=== PATIENT | female | born 1940 | race Caucasian/White ===

== ENCOUNTER 2016-10-20 09:08 | Outpatient (CLI) ==
[2015-01-10 11:26] VITALS: BMI 28.0
[2016-10-20 09:36] LABS: BILIRUBIN,URINE Negative (NEGATIVE); KETONES,URINE Negative (NEGATIVE); LEUKOCYTE ESTERASE ,URINE Negative (NEGATIVE); NITRITE,URINE Negative (NEGATIVE); PH,URINE 5.5 (5-9); PROTEIN,URINE Negative (NEGATIVE); URINE, BLOOD Trace-lysed (NEGATIVE)
[2016-10-20 09:37] LABS: ADD URINE MICROSCOPIC YES
[2016-10-20 10:11] LABS: ALBUMIN 3.7 g/dL (3.4-5.0); ANION GAP 11.9; BUN/CREATININE RATIO 25.16; CALCIUM 9.5 mg/dL (8.2-10.2); CREATININE 1.51 mg/dL (0.60-1.30); MAGNESIUM 2.2 mg/dL (1.7-2.2); PHOSPHORUS 3.4 mg/dL (2.8-4.1); POTASSIUM 3.9 mmol/L (3.5-5.10); URIC ACID 6.3 mg/dL (2.4-6.0)
[2016-10-21 09:37] LABS: URINE CREATINE 51.5 mg/dL (Not Estab.)
== END 2016-10-20 09:09 | disposition home or self-care (01) ==
LOC: LAB 09:08
PROVIDERS: ATTEND Internal Medicine Nephrology
DX: N18.3 Chronic kidney disease, stage 3 (moderate) (principal); I10 Essential (primary) hypertension
CPT/HCPCS: 36415; 80069; 81001; 82306; 82570; 83735; 83970; 84156; 84550

== ENCOUNTER 2017-01-21 09:56 | Inpatient (IN) | payer OTHER ==
[2017-01-21 10:04] VITALS: BMI 28.9
[2017-01-21] MEDS ORDERED: SODIUM CHLORIDE 500 ML IV STA (10:10)
[2017-01-21] MEDS ORDERED: NITROSTAT SL PRN ×2 (10:10→12:13)
[2017-01-21] MEDS ORDERED: ASPIRIN EC PO STA (10:10)
[2017-01-21 10:34] LABS: BASOPHILS % (AUTO) 0.6 % (0.0-3.0); EOSINOPHILS # (AUTO) 0.1 K/ul (0.0-0.7); EOSINOPHILS % (AUTO) 1.8 % (0.0-7.0); HEMATOCRIT 34.9 % (37.0-47.0); IMMATURE GRANULOCYTE % (AUTO) 0.4 % (0.0-5.0); LYMPHOCYTES # (AUTO) 0.8 K/uL (0.60-3.4); LYMPHOCYTES % (AUTO) 16.6 (10.0-50.0); MEAN CORPUSCULAR HEMOGLOBIN 29.4 pg (27.0-31.0); MEAN CORPUSCULAR HGB CONC 34.4 (31.8-35.4); MEAN CORPUSCULAR VOLUME 85.5 fl (81.0-99.0); MONOCYTES # (AUTO) 0.3 K/uL (0.4-2.0); MONOCYTES % (AUTO) 5.3 (0-10); NEUTROPHILS # (AUTO) 3.8 K/ul (2.0-6.9); NEUTROPHILS % (AUTO) 75.3; PLATELET COUNT 245 10^3/uL (140-440); RED BLOOD COUNT 4.08 10^6/ul (4.20-5.40); WHITE BLOOD COUNT 5.05 K/ul (4.6-10.2)
[2017-01-21 10:59] LABS: ALANINE AMINOTRANSFERASE 13 U/L (12-78); ALBUMIN/GLOBULIN RATIO 1.18; ALKALINE PHOSPHATASE 77 U/L (53-141); AMYLASE 30 U/L (25-115); ASPARTATE AMINO TRANSFERASE 12 U/L (15-37); BILIRUBIN,TOTAL 0.34 mg/dL (0.00-1.20); BLOOD UREA NITROGEN 27 mg/dL (7-18); CALCIUM 10.1 mg/dL (8.2-10.2); CARBON DIOXIDE 23 mmol/L (23-31); CHLORIDE 105 mmol/L (98-107); CREATINE KINASE 52 U/L; CREATININE 1.73 mg/dL (0.60-1.30); GLUCOSE 148 mg/dL (82-115); LIPASE 12 U/L (8-78); SODIUM 140 mmol/L (136-145); TOTAL PROTEIN 7.4 g/dL (5.8-8.1)
--- NOTE | 2017-01-21 11:04 | DI ---
Exam: Chest one-view HISTORY: Dyspnea. Comparison: 01/10/2015. FINDINGS: Portable image of the chest demonstrates low inspiratory volumes with no evidence of pneu monia or edema. The cardiac silhouette is mildly enlarged. The thoracic aorta is partially calcifie d. Calcified granulomata are again noted. There are surgical clips over the left axilla as before. The skeletal structures appear intact. IMPRESSION: No acute cardiopulmonary disease. Atherosclerosis and evidence of prior granulomatosis. Cardiomegaly. Prior left mastectomy and left axillary dissection.
[2017-01-21] MEDS ORDERED: NITROSTAT SL STA (12:01)
--- NOTE | 2017-01-21 12:07 | ED.PDOC ---
General ED Provider: Dr. OLGA LIDIA RAZA-ER Chief Complaint: Chest Pain Stated Complaint: my chst has been hurting since last nite Time Seen by Physician: 10:10 Mode of Arrival: Walk-In Information Source: Patient, Family Exam Limitations: No limitations Primary Care Provider: NIKKO RODRIGUEZ Nursing and Triage Documentation Reviewed and Agree: Yes Cardiovascular Complaint Exam - Chest Pain Complaint/Exam Onset: Gradual Duration: several hours Symptoms Are: Still present Timing: Constant Initial Severity: Mild Current Severity: Moderate Location: Reports: Diffuse Character: Reports: Dull, Aching Aggravating: Reports: None Alleviating: Reports: Nitro Associated Signs and Symptoms: Reports: Short of air. Denies: Diaphoresis, Nausea, Vomiting, Fever, Palpitations, Cough, Hemoptysis, Back pain, Abdominal pain, Dizziness, Calf pain, Calf swelling Related Surgical History: Reports: None History of Healthcare-Acquired Pneumonia: Reports: No AMI/ACS Risk Factors: Reports: Obesity, Hypertension TAD Risk Factors: Reports: Hypertension Prior Care for this Complaint: No Recent Stress Test: No Recent Echo/LV Function: No JVD Present: No Subcutaneous Emphysema Present: No Diminshed Breath Sounds: Yes Reproducible Chest Wall Pain: No Bilateral Pulses Present: No Unequal Pulses Noted: No If Risk Factors for AMI/ACS Consider: EKG, Cardiac Enzymes, Oxygen, Aspirin Differential Diagnoses: Acute CO, ACS Quality Indicator For Non-Traumatic Chest Pain/Syncope: EKG Performed Review of Systems - Review Of Systems Constitutional: Reports: No symptoms Eyes: Reports: No symptoms Ears, Nose, Mouth, Throat: Reports: No symptoms Respiratory: Reports: No symptoms Cardiac: Reports: Chest pain GI: Reports: No symptoms : Reports: No symptoms Musculoskeletal: Reports: No symptoms Skin: Reports: No symptoms Neurological: Reports: No symptoms Endocrine: Reports: No symptoms Hematologic/Lymphatic: Reports: No symptoms All Other Systems: Reviewed and Negative Past Medical History - Past Medical History Previously Healthy: Yes Endocrine: Reports: Unknown Cardiovascular: Reports: Unknown Respiratory: Reports: Unknown Hematological: Reports: Unknown Gastrointestinal: Reports: Unknown Genitourinary: Reports: Unknown Neuro/Psych: Reports: Unknown Musculoskeletal: Reports: Unknown Cancer: Reports: Unknown Last Menstrual Period: NA - Surgical History General Surgical History: Reports: Unknown - Family History Family History: Reports: Unknown - Social History Smoking Status: Never smoker Hx Substance Use: No Alcohol Screening: None Lives: With family Physical Exam - Physical Exam Appearance: Well-appearing, No pain distress, Well-nourished Pain Distress: Mild Eyes: MARTÍNEZ, EOMI, Conjunctiva clear ENT: Ears normal, Nose normal, Oropharynx normal Neck: Supple Respiratory: Airway patent, Breath sounds clear, Breath sounds equal, Respirations nonlabored Cardiovascular: RRR GI/: Soft, Nontender, No masses, Bowel sounds normal, No Organomegaly Musculoskeletal: Normal strength, ROM intact, No edema, No calf tenderness Skin: Warm, Dry, Normal color Neurological: Sensation intact, Motor intact, Reflexes intact, Cranial nerves intact, Alert, Oriented Psychiatric: Affect appropriate, Mood appropriate, Anxious Interpretation - Radiology Interpretation Radiology Interpretation By: Radiologist Radiology Results: Negative Exam Interpreted: Portable CXR - EKG Interpretation Time of EKG #1: 12:08 Rate: Normal Rhythm: Sinus Ectopy: None [place]: NL ST Segment: Normal Re-Evaluation - Re-Evaluation Time of Re-Evaluation: 12:08 Status: Improved Vital Signs Stable: Yes Pain Level: 0 Appearance: NAD Lungs: Clear Skin: Warm and Dry Neuro: Alert and Oriented X3 CV: RRR Physician Notification - Case Discussed Physician Notified: dr rodriguez Time of Notification: 12:08 Critical Care Note - Critical Care Note Total Time (mins): 0 Course - Course Hematology/Chemistry: 01/21/17 10:20 01/21/17 10:20 Orders, Labs, Meds: Lab Review 01/21/17 10:20 WBC 5.05 RBC 4.08 L Hgb 12.0 Hct 34.9 L MCV 85.5 MCH 29.4 MCHC 34.4 RDW Coeff of Trinity 13.0 Plt Count 245 Immature Gran % (Auto) 0.4 Neut % (Auto) 75.3 Lymph % (Auto) 16.6 [place] % (Auto) 5.3 Eos % (Auto) 1.8 Baso % (Auto) 0.6 Immature Gran # (Auto) 0.0 Neut # 3.8 Lymph # 0.8 [place] # 0.3 L Eos # 0.1 Baso # 0.0 D-Dimer (Manual) 848.13 Sodium 140 Potassium 4.0 Chloride 105 Carbon Dioxide 23 Anion Gap 16.0 BUN 27 H Creatinine 1.73 H Estimated GFR (MDRD) 28.00 BUN/Creatinine Ratio 15.60 Glucose 148 H Calcium 10.1 Total Bilirubin 0.34 AST 12 L ALT 13 Alkaline Phosphatase 77 Total Creatine Kinase 52 Troponin I < 0.0100 Total Protein 7.4 Albumin 4.0 Globulin 3.4 Albumin/Globulin Ratio 1.18 Amylase 30 Lipase 12 Orders Category Date Time Status ADMIT PATIENT INPATIENT .TO SCU (MONITORED BED) ADMISSION 01/21/17 12:09 Active EKG-(ED ONLY) Stat CARDIO 01/21/17 10:08 Completed EKG-(IP & OP ONLY) DAILY CARDIO 01/22/17 06:00 Ordered EKG-(IP & OP ONLY) DAILY CARDIO 01/23/17 06:00 Ordered EKG-(IP & OP ONLY) DAILY CARDIO 01/24/17 06:00 Ordered OXYGEN Routine CARDIO 01/21/17 12:10 Active ACCUCHECK (MED/SURG, SCU) [BLOOD GLUCOSE MONITORING] CARE 01/21/17 12:13 Active 0630,1100,1700,2100 ACTIVITY .BR with BRP CARE 01/21/17 12:09 Active GIVE HS SNACK 2100 CARE 01/21/17 12:12 Active INTAKE & OUTPUT Q8HR CARE 01/21/17 12:09 Active TELEMETRY MONITORING TELE CARE 01/21/17 12:09 Active VITAL SIGNS Q4HR CARE 01/21/17 12:09 Active ADA 2000 RADHA DIET DIETARY 01/21/17 Dinner Ordered HS SNACK DIETARY 01/21/17 Dinner Ordered Remelt Operator [ED SUPERVISOR PHOTOSTAT APPLIED] .ONCE EMERGENCY 01/21/17 10:09 Active IV [ED IV/MEDIPORT/POWERPORT] .ONCE EMERGENCY 01/21/17 10:09 Active OXYGEN [ED APPLY O2] .ONCE EMERGENCY 01/21/17 10:09 Active AMYLASE Stat LAB 01/21/17 10:20 Completed CBC W/ AUTO DIFF DAILY@0600 LAB 01/22/17 06:00 Ordered CBC W/ AUTO DIFF DAILY@0600 LAB 01/23/17 06:00 Ordered CBC W/ AUTO DIFF DAILY@0600 LAB 01/24/17 06:00 Ordered CBC W/ AUTO DIFF DAILY@0600 LAB 01/25/17 06:00 Ordered CBC W/ AUTO DIFF DAILY@0600 LAB 01/26/17 06:00 Ordered CBC W/ AUTO DIFF DAILY@0600 LAB 01/27/17 06:00 Ordered CBC W/ AUTO DIFF DAILY@0600 LAB 01/28/17 06:00 Ordered CBC W/ AUTO DIFF DAILY@0600 LAB 01/29/17 06:00 Ordered CBC W/ AUTO DIFF DAILY@0600 LAB 01/30/17 06:00 Ordered CBC W/ AUTO DIFF DAILY@0600 LAB 01/31/17 06:00 Ordered CBC W/ AUTO DIFF DAILY@0600 LAB 02/01/17 06:00 Ordered CBC W/ AUTO DIFF DAILY@0600 LAB 02/02/17 06:00 Ordered CBC W/ AUTO DIFF DAILY@0600 LAB 02/03/17 06:00 Ordered CBC W/ AUTO DIFF DAILY@0600 LAB 02/04/17 06:00 Ordered CBC W/ AUTO DIFF DAILY@0600 LAB 02/05/17 06:00 Ordered CBC W/ AUTO DIFF DAILY@0600 LAB 02/06/17 06:00 Ordered CBC W/ AUTO DIFF DAILY@0600 LAB 02/07/17 06:00 Ordered CBC W/ AUTO DIFF DAILY@0600 LAB 02/08/17 06:00 Ordered CBC W/ AUTO DIFF DAILY@0600 LAB 02/09/17 06:00 Ordered CBC W/ AUTO DIFF DAILY@0600 LAB 02/10/17 06:00 Ordered CBC W/ AUTO DIFF [facility] LAB 01/21/17 10:20 Completed COMPREHENSIVE METABOLIC PANEL DAILY@0600 LAB 01/22/17 06:00 Ordered COMPREHENSIVE METABOLIC PANEL DAILY@0600 LAB 01/23/17 06:00 Ordered COMPREHENSIVE METABOLIC PANEL DAILY@0600 LAB 01/24/17 06:00 Ordered COMPREHENSIVE METABOLIC PANEL DAILY@0600 LAB 01/25/17 06:00 Ordered COMPREHENSIVE METABOLIC PANEL DAILY@0600 LAB 01/26/17 06:00 Ordered COMPREHENSIVE METABOLIC PANEL DAILY@0600 LAB 01/27/17 06:00 Ordered COMPREHENSIVE METABOLIC PANEL DAILY@0600 LAB 01/28/17 06:00 Ordered COMPREHENSIVE METABOLIC PANEL DAILY@0600 LAB 01/29/17 06:00 Ordered COMPREHENSIVE METABOLIC PANEL DAILY@0600 LAB 01/30/17 06:00 Ordered COMPREHENSIVE METABOLIC PANEL DAILY@0600 LAB 01/31/17 06:00 Ordered COMPREHENSIVE METABOLIC PANEL DAILY@0600 LAB 02/01/17 06:00 Ordered COMPREHENSIVE METABOLIC PANEL DAILY@0600 LAB 02/02/17 06:00 Ordered COMPREHENSIVE METABOLIC PANEL DAILY@0600 LAB 02/03/17 06:00 Ordered COMPREHENSIVE METABOLIC PANEL DAILY@0600 LAB 02/04/17 06:00 Ordered COMPREHENSIVE METABOLIC PANEL DAILY@0600 LAB 02/05/17 06:00 Ordered COMPREHENSIVE METABOLIC PANEL DAILY@0600 LAB 02/06/17 06:00 Ordered COMPREHENSIVE METABOLIC PANEL DAILY@0600 LAB 02/07/17 06:00 Ordered COMPREHENSIVE METABOLIC PANEL DAILY@0600 LAB 02/08/17 06:00 Ordered COMPREHENSIVE METABOLIC PANEL DAILY@0600 LAB 02/09/17 06:00 Ordered COMPREHENSIVE METABOLIC PANEL DAILY@0600 LAB 02/10/17 06:00 Ordered COMPREHENSIVE METABOLIC PANEL Stat LAB 01/21/17 10:20 Completed CREATINE KINASE Q8H LAB 01/21/17 18:15 Ordered CREATINE KINASE Q8H LAB 01/22/17 02:15 Ordered CREATINE KINASE Stat LAB 01/21/17 10:20 Completed D-DIMER Stat LAB 01/21/17 10:20 Completed LIPASE Stat LAB 01/21/17 10:20 Completed TROPONIN I Q8H LAB 01/21/17 18:15 Ordered TROPONIN I Q8H LAB 01/22/17 02:15 Ordered TROPONIN I Stat LAB 01/21/17 10:20 Completed 0.9 % Sodium Chloride [Saline Flush] MEDS 01/21/17 10:09 Active 1 syr IVF PRN PRN Alprazolam [Xanax] MEDS 01/21/17 12:10 Active 0.25 mg PO DAILY PRN Anastrozole [Arimidex] MEDS 01/22/17 09:00 Active 1 mg PO DAILY Aspirin [Aspirin EC] MEDS 01/21/17 10:10 Discontinued 325 mg PO ONCE STA Cyanocobalamin (Vitamin B-12) [B-12] MEDS 01/22/17 09:00 Discontinued 1,000 mg PO DAILY Enoxaparin Sodium [Lovenox] MEDS 01/22/17 09:00 Active 30 mg SUBCUT DAILY Ferrous Sulfate MEDS 01/22/17 09:00 Discontinued 324 mg PO DAILY Gabapentin [Neurontin] MEDS 01/21/17 15:00 Discontinued 100 mg PO TID Insulin Regular, Human [Humulin R] MEDS 01/21/17 12:12 Active See Protocol SUBCUT PRN PRN Latanoprost [Xalatan] MEDS 01/21/17 21:00 Active 1 drop OP BEDTIME Nitroglycerin [Nitrostat] MEDS 01/21/17 12:01 Discontinued 0.4 mg SL ONCE STA Nitroglycerin [Nitrostat] MEDS 01/21/17 10:10 Active 0.4 mg SL Q5MIN X 3 DOSES PRN Pantoprazole Sodium [Protonix] MEDS 01/22/17 06:30 Active 40 mg PO QDAC Sitagliptin Phosphate [Januvia] MEDS 01/22/17 09:00 Active 25 mg PO DAILY Sodium Chloride 0.9% [Sodium Chloride] 500 ml MEDS 01/21/17 10:10 Discontinued IV 30 mls/hr RESUSCITATION STATUS Routine OTHERS 01/21/17 12:09 Ordered CXR [CHEST, 1V AP ONLY] Stat RADS 01/21/17 10:11 Completed Medications Generic Name Dose Route Start Last Admin Trade Name Freq PRN Reason Stop Dose Admin Albuterol/Ipratropium 1 spray 01/21/17 14:07 Combivent Respimat Inhal [place] IH TID PRN wheezing/SOA Alprazolam 0.25 mg 01/21/17 12:10 Xanax PO DAILY PRN Anxiety Anastrozole 1 mg 01/22/17 09:00 Arimidex PO DAILY ABEL Enoxaparin Sodium 30 mg 01/22/17 09:00 Lovenox SUBCUT DAILY [facility] Ferrous Sulfate 324 mg 01/21/17 21:00 Ferrous Sulfate PO 2100 ABEL Gabapentin 100 mg 01/22/17 09:00 Neurontin PO DAILY ABEL Hydrochlorothiazide 25 mg 01/22/17 09:00 Hydrochlorothiazide PO DAILY ABEL Sodium Chloride 1,000 mls @ 30 mls/hr 01/21/17 15:30 01/21/17 15:26 Sodium Chloride IV 30 mls/hr .[id number] ABEL Administration Insulin Human Regular 0 unit 01/21/17 12:12 Humulin R SUBCUT PRN PRN Hyperglycemica Protocol Latanoprost 1 drop 01/21/17 21:00 Xalatan OP BEDTIME ABEL Lisinopril 20 mg 01/22/17 09:00 Zestril PO DAILY ABEL Nitroglycerin 0.4 mg 01/21/17 10:10 Nitrostat SL Q5MIN X 3 DOSES PRN Chest Pain Non-Formulary Medication 1,000 mg 01/21/17 21:00 Cyanocobalamin (Vitamin B-12) [B-12] PO 2100 ABEL Pantoprazole Sodium 40 mg 01/22/17 06:30 Protonix PO QDAC ABEL Fluticasone/Salmeterol 1 puff 01/21/17 15:00 01/21/17 15:14 Advair 250-50 Diskus IH 1 puff BID ABEL Administration Sitagliptin Phosphate 25 mg 01/22/17 09:00 Januvia PO DAILY ABEL Sodium Chloride 1 syr 01/21/17 10:09 Saline Flush IVF PRN PRN To flush IV Discontinued Medications Generic Name Dose Route Start Last Admin Trade Name Freq PRN Reason Stop Dose Admin Albuterol/Ipratropium 1 spray 01/21/17 15:00 Combivent Respimat Inhal [place] IH TID ABEL Aspirin 325 mg 01/21/17 10:10 01/21/17 10:31 Aspirin Ec PO 01/21/17 10:11 325 mg ONCE STA Administration Ferrous Sulfate 324 mg 01/22/17 09:00 Ferrous Sulfate PO DAILY [facility] Gabapentin 100 mg 01/21/17 15:00 01/21/17 15:31 Neurontin PO Not Given TID [facility] Sodium Chloride 500 mls @ 30 mls/hr 01/21/17 10:10 01/21/17 15:31 Sodium Chloride IV 01/22/17 02:49 Not Given .[id number] STA Nitroglycerin 0.4 mg 01/21/17 12:01 01/21/17 12:09 Nitrostat SL 01/21/17 12:02 0.4 mg ONCE STA Administration Non-Formulary Medication 1,000 mg 01/22/17 09:00 Cyanocobalamin (Vitamin B-12) [B-12] PO DAILY ABEL Fluticasone/Salmeterol 1 puff 01/21/17 21:00 Advair 250-50 Diskus IH BID ABEL Vital Signs: Temp Pulse Resp BP Pulse Ox 01/21/17 09:59 98.0 F 70 20 146/77 H 98 KELLY Risk Score KELLY Risk Score: Risk Score Odds of by 30D 0 0.1 (0.1-0.2) 1 0.3 (0.2-0.3) 2 0.4 (0.3-0.5) 3 0.7 (0.6-0.9) 4 1.2 (1.0-1.5) 5 2.2 (1.9-2.6) 6 3.0 (2.5-3.6) 7 4.8 (3.8-6.1) Departure - Departure Time of Disposition: 12:08 Disposition: ADMITTED INPATIENT Discharge Problem: Chest pain Condition: Stable Pt referred to PMD for follow-up: Yes Allergies/Adverse Reactions: Allergies No Known Allergies Allergy (Unverified 01/21/17 09:58) Home Medications: Ambulatory Orders Alprazolam [Xanax] 0.25 mg PO DAILY PRN 08/11/13 Anastrozole 1 mg PO DAILY 08/11/13 Cyanocobalamin (Vitamin B-12) [B-12] 1,000 mg PO DAILY 08/11/13 Ferrous Fumarate [Iron] 325 mg PO DAILY 08/11/13 Ipratropium/Albuterol Sulfate [Combivent Inhaler] 1 puff INH TID PRN 08/11/13 Fluticasone/Salmeterol 250/50 [Advair 250-50 Diskus] 1 puff IH BID 01/10/15 Sitagliptin Phosphate [Januvia] 25 mg PO DAILY #30 tablet 01/11/15 Gabapentin 100 mg PO DAILY 01/21/17 Latanoprost [Xalatan] 1 drop OP BEDTIME 01/21/17 Lisinopril 20 mg PO DAILY 01/21/17 Pantoprazole Sodium [Protonix] 40 mg PO DAILY 01/21/17 Transfer Form Completed: No Disposition Discussed With: Patient, Family
[2017-01-21] MEDS ORDERED: XANAX PO PRN (12:10)
[2017-01-21] MEDS ORDERED: HUMULIN R SUBCUT PRN (12:12)
[2017-01-21] MEDS ORDERED: SODIUM CHLORIDE 1,000 ML IV STA (14:52)
[2017-01-21] MEDS ORDERED: NEURONTIN PO SCH (15:00)
[2017-01-21] MEDS ORDERED: COMBIVENT RESPIMAT INHAL SPRAY IH SCH (15:00)
[2017-01-21] MEDS ORDERED: IPRATROPIUM INH SCH ×22 (15:00)
[2017-01-21] MEDS ORDERED: ALBUTEROL SULFATE INH SCH ×22 (15:00)
[2017-01-21] MEDS: ADVAIR 250-50 DISKUS IH SCH ×2 (15:14→20:21)
[2017-01-21] MEDS ORDERED: SODIUM CHLORIDE 1,000 ML IV SCH (15:30)
[2017-01-21 19:12] LABS: CREATINE KINASE 52 U/L
[2017-01-21] MEDS: FERROUS SULFATE PO SCH (20:21)
[2017-01-21] MEDS: CYANOCOBALAMIN 1000 MG PO SCH (20:22)
[2017-01-21] MEDS: XALATAN OP SCH (20:22)
[2017-01-21] MEDS ORDERED: ADVAIR 250-50 DISKUS IH SCH (21:00)
[2017-01-22 02:13] LABS: BASOPHILS % (AUTO) 0.5 % (0.0-3.0); EOSINOPHILS # (AUTO) 0.1 K/ul (0.0-0.7); EOSINOPHILS % (AUTO) 2.4 % (0.0-7.0); HEMATOCRIT 30.1 % (37.0-47.0); HEMOGLOBIN 10.6 g/dl (12.0-16.0); IMMATURE GRANULOCYTE % (AUTO) 0.4 % (0.0-5.0); LYMPHOCYTES # (AUTO) 1.8 K/uL (0.60-3.4); LYMPHOCYTES % (AUTO) 33.5 (10.0-50.0); MEAN CORPUSCULAR HEMOGLOBIN 30.5 pg (27.0-31.0); MEAN CORPUSCULAR HGB CONC 35.2 (31.8-35.4); MEAN CORPUSCULAR VOLUME 86.5 fl (81.0-99.0); MONOCYTES # (AUTO) 0.4 K/uL (0.4-2.0); MONOCYTES % (AUTO) 6.8 (0-10); NEUTROPHILS # (AUTO) 3.1 K/ul (2.0-6.9); NEUTROPHILS % (AUTO) 56.4; PLATELET COUNT 206 10^3/uL (140-440); RED BLOOD COUNT 3.48 10^6/ul (4.20-5.40); WHITE BLOOD COUNT 5.46 K/ul (4.6-10.2)
[2017-01-22 02:32] LABS: ALBUMIN 3.7 g/dL (3.4-5.0); ALBUMIN/GLOBULIN RATIO 1.28; ANION GAP 14.3; BILIRUBIN,TOTAL 0.25 mg/dL (0.00-1.20); BUN/CREATININE RATIO 16.2; CALCIUM 9.7 mg/dL (8.2-10.2); CREATININE 1.79 mg/dL (0.60-1.30); POTASSIUM 4.3 mmol/L (3.5-5.10); TOTAL PROTEIN 6.6 g/dL (5.8-8.1)
[2017-01-22 02:40] LABS: TROPONIN I 0.021 ng/ml (0.0000-0.4000)
[2017-01-22] MEDS: PROTONIX PO SCH (05:41)
[2017-01-22] MEDS: NEURONTIN PO SCH (08:42)
[2017-01-22] MEDS: ZESTRIL PO SCH (08:42)
[2017-01-22] MEDS: LOVENOX SUBCUT SCH (08:42)
[2017-01-22] MEDS: JANUVIA PO SCH (08:43)
[2017-01-22] MEDS: ARIMIDEX PO SCH (08:45)
[2017-01-22] MEDS: ADVAIR 250-50 DISKUS IH SCH ×2 (08:53→21:12)
[2017-01-22] MEDS ORDERED: FERROUS SULFATE PO SCH (09:00)
[2017-01-22] MEDS ORDERED: FERROUS FUMARATE 325 MG PO SCH (09:00)
[2017-01-22] MEDS ORDERED: LISINOPRIL PO SCH (09:00)
[2017-01-22] MEDS ORDERED: NON-FORMULARY MEDICATION (Sitagliptin Phosphate [Januvia] 25 MG) PO SCH (09:00)
[2017-01-22] MEDS ORDERED: HYDROCHLOROTHIAZIDE PO SCH ×2 (09:00)
[2017-01-22] MEDS ORDERED: ADVAIR 250-50 DISKUS IH SCH (09:00)
[2017-01-22] MEDS ORDERED: CYANOCOBALAMIN 1000 MG PO SCH (09:00)
[2017-01-22] MEDS ORDERED: [UNRECOGNIZED DRUG - OTHER] PO SCH (09:00)
--- NOTE | 2017-01-22 10:52 | PCM.PROG ---
Attending Provider: ATTENDING PROVIDER: Dr. NIKKO LAM DATE OF SERVICE: 01/22/17 SUBJECTIVE: This 76 year old WHITE/ F was hospitalized 01/21/17. The patient is seen with Li, Nurse Practitoner. The patient is admitted with chest pain. She is alert, lying in bed, states she has not had any chest pain. REVIEW OF SYSTEMS: CONSTITUTIONAL: No night sweats. No fatigue, malaise, lethargy. No fever or chills. HEENT: Eyes: No visual changes. No eye pain. No eye discharge. ENT: No runny nose. No epistaxis. No sinus pain. No odynophagia. No congestion. RESPIRATORY: No cough, no congestion. No hemoptysis. CARDIOVASCULAR: No angina symptoms. No CHF symptoms. No atypical chest pain for CAD. No palpitations. No shortness of breath. GASTROINTESTINAL: No abdominal pain. No nausea or vomiting. No diarrhea or constipation. No hematemesis. No hematochezia. GENITOURINARY: No urgency. No frequency. No dysuria. No hematuria. No obstructive symptoms. No discharge. No pain. No significant abnormal bleeding. MUSCULOSKELETAL: No musculoskeletal pain; no joint swelling. NEUROLOGICAL: Awake, alert, oriented to time, place and person. No headache. No neck pain. No syncope. No seizures. No dizziness. PSYCHIATRIC: Not anxious. No depression. No suicidal thoughts. No homicidal thoughts. SKIN: No rash. No lesions. No wounds. ENDOCRINE: No unexplained weight loss. No weight gain. HEMATOLOGIC/LYMPHATIC: No anemia. No purpura. No petechiae. No prolonged or excessive bleeding. No palpable lymph nodes. PHYSICAL EXAMINATION: GENERAL: The patient is awake, alert and oriented, lying in bed in no distress. VITAL SIGNS: Temperature 98.1 F, Pulse 57, Respiratory Rate 18, BP 147/64, Pulse Ox 99% HEENT: Head normocephalic, atraumatic. Eyes: Extraocular muscles are intact. Pupils are equal, round and reactive to light and accommodation. Ears: No lesions. Nose appeared normal. Throat: No exudate or erythema. NECK: Supple. No JVD, no carotid bruit. No lymphadenopathy or thyromegaly. LUNGS: Diminished breath sounds bilaterally. Clear to auscultation. Percussion note normal. Chest symmetrical. HEART: S1, S2, no S3. No murmurs. No cyanosis or clubbing. No ascites. Pulses: Dorsalis pedis and posterior tibial pulses +1 to +2 both sides. ABDOMEN: Soft. Non-tender. Bowel sounds active. No CVA tenderness. No mass felt. EXTREMITIES: No edema. Full range of motion of all extremities, equal. NEUROLOGIC: No focal deficit. Cranial nerves II through XII are grossly intact. No headache, no double vision or headache. SKIN: Not dry. Intact. Turgor-normal. LYMPHATIC: No palpable lymph nodes/no lymphedema. MUSCULOSKELETAL: Normal joints with no swelling. Muscle tone is normal. LAB REVIEW: 01/22/17 02:10 01/22/17 02:10 01/22/17 02:10: WBC 5.46, RBC 3.48 L, Hgb 10.6 L, Hct 30.1 L, MCV 86.5, MCH 30.5 , MCHC 35.2, RDW Coeff of Trinity 13.0, Plt Count 206, Immature Gran % (Auto) 0.4, Neut % (Auto) 56.4, Lymph % (Auto) 33.5, [place] % (Auto) 6.8, Eos % (Auto) 2.4, Baso % (Auto) 0.5, Immature Gran # (Auto) 0.0, Neut # 3.1, Lymph # 1.8, [place] # 0.4, Eos # 0.1, Baso # 0.0, Sodium 141, Potassium 4.3, Chloride 107, Carbon Dioxide 24, Anion Gap 14.3, BUN 29 H, Creatinine 1.79 H, Estimated GFR (MDRD) 27.00, BUN/Creatinine Ratio 16.20, Glucose 130 H, Calcium 9.7, Total Bilirubin 0.25, AST 10 L, ALT 10 L, Alkaline Phosphatase 66, Total Creatine Kinase 52, Troponin I 0.0210, Total Protein 6.6, Albumin 3.7, Globulin 2.9, Albumin/ Globulin Ratio 1.28 01/21/17 18:45: Total Creatine Kinase 52, Troponin I < 0.0100 ASSESSMENT: 1. Chest pain 2. Hypertension 3. Diabetes mellitus Type 2 4. Chronic kidney disease 5. Right nephrectomy 10/2013 PLAN: 1. Continue to monitor 2. Echocardiogram 3. Stress echocardiogram Plan and coordination of the patient's care discussed in the presence of Drying Machine Tender and nurse. CONDITION: Stable SCRIBED BY: AYDIN RODRIGUEZ Title Specialist scribed while in presence of service performed by Dr. NIKKO LAM/LI CORONADO APRN on 01/22/17 ([id number])
[2017-01-22] MEDS: COMBIVENT RESPIMAT INHAL SPRAY IH PRN ×2 (12:37→18:11)
--- NOTE | 2017-01-22 13:29 | PN ---
DATE OF SERVICE: 01/21/17 - ADMITTING NOTE SUBJECTIVE: Patrica Benavides was brought to the emergency room with complaint of having chest pain of nearly a couple of days duration. The patient had chest tightness , exertional but had some associated shortness of breath with it. No sweating. The chest tightness would come and go. The patient says with walking or exertion there is no predictable chest tightness. Daughter was present in the room at the time. REVIEW OF SYSTEMS: CONSTITUTIONAL: No night sweats. No fatigue, malaise, lethargy. No fever or chills. HEENT: Eyes: No visual changes. No eye pain. No eye discharge. ENT: No runny nose. No epistaxis. No sinus pain. No sore throat. No odynophagia. No congestion. RESPIRATORY: No cough, no congestion. No hemoptysis. CARDIOVASCULAR: No angina symptoms. No CHF symptoms. No atypical chest pain for CAD. No palpitations. No shortness of breath. GASTROINTESTINAL: No GERD type of symptoms. No abdominal pain. No nausea or vomiting. No diarrhea or constipation. No hematemesis. No hematochezia. GENITOURINARY: No urgency. No frequency. No dysuria. No hematuria. No obstructive symptoms. No discharge. No pain. No significant abnormal bleeding. MUSCULOSKELETAL: No musculoskeletal pain; no joint swelling. NEUROLOGICAL: No headache. No neck pain. No syncope. No seizures. No dizziness. PSYCHIATRIC: Not anxious. No depression. No suicidal thoughts. No homicidal thoughts. SKIN: No rash. No lesions. No wounds. ENDOCRINE: No unexplained weight loss. No weight gain. HEMATOLOGIC/LYMPHATIC: No anemia. No purpura. No petechiae. No prolonged or excessive bleeding. No palpable lymph nodes. PHYSICAL EXAMINATION: VITAL SIGNS: Temperature 97.9, pulse 55, BP 173/75, respiratory rate 15. Height 5'2", weight 154 lbs. HEENT: Head normocephalic, atraumatic. Eyes: Extraocular muscles are intact. Pupils are equal, round and reactive to light and accommodation. Ears: No lesions. Nose appeared normal. Throat: No exudate or erythema. NECK: Supple. No JVP, no carotid bruit. No lymphadenopathy or thyromegaly. LUNGS: Clear to auscultation. Percussion note normal. Chest symmetrical. HEART: S1, S2, no S3. No murmurs. No cyanosis or clubbing. No ascites. Pulses: Dorsalis pedis and posterior tibial pulses +1 to +2 both sides. ABDOMEN: Soft. Nontender. Bowel sounds active. No CVA tenderness. No mass felt. EXTREMITIES: No edema. Full range of motion of all extremities, equal. NEUROLOGIC: No focal deficit. Cranial nerves II through XII are grossly intact. No headache, no double vision or headache. SKIN: Not dry. Intact. Turgor - normal. LYMPHATIC: No palpable lymph nodes/no lymphedema. MUSCULOSKELETAL: Normal joints with no swelling. Muscle tone is normal. EKG sinus rhythm, no acute changes. The patient's cardiac markers are negative. ASSESSMENT: 1. CHEST TIGHTNESS/CHEST PAIN, RULE OUT TX OR ISCHEMIA. THE PATIENT HAS SEVERAL RISK FACTORS FOR CORONARY ARTERY DISEASE. WILL MONITOR CARDIAC RHYTHM AND WILL DO ECHOCARDIOGRAM AND DOBUTAMINE STRESS ECHO ON THE MORNING. CONDITION: Stable. The patient was seen and examined in the presence of Nurse Practitioner. TIME SPENT: More than 30 minutes. Plan and coordination of the patient's care discussed in the presence of nurse. YFN
[2017-01-22] MEDS: FLUOROMETHOLONE EACHEYE SCH (16:23)
[2017-01-22] MEDS: FERROUS SULFATE PO SCH (21:12)
[2017-01-22] MEDS: XALATAN OP SCH (21:12)
[2017-01-22] MEDS: CYANOCOBALAMIN 1000 MG PO SCH (21:12)
[2017-01-23 04:36] LABS: BASOPHILS % (AUTO) 0.7 % (0.0-3.0); EOSINOPHILS # (AUTO) 0.2 K/ul (0.0-0.7); EOSINOPHILS % (AUTO) 2.8 % (0.0-7.0); HEMATOCRIT 30.8 % (37.0-47.0); HEMOGLOBIN 10.7 g/dl (12.0-16.0); IMMATURE GRANULOCYTE % (AUTO) 0.2 % (0.0-5.0); LYMPHOCYTES # (AUTO) 1.7 K/uL (0.60-3.4); LYMPHOCYTES % (AUTO) 30.6 (10.0-50.0); MEAN CORPUSCULAR HGB CONC 34.7 (31.8-35.4); MEAN CORPUSCULAR VOLUME 86.3 fl (81.0-99.0); MONOCYTES # (AUTO) 0.4 K/uL (0.4-2.0); MONOCYTES % (AUTO) 6.6 (0-10); NEUTROPHILS # (AUTO) 3.2 K/ul (2.0-6.9); NEUTROPHILS % (AUTO) 59.1; PLATELET COUNT 205 10^3/uL (140-440); RED BLOOD COUNT 3.57 10^6/ul (4.20-5.40); WHITE BLOOD COUNT 5.42 K/ul (4.6-10.2)
[2017-01-23 05:05] LABS: ALBUMIN 3.7 g/dL (3.4-5.0); ALBUMIN/GLOBULIN RATIO 1.23; ANION GAP 17.3; BILIRUBIN,TOTAL 0.26 mg/dL (0.00-1.20); BUN/CREATININE RATIO 22.15; CALCIUM 9.8 mg/dL (8.2-10.2); CREATININE 1.67 mg/dL (0.60-1.30); POTASSIUM 4.3 mmol/L (3.5-5.10); TOTAL PROTEIN 6.7 g/dL (5.8-8.1)
[2017-01-23 05:34] VITALS: BP 142/67; TEMP 98
[2017-01-23] MEDS: PROTONIX PO SCH (06:07)
[2017-01-23] MEDS: ADVAIR 250-50 DISKUS IH SCH (09:31)
[2017-01-23] MEDS: ARIMIDEX PO SCH (09:33)
[2017-01-23] MEDS: NEURONTIN PO SCH (09:33)
[2017-01-23] MEDS: JANUVIA PO SCH (09:33)
[2017-01-23] MEDS: ZESTRIL PO SCH (09:34)
[2017-01-23] MEDS: FLUOROMETHOLONE EACHEYE SCH (09:35)
[2017-01-23] MEDS: LOVENOX SUBCUT SCH (09:37)
--- NOTE | 2017-01-25 09:38 | STRESSMOD ---
Ordering Physician: NIKKO LAM, Date of Test: 01/22/17 Medical History: CHEST PAIN, HYPERTENSION Current Medications: XANAX, COMBIVENT, IRON, ADVAIR, JANUVIA, XALATAN, GABAPENTIN, LISINOPRIL, PROTONIX Physical Findings: S1, S2, NO S3 Resting EKG: SINUS RHYTHM/LVH Target Heart Rate: 120/142 STAGE MPH/GRADE HEART RATE BPM BLOOD PRESSURE mmhg RHYTHM S-T SEGMENT UP DOWN SYMPTOMS,COMMENTS At Rest 65 102/60 SR X NONE 1 1.7/0% 110 110/50 SR X NONE 2 1.7/5% 3 1.7/10% 4 2.5/12% 5 3.4/14% 6 4.2/16% 7 5.18% Immediately after 126 SR X FATIGUE Total Time: 5:00 Maximum Heart Rate Reached: 126 Reason For Termination: FATIGUE 3 MINUTES POST EXERCISE: HR 68 BPM, BP 118/72 MMHG, SR, +/- INTERPRETATION: 98% OXYGEN SATURATION WITH EXERCISE ON ROOM AIR 1. NO EVIDENCE OF ISCHEMIA BY ST-T WAVE CHANGES 2. NO CHEST PAIN OR CHEST DISCOMFORT 3. NORMAL BLOOD PRESSURE RESPONSE 4. NO ARRHYTHMIAS NORMAL LEFT VENTRICULAR CONTRACTILITY--RESTING AND POST EXERCISE MTDD
--- NOTE | 2017-01-25 09:40 | ECHOSTRESS ---
Date of Exam: 01/22/17 Ordering Physician: NIKKO LAM Reason for Echo: CHEST PAIN, HYPERTENSION, GERD STRESS TEST--NO ISCHEMIA M-Mode Normal Adult Results LV Dimensions Normal Adult Results AoV Opening excursions >1.6 LVEDD-base- 3.5-5.8 Ao root dimensions 2.0-3.7 LVESD-base- 3.1-4.6 L. Atrium dimensions 1.9-3.8 Post. Wall thickness 0.8-1.1 IV septum (thickness) 0.7-1.2 Post. Wall excursion 0.72-1.3 Septal motion Systolic motion R. Ventricular cavity 1.5-2.0 LVEF 60% Paradoxical septal wall motion 2-D: NORMAL LEFT VENTRICULAR CONTRACTILITY--RESTING AND POST EXERCISE M-MODE: MV: AV: TV: PV: CHAMBER SIZE: WALL MOTION: NORMAL LEFT VENTRICULAR CONTRACTILITY--RESTING AND POST EXERCISE PERICARDIUM: INTERPRETATION: 1. NORMAL LEFT VENTRICULAR CONTRACTILITY--RESTING AND POST EXERCISE MTDD
--- NOTE | 2017-01-25 10:01 | ECHO2D ---
Date of Exam: 01/22/17 Ordering Physician: NIKKO LAM Reason for Echo: CHEST PAIN, HTN, GERD M-Mode Normal Adult Results LV Dimensions Normal Adult Results AoV Opening excursions >1.6 >1.6 LVEDD-base- 3.5-5.8 3.4 Ao root dimensions 2.0-3.7 3.2 LVESD-base- 3.1-4.6 L. Atrium dimensions 1.9-3.8 5.0 Post. Wall thickness 0.8-1.1 1.1 IV septum (thickness) 0.7-1.2 1.0 Post. Wall excursion 0.72-1.3 NORMAL Septal motion NORMAL Systolic motion R. Ventricular cavity 1.5-2.0 NORMAL LVEF 60% 63% Paradoxical septal wall motion NORMAL 2-D : VALVES--NORMAL, ENLARGED LEFT ATRIAL CAVITY--NO EFFUSION, NORMAL LEFT VENTRICLE SIZE, NO THROMBUS M-MODE: MV: NORMAL AV: NORMAL TV: NORMAL PV: CHAMBER SIZE: ENLARGED LEFT ATRIAL CAVITY WALL MOTION: NORMAL PERICARDIUM: NORMAL INTERPRETATION: 1. ENLARGED LEFT ATRIAL CAVITY 2. NORMAL VALVES 3. NORMAL LEFT VENTRICULAR CONTRACTILITY MTDD
--- NOTE | 2017-01-25 15:15 | HP ---
DATE OF SERVICE: 01/21/17 REASON FOR HOSPITALIZATION: Chest pain HISTORY OF PRESENT ILLNESS: The patient is a 76 year old white female brought by the family to the emergency room with complaint of shortness of breath and chest pain duration a couple of day and also several hours. The patient's chest pain was substernal tightness unrelated to exertion. REVIEW OF SYSTEMS: CONSTITUTIONAL: No night sweats. Weakness and fatigue lately. No fever or chills. HEENT: Eyes: No visual changes. No eye pain. No eye discharge. ENT: No runny nose. No epistaxis. No sinus pain. No sore throat. No odynophagia. No ear pain. No congestion. RESPIRATORY: No cough, no congestion. No hemoptysis. CARDIOVASCULAR: No angina symptoms. No CHF symptoms. No atypical chest pain for CAD. No palpitations. No shortness of breath. Chest tightness nonexertional. No PND. No orthopnea. GASTROINTESTINAL: No abdominal pain. No nausea or vomiting. No diarrhea or constipation. No hematemesis. No hematochezia. No reflux symptoms. GENITOURINARY: No urgency. No frequency. No dysuria. No hematuria. No obstructive symptoms. No discharge. No pain. No significant abnormal bleeding. MUSCULOSKELETAL: No musculoskeletal pain. No joint swelling. No arthritis. NEUROLOGICAL: No headache. No neck pain. No syncope. No seizures. No dizziness. PSYCHIATRIC: Not anxious. No depression. No suicidal thoughts. No homicidal thoughts. SKIN: No rash. No lesions. No wounds. ENDOCRINE: No unexplained weight loss. No weight gain. HEMATOLOGIC/LYMPHATIC: No anemia. No purpura. No petechiae. No prolonged or excessive bleeding. No palpable lymph nodes. PERSONAL/FAMILY/SOCIAL HISTORY: The patient is and lives with the help of daughter. Non-smoker and no alcohol abuse. Does all activity of daily living. Independent and intelligent. PAST MEDICAL/SURGICAL PROBLEMS: Hemicolectomy 2006 Diabetes Mellitus with A1c 6.1 on July 2016 Hypertension Dyslipidemia Severe DJD of Spine History of breast cancer with left mastectomy CKD level [address] Canales Chronic lung disease with asthma Gastroesophageal reflux disease Chronic anemia Renal cell carcinoma with nephrectomy on the right side, 11/08 MEDICATIONS: Xanax 0.25mg PO daily Anastrozole 1mg PO daily Vitamin B12 PO daily Ferrous Sulfate 325mg PO daily Combivent inhaler PRN Lisinopril. Hydrochlorothiazide 20-25 PO daily Januvia 25mg PO daily Gabapentin 100mg PO three times a day Pantoprazole 40mg PO daily Advair ALLERGIES: No known allergies. PHYSICAL EXAMINATION: GENERAL: The patient is oriented to time, place and person. VITAL SIGNS: Temperature 98, pulse 70, respiratory rate 20, blood pressure 146/ 77 and pulse ox 98%. HEENT: Head normocephalic, atraumatic. Eyes: Extraocular muscles are intact. Pupils are equal, round and reactive to light and accommodation. Ears: No lesions. Nose appeared normal. Throat: No exudate or erythema. NECK: Supple. No JVD, no carotid bruit. No lymphadenopathy or thyromegaly. LUNGS: Clear to auscultation. Percussion note normal. Chest symmetrical. HEART: S1, S2, no S3. No murmurs. No cyanosis or clubbing. No ascites. Pulses: Dorsalis pedis and posterior tibial pulses +1 to +2 both sides. ABDOMEN: Soft. Nontender. Bowel sounds active. No CVA tenderness. No mass felt. EXTREMITIES: No edema. Full range of motion of all extremities, equal. NEUROLOGIC: No focal deficit. Cranial nerves II through XII are grossly intact. No headache, no double vision or headache. SKIN: Not dry. Intact. Turgor - normal. LYMPHATIC: No palpable lymph nodes/no lymphedema. MUSCULOSKELETAL: Normal joints with no swelling. Muscle tone is normal.Left mastectomy scar noted. LABS: Potassium 4, creatinine 1.7, BUN 27, cardiac markers are negative, CK-MB negative, hgb 12, hct 34, WBC 5,000 normal differential. EKG sinus rhythm, LVH by voltage, no acute changes. ASSESSMENT: 1. Chest pain/chest tightness, etiology unknown factors; Hypertension, Diabetes mellitus, Chronic kidney disease and sedentary life style. 2. C of the breast, left mastectomy and had right nephrectomy with renal cell carcinoma 3. Bronchial asthma 4. Severe DJD of the spine PLAN: 1. Will rule out MD or ischemia 2. Will do serial EKG's, cardiac enzymes and isoenzymes 3. Telemetry 4. Will do echocardiogram, resting 2D-M Mode 5. Will do stress echo or Dobutamine stress echo 6. Education carried out about coronary insufficiency and the symptoms CONDITION: Stable The patient's daughter in the room explained about all these findings. TIME SPENT: More than 70 minutes. YFN
--- NOTE | 2017-01-25 15:17 | PN ---
DATE OF SERVICE: 01/22/17 SUBJECTIVE: The patient is a 76 year old white female hospitalized with chest pain. The patient's so far the cardiac workup with negative with serial cardiac markers and serial EKG's. The patient doesn't have any chest pain. PHYSICAL EXAMINATION: HEENT: Head normocephalic, atraumatic. Eyes: Extraocular muscles are intact. Pupils are equal, round and reactive to light and accommodation. Ears: No lesions. Nose appeared normal. Throat: No exudate or erythema. NECK: Supple. No JVD, no carotid bruit. No lymphadenopathy or thyromegaly. LUNGS: Clear to auscultation. Percussion note normal. Chest symmetrical. HEART: S1, S2, no S3. No murmurs. No cyanosis or clubbing. No ascites. Pulses: Dorsalis pedis and posterior tibial pulses +1 to +2 both sides. ABDOMEN: Soft. Nontender. Bowel sounds active. No CVA tenderness. No mass felt. EXTREMITIES: No edema. Full range of motion of all extremities, equal. NEUROLOGIC: No focal deficit. Cranial nerves II through XII are grossly intact. No headache, no double vision or headache. SKIN: Not dry. Intact. Turgor - normal. LYMPHATIC: No palpable lymph nodes/no lymphedema. MUSCULOSKELETAL: Normal joints with no swelling. Muscle tone is normal. PLAN: 1. Will do echo and stress echo this afternoon if negative the patient could be discharged CONDITION: Stable. TIME SPENT: More than 30 minutes. Plan and coordination of the patient's care discussed in the presence of nurse. YFN
--- NOTE | 2017-01-25 15:21 | PN ---
DATE OF SERVICE: 01/23/17 SUBJECTIVE: The patient is a 76 year old white female hospitalized with chest pain. The patient was worked up for chest pain with serial EKG's, cardiac markers, Echo, stress echo. The patient's workup is negative for ischemia. REVIEW OF SYSTEMS: CONSTITUTIONAL: No night sweats. No fatigue, malaise, lethargy. No fever or chills. HEENT: Eyes: No visual changes. No eye pain. No eye discharge. ENT: No runny nose. No epistaxis. No sinus pain. No sore throat. No odynophagia. No congestion. RESPIRATORY: No cough, no congestion. No hemoptysis. CARDIOVASCULAR: No angina symptoms. No CHF symptoms. No atypical chest pain for CAD. No palpitations. No shortness of breath.No PND. No Orthopnea. GASTROINTESTINAL: No abdominal pain. No nausea or vomiting. No diarrhea or constipation. No hematemesis. No hematochezia. GENITOURINARY: No urgency. No frequency. No dysuria. No hematuria. No obstructive symptoms. No discharge. No pain. No significant abnormal bleeding. MUSCULOSKELETAL: No musculoskeletal pain; no joint swelling. NEUROLOGICAL: No headache. No neck pain. No syncope. No seizures. No dizziness. PSYCHIATRIC: Not anxious. No depression. No suicidal thoughts. No homicidal thoughts. SKIN: No rash. No lesions. No wounds. ENDOCRINE: No unexplained weight loss. No weight gain. HEMATOLOGIC/LYMPHATIC: No anemia. No purpura. No petechiae. No prolonged or excessive bleeding. No palpable lymph nodes. PHYSICAL EXAMINATION: GENERAL: The patient is oriented to time, place and person. VITAL SIGNS: Temperature 98, pulse 53, respiratory rate 16, blood pressure 142/ 67 and pulse ox 98%. HEENT: Head normocephalic, atraumatic. Eyes: Extraocular muscles are intact. Pupils are equal, round and reactive to light and accommodation. Ears: No lesions. Nose appeared normal. Throat: No exudate or erythema. NECK: Supple. No JVD, no carotid bruit. No lymphadenopathy or thyromegaly. LUNGS: Decreased breath sounds but clear to auscultation. Percussion note normal. Chest symmetrical. HEART: S1, S2, no S3. No murmurs. No cyanosis or clubbing. No ascites. Pulses: Dorsalis pedis and posterior tibial pulses +1 to +2 both sides. ABDOMEN: Soft. Nontender. Bowel sounds active. No CVA tenderness. No mass felt. EXTREMITIES: No edema. Full range of motion of all extremities, equal. NEUROLOGIC: No focal deficit. Cranial nerves II through XII are grossly intact. No headache, no double vision or headache. SKIN: Not dry. Intact. Turgor - normal. LYMPHATIC: No palpable lymph nodes/no lymphedema. MUSCULOSKELETAL: Normal joints with no swelling. Muscle tone is normal. LABS: Hgb 10.7, hct 30.8, WBC 5,400 normal differential, creatinine 1.6, BUN 37, potassium 4.3 ASSESSMENT: 1. Chest pain, seems to be non-cardiac with negative workup as mentioned above. The patient also had telemetry with sinus rhythm and no ST-T wave change of any significance. PLAN: 1. The patient is going to be discharged home to be seen in five days. 2. Continue the same medications. TIME SPENT: More than 30 minutes. Plan and coordination of the patient's care discussed in the presence of nurse. YFN
--- NOTE | 2017-01-25 15:36 | DS ---
DATE OF SERVICE: 01/23/17 FINAL DIAGNOSIS: 1. Chest pain, etiology noncardiac 2. Diabetes Mellitus 3. Hypertension 4. Dyslipidemia 5. Right Nephrectomy with renal cell carcinoma 6. History of left mastectomy with C of the breast 7. Generalized anxiety disorder 8. Bronchial asthma 9. 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 This was discharged to be see as an outpatient in 4-5 days. The patient's was present in the room at the time. Continue all home medications. MEDICATIONS AT DISCHARGE: Xanax Anastrozole Ferrous Sulfate Combivent inhaler Advair Januvia Gabapentin Xalatan Lisinopril Pantoprazole NEW PRESCRIPTIONS: None DIET INSTRUCTIONS: As tolerated ACTIVITY: Get plenty of rest and increase activity as tolerated. SMOKING: Non-smoker DISEASE SPECIFIC EDUCATION: Appointment Medication HOSPITAL COURSE: The patient is a 76 year old white female hospitalized with chest pain which was equivocal for coronary insufficiency. The patient had serial EKG's, cardiac markers, echo, stress echo and telemetry. There was no evidence of ischemia. The patient has been up and about and the patient has a lot of anxiety related to family problems. The patient's cardiovascular status was stable at time of discharge. TIME SPENT: More than [address] [facility]
--- NOTE | 2017-01-25 15:37 | PN ---
01/21/17: Level 5 01/22/17: Intermediate 01/23/17: D as in discharge MTDD
== END 2017-01-23 09:50 | disposition home or self-care (01) | DRG 313 ==
LOC: ED 09:56 → MEDSURG B 12:22
PROVIDERS: ADMIT Internal Medicine; ATTEND Internal Medicine
DX: R07.89 Other chest pain (principal); I10 Essential (primary) hypertension; I51.7 Cardiomegaly; E78.5 Hyperlipidemia, unspecified; F41.1 Generalized anxiety disorder; J45.909 Unspecified asthma, uncomplicated; G62.9 Polyneuropathy, unspecified; I12.9 Hypertensive chronic kidney disease with stage 1 through stage 4 chronic kidney disease, or unspecified chronic kidney disease; E11.22 Type 2 diabetes mellitus with diabetic chronic kidney disease; N18.3 Chronic kidney disease, stage 3 (moderate); R06.02 Shortness of breath; Z63.9 Problem related to primary support group, unspecified; Z79.84 Long term (current) use of oral hypoglycemic drugs; Z79.899 Other long term (current) drug therapy; Z85.528 Personal history of other malignant neoplasm of kidney; Z90.5 Acquired absence of kidney; Z85.3 Personal history of malignant neoplasm of breast; Z90.12 Acquired absence of left breast and nipple
CPT/HCPCS: 36415; 80053; 82150; 82550; 82962; 83690; 84484; 85025; 85379; 93005; 93010; 99223; 99232; 99239; 99284

== ENCOUNTER 2017-03-29 16:00 | Emergency (ER) ==
[2017-03-29 16:04] VITALS: BP 184/76; TEMP 99.1; BMI 28.7
--- NOTE | 2017-03-29 16:16 | ED.PDOC ---
General ED Provider: Dr. MARIE HARRIS Chief Complaint: Palpitations Stated Complaint: Intermittent irregular heart beat, rapid at times but no faster than 85 BPM, onset 2 days ago in AM, resolved by noon, recurred yesterday and lasted all day. Still present today and noted BP much higher than usual. Heart rate in mid-80s which is about 20 higher than usual. Since arrival in ED, heart rate has become more regular and slower, but doesn't "feel quite right." No chest or other pain, no SOB, no weakness or lightheadedness. Time Seen by Physician: 16:17 Mode of Arrival: Walk-In Information Source: Patient Exam Limitations: No limitations Primary Care Provider: NIKKO LAM Nursing and Triage Documentation Reviewed and Agree: Yes Cardiovascular Complaint Exam - Palpitations Complaint/Exam Symptoms Are: Resolved (occassional extra beat but otherwise normal) Timing: Intermittent Initial Severity: Mild Current Severity: Mild Character: Reports: Fast, Irregular, Pounding Aggravating: Reports: Exertion Alleviating: Reports: Rest Cardiac Risk Factors: Reports: Diabetes. Denies: Smoking Review of Systems - Review Of Systems Constitutional: Reports: No symptoms Respiratory: Reports: No symptoms. Denies: Short of air Cardiac: Reports: Irregular heart rate, Palpitations. Denies: Chest pain, Edema GI: Reports: No symptoms : Reports: No symptoms Musculoskeletal: Reports: No symptoms Skin: Reports: No symptoms Neurological: Reports: No symptoms All Other Systems: Reviewed and Negative Past Medical History - Past Medical History Previously Healthy: Yes Endocrine: Reports: None, Dyslipidemia Cardiovascular: Reports: None, Hypertension Respiratory: Reports: Asthma Hematological: Reports: None Gastrointestinal: Reports: GERD Genitourinary: Reports: None Neuro/Psych: Reports: None Musculoskeletal: Reports: None Cancer: Reports: Breast, Other (kidney cancer - resolved by excision. Breast cancer - resolved by mastectomy) Last Menstrual Period: n/a Other Pertinent Past Medical History: Glaucoma - Surgical History General Surgical History: Reports: Other (mastectomy, unilateral nephrectomy) - Family History Family History: Reports: Unknown - Social History Smoking Status: Never smoker Hx Substance Use: No Alcohol Screening: None Lives: With family - Immunizations Tetanus Shot up to Date: No Influenza Vaccine within 12 Months: No Pneumococcal Vaccine up to Date: No Physical Exam - Physical Exam Appearance: Well-appearing, No pain distress, Well-nourished, Obese Ill-appearing: None Pain Distress: None Eyes: MARTÍNEZ, EOMI, Conjunctiva clear ENT: Ears normal, Nose normal, Oropharynx normal Neck: Supple Respiratory: Airway patent, Breath sounds clear, Breath sounds equal, Respirations nonlabored Cardiovascular: RRR (occasional extra beat, PACs on playground monitor), Pulses normal, No rub, No murmur GI/: Soft, Nontender, No masses, Bowel sounds normal, No Organomegaly Musculoskeletal: Normal strength, ROM intact, No edema, No calf tenderness Skin: Warm, Dry, Normal color Neurological: Sensation intact, Motor intact, Reflexes intact, Cranial nerves intact, Alert, Oriented Psychiatric: Affect appropriate, Mood appropriate Interpretation - Radiology Interpretation Radiology Interpretation By: Radiologist Radiology Results: Negative Exam Interpreted: CXR - EKG Interpretation Time of EKG #1: 16:32 Rate: Normal Rhythm: Sinus Ectopy: None [place]: NL ST Segment: Normal Interpretation: possible inferior wall VA, age undetermined Critical Care Note - Critical Care Note Total Time (mins): 0 Course - Course Hematology/Chemistry: 03/29/17 16:30 03/29/17 16:30 Orders, Labs, Meds: Lab Review 03/29/17 03/29/17 03/29/17 16:30 16:30 16:47 WBC 8.54 RBC 3.73 L Hgb 11.1 L Hct 32.4 L MCV 86.9 MCH 29.8 MCHC 34.3 RDW Coeff of [place] 13.8 Plt Count 250 Immature Gran % (Auto) 0.6 Neut % (Auto) 85.1 Lymph % (Auto) 10.1 [place] % (Auto) 4.0 Eos % (Auto) 0.0 Baso % (Auto) 0.2 Immature Gran # (Auto) 0.1 Neut # 7.3 H Lymph # 0.9 [place] # 0.3 L Eos # 0.0 Baso # 0.0 Sodium 138 Potassium 4.5 Chloride 108 H Carbon Dioxide 23 Anion Gap 11.5 BUN 30 H Creatinine 1.71 H Estimated GFR (MDRD) 29.00 BUN/Creatinine Ratio 17.54 Glucose 262 H Calcium 9.3 Total Bilirubin 0.18 AST 10 L ALT 15 Alkaline Phosphatase 65 Total Creatine Kinase 34 Troponin I < 0.0100 Total Protein 6.6 Albumin 3.6 Globulin 3.0 Albumin/Globulin Ratio 1.20 Urine Color Yellow Urine Clarity Clear Urine pH 5.5 Ur Specific [place] <=1.005 Urine Protein Negative Urine Glucose (UA) 1+ Urine Ketones Negative Urine Blood Trace-lysed Urine Nitrite Negative Urine Bilirubin Negative Urine Urobilinogen 0.2 Ur Leukocyte Esterase Negative Urine Microscopic RBC 0-2 Ur Squamous Epith Cells 0-2 Orders Category Date Time Status EKG-(ED ONLY) Stat CARDIO 03/29/17 16:24 Completed CBC W/ AUTO DIFF Stat LAB 03/29/17 16:30 Completed COMPREHENSIVE METABOLIC PANEL Stat LAB 03/29/17 16:30 Completed CREATINE KINASE Stat LAB 03/29/17 16:30 Completed TROPONIN I Stat LAB 03/29/17 16:30 Completed URINALYSIS C & S IF INDICATED Stat LAB 03/29/17 16:47 Completed CHEST, 2 VIEWS PA & LAT Stat RADS 03/29/17 16:24 Completed Vital Signs: Temp Pulse Resp BP Pulse Ox 03/29/17 16:01 99.1 F 84 16 184/76 H 98 AMI Core - Clinical Trial Participant Clinical Trial Participant: No - Palliative Care Palliative Care: none - Aspirin Reason for not ordering Aspirin: not indicated - Statins Reason for not ordering Statins: not indicated - Fibrinolytic Reason for not ordering Fibrinolytic: not indicated - EKG Initial Interpretation EKG Initial Interpretation Date: 03/29/17 (NSR, possible old IWMI) KELLY Risk Score Age >/= 65: Yes KELLY Total Score: 1 KELLY Risk Score: Risk Score Odds of by 30D 0 0.1 (0.1-0.2) 1 0.3 (0.2-0.3) 2 0.4 (0.3-0.5) 3 0.7 (0.6-0.9) 4 1.2 (1.0-1.5) 5 2.2 (1.9-2.6) 6 3.0 (2.5-3.6) 7 4.8 (3.8-6.1) Departure - Departure Time of Disposition: 17:27 Disposition: HOME SELF-CARE Discharge Problem: Cardiac arrhythmia Qualifiers: Atrial fibrillation type: unspecified Instructions: Palpitations (ED) Condition: Good Pt referred to PMD for follow-up: Yes (Follow up with doctor this week) Allergies/Adverse Reactions: Allergies No Known Allergies Allergy (Verified 03/29/17 16:12) Home Medications: Ambulatory Orders Alprazolam [Xanax] 0.25 mg PO DAILY PRN 08/11/13 Anastrozole 1 mg PO DAILY 08/11/13 Cyanocobalamin (Vitamin B-12) [B-12] 1,000 mg PO DAILY 08/11/13 Ferrous Fumarate [Iron] 325 mg PO DAILY 08/11/13 Ipratropium/Albuterol Sulfate [Combivent Inhaler] 1 puff INH TID PRN 08/11/13 Fluticasone/Salmeterol 250/50 [Advair 250-50 Diskus] 1 puff IH BID 01/10/15 Sitagliptin Phosphate [Januvia] 25 mg PO DAILY #30 tablet 01/11/15 Gabapentin 100 mg PO TID 01/21/17 Latanoprost [Xalatan] 1 drop OP BEDTIME 01/21/17 Lisinopril 20 mg PO DAILY 01/21/17 Pantoprazole Sodium [Protonix] 40 mg PO DAILY 01/21/17 Fluorometholone [Fml] 1 drop EACHEYE BID 01/22/17 Cholecalciferol (Vitamin D3) [Vitamin D] 1,000 unit PO DAILY 03/29/17 Disposition Discussed With: Patient, Family
[2017-03-29 16:43] LABS: BASOPHILS % (AUTO) 0.2 % (0.0-3.0); HEMATOCRIT 32.4 % (37.0-47.0); HEMOGLOBIN 11.1 g/dl (12.0-16.0); IMMATURE GRANULOCYTE % (AUTO) 0.6 % (0.0-5.0); LYMPHOCYTES # (AUTO) 0.9 K/uL (0.60-3.4); LYMPHOCYTES % (AUTO) 10.1 (10.0-50.0); MEAN CORPUSCULAR HEMOGLOBIN 29.8 pg (27.0-31.0); MEAN CORPUSCULAR HGB CONC 34.3 (31.8-35.4); MEAN CORPUSCULAR VOLUME 86.9 fl (81.0-99.0); MONOCYTES # (AUTO) 0.3 K/uL (0.4-2.0); NEUTROPHILS # (AUTO) 7.3 K/ul (2.0-6.9); NEUTROPHILS % (AUTO) 85.1; PLATELET COUNT 250 10^3/uL (140-440); RED BLOOD COUNT 3.73 10^6/ul (4.20-5.40); WHITE BLOOD COUNT 8.54 K/ul (4.6-10.2)
[2017-03-29 16:59] LABS: BILIRUBIN,URINE Negative (NEGATIVE); KETONES,URINE Negative (NEGATIVE); LEUKOCYTE ESTERASE ,URINE Negative (NEGATIVE); NITRITE,URINE Negative (NEGATIVE); PH,URINE 5.5 (5-9); PROTEIN,URINE Negative (NEGATIVE); URINE, BLOOD Trace-lysed (NEGATIVE)
--- NOTE | 2017-03-29 17:00 | DI ---
EXAM: CHEST FRONTAL AND LATERAL VIEWS HISTORY: New onset irregular heart beat. COMPARISON: 02/21/2017 FINDINGS: Heart size is within normal limits. Mildly elevated left hemidiaphragm appears chronic. N o acute infiltrates are seen. No vascular congestion. There is no consolidation, visible pleural fl uid or pneumothorax. Bones reveal no acute fracture. Surgical clips of the left axilla. IMPRESSION: No acute cardiopulmonary process. Normal heart size.
[2017-03-29 17:08] LABS: ALANINE AMINOTRANSFERASE 15 U/L (12-78); ALBUMIN 3.6 g/dL (3.4-5.0); ALKALINE PHOSPHATASE 65 U/L (53-141); ANION GAP 11.5; ASPARTATE AMINO TRANSFERASE 10 U/L (15-37); BILIRUBIN,TOTAL 0.18 mg/dL (0.00-1.20); BLOOD UREA NITROGEN 30 mg/dL (7-18); BUN/CREATININE RATIO 17.54; CALCIUM 9.3 mg/dL (8.2-10.2); CARBON DIOXIDE 23 mmol/L (23-31); CHLORIDE 108 mmol/L (98-107); CREATINE KINASE 34 U/L; CREATININE 1.71 mg/dL (0.60-1.30); GLUCOSE 262 mg/dL (82-115); POTASSIUM 4.5 mmol/L (3.5-5.10); SODIUM 138 mmol/L (136-145); TOTAL PROTEIN 6.6 g/dL (5.8-8.1)
[2017-03-29 17:08] LABS: ADD URINE MICROSCOPIC YES
== END 2017-03-29 17:36 | disposition home or self-care (01) ==
LOC: ED 16:00
DX: I48.91 Unspecified atrial fibrillation (principal); E11.9 Type 2 diabetes mellitus without complications; I10 Essential (primary) hypertension; E78.5 Hyperlipidemia, unspecified; Z79.899 Other long term (current) drug therapy
CPT/HCPCS: 36415; 80053; 81001; 82550; 84484; 85025; 93005; 93010; 99283

== ENCOUNTER 2017-03-31 08:40 | Outpatient (CLI) | payer OTHER | END 2017-03-31 08:41 | disposition home or self-care (01) | LOC: CAR 08:40 | PROVIDERS: ATTEND Internal Medicine | DX: R00.2 Palpitations (principal) | CPT/HCPCS: 93227 ==

== ENCOUNTER 2017-04-13 11:58 | Outpatient (CLI) | payer OTHER ==
--- NOTE | 2017-04-13 12:42 | US ---
EXAM: Bilateral carotid artery Doppler History: Dizziness. Comparison: Carotid Doppler 04/16/2014 Technique: Multiple sonographic images through the bilateral internal carotid arteries were obtained . Color duplex Doppler was used to interrogate vascular flow. Findings: The right ICA peak systolic velocity is moderately elevated measuring 1.6 meters per second. The rig ht ICA/cca PSV ratio is moderately increased at 2.5. The right vertebral artery is patent and demons trates antegrade flow. Simental scale images demonstrate no significant plaque buildup within the right internal carotid artery. The left ICA peak systolic velocity is within normal limits measuring 1.1 meters per second. The lef t ICA/cca PSV ratio is normal 1.9. The left vertebral artery is patent and demonstrates antegrade fl ow. Simental scale images demonstrate no significant plaque buildup within the left internal carotid art [place]. Both internal carotid arteries are tortuous. Findings: 1. No significant hemodynamic stenosis of the left internal carotid artery. 2. Moderately elevated peak systolic velocity within the right internal carotid artery suggesting 50 -69% hemodynamic stenosis. However there is no significant plaque buildup and the elevated velocity could be due to tortuosity. Consider correlation with CTA of the neck for clarification.
== END 2017-04-13 11:59 | disposition home or self-care (01) ==
LOC: RAD 11:58
PROVIDERS: ATTEND Internal Medicine
DX: R42 Dizziness and giddiness (principal)

== ENCOUNTER 2017-04-16 08:03 | Outpatient (CLI) ==
[2017-04-16 08:38] LABS: CREATININE 1.48 mg/dL (0.60-1.30)
--- NOTE | 2017-04-17 08:54 | MRI ---
EXAM: MRA carotids without contrast. HISTORY: Stenosis. COMPARISON: Carotid artery duplex ultrasound 04/13/2017. TECHNIQUE: 3-D [id number] MR angiography was acquired of the carotid arteries without contrast. D egree of stenosis determined by NASCET criteria. FINDINGS: There is a normal branching pattern of the great vessels from the aortic arch. There are no flow-limiting stenoses in the brachiocephalic artery or subclavian arteries. The right common carotid artery has no hemodynamically significant stenosis from the origin to the bi furcation and the right internal carotid artery has no hemodynamically significant stenoses from the origin to the skull base. The left common carotid artery has no hemodynamically significant stenoses from the origin to the bif urcation. The left internal carotid artery has no hemodynamically significant stenosis from the orig in to the skull base. The vertebral arteries are codominant. The origin and proximal right vertebral artery is tortuous an d not well seen. There is a possible mild to moderate stenosis in the proximal right vertebral arter y just beyond the origin which may be accentuated by vessel tortuosity and small size. Above this lev el, there are no flow-limiting stenoses to the posterior fossa. The left vertebral artery origin is n ot well seen and there is a possible moderate stenosis at the origin. Above this level, there are no flow-limiting stenoses from the origin to the posterior fossa. IMPRESSION: 1. No flow-limiting stenoses are present in the common carotid arteries, their bifurcations or in th e internal carotid arteries from their origins to the skull base. 2. The origins and proximal vertebral arteries bilaterally are not well seen. Above this level, the vertebral arteries have no flow-limiting stenoses to the skull base and are codominant.
== END 2017-04-16 08:04 | disposition home or self-care (01) ==
LOC: RAD 08:03
PROVIDERS: ATTEND Internal Medicine
DX: I65.21 Occlusion and stenosis of right carotid artery (principal)
CPT/HCPCS: 36415; 82565

== ENCOUNTER 2017-04-27 11:45 | Outpatient (CLI) | payer OTHER ==
[2017-04-27 12:13] LABS: HEMATOCRIT 30.2 % (37.0-47.0); HEMOGLOBIN 10.4 g/dl (12.0-16.0); MEAN CORPUSCULAR HEMOGLOBIN 30.2 pg (27.0-31.0); MEAN CORPUSCULAR HGB CONC 34.4 (31.8-35.4); MEAN CORPUSCULAR VOLUME 87.8 fl (81.0-99.0); RED BLOOD COUNT 3.44 10^6/ul (4.20-5.40); WHITE BLOOD COUNT 4.47 K/ul (4.6-10.2)
[2017-04-27 12:17] LABS: BILIRUBIN,URINE Negative (NEGATIVE); KETONES,URINE Negative (NEGATIVE); LEUKOCYTE ESTERASE ,URINE Negative (NEGATIVE); NITRITE,URINE Negative (NEGATIVE); PROTEIN,URINE Negative (NEGATIVE); URINE, BLOOD 1+ (NEGATIVE)
[2017-04-27 12:26] LABS: ADD URINE MICROSCOPIC YES
[2017-04-27 12:52] LABS: ALBUMIN 3.6 g/dL (3.4-5.0); ANION GAP 12.3; BUN/CREATININE RATIO 14.83; CALCIUM 9.4 mg/dL (8.2-10.2); CREATININE 1.55 mg/dL (0.60-1.30); PHOSPHORUS 3.1 mg/dL (2.8-4.1); POTASSIUM 4.3 mmol/L (3.5-5.10); URIC ACID 7.1 mg/dL (2.4-6.0)
[2017-04-28 08:37] LABS: URINE CREATININE 63.6 mg/dL (Not Estab.); URINE TOTAL PROTEIN 8.9 mg/dL (Not Estab.)
== END 2017-04-27 11:46 | disposition home or self-care (01) ==
LOC: LAB 11:45
PROVIDERS: ATTEND Internal Medicine Nephrology
DX: N18.3 Chronic kidney disease, stage 3 (moderate) (principal); I10 Essential (primary) hypertension
CPT/HCPCS: 36415; 80069; 81001; 82306; 82570; 83735; 83970; 84156; 84550; 85027

== ENCOUNTER 2017-07-11 11:38 | Inpatient (IN) | payer OTHER ==
--- NOTE | 2017-07-11 12:41 | ED.PDOC ---
General ED Provider: Dr. OLGA LIDIA BELTRE Chief Complaint: Shortness of Air Stated Complaint: Chest Tightness with palpitations and dyspnea. Time Seen by Physician: 12:15 Mode of Arrival: Walk-In Information Source: Patient, Family Exam Limitations: No limitations Primary Care Provider: NIKKO LAM Nursing and Triage Documentation Reviewed and Agree: Yes Reviewed sepsis parameters & appropriate labs ordered?: Yes System Inflammatory Response Syndrome: Not Applicable Sepsis Protocol: For patient's 13 years and over: Temp is 96.8 and below OR 101 and greater Pulse >90 BPM Resp >20/minute Acutely Altered Mental Status Are patient's symptoms suggestive of a new infection, such as: -Pneumonia -Skin, Soft Tissue -Endocarditis -UTI -Bone, Joint Infection -Implantable Device -Acute Abdominal Infection -Wound Infection -Meningitis -Blood Stream Catheter Infection -Unknown System Inflammatory Response Syndrome: Not Applicable Cardiovascular Complaint Exam - Chest Pain Complaint/Exam Duration: 1 hours Symptoms Are: Resolved Initial Severity: Moderate Current Severity: None Location: Reports: Midsternal Pain Radiates: Reports: Back Character: Reports: Squeezing Aggravating: Reports: None Alleviating: Reports: Rest Associated Signs and Symptoms: Reports: Fever, Palpitations, Cough, Short of air. Denies: Diaphoresis, Nausea, Vomiting, Hemoptysis Related History: Reports: Similar episode Related Surgical History: Reports: None AMI/ACS Risk Factors: Reports: None TAD Risk Factors: Reports: None Prior Care for this Complaint: Yes Recent Stress Test: No Recent Echo/LV Function: No JVD Present: No Subcutaneous Emphysema Present: No Diminshed Breath Sounds: No Reproducible Chest Wall Pain: No Bilateral Pulses Present: Yes Unequal Pulses Noted: No If Risk Factors for AMI/ACS Consider: EKG, Cardiac Enzymes, Oxygen If Risk Factors for PE Consider: Chest CT with contrast (Get Ddimer and if positive obtain CT Chest+-) Care and Dx Studies Discussed With: Family Differential Diagnoses: Chest Wall Pain, Other (afib) Review of Systems - Review Of Systems Constitutional: Reports: No symptoms Eyes: Reports: No symptoms Ears, Nose, Mouth, Throat: Reports: No symptoms Respiratory: Reports: Short of air Cardiac: Reports: Chest pain, Palpitations GI: Reports: No symptoms : Reports: No symptoms Musculoskeletal: Reports: No symptoms Skin: Reports: No symptoms Neurological: Reports: No symptoms Endocrine: Reports: No symptoms Hematologic/Lymphatic: Reports: No symptoms All Other Systems: Reviewed and Negative Past Medical History - Past Medical History Previously Healthy: Yes Endocrine: Reports: None, Dyslipidemia Cardiovascular: Reports: Hypertension Respiratory: Reports: Asthma Hematological: Reports: None Gastrointestinal: Reports: GERD Genitourinary: Reports: None Neuro/Psych: Reports: None Musculoskeletal: Reports: None Cancer: Reports: Breast, Other (kidney cancer - resolved by excision. Breast cancer - resolved by mastectomy) Last Menstrual Period: N/A Other Pertinent Past Medical History: Glaucoma - Surgical History General Surgical History: Reports: Other (mastectomy, unilateral nephrectomy) - Family History Family History: Reports: Unknown - Social History Smoking Status: Never smoker Hx Substance Use: No Alcohol Screening: None - Immunizations Tetanus Shot up to Date: No Influenza Vaccine within 12 Months: No Pneumococcal Vaccine up to Date: No Physical Exam - Physical Exam Appearance: Ill-appearing, Well-nourished Ill-appearing: Mild Pain Distress: Mild Eyes: MARTÍNEZ, EOMI ENT: Ears normal Neck: Supple Respiratory: Airway patent, Breath sounds clear, Breath sounds equal Cardiovascular: RRR, Pulses normal GI/: Soft, Nontender, No masses, Bowel sounds normal Musculoskeletal: Normal strength, ROM intact, No edema, No calf tenderness Skin: Warm, Dry, Normal color Neurological: Sensation intact, Motor intact Re-Evaluation - Re-Evaluation Time of Re-Evaluation: 15:00 Status: Improved Vital Signs Stable: Yes Appearance: NAD Lungs: Clear Skin: Warm and Dry Neuro: Alert and Oriented X3 CV: RRR Critical Care Note - Critical Care Note Total Time (mins): 0 Course - Course Hematology/Chemistry: 07/11/17 13:20 07/11/17 13:20 Orders, Labs, Meds: Lab Review 07/11/17 07/11/17 07/11/17 13:20 13:20 13:20 WBC 7.89 RBC 3.55 L Hgb 10.9 L Hct 31.6 L MCV 89.0 MCH 30.7 MCHC 34.5 RDW Coeff of Trinity 13.1 Plt Count 225 Immature Gran % (Auto) 0.4 Neut % (Auto) 74.4 Lymph % (Auto) 16.9 [place] % (Auto) 6.5 Eos % (Auto) 1.5 Baso % (Auto) 0.3 Immature Gran # (Auto) 0.0 Neut # 5.9 Lymph # 1.3 [place] # 0.5 Eos # 0.1 Baso # 0.0 D-Dimer (Manual) 889.88 Sodium 141 Potassium 3.7 Chloride 107 Carbon Dioxide 24 Anion Gap 13.7 BUN 22 H Creatinine 1.43 H Estimated GFR (MDRD) 35.00 BUN/Creatinine Ratio 15.38 Glucose 91 Calcium 9.2 Total Bilirubin 0.3 AST 14 L ALT 13 Alkaline Phosphatase 66 Troponin I < 0.0100 Total Protein 7.1 Albumin 3.6 Globulin 3.5 Albumin/Globulin Ratio 1.03 Orders Category Date Time Status ADMIT PATIENT INPATIENT .TO MEDSURG (MONITORED BED) ADMISSION 07/11/17 15: 40 Active EKG-(ED ONLY) Stat CARDIO 07/11/17 12:18 Completed INTAKE & OUTPUT Q8HR CARE 07/11/17 15:30 Active TELEMETRY MONITORING TELE CARE 07/11/17 15:42 Active VITAL SIGNS Q4HR CARE 07/11/17 15:42 Active CBC W/ AUTO DIFF Stat LAB 07/11/17 13:20 Completed CMP [COMPREHENSIVE METABOLIC PANEL] Stat LAB 07/11/17 13:20 Completed D-DIMER Stat LAB 07/11/17 13:20 Completed TROPONIN I Stat LAB 07/11/17 13:20 Completed RESUSCITATION STATUS Routine OTHERS 07/11/17 15:30 Ordered CHEST, 2 VIEWS PA & LAT Stat RADS 07/11/17 13:26 Taken Medications Generic Name Dose Route Start Last Admin Trade Name Freq PRN Reason Stop Dose Admin Alprazolam 0.25 mg 07/11/17 15:55 Xanax PO DAILY PRN Anxiety Carvedilol 6.25 mg 07/12/17 09:00 Coreg PO DAILY [facility] Cholecalciferol 1,000 unit 07/12/17 09:00 Vitamin D PO DAILY [facility] Enoxaparin Sodium 80 mg 07/11/17 16:00 07/11/17 15:54 Lovenox SUBCUT 80 mg Q12HR [facility] Administration Gabapentin 100 mg 07/11/17 21:00 Neurontin PO TID [facility] Latanoprost 1 drop 07/11/17 21:00 Xalatan OP BEDTIME [facility] Non-Formulary Medication 325 mg 07/12/17 09:00 Ferrous Fumarate [Iron] PO DAILY [facility] Non-Formulary Medication 1 drop 07/11/17 21:00 Fluorometholone [Fml] EACHEYE BID [facility] Non-Formulary Medication 1 puff 07/11/17 15:55 Ipratropium/Albuterol Sulfate [Combivent Inhaler] INH TID PRN Bronchospasm Non-Formulary Medication 20 mg 07/12/17 09:00 Lisinopril [Lisinopril] PO DAILY [facility] Pantoprazole Sodium 40 mg 07/12/17 09:00 Protonix PO DAILY [facility] Fluticasone/Salmeterol 1 puff 07/11/17 21:00 Advair 250-50 Diskus IH BID [facility] Vital Signs: Temp Pulse Resp BP Pulse Ox 07/11/17 11:39 97.8 F 64 22 185/77 H 97 KELLY Risk Score KELLY Risk Score: Risk Score Odds of by 30D 0 0.1 (0.1-0.2) 1 0.3 (0.2-0.3) 2 0.4 (0.3-0.5) 3 0.7 (0.6-0.9) 4 1.2 (1.0-1.5) 5 2.2 (1.9-2.6) 6 3.0 (2.5-3.6) 7 4.8 (3.8-6.1) Departure - Departure Time of Disposition: 15:30 Disposition: ADMITTED INPATIENT Discharge Problem: Chest pain, D-dimer, elevated, Bradycardia by electrocardiogram Condition: Fair Pt referred to PMD for follow-up: Yes IPMP verified?: No (NI) Allergies/Adverse Reactions: Allergies No Known Allergies Allergy (Verified 07/11/17 12:07) Home Medications: Ambulatory Orders Alprazolam [Xanax] 0.25 mg PO DAILY PRN 08/11/13 Cyanocobalamin (Vitamin B-12) [B-12] 1,000 mg PO DAILY 08/11/13 Ferrous Fumarate [Iron] 325 mg PO DAILY 08/11/13 Ipratropium/Albuterol Sulfate [Combivent Inhaler] 1 puff INH TID PRN 08/11/13 Fluticasone/Salmeterol 250/50 [Advair 250-50 Diskus] 1 puff IH BID 01/10/15 Sitagliptin Phosphate [Januvia] 25 mg PO DAILY #30 tablet 01/11/15 Gabapentin 100 mg PO TID 01/21/17 Latanoprost [Xalatan] 1 drop OP BEDTIME 01/21/17 Lisinopril 20 mg PO DAILY 01/21/17 Pantoprazole Sodium [Protonix] 40 mg PO DAILY 01/21/17 Fluorometholone [Fml] 1 drop EACHEYE BID 01/22/17 Cholecalciferol (Vitamin D3) [Vitamin D] 1,000 unit PO DAILY 03/29/17 Carvedilol [Coreg] 6.25 mg PO DAILY 07/11/17 Additional Comments Additional Comments: Spoke with Dr Lam and discussed patients status. Recommend admisson for further evaluation of elevated D dimer . Dr Lam agrees with admisson. Will schedule BLLE doppler flow study and VQ lung scan for tomorrow. Give Lovenox now and the bid. Explained to patient and family
[2017-07-11] MEDS ORDERED: LOVENOX ONE (15:51)
[2017-07-11] MEDS: LOVENOX SUBCUT SCH ×2 (15:54→20:44)
[2017-07-11] MEDS ORDERED: IPRATROPIUM INH PRN (15:55)
[2017-07-11] MEDS ORDERED: ALBUTEROL SULFATE INH PRN (15:55)
[2017-07-11] MEDS ORDERED: XANAX PO PRN (15:55)
--- NOTE | 2017-07-11 16:22 | DI ---
EXAM: Chest PA and lateral HISTORY: Cough and congestion. COMPARRISON: 03/29/2017. FINDINGS: The heart is normal in size. Pulmonary vascularity is within normal limits. No focal airspa ce opacity or pleural effusion is seen. Left middle lung zone calcified granuloma appears unchanged. Osseous structures are unremarkable. Operative changes of mastectomy is suggested. Left axillary lym ph node dissection is seen. IMPRESSION: No acute cardiopulmonary findings.
[2017-07-11 16:47] VITALS: BMI 13.6
[2017-07-11] MEDS ORDERED: COMBIVENT RESPIMAT INHAL SPRAY IH ONE (17:49)
[2017-07-11] MEDS: TYLENOL PO PRN (17:55)
[2017-07-11] MEDS: VASOTEC IV IVP PRN (17:55)
[2017-07-11] MEDS ORDERED: COREG ONE (19:39)
[2017-07-11] MEDS: XALATAN OP SCH (20:38)
[2017-07-11] MEDS: ADVAIR 250-50 DISKUS IH SCH (20:38)
[2017-07-11] MEDS: ZESTRIL ONE ×2 (20:40→20:43)
[2017-07-11] MEDS ORDERED: FLUOROMETHOLONE EACHEYE SCH (21:00)
[2017-07-11] MEDS ORDERED: NON-FORMULARY MEDICATION (Lisinopril [Lisinopril] 20 MG) PO SCH (21:00)
[2017-07-11] MEDS ORDERED: NEURONTIN PO SCH (21:00)
[2017-07-11] MEDS ORDERED: COREG PO SCH (21:00)
[2017-07-12] MEDS: TYLENOL PO PRN (02:08)
[2017-07-12] MEDS: VASOTEC IV IVP PRN (02:09)
[2017-07-12] MEDS ORDERED: FERROUS FUMARATE 325 MG PO SCH (09:00)
[2017-07-12] MEDS ORDERED: COREG PO SCH (09:00)
[2017-07-12] MEDS ORDERED: LOVENOX SUBCUT SCH (09:00)
[2017-07-12] MEDS ORDERED: NON-FORMULARY MEDICATION (Lisinopril [Lisinopril] 20 MG) PO SCH (09:00)
--- NOTE | 2017-07-12 11:17 | PCM.PROG ---
Attending Provider: ATTENDING PROVIDER: Dr. NIKKO LAM This patient is seen with Li Marroquin, Nurse Practitioner. DATE OF SERVICE: 07/12/17 SUBJECTIVE: This 77 year old WHITE/ F was hospitalized 07/11/17. The patient is lying in bed, alert. She is not experiencing any chest pain or shortness of breath. She does have slight cough. She has VQ scan and venous scan scheduled for today. REVIEW OF SYSTEMS: CONSTITUTIONAL: No night sweats. No fatigue, malaise, lethargy. No fever or chills. HEENT: Eyes: No visual changes. No eye pain. No eye discharge. ENT: No runny nose. No epistaxis. No sinus pain. No odynophagia. No congestion. RESPIRATORY: Cough. No congestion. No hemoptysis. No shortness of breath. CARDIOVASCULAR: No angina symptoms. No CHF symptoms. No atypical chest pain for CAD. No palpitations. No orthopnea.. GASTROINTESTINAL: No abdominal pain. No nausea or vomiting. No diarrhea or constipation. No hematemesis. No hematochezia. GENITOURINARY: No urgency. No frequency. No dysuria. No hematuria. No obstructive symptoms. No discharge. No pain. No significant abnormal bleeding. MUSCULOSKELETAL: No musculoskeletal pain; no joint swelling. NEUROLOGICAL: Awake, alert, oriented to time, place and person. No headache. No neck pain. No syncope. No seizures. No dizziness. PSYCHIATRIC: Anxious. No depression. No suicidal thoughts. No homicidal thoughts. SKIN: No rash. No lesions. No wounds. ENDOCRINE: No unexplained weight loss. No weight gain. HEMATOLOGIC/LYMPHATIC: No anemia. No purpura. No petechiae. No prolonged or excessive bleeding. No palpable lymph nodes. PHYSICAL EXAMINATION: GENERAL: The patient is awake, alert and oriented, lying/sitting in bed in no distress. VITAL SIGNS: Temperature 98.1 F, Pulse 56, Respiratory Rate 18, BP 155/72, Pulse Ox 98% HEENT: Head normocephalic, atraumatic. Eyes: Extraocular muscles are intact. Pupils are equal, round and reactive to light and accommodation. Ears: No lesions. Nose appeared normal. Throat: No exudate or erythema. NECK: Supple. No JVD, no carotid bruit. No lymphadenopathy or thyromegaly. LUNGS: Diminished breath sounds bilaterally. Percussion note normal. Chest symmetrical. HEART: S1, S2, no S3. Grade I/ murmur with a click. No ascites. Pulses: Dorsalis pedis and posterior tibial pulses +1 to +2 both sides. ABDOMEN: Soft. Non-tender. Bowel sounds active. No CVA tenderness. No mass felt. EXTREMITIES: No edema. Full range of motion of all extremities, equal. NEUROLOGIC: No focal deficit. Cranial nerves II through XII are grossly intact. No headache, no double vision or headache. SKIN: Not dry. Intact. Turgor-normal. LYMPHATIC: No palpable lymph nodes/no lymphedema. MUSCULOSKELETAL: Normal joints with no swelling. Muscle tone is normal. LAB REVIEW: 07/12/17 04:30 07/12/17 04:30 07/12/17 04:30: Sodium 142, Potassium 3.7, Chloride 108 H, Carbon Dioxide 25, Anion Gap 12.7, BUN 21 H, Creatinine 1.25, Estimated GFR (MDRD) 41.00, BUN/ Creatinine Ratio 16.80, Glucose 113, Calcium 9.3, Total Bilirubin 0.3, AST 13 L , ALT 12, Alkaline Phosphatase 61, Total Protein 6.3, Albumin 3.4, Globulin 2.9 , Albumin/Globulin Ratio 1.17 07/12/17 04:30: WBC 5.64, RBC 3.33 L, Hgb 10.1 L, Hct 29.5 L, MCV 88.6, MCH 30.3 , MCHC 34.2, RDW Coeff of Trinity 13.1, Plt Count 194, Immature Gran % (Auto) 0.4, Neut % (Auto) 61.2, Lymph % (Auto) 29.3, [place] % (Auto) 6.7, Eos % (Auto) 2.0, Baso % (Auto) 0.4, Immature Gran # (Auto) 0.0, Neut # 3.5, Lymph # 1.7, [place] # 0.4, Eos # 0.1, Baso # 0.0 ASSESSMENT: 1. ATYPICAL CHEST PAIN 2. HYPERTENSION 3. ANEMIA 4. ANXIETY PLAN: 1. Decrease Lovenox 60 mg SQ once a day 2. VQ scan today 3. Venous scan today Plan and coordination of the patient's care discussed in the presence of Social Media Campaign Manager and nurse. CONDITION: Stable SCRIBED BY: AYDIN RODRIGUEZ, Machine Lead Burner scribed while in presence of service performed by Dr. Lam/Li Marroquin APRN on 07/12/17 ([id number])
[2017-07-12] MEDS: FERROUS SULFATE PO SCH (11:30)
[2017-07-12] MEDS: TORADOL IVP SCH ×3 (11:30→21:23)
[2017-07-12] MEDS: JANUVIA PO SCH (11:30)
[2017-07-12] MEDS: COREG PO SCH ×2 (11:30→17:32)
[2017-07-12] MEDS: LOVENOX SUBCUT SCH (11:31)
[2017-07-12] MEDS: PROTONIX PO SCH (11:32)
[2017-07-12] MEDS: VITAMIN D PO SCH (11:32)
[2017-07-12] MEDS: NEURONTIN PO SCH (11:32)
[2017-07-12] MEDS: ZESTRIL PO SCH ×2 (11:33→21:22)
[2017-07-12] MEDS: ADVAIR 250-50 DISKUS IH SCH ×2 (11:35→21:21)
--- NOTE | 2017-07-12 11:38 | NM ---
EXAM: Ventilation perfusion lung scan HISTORY: Elevated D-dimer COMPARISON: None of this type PROCEDURE: Ventilation: The patient was allowed to inhale from a reservoir of 32.2 mCi of 99 technetium DTPA ae rosol. Subsequently anterior, posterior, lateral and anterior and posterior oblique images were obta ined. Perfusion: The patient was injected with 5.2 mCi of 99 technetium MAA intravenously after which ante rior, posterior, lateral and anterior and posterior oblique images were obtained. FINDINGS: The ventilation images demonstrate the modestly nonuniform distribution of activity within the lung yoo. The patient has swallowed a significant amount of the aerosol particles which fill the stomach. The perfusion images demonstrate a more uniform distribution of activity without evidenc e of significant segmental or subsegmental mismatched defects likely to represent pulmonary embolus. IMPRESSION: Low probability of pulmonary embolus.
[2017-07-12] MEDS: FLUOROMETHOLONE EACHEYE SCH ×2 (11:45→21:22)
--- NOTE | 2017-07-12 11:50 | US ---
EXAM: Ultrasound venous Doppler right and left lower extermity HISTORY: Elevated D-dimer COMPARISON: None TECHNIQUE: Venous duplex ultrasound of the right and left lower extremity was performed using color, johnson-scale, and Doppler flow imaging. FINDINGS: There is normal color flow and compression of the right and left common femoral, greater s aphenous, profunda femoral, femoral, popliteal, peroneal, posterior tibial, and anterior tibial veins without evidence of intraluminal thrombus. IMPRESSION: No right or left lower extremity deep venous thrombosis.
--- NOTE | 2017-07-12 13:15 | PN ---
DATE OF SERVICE: 07/11/17 ADMIT NOTE SUBJECTIVE: The patient was seen in the emergency room. The patient was brought to the emergency room by the family because of substernal chest tightness and mild shortness of breath. The patient's entire workup for acute marker event was negative. Cardiac markers, EKG. The patient's systolic blood pressure was 160 to 170. The patient's d-dimer was positive so the patient is going to have Lovenox full dose for pulmonary embolism and she is going to have a VQ scan nuclear and venous scan of both lower extremities tomorrow. The patient's kidney functions are abnormal so she can not have pulmonary protocol for embolism. REVIEW OF SYSTEMS: CONSTITUTIONAL: No night sweats. No fatigue, malaise, lethargy. No fever or chills. HEENT: Eyes: No visual changes. No eye pain. No eye discharge. ENT: No runny nose. No epistaxis. No sinus pain. No sore throat. No odynophagia. No congestion. RESPIRATORY: No cough, no congestion. No hemoptysis. No shortness of breath. CARDIOVASCULAR: No angina symptoms. No CHF symptoms. No atypical chest pain for CAD. No palpitations. No orthopnea. GASTROINTESTINAL: No abdominal pain. No nausea or vomiting. No diarrhea or constipation. No hematemesis. No hematochezia. GENITOURINARY: No urgency. No frequency. No dysuria. No hematuria. No obstructive symptoms. No discharge. No pain. No significant abnormal bleeding. MUSCULOSKELETAL: No musculoskeletal pain; no joint swelling. NEUROLOGICAL: No headache. No neck pain. No syncope. No seizures. No dizziness. PSYCHIATRIC: Not anxious. No depression. No suicidal thoughts. No homicidal thoughts. SKIN: No rash. No lesions. No wounds. ENDOCRINE: No unexplained weight loss. No weight gain. HEMATOLOGIC/LYMPHATIC: No anemia. No purpura. No petechiae. No prolonged or excessive bleeding. No palpable lymph nodes. PHYSICAL EXAMINATION: GENERAL: The patient is oriented to time, place and person. HEENT: Head normocephalic, atraumatic. Eyes: Extraocular muscles are intact. Pupils are equal, round and reactive to light and accommodation. Ears: No lesions. Nose appeared normal. Throat: No exudate or erythema. NECK: Supple. No JVD, no carotid bruit. No lymphadenopathy or thyromegaly. LUNGS: Clear to auscultation. Percussion note normal. Chest symmetrical. HEART: S1, S2, no S3. No murmurs. No cyanosis or clubbing. No ascites. Pulses: Dorsalis pedis and posterior tibial pulses +1 to +2 both sides. ABDOMEN: Soft. Nontender. Bowel sounds active. No CVA tenderness. No mass felt. EXTREMITIES: No edema. Full range of motion of all extremities, equal. NEUROLOGIC: No focal deficit. Cranial nerves II through XII are grossly intact. No headache, no double vision or headache. SKIN: Not dry. Intact. Turgor - normal. LYMPHATIC: No palpable lymph nodes/no lymphedema. MUSCULOSKELETAL: Normal joints with no swelling. Muscle tone is normal. ASSESSMENT: 1. Chest pain, etiology unknown rule out pulmonary embolism. The patient also had cardiac workup a few months ago which was negative. Reports and the tests were discussed with the patient. The patient was seen by me in the emergency room. Dr. Kumari was marine propulsion technician at the ER. TIME SPENT: More than 30 minutes. Plan and coordination of the patient's care discussed in the presence of nurse. YFN
--- NOTE | 2017-07-12 14:49 | HP ---
DATE OF SERVICE: 07/11/17 HISTORY OF PRESENT ILLNESS: This 77-year-old white female who presented to the emergency room complaining of shortness of breath. Chest tightness with palpitations. She does have a history of such complaint. She had a full cardiac workup in December when she was complaining of chest pain. Her echo and stress test all were negative. She does complain that she has had somewhat of a cough which is nonproductive over the past several days. PAST MEDICAL HISTORY: Dyslipidemia Hypertension Asthma GERD COPD Glaucoma Osteoarthritis Anemia Neuropathy Diabetes mellitus Type 2 PAST SURGICAL HISTORY: Status post mastectomy due to breast cancer History of kidney cancer, removed by unilateral nephrectomy REVIEW OF SYSTEMS: CONSTITUTIONAL: No night sweats. No fatigue, malaise, lethargy. No fever or chills. HEENT: Eyes: No visual changes. No eye pain. No eye discharge. ENT: No runny nose. No epistaxis. No sinus pain. No sore throat. No odynophagia. No ear pain. No congestion. RESPIRATORY: Cough. No congestion. No hemoptysis. No shortness of breath. CARDIOVASCULAR: No angina symptoms. No CHF symptoms. No atypical chest pain for CAD. Palpitations. No orthopnea. GASTROINTESTINAL: No abdominal pain. No nausea or vomiting. No diarrhea or constipation. No hematemesis. No hematochezia. GENITOURINARY: No urgency. No frequency. No dysuria. No hematuria. No obstructive symptoms. No discharge. No pain. No significant abnormal bleeding. MUSCULOSKELETAL: No musculoskeletal pain. No joint swelling. No arthritis. NEUROLOGICAL: No headache. No neck pain. No syncope. No seizures. No dizziness. PSYCHIATRIC: Anxiety. No depression. No suicidal thoughts. No homicidal thoughts. SKIN: No rash. No lesions. No wounds. ENDOCRINE: No unexplained weight loss. No weight gain. HEMATOLOGIC/LYMPHATIC: No anemia. No purpura. No petechiae. No prolonged or excessive bleeding. No palpable lymph nodes. PERSONAL/FAMILY/SOCIAL HISTORY: She currently lives at home. Her daughter helps her. She lives alone. She is a nonsmoker. No alcohol or ilicit drug use. Family history is not pertinent. MEDICATIONS: Xanax 0.25 mg p.o. daily p.r.n. Combivent inhaler one puff INH t.i.d. p.r.n. Iron 325 mg p.o. daily Cyanocobalamin (Vitamin B12) 1,000 mg p.o. daily Fluticasone/Salmeterol 250/50 one puff IH b.i.d. Januvia 25 mg p.o. daily Xalatan one drop OP bedtime Gabapentin 100 mg p.o. t.i.d. Lisinopril 20 mg p.o. daily Protonix 40 mg p.o. daily Fluorometholone 5 mL one drop each eye b.i.d. Cholecalciferol 1,000 unit p.o. daily Coreg 6.25 mg p.o. b.i.d. ALLERGIES: NKDA PHYSICAL EXAMINATION: VITAL SIGNS: Temperature 98.1, pulse 52, BP 143/66, respiratory rate 18. 02 sat 96 on 2L/NC. Weight 165 lb, 2.02 oz; Height 5'2". HEENT: Head normocephalic, atraumatic. Eyes: Extraocular muscles are intact. Pupils are equal, round and reactive to light and accommodation. Ears: No lesions. Nose appeared normal. Throat: No exudate or erythema. NECK: Supple. No JVD, no carotid bruit. No lymphadenopathy or thyromegaly. LUNGS: Diminished breath sounds bilaterally. Clear to auscultation. Percussion note normal. Chest symmetrical. HEART: S1, S2, no S3. No murmurs. No cyanosis or clubbing. No ascites. Pulses: Dorsalis pedis and posterior tibial pulses +1 to +2 both sides. ABDOMEN: Soft. Nontender. Bowel sounds active. No CVA tenderness. No mass felt. EXTREMITIES: No edema. Full range of motion of all extremities, equal. NEUROLOGIC: No focal deficit. Cranial nerves II through XII are grossly intact. No headache, no double vision or headache. SKIN: Not dry. Intact. Turgor - normal. LYMPHATIC: No palpable lymph nodes/no lymphedema. MUSCULOSKELETAL: Normal joints with no swelling. Muscle tone is normal. LABS: White count 7.89, hemoglobin 10.9, hematocrit 31.6, platelets 225. D. dimer 889. Sodium 141, potassium 3.7, BUN 22, creatinine 1.43, glucose 91, AST 14, ALT 13. Alkaline phosphatase 66. Cardiac enzymes were negative. Chest x-ray was negative. The patient is to have venous and a VQ scan due to elevated D. dimer today. ASSESSMENT: 1. ATYPICAL CHEST PAIN 2. SHORTNESS OF BREATH 3. COUGH 4. PALPITATIONS 5. HYPERTENSION PLAN: 1. Admit to the floor. 2. Routine telemetry orders. 3. VQ and Venous scan today 4. Continue all home medications 5. CBC, CMP dily 6. Lovenox 60 mg subQ daily 7. 02 as needed for shortness of breath 8. Most recent stress test and echo reviewed 9. Will followup closely TIME SPENT: More than 70 minutes. YFN
[2017-07-12] MEDS: XALATAN OP SCH (21:21)
[2017-07-13] MEDS: TORADOL IVP SCH ×3 (05:53→20:54)
[2017-07-13] MEDS: PROTONIX PO SCH (05:53)
[2017-07-13] MEDS: COMBIVENT RESPIMAT INHAL SPRAY IH PRN (05:59)
[2017-07-13] MEDS: COREG PO SCH ×2 (09:45→18:00)
[2017-07-13] MEDS: ADVAIR 250-50 DISKUS IH SCH ×2 (09:45→20:54)
[2017-07-13] MEDS: VITAMIN D PO SCH (09:46)
[2017-07-13] MEDS: FLUOROMETHOLONE EACHEYE SCH ×2 (09:46→20:54)
[2017-07-13] MEDS: FERROUS SULFATE PO SCH (09:46)
[2017-07-13] MEDS: ZESTRIL PO SCH ×2 (09:46→20:54)
[2017-07-13] MEDS: JANUVIA PO SCH (09:46)
[2017-07-13] MEDS: NEURONTIN PO SCH (09:46)
[2017-07-13] MEDS: LOVENOX SUBCUT SCH (09:47)
--- NOTE | 2017-07-13 11:35 | DI ---
EXAM: Thoracic spine three view HISTORY: Back pain, upper COMPARISON: None TECHNIQUE: Three views thoracic spine were performed FINDINGS: Vertebral bodies normal height. No fracture. No subluxation. Mild to moderate multileve l chronic discogenic degenerative disease with multilevel intervertebral disc space narrowing and mar ginal osteophyte formation. IMPRESSION: Mild to moderate multilevel chronic discogenic degenerative disease.
[2017-07-13] MEDS: XALATAN OP SCH (20:54)
[2017-07-14] MEDS: VASOTEC IV IVP PRN (04:46)
[2017-07-14] MEDS: PROTONIX PO SCH (05:39)
[2017-07-14] MEDS: TORADOL IVP SCH ×2 (05:39→12:47)
[2017-07-14] MEDS: COMBIVENT RESPIMAT INHAL SPRAY IH PRN ×2 (05:42→12:50)
[2017-07-14] MEDS ORDERED: DULCOLAX PO PRN (09:19)
[2017-07-14] MEDS: ADVAIR 250-50 DISKUS IH SCH (09:25)
[2017-07-14] MEDS: COREG PO SCH (09:26)
[2017-07-14] MEDS: JANUVIA PO SCH (09:26)
[2017-07-14] MEDS: VITAMIN D PO SCH (09:26)
[2017-07-14] MEDS: ZESTRIL PO SCH (09:26)
[2017-07-14] MEDS: FLUOROMETHOLONE EACHEYE SCH (09:26)
[2017-07-14] MEDS: NEURONTIN PO SCH (09:26)
[2017-07-14] MEDS: FERROUS SULFATE PO SCH (09:26)
[2017-07-14] MEDS: LOVENOX SUBCUT SCH (09:27)
[2017-07-14 11:16] VITALS: BP 124/60; TEMP 98.6
--- NOTE | 2017-07-15 11:14 | PN ---
DATE OF SERVICE: 07/12/17 SUBJECTIVE: The patient was hospitalized with chest pain, chest tightness mostly the pain is the back. I think the back pain is from the DJD of the spine. The patient was also scheduled for VQ scan to rule out pulmonary embolism. The patient's venous scan of both lower extremities was negative. Cardiac markers are negative. Cardiac workup for coronary insufficiency was negative 2-3 months ago. The patient's cardiac markers are negative. CONDITION: Stable The patient was seen and examined with Nurse Practitioner. TIME SPENT: More than 30 minutes. Plan and coordination of the patient's care discussed in the presence of nurse. YFN
--- NOTE | 2017-07-15 13:35 | PN ---
DATE OF SERVICE: 07/13/17 SUBJECTIVE: 77 year old white female who was admitted with chest pain and back pain. The patient's condition has steadily improved. She doesn't have any chest pain. Her cardiac markers and cardiac workup is all negative. Work up for pulmonary embolism is negative with negative VQ scan and negative venous scan. REVIEW OF SYSTEMS: CONSTITUTIONAL: No night sweats. No fatigue, malaise, lethargy. No fever or chills. HEENT: Eyes: No visual changes. No eye pain. No eye discharge. ENT: No runny nose. No epistaxis. No sinus pain. No sore throat. No odynophagia. No congestion. RESPIRATORY: No cough, no congestion. No hemoptysis. No shortness of breath. CARDIOVASCULAR: No angina symptoms. No CHF symptoms. No atypical chest pain for CAD. No palpitations. No orthopnea. GASTROINTESTINAL: No abdominal pain. No nausea or vomiting. No diarrhea or constipation. No hematemesis. No hematochezia. GENITOURINARY: No urgency. No frequency. No dysuria. No hematuria. No obstructive symptoms. No discharge. No pain. No significant abnormal bleeding. MUSCULOSKELETAL: No musculoskeletal pain; no joint swelling. NEUROLOGICAL: No headache. No neck pain. No syncope. No seizures. No dizziness. PSYCHIATRIC: Not anxious. No depression. No suicidal thoughts. No homicidal thoughts. SKIN: No rash. No lesions. No wounds. ENDOCRINE: No unexplained weight loss. No weight gain. HEMATOLOGIC/LYMPHATIC: No anemia. No purpura. No petechiae. No prolonged or excessive bleeding. No palpable lymph nodes. PHYSICAL EXAMINATION: GENERAL: The patient is oriented to time, place and person. VITAL SIGNS: Temperature 98.1, pulse 56, respiratory rate 18, blood pressure 155/70 and pulse ox 98%. HEENT: Head normocephalic, atraumatic. Eyes: Extraocular muscles are intact. Pupils are equal, round and reactive to light and accommodation. Ears: No lesions. Nose appeared normal. Throat: No exudate or erythema. NECK: Supple. No JVD, no carotid bruit. No lymphadenopathy or thyromegaly. LUNGS: Decreased breath sounds but clear to auscultation. Percussion note normal. Chest symmetrical. HEART: S1, S2, no S3. No murmurs. No cyanosis or clubbing. No ascites. Pulses: Dorsalis pedis and posterior tibial pulses +1 to +2 both sides. ABDOMEN: Soft. Nontender. Bowel sounds active. No CVA tenderness. No mass felt. EXTREMITIES: No edema. Full range of motion of all extremities, equal. NEUROLOGIC: No focal deficit. Cranial nerves II through XII are grossly intact. No headache, no double vision or headache. SKIN: Not dry. Intact. Turgor - normal. LYMPHATIC: No palpable lymph nodes/no lymphedema. MUSCULOSKELETAL: Normal joints with no swelling. Muscle tone is normal. LABS: Hgb 10.1, hct 29, WBC 5,600 normal differential, creatinine 1.2, BUN 21, potassium 3.7 ASSESSMENT: 1. Chest pain likely noncardiac 2. Back pain thoracic area which radiates to the front of the chest likely the patient had radiculopathy type of pain. PLAN: 1. Will do x-ray of T spine CONDITION: Stable. TIME SPENT: More than 30 minutes. Plan and coordination of the patient's care discussed in the presence of nurse. YFN
--- NOTE | 2017-07-19 07:49 | PN ---
DATE OF SERVICE: 07/14/17 SUBJECTIVE: The patient was hospitalized with chest pain. The patient's chest pain has subsided and mainly she has a thoracic area pain coming in front like a pleuritic type of fashion from very likely pinched nerve. The patient's x-ray showed DJD of the T spine. The patient does not have any pain on exertion or chest pain even at rest. Her VQ scan was negative. Venous scan was negative. The patient is stable enough to be discharged. TIME SPENT: More than 30 minutes. Plan and coordination of the patient's care discussed in the presence of nurse. YFN
--- NOTE | 2017-07-19 08:04 | DS ---
DATE OF SERVICE: 07/14/17 FINAL DIAGNOSIS: 1. Chest pain 2. Hypertension 3. Dyslipidemia 4. COPD 5. Osteoarthritis 6. Anemia 7. Diabetes Mellitus, type 2 8. GERD 9. Breast cancer, Left 10. Renal Cancer 11. Nephrectomy 12. Mastectomy with Axillary Node Dissection, 2011 13. Cholecystectomy 14. Hysterectomy LAST VITALS Temp Pulse Resp BP Pulse Ox 98.6 F 56 L 18 124/60 97 DISCHARGE INSTRUCTIONS: Discharge home. Please call Dr. Izaguirre's office to schedule an appointment for Wednesday or Wednesday. Continue medications as listed on nursing discharge information sheet. Increase Lisinopril to 20mg twice daily for the blood pressure. Will need to take a dose tonight at bedtime. Continue to check blood sugars as directed. ACTIVE HOME MEDICATIONS Albuterol/Ipratropium (Combivent Respimat Inhal [place]) 1 spray IH TID PRN PRN Reason: BRONCHOSPASMS Last Admin: 07/14/17 12:50 Dose: 1 spray Alprazolam (Xanax) 0.25 mg PO DAILY PRN PRN Reason: Anxiety Last Admin: 07/13/17 05:59 Dose: 0.25 mg Carvedilol (Coreg) 6.25 mg PO BIDWM [facility] Last Admin: 07/14/17 09:26 Dose: 6.25 mg Cholecalciferol (Vitamin D) 1,000 unit PO DAILY [facility] Last Admin: 07/14/17 09:26 Dose: 1,000 unit Ferrous Sulfate (Ferrous Sulfate) 324 mg PO DAILY [facility] Last Admin: 07/14/17 09:26 Dose: 324 mg Gabapentin (Neurontin) 100 mg PO DAILY [facility] Last Admin: 07/14/17 09:26 Dose: 100 mg Latanoprost (Xalatan) 1 drop OP BEDTIME [facility] Last Admin: 07/13/17 20:54 Dose: 1 drop Lisinopril (Zestril) 20 mg PO BID [facility] Last Admin: 07/14/17 09:26 Dose: 20 mg (dose increased) Non-Formulary Medication (Fluorometholone [Fml]) 1 drop EACHEYE BID [facility] Last Admin: 07/14/17 09:26 Dose: 1 drop Pantoprazole Sodium (Protonix) 40 mg PO QDAC [facility] Last Admin: 07/14/17 05:39 Dose: 40 mg Fluticasone/Salmeterol (Advair 250-50 Diskus) 1 puff IH BID [facility] Last Admin: 07/14/17 09:25 Dose: 1 puff Sitagliptin Phosphate (Januvia) 25 mg PO DAILY [facility] Last Admin: 07/14/17 09:26 Dose: 25 mg ALLERGIES No Known Allergies Allergy (Verified 07/11/17 12:07) NEW PRESCRIPTIONS: No Prescriptions SMOKING: Not Applicable DISEASE SPECIFIC EDUCATION: Arthritis Medication increase (Lisinopril) Activity HOSPITAL COURSE: 77 year old white female hospitalized with chest pain. The patient had chest pain anterior but mainly coming from thoracic area. A GERD type of fashion that she indicated later on. Her cardiac workup was negative. She had a cardiac workup done 4-5 months ago which was negative for ischemia. She also underwent venous scan and VQ scan because of elevated D-dimer which were negative. The patient during the hospital stay did not have any chest pain. She is was up and about. T spin showed osteoarthritis likely cause of pain was GERD type of fashion coming in front anteriorly in the chest area. The patient's kidney disease is stable with creatinine 1.5, BUN 29. CONDITION: STABLE TIME SPENT: More than 60 minutes. MTDD
--- NOTE | 2017-07-19 08:05 | PN ---
07/11/17: Level 5 07/12/17: Intermediate 07/13/17: Intermediate 07/14/17: D as in discharge MTDD
== END 2017-07-14 15:42 | disposition home or self-care (01) | DRG 313 ==
LOC: ED 11:38 → MEDSURG A 15:43
PROVIDERS: ADMIT Internal Medicine; ATTEND Internal Medicine
DX: R07.89 Other chest pain (principal); R79.1 Abnormal coagulation profile; M47.894 Other spondylosis, thoracic region; M54.14 Radiculopathy, thoracic region; I10 Essential (primary) hypertension; E11.9 Type 2 diabetes mellitus without complications; J44.9 Chronic obstructive pulmonary disease, unspecified; M19.90 Unspecified osteoarthritis, unspecified site; D64.9 Anemia, unspecified; K21.9 Gastro-esophageal reflux disease without esophagitis; R06.02 Shortness of breath; E78.5 Hyperlipidemia, unspecified; F41.9 Anxiety disorder, unspecified; R00.1 Bradycardia, unspecified; R50.9 Fever, unspecified; R00.2 Palpitations; Z90.12 Acquired absence of left breast and nipple; Z79.4 Long term (current) use of insulin; Z79.899 Other long term (current) drug therapy; Z85.3 Personal history of malignant neoplasm of breast; Z85.528 Personal history of other malignant neoplasm of kidney; Z90.5 Acquired absence of kidney; Z90.49 Acquired absence of other specified parts of digestive tract; Z90.710 Acquired absence of both cervix and uterus
CPT/HCPCS: 36415; 80053; 82962; 84484; 85025; 85379; 93005; 93010; 96372; 99285

== ENCOUNTER 2017-10-26 10:33 | Outpatient (CLI) | END 2017-10-26 10:34 | disposition home or self-care (01) | LOC: LAB 10:33 | PROVIDERS: ATTEND Internal Medicine Nephrology | DX: N18.3 Chronic kidney disease, stage 3 (moderate) (principal); E55.9 Vitamin D deficiency, unspecified; I10 Essential (primary) hypertension | CPT/HCPCS: 36415; 80069; 81001; 82306; 82570; 83735; 83970; 84156; 84550; 85027 ==

== ENCOUNTER 2018-01-13 10:15 | Outpatient (CLI) | payer OTHER ==
--- NOTE | 2018-01-13 10:56 | DI ---
EXAM: Two views of the chest. History: Short of breath Comparison: Chest radiograph 07/11/2017 Findings: Heart is mildly enlarged. No focal consolidation. No appreciable pleural fluid and no pn eumothorax. No acute osseous abnormalities. Atherosclerotic vascular calcifications. Surgical clip s seen within the left axilla. Impression: Mild cardiomegaly without acute disease in the chest.
== END 2018-01-13 10:16 | disposition home or self-care (01) ==
LOC: RAD 10:15
PROVIDERS: ATTEND Internal Medicine
DX: R06.02 Shortness of breath (principal)

== ENCOUNTER 2018-03-22 06:55 | Day surgery (SDC) | payer OTHER ==
[2018-03-22] MEDS ORDERED: LIDOCAINE 1% 20 ML MDV ID STA (07:16)
[2018-03-22 07:25] VITALS: TEMP 97.5
[2018-03-22] MEDS ORDERED: VERSED ONE (08:45)
[2018-03-22] MEDS ORDERED: DIPRIVAN 20 ML VIAL IVP ONE (08:45)
--- NOTE | 2018-03-23 06:53 | OP ---
INDICATIONS FOR PROCEDURE: 77-year-old female with a past history of polyps presents for colonoscopy. She last had a colonoscopy with five adenomatous polyps three years ago. MEDICATIONS: SEE ANESTHESIA NOTES. PROCEDURE: COLONOSCOPY, SNARE POLYPECTOMY. REPORT: The risks, benefits, alternatives and limitations were discussed in detail with the patient. Informed consent was obtained. After adequate sedation was achieved, a digital rectal exam revealed good tone, no masses. The colonoscope was introduced into the rectum and advanced under direct visual guidance to the ileocolonic anastomosis. The anastomosis appeared unremarkable. It was in the proximal right colon. I then slowly withdrew the scope in a circumferential manner examining the mucosa quite carefully. I looked on the proximal and distal side of folds and flexures as best as possible. In the transverse colon area there were two polyps about 6 mm in size and semi sessile. Both were removed by snare technique and placed in the same pathology jar. In the descending colon there were two polyps present. One was about 4 mm and the other was about 6 mm in size and semi sessile. Both removed by snare technique and placed in a pathology jar. There were scattered diverticulosis in the sigmoid colon. No other abnormalities were noted including on retroflex view of the anal canal. The prep was good. The withdrawal time was 18 minutes and 40 seconds. The patient tolerated the procedure well with stable vital signs and pulse oximetry throughout. IMPRESSION: 1. FOUR (4) COLONIC POLYPS SUCCESSFULLY REMOVED. 2. DIVERTICULOSIS. RECOMMENDATIONS: 1. High fiber diet. 2. Office visit as needed. 3. Await pathology results. If everything is benign as expected, I recommend repeat colonoscopy examination again in three years if she is clinically well; sooner if she would have any signs or symptoms to indicate otherwise. CC: DR. GENARO COULTER
[2018-03-24 11:33] VITALS: BP 112/63
== END 2018-03-22 10:00 | disposition home or self-care (01) ==
LOC: SURG 06:55
PROVIDERS: ATTEND Internal Medicine Gastroenterology
DX: Z86.010 Personal history of colon polyps (principal); D12.4 Benign neoplasm of descending colon; D12.3 Benign neoplasm of transverse colon

== ENCOUNTER 2018-05-04 13:32 | Outpatient (CLI) | payer OTHER | END 2018-05-04 13:33 | disposition home or self-care (01) | LOC: LAB 13:32 | PROVIDERS: ATTEND Internal Medicine Nephrology | DX: N18.3 Chronic kidney disease, stage 3 (moderate) (principal); I10 Essential (primary) hypertension | CPT/HCPCS: 36415; 80069; 81001; 82306; 83735; 83970; 84550; 85027 ==

== ENCOUNTER 2018-12-01 14:16 | Outpatient (CLI) | payer OTHER | END 2018-12-01 14:17 | disposition home or self-care (01) | LOC: LAB 14:16 | PROVIDERS: ATTEND Nurse Practitioner | DX: N18.3 Chronic kidney disease, stage 3 (moderate) (principal); I10 Essential (primary) hypertension | CPT/HCPCS: 36415; 80069; 81001; 82306; 82570; 83735; 83970; 84156; 84550; 85027 ==

== ENCOUNTER 2020-07-08 09:20 | Inpatient (IN) ==
--- NOTE | 2020-07-08 10:11 | ED.PDOC ---
General ED Provider: Dr. CYNDIE BEVERLY MD Chief Complaint: Chest Pain Stated Complaint: chest pain Time Seen by Physician: 10:07 Mode of Arrival: Walk-In Information Source: Patient Primary Care Provider: NIKKO LAM Nursing and Triage Documentation Reviewed and Agree: Yes Does patient meet sepsis criteria?: No System Inflammatory Response Syndrome: Not Applicable Sepsis Protocol: For patient's 13 years and over: Temp is 96.8 and below OR 101 and greater Pulse >90 BPM Resp >20/minute Acutely Altered Mental Status Are patient's symptoms suggestive of a new infection, such as: -Pneumonia -Skin, Soft Tissue -Endocarditis -UTI -Bone, Joint Infection -Implantable Device -Acute Abdominal Infection -Wound Infection -Meningitis -Blood Stream Catheter Infection -Unknown Cardiovascular Complaint Exam Chest Pain Complaint/Exam Symptoms Are: Still present (improved) Timing: Constant Initial Severity: Moderate Current Severity: Mild Location: Reports Left anterior Pain Radiates: Reports None Character: Reports Heaviness Aggravating: Reports None Alleviating: Reports None Associated Signs and Symptoms: Denies Diaphoresis, Nausea, Vomiting, Fever, Palpitations, Cough, Hemoptysis, Back pain, Abdominal pain, Dizziness, Short of air, Calf pain and Calf swelling Related History: Reports Current Beta Radha Related Surgical History: Reports Renal Surgery (right nephrectomy ~2017 (renal cell CA)) History of Healthcare-Acquired Pneumonia: Reports No AMI/ACS Risk Factors: Reports Diabetes, Family history (father at 65 of [place]) and Hypertension TAD Risk Factors: Reports Hypertension Pulmonary Embolism Risk Factors: Reports None Prior Care for this Complaint: No Recent Stress Test: No Recent Echo/LV Function: No JVD Present: No (no venous distention noted, but bounding right carotid noted) Subcutaneous Emphysema Present: No Reproducible Chest Wall Pain: No Chest Picture: 1. discomfort (heaviness) Review of Systems Review Of Systems Constitutional: Reports No symptoms Cardiac: Reports Chest pain (left-sided chest 'heaviness' per CC) All Other Systems: Reviewed and Negative [facility] History Anxiety Diabetic acetonemia Hypertension Kidney carcinoma Family History FATHER Heart attack Mother Breast cancer Social History Smoking and tobacco status: Never smoker Surgical History H/O: hysterectomy History of cholecystectomy History of nephrectomy, right Female Reproductive History Menstrual Hx Hysterectomy: No Hx Tubal Ligation: No Physical Exam Physical Exam Appearance: Reports Well-appearing Ill-appearing: None Pain Distress: None Eyes: Reports MARTÍNEZ, EOMI and Conjunctiva clear ENT: Reports Nose normal Neck: Nonsupple Respiratory: Reports Airway patent, Breath sounds clear, Breath sounds equal and Breath sounds diminished Cardiovascular: Reports Irregular rhythm (mildly irregularly irregular) and Abnormal pulses (bounding right carotid pulse) GI/: Reports Soft, Nontender and Bowel sounds normal Musculoskeletal: Reports Normal strength and ROM intact Skin: Reports Warm, Dry and Normal color Neurological: Reports Sensation intact, Motor intact, Cranial nerves intact, Al ert and Oriented Psychiatric: Reports Affect appropriate and Mood appropriate Interpretation EKG Interpretation Time of EKG #1: 09:38 Rate: Normal Rhythm: Other (irregularly irregular) Ectopy: None ST Segment: Normal Interpretation: atrial fibrillation, rate controlled Critical Care Note Critical Care Note Total Critical Care Time (mins): 0 Course Course Hematology/Chemistry: 07/09/20 04:48 07/09/20 04:48 Orders, Labs, Meds: Lab Review 07/08/20 07/08/20 10:23 10:23 WBC 7.17 RBC 3.65 L Hgb 10.9 L Hct 32.2 L MCV 88.2 MCH 29.9 MCHC 33.9 RDW Coeff of [place] 13.2 Plt Count 228 Immature Gran % (Auto) 0.4 Neut % (Auto) 84.2 H Lymph % (Auto) 10.0 [place] % (Auto) 4.0 Eos % (Auto) 1.1 Baso % (Auto) 0.3 Neut # (Auto) 6.0 Lymph # (Auto) 0.7 [place] # (Auto) 0.3 L Eos # (Auto) 0.1 Baso # (Auto) 0.0 Immature Gran # (Auto) 0.0 Sodium 139.0 Potassium 3.72 Chloride 106.5 Carbon Dioxide 26.4 Anion Gap 9.82 BUN 17.7 H Creatinine 1.54 H Estimated GFR (MDRD) 32.00 BUN/Creatinine Ratio 11.49 Glucose 157.4 H Calcium 9.40 Total Bilirubin 0.38 AST 18.2 ALT 10.4 Alkaline Phosphatase 59.3 Total Creatine Kinase 40.6 Troponin I < 0.012 NT-Pro-B Natriuret Pep 2970.000 H Total Protein 6.93 Albumin 4.09 Globulin 2.84 Albumin/Globulin Ratio 1.44 TSH 1.650 Orders Category Date Time Status ADMIT PATIENT INPATIENT .TO [facility] (MONITORED BED) ADMISSION 07/08/20 14:10 Active EKG-(ED ONLY) Stat CARDIO 07/08/20 09:45 Completed ACTIVITY .BR with BRP CARE 07/08/20 13:37 Active INTAKE & OUTPUT Q8HR CARE 07/08/20 13:37 Active TELEMETRY MONITORING TELE CARE 07/08/20 14:13 Active VITAL SIGNS Q8HR CARE 07/08/20 13:37 Active VTE PREVENTION .CLARE and SCD 24 Hours CARE 07/08/20 13:37 Active CARDIAC DIET DIETARY 07/08/20 Dinner Ordered ED IV/MEDIPORT/POWERPORT .ONCE EMERGENCY 07/08/20 11:17 Active BASIC METABOLIC PANEL DAILY@0600 LAB 07/09/20 04:48 Completed BASIC METABOLIC PANEL DAILY@0600 LAB 07/10/20 06:00 Ordered CBC W/ AUTO DIFF DAILY@0600 LAB 07/09/20 04:48 Completed CBC W/ AUTO DIFF DAILY@0600 LAB 07/10/20 06:00 Ordered CBC W/ AUTO DIFF Stat LAB 07/08/20 10:23 Completed COMPREHENSIVE METABOLIC PANEL Stat LAB 07/08/20 10:23 Completed CREATINE KINASE Stat LAB 07/08/20 10:23 Completed NT-PROBNP Stat LAB 07/08/20 10:23 Completed THYROID STIMULATING HORMONE Stat LAB 07/08/20 10:23 Completed TROPONIN I Stat LAB 07/08/20 10:23 Completed 0.9 % Sodium Chloride [Saline Flush] MEDS 07/08/20 11:17 Active 1 syr IVF PRN PRN Furosemide [Lasix] MEDS 07/08/20 11:17 Discontinued 20 mg IVP ONCE STA RESUSCITATION STATUS Routine OTHERS 07/08/20 13:37 Ordered CHEST, 2 VIEWS PA & LAT Stat RADS 07/08/20 10:11 Completed U/S DOPPLER CAROTID Stat RADS 07/08/20 11:00 Completed Medications Generic Name Dose Route Start Last Admin Trade Name Freq PRN Reason Stop Dose Admin Albuterol/Ipratropium 1 spray 07/08/20 15:35 Ipratropium/Albuterol Sulfate Inhalation [facility].W.Adap IH RTBID PRN Bronchospasm Alprazolam 0.25 mg 07/08/20 15:35 Alprazolam 0.25 Mg Tablet PO DAILY PRN Anxiety Aspirin 81 mg 07/09/20 08:30 Aspirin 81 Mg Tab.Chew PO DAILYWM [facility] Carvedilol 6.25 mg 07/08/20 17:00 07/08/20 17:35 Carvedilol 6.25 Mg Tablet PO 6.25 mg BIDWM [facility] Administration Cholecalciferol 1,000 unit 07/09/20 09:00 Cholecalciferol (Vitamin D3) 1,000 Unit Tablet PO DAILY [facility] Enoxaparin Sodium 50 mg 07/09/20 09:00 Enoxaparin Sodium 60 Mg/0.6 Ml Syr SUBCUT Q12HR [facility] Ferrous Sulfate 324 mg 07/08/20 21:00 07/08/20 20:21 Ferrous Sulfate 324 Mg Tablet. PO 324 mg BID ABEL Administration Gabapentin 100 mg 07/08/20 21:00 07/08/20 20:21 Gabapentin 100 Mg Capsule PO 100 mg TID [facility] Administration Latanoprost 1 drop 07/08/20 21:00 07/08/20 20:21 Latanoprost 2.5 Ml Opth [place] EACHEYE 1 drop BEDTIME [facility] Administration Lisinopril 20 mg 07/09/20 09:00 Lisinopril 10 Mg Tablet PO DAILY [facility] Non-Formulary Medication 1,000 mg 07/09/20 09:00 Cyanocobalamin (Vitamin B-12) [Vitamin B-12] PO DAILY [facility] Non-Formulary Medication 1 drop 07/09/20 09:00 Fluorometholone EACHEYE DAILY [facility] Pantoprazole Sodium 40 mg 07/08/20 17:00 07/09/20 05:51 Pantoprazole Sodium 40 Mg Tablet. PO 40 mg BIDAC ABEL Administration Pravastatin Sodium 40 mg 07/09/20 09:00 Pravastatin Sodium 40 Mg Tablet PO DAILY [facility] Fluticasone/Salmeterol 1 puff 07/08/20 21:00 07/08/20 20:22 Fluticasone/Salmeterol 250/50 Diskus IH 1 puff BID [facility] Administration Sitagliptin Phosphate 25 mg 07/09/20 09:00 Sitagliptin Phosphate 50 Mg Tablet PO DAILY ABEL Sodium Chloride 1 syr 07/08/20 11:17 07/08/20 11:45 0.9% Sodium Chloride 10 Ml Disp.Syrin IVF 1 syr PRN PRN Administration To flush IV Tramadol HCl 50 mg 07/08/20 15:50 Tramadol Hcl 50 Mg Tablet PO BID PRN Pain Discontinued Medications Generic Name Dose Route Start Last Admin Trade Name Freq PRN Reason Stop Dose Admin Furosemide 20 mg 07/08/20 11:17 07/08/20 11:45 Furosemide Inj 20 Mg/2 Ml Vial IVP 07/08/20 11:18 20 mg ONCE STA Administration Patient reports 'not feeling well' all weekend. Additionally, her asthma flared on Wednesday, but had improved by yesterday. Last night she was restless. This morning her chest felt 'heavy'. Her daughter, who is a nurse, auscultated her chest and noted an irregular rhythm. The ECG showed rate-controlled atrial fibrillation, which is a new diagnosis. A bounding pulse was noted on the right carotid artery. This was not visible or palpable on the left. Carotid US was performed, but no significant abnormality was noted. There was greater flow in the right, but there was no aneurism. CXR showed no acute cardiopulmonary process. The labs were significant for what appeared to be a CRI (BUN/Creatinine 17.7/1.54, ratio 11.49, GFR calculated 32) and an elevated BNP (2970). Her baseline BNP is unclear. I spoke with her PCP, Dr Lam, who said to admit her to his service. Patient was in good condition when transported from the ED. Vital Signs: Temp Pulse Resp BP Pulse Ox 07/08/20 09:23 97.6 F 71 18 169/74 H 96 KELLY Risk Score KELLY Risk Score: Risk Score Odds of by 30D 0 0.1 (0.1-0.2) 1 0.3 (0.2-0.3) 2 0.4 (0.3-0.5) 3 0.7 (0.6-0.9) 4 1.2 (1.0-1.5) 5 2.2 (1.9-2.6) 6 3.0 (2.5-3.6) 7 4.8 (3.8-6.1) Discharge Plan Discharge Patient Disposition: ADMITTED INPATIENT Discharge Problem: Atrial fibrillation, new onset Chronic renal insufficiency Qualifiers: Chronic kidney disease stage: unspecified stage Qualified Code(s): N18.9 - Chronic kidney disease, unspecified CHF NYHA class I (no symptoms from ordinary activities) Qualifiers: Congestive heart failure type: systolic Congestive heart failure chronicity: unspecified Qualified Code(s): I50.20 - Unspecified systolic (congestive) heart failure ED Provider: CYNDIE BEVERLY Condition: Stable Physician Progress Note: []
[2020-07-08 10:27] LABS: BASOPHILS % (AUTO) 0.3 % (0.0-3.0); EOSINOPHILS # (AUTO) 0.1 K/ul (0.0-0.7); EOSINOPHILS % (AUTO) 1.1 % (0.0-7.0); HEMATOCRIT 32.2 % (37.0-47.0); HEMOGLOBIN 10.9 g/dl (12.0-16.0); IMMATURE GRANULOCYTE % (AUTO) 0.4 % (0.0-5.0); LYMPHOCYTES # (AUTO) 0.7 K/uL (0.60-3.4); MEAN CORPUSCULAR HEMOGLOBIN 29.9 pg (27.0-31.0); MEAN CORPUSCULAR HGB CONC 33.9 (31.8-35.4); MEAN CORPUSCULAR VOLUME 88.2 fl (81.0-99.0); MONOCYTES # (AUTO) 0.3 K/uL (0.4-2.0); NEUTROPHILS % (AUTO) 84.2 % (42.2-75.2); PLATELET COUNT 228 10^3/uL (140-440); RDW COEFFICIENT OF VARIATION 13.2 % (11.6-14.8); RED BLOOD COUNT 3.65 10^6/ul (4.20-5.40); WHITE BLOOD COUNT 7.17 K/ul (4.6-10.2)
[2020-07-08 10:39] LABS: ALANINE AMINOTRANSFERASE 10.4 U/L (0-35); ALBUMIN 4.09 g/dL (3.5-5.0); ALKALINE PHOSPHATASE 59.3 U/L (53-141); ASPARTATE AMINO TRANSFERASE 18.2 U/L (14-36); BILIRUBIN,TOTAL 0.38 mg/dL (0.2-1.3); BLOOD UREA NITROGEN 17.7 mg/dL (7-17); CARBON DIOXIDE 26.4 mmol/L (22-30.0); CHLORIDE 106.5 mmol/L (98-107); CREATINE KINASE 40.6 U/L (30-135); CREATININE 1.54 mg/dL (0.60-1.30); GLUCOSE 157.4 mg/dL (74-106); POTASSIUM 3.72 mmol/L (3.5-5.1); TOTAL PROTEIN 6.93 g/dL (6.3-8.2)
--- NOTE | 2020-07-08 10:43 | DI ---
EXAM: CHEST FRONTAL AND LATERAL VIEWS HISTORY: Chest pain. COMPARISON: 03/24/2019 FINDINGS: Mild cardiomegaly is stable. No acute infiltrates are seen. No vascular congestion. The re is no consolidation, visible pleural fluid or pneumothorax. Bones reveal no acute fracture. IMPRESSION: Cardiomegaly. No definite acute cardiopulmonary process.
[2020-07-08 11:00] LABS: TROPONIN I < 0.012 ng/ml (0.0000-0.120)
[2020-07-08] MEDS ORDERED: LASIX IVP STA (11:17)
--- NOTE | 2020-07-08 11:57 | US ---
EXAM: Carotid ultrasound HISTORY: Bounding right carotid COMPARISON: None TECHNIQUE: Carotid ultrasound was performed using Duplex imaging with johnson scale, color, and Doppler imaging performed. FINDINGS: Right carotid: There is atherosclerotic plaque in the common carotid and bulb/internal carotid arter y. Carotid artery appears normal caliber. Peak systolic velocity measurement in the right internal carotid artery is 0.99 meters per second. End-diastolic velocity measurement in the right internal c arotid artery is 0.26 meters per second. Right internal to common carotid artery peak systolic veloc ity ratio is 1.2. Flow in the right vertebral artery is antegrade. Left carotid: There is atherosclerotic plaque in the common carotid and bulb/internal carotid artery . Carotid artery appears normal caliber Peak systolic velocity measurement in the left internal aguero tid artery is 0.65 meters per second. End-diastolic velocity measurement in the left internal caroti d artery is 0.21 meters per second. Left internal to common carotid artery peak systolic velocity ra jeremi measures 1.7. Flow in the left vertebral artery is antegrade. IMPRESSION: 1. Right internal carotid: No hemodynamically significant stenosis 2. Left internal carotid: No hemodynamically significant stenosis
[2020-07-08 14:50] VITALS: BMI 26.7
[2020-07-08] MEDS ORDERED: COMBIVENT RESPIMAT INHALER IH PRN (15:35)
[2020-07-08] MEDS ORDERED: TRAMADOL 100 MG PO PRN (15:35)
[2020-07-08] MEDS ORDERED: XANAX PO PRN (15:35)
[2020-07-08] MEDS ORDERED: ULTRAM PO PRN (15:50)
[2020-07-08] MEDS: COREG PO SCH (17:35)
[2020-07-08] MEDS: PROTONIX PO SCH (17:35)
[2020-07-08 17:48] LABS: BILIRUBIN,URINE Negative (NEGATIVE); CLARITY,URINE Clear (CLEAR); COLOR,URINE Yellow (YELLOW); GLUCOSE, URINE (UA) Negative (NEGATIVE); KETONES,URINE Negative (NEGATIVE); LEUKOCYTE ESTERASE ,URINE 1+ (NEGATIVE); NITRITE,URINE Negative (NEGATIVE); PROTEIN,URINE Negative (NEGATIVE); URINE, BLOOD Trace-lysed (NEGATIVE); UROBILINOGEN,URINE 0.2 (0.2)
[2020-07-08] MEDS: FERROUS SULFATE PO SCH (20:21)
[2020-07-08] MEDS: XALATAN EACHEYE SCH (20:21)
[2020-07-08] MEDS: NEURONTIN PO SCH (20:21)
[2020-07-08] MEDS: ADVAIR 250-50 DISKUS IH SCH (20:22)
[2020-07-08] MEDS ORDERED: FERROUS FUMARATE 55 MG PO SCH (21:00)
[2020-07-09 05:11] LABS: BASOPHILS % (AUTO) 0.5 % (0.0-3.0); EOSINOPHILS # (AUTO) 0.1 K/ul (0.0-0.7); EOSINOPHILS % (AUTO) 1.3 % (0.0-7.0); HEMATOCRIT 33.3 % (37.0-47.0); HEMOGLOBIN 11.4 g/dl (12.0-16.0); IMMATURE GRANULOCYTE % (AUTO) 0.3 % (0.0-5.0); LYMPHOCYTES # (AUTO) 1.4 K/uL (0.60-3.4); MEAN CORPUSCULAR HEMOGLOBIN 29.8 pg (27.0-31.0); MEAN CORPUSCULAR HGB CONC 34.2 (31.8-35.4); MEAN CORPUSCULAR VOLUME 87.2 fl (81.0-99.0); MONOCYTES # (AUTO) 0.4 K/uL (0.4-2.0); MONOCYTES % (AUTO) 7.1 (0-10); NEUTROPHILS # (AUTO) 4.1 K/ul (2.0-6.9); NEUTROPHILS % (AUTO) 67.8 % (42.2-75.2); PLATELET COUNT 239 10^3/uL (140-440); RDW COEFFICIENT OF VARIATION 13.2 % (11.6-14.8); RED BLOOD COUNT 3.82 10^6/ul (4.20-5.40); WHITE BLOOD COUNT 6.09 K/ul (4.6-10.2)
[2020-07-09 05:27] LABS: BLOOD UREA NITROGEN 28.1 mg/dL (7-17); CALCIUM 9.51 mg/dL (8.4-10.2); CHLORIDE 105.3 mmol/L (98-107); CREATININE 1.67 mg/dL (0.60-1.30); GLUCOSE 122.5 mg/dL (74-106); POTASSIUM 3.78 mmol/L (3.5-5.1)
[2020-07-09] MEDS: PROTONIX PO SCH ×2 (05:51→17:30)
[2020-07-09] MEDS ORDERED: ASPIRIN CHEWABLE PO SCH (08:30)
[2020-07-09] MEDS ORDERED: LOVENOX SUBCUT SCH ×2 (09:00)
--- NOTE | 2020-07-09 09:07 | PCM.PROG ---
Attending Provider: ATTENDING PROVIDER: Dr. NIKKO LAM This patient is seen with Li Marroquin, Nurse Practitioner. DATE OF SERVICE: 07/09/20 SUBJECTIVE: This 80 year old /WHITE F was hospitalized 07/08/20. The patient is resting comfortably. Reports that she has just been feeling more fatigued lately. She denies any shortness of breath. She has woke up in a sweat a few time. Daughter notice irregular heart rate on auscultation. She reported heaviness in chest and down both arms yesterday. Cardiac enzymes are normal. REVIEW OF SYSTEMS: CONSTITUTIONAL: No night sweats. No fatigue, malaise, lethargy. No fever or chills. HEENT: Eyes: No visual changes. No eye pain. No eye discharge. ENT: No runny nose. No epistaxis. No sinus pain. No odynophagia. No congestion. RESPIRATORY: No cough, no congestion. No hemoptysis. No shortness of breath. CARDIOVASCULAR: No angina symptoms. No CHF symptoms. Chest pain. No palpitations. No orthopnea.. GASTROINTESTINAL: No abdominal pain. No nausea or vomiting. No diarrhea or constipation. No hematemesis. No hematochezia. GENITOURINARY: No urgency. No frequency. No dysuria. No hematuria. No obstructive symptoms. No discharge. No pain. No significant abnormal bleeding. MUSCULOSKELETAL: No musculoskeletal pain; no joint swelling. NEUROLOGICAL: Awake, alert, oriented to time, place and person. No headache. No neck pain. No syncope. No seizures. No dizziness. PSYCHIATRIC: Anxiety. No depression. No suicidal thoughts. No homicidal thoughts. SKIN: No rash. No lesions. No wounds. ENDOCRINE: No unexplained weight loss. No weight gain. HEMATOLOGIC/LYMPHATIC: No anemia. No purpura. No petechiae. No prolonged or excessive bleeding. No palpable lymph nodes. PHYSICAL EXAMINATION: GENERAL: The patient is awake, alert and oriented, sitting in bed in no distress. VITAL SIGNS: Temperature 98.4 F, Pulse 64, Respiratory Rate 18, BP 157/77, Pulse Ox 97% HEENT: Head normocephalic, atraumatic. Eyes: Extraocular muscles are intact. Pupils are equal, round and reactive to light and accommodation. Ears: No lesions. Nose appeared normal. Throat: No exudate or erythema. NECK: Supple. No JVD, no carotid bruit. No lymphadenopathy or thyromegaly. LUNGS: Diminished breath sounds. Clear to auscultation. Percussion note normal. Chest symmetrical. HEART: S1, S2, no S3. No murmurs. No cyanosis or clubbing. No ascites. Pulses: Dorsalis pedis and posterior tibial pulses +1 to +2 both sides. ABDOMEN: Soft. Non-tender. Bowel sounds active. No CVA tenderness. No mass felt. EXTREMITIES: No edema. Full range of motion of all extremities, equal. NEUROLOGIC: No focal deficit. Cranial nerves II through XII are grossly intact. No headache, no double vision or headache. SKIN: Not dry. Intact. Turgor-normal. LYMPHATIC: No palpable lymph nodes/no lymphedema. MUSCULOSKELETAL: Normal joints with no swelling. Muscle tone is normal. LAB REVIEW: 07/09/20 04:48 07/09/20 04:48 07/09/20 04:48: Sodium 139.0, Potassium 3.78, Chloride 105.3, Carbon Dioxide 26.0, Anion Gap 11.48, BUN 28.1 H, Creatinine 1.67 H, Estimated GFR (MDRD) 29.00, BUN/Creatinine Ratio 16.82, Glucose 122.5 H, Calcium 9.51 07/09/20 04:48: WBC 6.09, RBC 3.82 L, Hgb 11.4 L, Hct 33.3 L, MCV 87.2, MCH 29.8, MCHC 34.2, RDW Coeff of Trinity 13.2, Plt Count 239, Immature Gran % (Auto) 0.3, Neut % (Auto) 67.8, Lymph % (Auto) 23.0, [place] % (Auto) 7.1, Eos % (Auto) 1.3, Baso % (Auto) 0.5, Neut # (Auto) 4.1, Lymph # (Auto) 1.4, [place] # (Auto) 0.4, Eos # (Auto) 0.1, Baso # (Auto) 0.0, Immature Gran # (Auto) 0.0 07/08/20 17:40: Urine Color Yellow, Urine Clarity Clear, Urine pH 7.0, Ur Specific [place] 1.020, Urine Protein Negative, Urine Glucose (UA) Negative, Urine Ketones Negative, Urine Blood Trace-lysed, Urine Nitrite Negative, Urine Bilirubin Negative, Urine Urobilinogen 0.2, Ur Leukocyte Esterase 1+ H, Urine Microscopic RBC 2-5, Urine Microscopic WBC 10-20, Ur Squamous Epith Cells 10-20, Ur Transition Epith Cell 2-5 07/08/20 10:23: Sodium 139.0, Potassium 3.72, Chloride 106.5, Carbon Dioxide 26.4, Anion Gap 9.82, BUN 17.7 H, Creatinine 1.54 H, Estimated GFR (MDRD) 32.00, BUN/Creatinine Ratio 11.49, Glucose 157.4 H, Calcium 9.40, Total Bilirubin 0.38, AST 18.2, ALT 10.4, Alkaline Phosphatase 59.3, Total Creatine Kinase 40.6, Troponin I < 0.012, NT-Pro-B Natriuret Pep 2970.000 H, Total Protein 6.93, Albumin 4.09, Globulin 2.84, Albumin/Globulin Ratio 1.44, TSH 1.650 07/08/20 10:23: WBC 7.17, RBC 3.65 L, Hgb 10.9 L, Hct 32.2 L, MCV 88.2, MCH 29.9, MCHC 33.9, RDW Coeff of Trinity 13.2, Plt Count 228, Immature Gran % (Auto) 0.4, Neut % (Auto) 84.2 H, Lymph % (Auto) 10.0, [place] % (Auto) 4.0, Eos % (Auto) 1.1, Baso % (Auto) 0.3, Neut # (Auto) 6.0, Lymph # (Auto) 0.7, [place] # (Auto) 0.3 L, Eos # (Auto) 0.1, Baso # (Auto) 0.0, Immature Gran # (Auto) 0.0 ASSESSMENT: Please see below. 1. New onset atrial fibrillation/flutter 2. Chronic kidney disease stage 3 3. Chest pain 4. Dyslipidemia 5. Hypertension PLAN: 1. Lovenox 60mg once daily 2. 2D echo Plan and coordination of the patient's care discussed in the presence of Bread Stacker and nurse. SCRIBED BY: JOCELYN ANAYA Cold Food Packer scribed while in presence of service performed by Dr. Lam/Li Marroquin APRN on 07/09/20 ([id number])
[2020-07-09] MEDS: NEURONTIN PO SCH ×3 (09:42→21:07)
[2020-07-09] MEDS: ZESTRIL PO SCH (09:42)
[2020-07-09] MEDS: FERROUS SULFATE PO SCH ×2 (09:42→21:07)
[2020-07-09] MEDS: VITAMIN D PO SCH (09:42)
[2020-07-09] MEDS: JANUVIA PO SCH (09:42)
[2020-07-09] MEDS: PRAVACHOL PO SCH (09:43)
[2020-07-09] MEDS: COREG PO SCH ×2 (09:43→17:30)
[2020-07-09] MEDS: ADVAIR 250-50 DISKUS IH SCH ×2 (09:44→21:08)
--- NOTE | 2020-07-09 10:05 | HP ---
DATE OF SERVICE: 07/08/20 HISTORY OF PRESENT ILLNESS: This is an 80-year-old white female who presents to the emergency room with chest pain. She started having chest pain yesterday. Her daughter is a nurse. She stayed the night with her. She reported that it was getting worse. She has a history of palpitations and chest pain in the past. She describes it as heaviness on the left side. PAST MEDICAL HISTORY: Prolapsed bladder/rectum Metabolic syndrome Palpitations History of right renal cell carcinoma, sees Dr. Salinas Diabetes mellitus type 2 Dyslipidemia Degenerative joint disease of the spine History of breast cancer Chronic kidney disease, Stage 3 Anemia COPD Hypertension GERD Osteopenia Chronic back pain History of enlarged left axillary nodule Chronic anemia COPD Hypertension PAST SURGICAL HISTORY: Hemicolectomy in 2006 Right nephrectomy in October of 2013 Left mastectomy To note, she does see Dr. Canales for chronic kidney disease and the nephrectomy. She also sees Dr. Ellis for the history of breast cancer. She follows with Dr. Taylor. She recently had a colonoscopy and EGD in July,. Right mammogram in June of [address] Ellis. She also sees Dr. Salinas for history of kidney cancer. REVIEW OF SYSTEMS: CONSTITUTIONAL: No night sweats. No fatigue, malaise, lethargy. No fever or chills. HEENT: Eyes: No visual changes. No eye pain. No eye discharge. ENT: No runny nose. No epistaxis. No sinus pain. No sore throat. No odynophagia. No ear pain. No congestion. RESPIRATORY: No cough, no congestion. No hemoptysis. No shortness of breath. CARDIOVASCULAR: Positive for chest pain, palpitations. No angina symptoms. No CHF symptoms. No PND. No orthopnea. GASTROINTESTINAL: No abdominal pain. No nausea or vomiting. No diarrhea or constipation. No hematemesis. No hematochezia. GENITOURINARY: No urgency. No frequency. No dysuria. No hematuria. No obstructive symptoms. No discharge. No pain. No significant abnormal bleeding. MUSCULOSKELETAL: No musculoskeletal pain. No joint swelling. No arthritis. NEUROLOGICAL: No headache. No neck pain. No syncope. No seizures. No dizziness. PSYCHIATRIC: Not anxious. No depression. No suicidal thoughts. No homicidal thoughts. SKIN: No rash. No lesions. No wounds. ENDOCRINE: No unexplained weight loss. No weight gain. HEMATOLOGIC/LYMPHATIC: No anemia. No purpura. No petechiae. No prolonged or excessive bleeding. No palpable lymph nodes. PERSONAL/FAMILY/SOCIAL HISTORY: She is , nonsmoker. No alcohol or ilicit drug use. MEDICATIONS: Alprazolam (Xanax) 0.25 mg p.o. daily p.r.n. Ferrous Fumarate (Iron) 325 mg p.o. b.i.d. Cyanocobalamin (Vitamin B12) 1,000 mg p.o. daily Fluticasone one puff INH b.i.d. Sitagliptin (Januvia) 25 mg p.o. daily Latanoprost 0.005% one drop both eyes bedtime Gabapentin 100 mg p.o. t.i.d. Pantoprazole 40 mg p.o. b.i.d. Cholecalciferol 1,000 unit p.o. daily Carvedilol 6.25 mg p.o. b.i.d. Tramadol 50 mg p.o. b.i.d. p.r.n. Lisinopril 20 mg p.o. daily Aspirin 81 mg p.o. daily Pravastatin 40 mg p.o. daily Acetaminophen 325 mg p.o. once p.r.n. Ipratropium-Albuterol one puff INH b.i.d. p.r.n Fluorometholone 0.1% drops one drop both eyes daily ALLERGIES: BUDESONIDE, FORMOTEROL PHYSICAL EXAMINATION: VITAL SIGNS: Temperature 97.6, heart rate 71, respirations 18, blood pressure 169/74, pulse ox 96%. HEENT: Head normocephalic, atraumatic. Eyes: Extraocular muscles are intact. Pupils are equal, round and reactive to light and accommodation. Ears: No lesions. Nose appeared normal. Throat: No exudate or erythema. NECK: Supple. No JVD, no carotid bruit. No lymphadenopathy or thyromegaly. LUNGS: Diminished breath sounds bilaterally. Clear to auscultation. Percussion note normal. Chest symmetrical. HEART: S1, S2, no S3. No murmur. No cyanosis or clubbing. No ascites. Pulses: Dorsalis pedis and posterior tibial pulses +1 to +2 bilaterally. ABDOMEN: Soft. Nontender. Bowel sounds active. No CVA tenderness. No mass felt. EXTREMITIES: Trace lower extremity edema. Full range of motion of all extremities, equal. NEUROLOGIC: No focal deficit. Cranial nerves II through XII are grossly intact. No headache, no double vision or headache. SKIN: Not dry. Intact. Turgor - normal. LYMPHATIC: No palpable lymph nodes/no lymphedema. MUSCULOSKELETAL: Normal joints with no swelling. Muscle tone is normal. LAB/IMAGING: Carotid scan bilaterally - no significant stenosis bilaterally. Sodium 139, potassium 3.7, BUN 17, creatinine 1.54, glucose 157, AST 18, ALT 10, troponin less than 0.012. Pro-BNP 2970, protein 6.9, white count 7,000, hemoglobin 10.9, hematocrit 32.2, platelets 228. TSH 1.64. Chest x-ray shows cardiomegaly, no definite acute cardiopulmonary process. ASSESSMENT: 1. Chest pain, palpitations. 2. Anxiety. 3. Generalized weakness. PLAN: 1. We will admit. 2. Routine telemetry orders. 3. CBC, CMP daily. 4. Continue all home medications. 5. UA. 6. Normal Saline at 75 cc/hr. 7. Will follow closely. TIME SPENT: More than 70 minutes. MTDD
[2020-07-09] MEDS: CYANOCOBALAMIN 1000 MCG PO SCH (11:16)
[2020-07-09] MEDS: [UNRECOGNIZED DRUG - OTHER] PO SCH (11:16)
[2020-07-09] MEDS: NON-FORMULARY MEDICATION (Fluorometholone 0.1 % Drops,Suspension) EACHEYE SCH (11:17)
--- NOTE | 2020-07-09 13:01 | PN ---
DATE OF SERVICE: 07/08/20 - ADMIT NOTE SUBJECTIVE: The patient was seen in the emergency room with complaint having nonspecific type of chest pain. On further workup the patient had atrial fibrillation which was new onset in type. The patient has paroxysmal atrial fibrillation. In any case, the patient's cardiac markers were negative. Creatinine was 1.5 with BUN 18. The patient also had elevated BNP with evidence of cardiomegaly on chest x- ray. No symptoms of CHF or coronary insufficiency. She is going to be hospitalized with routine telemetry orders and echocardiogram with further investigation done. Condition is stable. TIME SPENT: More than 30 minutes. Plan and coordination of the patient's care discussed in the presence of nurse. YFN
--- NOTE | 2020-07-09 13:12 | PN ---
DATE OF SERVICE: 07/09/20 SUBJECTIVE: The patient was seen and examined with the nurse practitioner. The patient has no evidence of any acute MR or ischemia. The patient has atrial flutter/fib with normal ventricular response. Echo was done which showed markedly enlarged LA cavity of approximately 5 cm with moderate aortic regurgitation. LV contractility was normal with mild LVH. The patient is going to be on Eliquis, discussed with the patient and she is agreeable. Eliquis was discussed in detail with side effects like GI bleed and intracranial bleed. The patient is strongly instructed not to take any nonsteroidal antiinflammatory with it and no aspirin once she is started on Eliquis. The patient's condition is otherwise stable. TIME SPENT: More than 30 minutes. Plan and coordination of the patient's care discussed in the presence of nurse. YFN
[2020-07-09] MEDS: XALATAN EACHEYE SCH (21:08)
[2020-07-10 05:45] LABS: BASOPHILS % (AUTO) 0.4 % (0.0-3.0); EOSINOPHILS # (AUTO) 0.1 K/ul (0.0-0.7); EOSINOPHILS % (AUTO) 2.1 % (0.0-7.0); HEMATOCRIT 31.7 % (37.0-47.0); HEMOGLOBIN 10.8 g/dl (12.0-16.0); IMMATURE GRANULOCYTE % (AUTO) 0.4 % (0.0-5.0); LYMPHOCYTES # (AUTO) 1.3 K/uL (0.60-3.4); LYMPHOCYTES % (AUTO) 24.2 (10.0-50.0); MEAN CORPUSCULAR HEMOGLOBIN 29.8 pg (27.0-31.0); MEAN CORPUSCULAR HGB CONC 34.1 (31.8-35.4); MEAN CORPUSCULAR VOLUME 87.6 fl (81.0-99.0); MONOCYTES # (AUTO) 0.4 K/uL (0.4-2.0); MONOCYTES % (AUTO) 7.5 (0-10); NEUTROPHILS # (AUTO) 3.5 K/ul (2.0-6.9); NEUTROPHILS % (AUTO) 65.4 % (42.2-75.2); PLATELET COUNT 224 10^3/uL (140-440); RDW COEFFICIENT OF VARIATION 13.2 % (11.6-14.8); RED BLOOD COUNT 3.62 10^6/ul (4.20-5.40)
[2020-07-10] MEDS: PROTONIX PO SCH ×2 (05:49→16:34)
[2020-07-10 05:58] LABS: BLOOD UREA NITROGEN 34.1 mg/dL (7-17); CALCIUM 9.27 mg/dL (8.4-10.2); CARBON DIOXIDE 25.5 mmol/L (22-30.0); CHLORIDE 107.4 mmol/L (98-107); CREATININE 1.7 mg/dL (0.60-1.30); GLUCOSE 121.5 mg/dL (74-106); POTASSIUM 3.83 mmol/L (3.5-5.1); SODIUM 140.7 mmol/L (134.5-145)
[2020-07-10] MEDS: COREG PO SCH ×2 (08:27→16:34)
[2020-07-10] MEDS: ZESTRIL PO SCH (08:27)
[2020-07-10] MEDS: NEURONTIN PO SCH ×3 (08:27→20:20)
[2020-07-10] MEDS: ADVAIR 250-50 DISKUS IH SCH ×2 (08:27→20:20)
[2020-07-10] MEDS: JANUVIA PO SCH (08:27)
[2020-07-10] MEDS: PRAVACHOL PO SCH (08:28)
[2020-07-10] MEDS: FERROUS SULFATE PO SCH ×2 (08:28→20:20)
[2020-07-10] MEDS: VITAMIN D PO SCH (08:28)
[2020-07-10] MEDS: [UNRECOGNIZED DRUG - OTHER] PO SCH (08:29)
[2020-07-10] MEDS: NON-FORMULARY MEDICATION (Fluorometholone 0.1 % Drops,Suspension) EACHEYE SCH (08:29)
[2020-07-10] MEDS: CYANOCOBALAMIN 1000 MCG PO SCH (08:29)
[2020-07-10] MEDS: ELIQUIS PO SCH ×2 (08:29→20:21)
[2020-07-10] MEDS: XALATAN EACHEYE SCH (20:21)
[2020-07-11 05:26] LABS: BASOPHILS % (AUTO) 0.3 % (0.0-3.0); EOSINOPHILS # (AUTO) 0.1 K/ul (0.0-0.7); EOSINOPHILS % (AUTO) 2.4 % (0.0-7.0); HEMATOCRIT 31.5 % (37.0-47.0); HEMOGLOBIN 10.7 g/dl (12.0-16.0); IMMATURE GRANULOCYTE % (AUTO) 0.3 % (0.0-5.0); LYMPHOCYTES # (AUTO) 1.4 K/uL (0.60-3.4); LYMPHOCYTES % (AUTO) 24.4 (10.0-50.0); MEAN CORPUSCULAR VOLUME 88.2 fl (81.0-99.0); MONOCYTES # (AUTO) 0.4 K/uL (0.4-2.0); MONOCYTES % (AUTO) 7.1 (0-10); NEUTROPHILS # (AUTO) 3.8 K/ul (2.0-6.9); NEUTROPHILS % (AUTO) 65.5 % (42.2-75.2); PLATELET COUNT 218 10^3/uL (140-440); RDW COEFFICIENT OF VARIATION 13.4 % (11.6-14.8); RED BLOOD COUNT 3.57 10^6/ul (4.20-5.40); WHITE BLOOD COUNT 5.79 K/ul (4.6-10.2)
[2020-07-11] MEDS: PROTONIX PO SCH (05:37)
[2020-07-11 05:39] LABS: ALANINE AMINOTRANSFERASE 8.9 U/L (0-35); ALBUMIN 3.95 g/dL (3.5-5.0); ALKALINE PHOSPHATASE 54.7 U/L (53-141); ASPARTATE AMINO TRANSFERASE 14.7 U/L (14-36); BILIRUBIN,TOTAL 0.27 mg/dL (0.2-1.3); CALCIUM 9.15 mg/dL (8.4-10.2); CHLORIDE 107.9 mmol/L (98-107); CREATININE 1.78 mg/dL (0.60-1.30); GLUCOSE 122.1 mg/dL (74-106); POTASSIUM 3.97 mmol/L (3.5-5.1); TOTAL PROTEIN 6.72 g/dL (6.3-8.2)
[2020-07-11 05:54] VITALS: BP 159/79; TEMP 97.8
[2020-07-11] MEDS ORDERED: ELIQUIS PO SCH (09:00)
[2020-07-11] MEDS ORDERED: ATROPINE SULFATE PFS IVP STA (09:11)
[2020-07-11] MEDS: COREG PO SCH (09:12)
[2020-07-11] MEDS: JANUVIA PO SCH (09:12)
[2020-07-11] MEDS: VITAMIN D PO SCH (09:12)
[2020-07-11] MEDS: NEURONTIN PO SCH (09:12)
[2020-07-11] MEDS: FERROUS SULFATE PO SCH (09:13)
[2020-07-11] MEDS: PRAVACHOL PO SCH (09:13)
[2020-07-11] MEDS: ZESTRIL PO SCH (09:13)
[2020-07-11] MEDS ORDERED: DOBUTAMINE 500 MG-D5W 250 ML 500 MG/250 ML BAG IV SCH (09:15)
[2020-07-11] MEDS: ADVAIR 250-50 DISKUS IH SCH (09:15)
[2020-07-11] MEDS: NON-FORMULARY MEDICATION (Fluorometholone 0.1 % Drops,Suspension) EACHEYE SCH (09:16)
[2020-07-11] MEDS: CYANOCOBALAMIN 1000 MCG PO SCH (09:19)
[2020-07-11] MEDS: [UNRECOGNIZED DRUG - OTHER] PO SCH (09:19)
--- NOTE | 2020-07-11 09:30 | ECHO2D ---
Date of Exam: 07/09/2020 Ordering Physician: DR. NIKKO LAM Room #: 110 Reason for Echo: NEW ON SET ATRIAL FIBRILLATION, HTN M-Mode Normal Adult Results LV Dimensions Normal Adult Results AoV Opening excursions >1.6 >1.6 LVEDD-base- 3.5-5.8 5.2 Ao root dimensions 2.0-3.7 3.1 LVESD-base- 3.1-4.6 L. Atrium dimensions 1.9-3.8 5.1 Post. Wall thickness 0.8-1.1 1.1 IV septum (thickness) 0.7-1.2 1.2 Post. Wall excursion 0.72-1.3 NORMAL Septal motion NORMAL Systolic motion R. Ventricular cavity 1.5-2.0 NORMAL LVEF 60% 58% Paradoxical septal wall motion NORMAL 2-D : 2-D M Mode Echocardiogram was performed using apical four chamber and left parasternal long and short axis views. MITRAL VALVE ANNULUS. Tricuspid and aortic valves appear to be normal. Contractility of the left ventricle seems to be normal, so is the cavity size. ENLARGED LEFT ATRIAL CAVITY. Aortic root appears to be normal. There is no pericardial effusion. There is no thrombus noted in the left ventricle or left atrial cavity. No mitral valve prolapse noted. COLOR FLOW: AORTIC REGURGITATION (MODERATE) M-MODE: MV: CALCIFIC MITRAL VALVE ANNULUS AV: NORMAL TV: NORMAL PV: NORMAL CHAMBER SIZE: ENLARGED LEFT ATRIAL CAVITY WALL MOTION: NORMAL PERICARDIUM: NORMAL INTERPRETATION: 1. BORDERLINE LEFT VENTRICULAR HYPERTROPHY WITH ENLARGED LEFT ATRIAL CAVITY (5.1 CM) 2. NORMAL LEFT VENTRICLE CONTRACTILITY 3. CALCIFIC MITRAL VALVE ANNULUS 4. NORMAL LEFT VENTRICLE SIZE MTDD
--- NOTE | 2020-07-11 09:58 | PCM.PROG ---
Attending Provider: ATTENDING PROVIDER: Dr. NIKKO LAM This patient is seen with Li Marroquin, Nurse Practitioner. DATE OF SERVICE: 07/11/20 SUBJECTIVE: This 80 year old /WHITE F was hospitalized 07/08/20. The patient is resting comfortably. She has have palpitations with exertion otherwise rate has been controlled. She is scheduled for a Dobutamine. She is tolerating Eliquis. Hgb is stable. REVIEW OF SYSTEMS: CONSTITUTIONAL: No night sweats. No fatigue, malaise, lethargy. No fever or chills. Weakness. HEENT: Eyes: No visual changes. No eye pain. No eye discharge. ENT: No runny nose. No epistaxis. No sinus pain. No odynophagia. No congestion. RESPIRATORY: No cough, no congestion. No hemoptysis. No shortness of breath. CARDIOVASCULAR: No angina symptoms. No CHF symptoms. No atypical chest pain for CAD. Palpitations. No orthopnea.. GASTROINTESTINAL: No abdominal pain. No nausea or vomiting. No diarrhea or constipation. No hematemesis. No hematochezia. GENITOURINARY: No urgency. No frequency. No dysuria. No hematuria. No obstructive symptoms. No discharge. No pain. No significant abnormal bleeding. MUSCULOSKELETAL: No musculoskeletal pain; no joint swelling. NEUROLOGICAL: Awake, alert, oriented to time, place and person. No headache. No neck pain. No syncope. No seizures. No dizziness. PSYCHIATRIC: Not anxious. No depression. No suicidal thoughts. No homicidal thoughts. SKIN: No rash. No lesions. No wounds. ENDOCRINE: No unexplained weight loss. No weight gain. HEMATOLOGIC/LYMPHATIC: No anemia. No purpura. No petechiae. No prolonged or ex cessive bleeding. No palpable lymph nodes. PHYSICAL EXAMINATION: GENERAL: The patient is awake, alert and oriented, sitting in bed in no distress. VITAL SIGNS: Temperature 97.8 F, Pulse 61, Respiratory Rate 20, BP 159/79, Pulse Ox 98% HEENT: Head normocephalic, atraumatic. Eyes: Extraocular muscles are intact. Pupils are equal, round and reactive to light and accommodation. Ears: No lesions. Nose appeared normal. Throat: No exudate or erythema. NECK: Supple. No JVD, no carotid bruit. No lymphadenopathy or thyromegaly. LUNGS: Diminished breath sounds. Clear to auscultation. Percussion note normal. Chest symmetrical. HEART: S1, S2, no S3. No murmurs. Irregular heart rate. No cyanosis or clubbing. No ascites. Pulses: Dorsalis pedis and posterior tibial pulses +1 to +2 both sides. ABDOMEN: Soft. Non-tender. Bowel sounds active. No CVA tenderness. No mass felt. EXTREMITIES: No edema. Full range of motion of all extremities, equal. NEUROLOGIC: No focal deficit. Cranial nerves II through XII are grossly intact. No headache, no double vision or headache. SKIN: Not dry. Intact. Turgor-normal. LYMPHATIC: No palpable lymph nodes/no lymphedema. MUSCULOSKELETAL: Normal joints with no swelling. Muscle tone is normal. LAB REVIEW: 07/11/20 05:03 07/11/20 05:03 07/11/20 05:03: Sodium 141.0, Potassium 3.97, Chloride 107.9 H, Carbon Dioxide 24.0, Anion Gap 13.07, BUN 35.0 H, Creatinine 1.78 H, Estimated GFR (MDRD) 27.00, BUN/Creatinine Ratio 19.66, Glucose 122.1 H, Calcium 9.15, Total Bilirubin 0.27, AST 14.7, ALT 8.9, Alkaline Phosphatase 54.7, Total Protein 6.72, Albumin 3.95, Globulin 2.77, Albumin/Globulin Ratio 1.42 07/11/20 05:03: WBC 5.79, RBC 3.57 L, Hgb 10.7 L, Hct 31.5 L, MCV 88.2, MCH 30.0, MCHC 34.0, RDW Coeff of Trinity 13.4, Plt Count 218, Immature Gran % (Auto) 0.3, Neut % (Auto) 65.5, Lymph % (Auto) 24.4, [place] % (Auto) 7.1, Eos % (Auto) 2.4, Baso % (Auto) 0.3, Neut # (Auto) 3.8, Lymph # (Auto) 1.4, [place] # (Auto) 0.4, Eos # (Auto) 0.1, Baso # (Auto) 0.0, Immature Gran # (Auto) 0.0 ASSESSMENT: Please see below. 1. Atrial fibrillation 2. Chronic kidney disease stage 3 4. Anxiety 5. COPD PLAN: 1. Dobutamine stress 2. Continue Eliquis, will give samples 3. Risks of bleeding with Eliquis discussed. No NSAIDS. 4. Discharge home 5. Atrial fibrillation discussed in detail 6. Decrease Eliquis to 2.5mg based on chronic kidney disease and age. Plan and coordination of the patient's care discussed in the presence of Jointer Machine Operator and nurse. SCRIBED BY: Leigha LINTONist scribed while in presence of service performed by Dr. Lam/Li Marroquin APRN on 07/11/20 ([id number])
--- NOTE | 2020-07-11 12:29 | CM.DICTOOL ---
ADMISSION: 07/08/20 14:19 DISCHARGE: JULY 11, 2020 DATE OF SERVICE: 07/11/20 FINAL DIAGNOSIS ATRIAL FIBRILLATION, NEW ONSET HISTORY: PALPITATIONS DIABETES MELLITUS, TYPE 2 HYPERTENSION DYSLIPIDEMIA ANEMIA CHRONIC KIDNEY DISEASE, STAGE 3 COPD METABOLIC SYNDROME DYSLIPIDEMIA CANCER, BREAST AND RENAL CELL GERD OSTEOPENIA DJD, SPINE HEMICOLECTOMY, 2007 NEPHRECTOMY, RIGHT 2014 MASTECTOMY, LEFT COLONOSCOPY, 2018 (DR. FARLEY) ENDOSCOPY, 2019 (DR. FARLEY) ECHOCARDIOGRAM (07/09/2020) BORDERLINE LVH ENLARGED LEFT ATRIAL CAVITY (5.1 CM) CALCIFIC MITRAL VALVE ANNULUS NORMAL LV SIZE LVEF 58% STRESS ECHO, COMPLETED 07/11/2020 LAST VITALS Temp Pulse Resp BP Pulse Ox 97.8 F 61 19 159/79 H 98 07/11/20 05:53 07/11/20 05:53 07/11/20 08:00 07/11/20 05:53 07/11/20 05:53 TAKE THESE MEDICATIONS AT HOME Albuterol/Ipratropium (Ipratropium/Albuterol Sulfate Inhalation Salkum Aer.W.Adap) 1 spray IH RTBID PRN PRN Reason: Bronchospasm Alprazolam (Alprazolam 0.25 Mg Tablet) 0.25 mg PO DAILY PRN PRN Reason: Anxiety Apixaban (Apixaban 5 Mg Tab) 2.5 mg PO BID [facility] Last Admin: 07/11/20 09:13 Dose: 2.5 mg Documented by: Carvedilol (Carvedilol 6.25 Mg Tablet) 6.25 mg PO BIDWM [facility] Last Admin: 07/11/20 09:12 Dose: 6.25 mg Documented by: Cholecalciferol (Cholecalciferol (Vitamin D3) 1,000 Unit Tablet) 1,000 unit PO DAILY [facility] Last Admin: 07/11/20 09:12 Dose: 1,000 unit Documented by: Ferrous Sulfate (Ferrous Sulfate 324 Mg Tablet.) 324 mg PO BID [facility] Last Admin: 07/11/20 09:13 Dose: 324 mg Documented by: Gabapentin (Gabapentin 100 Mg Capsule) 100 mg PO TID [facility] Last Admin: 07/11/20 09:12 Dose: 100 mg Documented by: Latanoprost (Latanoprost 2.5 Ml Opth [place]) 1 drop EACHEYE BEDTIME [facility] Last Admin: 07/10/20 20:21 Dose: 1 drop Documented by: Lisinopril (Lisinopril 10 Mg Tablet) 20 mg PO DAILY [facility] Last Admin: 07/11/20 09:13 Dose: 20 mg Documented by: Non-Formulary Medication (Cyanocobalamin (Vitamin B-12) [Vitamin B-12]) 1,000 mg PO DAILY [facility] Last Admin: 07/11/20 09:19 Dose: Not Given Documented by: Non-Formulary Medication (Fluorometholone) 1 drop EACHEYE DAILY [facility] Last Admin: 07/11/20 09:16 Dose: 1 drop Documented by: Pantoprazole Sodium (Pantoprazole Sodium 40 Mg Tablet.Dr) 40 mg PO BIDAC [facility] Last Admin: 07/11/20 05:37 Dose: 40 mg Documented by: Pravastatin Sodium (Pravastatin Sodium 40 Mg Tablet) 40 mg PO DAILY [facility] Last Admin: 07/11/20 09:13 Dose: 40 mg Documented by: Fluticasone/Salmeterol (Fluticasone/Salmeterol 250/50 Diskus) 1 puff IH BID [facility] Last Admin: 07/11/20 09:15 Dose: 1 puff Documented by: Sitagliptin Phosphate (Sitagliptin Phosphate 50 Mg Tablet) 25 mg PO DAILY [facility] Last Admin: 07/11/20 09:12 Dose: 25 mg Documented by: Tramadol HCl (Tramadol Hcl 50 Mg Tablet) 50 mg PO BID PRN PRN Reason: Pain ALLERGIES budesonide [From Symbicort] Adverse Reaction (Mild, Verified 07/08/20 09:46) CHEST FLUTTER formoterol [From Symbicort] Adverse Reaction (Mild, Verified 07/08/20 09:46) CHEST FLUTTER DISCONTINUED MEDICATIONS ASPIRIN 81 MG DAILY NEW PRESCRIPTIONS: ELIQUIS 2.5 MG BID (SAMPLES FROM OFFICE PROVIDED) SMOKING: NOT APPLICABLE DISEASE SPECIFIC EDUCATION: ATRIAL FIBRILLATION NEW MEDICATION OF ELIQUIS ELIQUIS PRECAUTIONS DISCUSSED LAB REVIEW: 07/11/20 05:03 07/11/20 05:03 07/11/20 05:03: Sodium 141.0, Potassium 3.97, Chloride 107.9 H, Carbon Dioxide 24.0, Anion Gap 13.07, BUN 35.0 H, Creatinine 1.78 H, Estimated GFR (MDRD) 27.00, BUN/Creatinine Ratio 19.66, Glucose 122.1 H, Calcium 9.15, Total Bilirubin 0.27, AST 14.7, ALT 8.9, Alkaline Phosphatase 54.7, Total Protein 6.72, Albumin 3.95, Globulin 2.77, Albumin/Globulin Ratio 1.42 07/11/20 05:03: WBC 5.79, RBC 3.57 L, Hgb 10.7 L, Hct 31.5 L, MCV 88.2, MCH 30 .0, MCHC 34.0, RDW Coeff of Trinity 13.4, Plt Count 218, Immature Gran % (Auto) 0.3, Neut % (Auto) 65.5, Lymph % (Auto) 24.4, [place] % (Auto) 7.1, Eos % (Auto) 2.4, Baso % (Auto) 0.3, Neut # (Auto) 3.8, Lymph # (Auto) 1.4, [place] # (Auto) 0.4, Eos # (Auto) 0.1, Baso # (Auto) 0.0, Immature Gran # (Auto) 0.0 PLAN: DISCHARGE HOME DIET: HEART HEALTHY NO SUGAR ACTIVITY: GRADUALLY RESUME TOLERATED AN APPOINTMENT IS SCHEDULED WITH DR. LAM/VANESSA CORONADO APRN/CHALO DUMONT APRN ON June AT 1:45 PM CODE STATUS: DO NOT RESUSCITATE ELIQUIS PRECAUTIONS: DO NOT TAKE ASPIRIN OR ANY TYPE OF NSAIDS PROMPTLY REPORT TO THE [facility] EMERGENCY ROOM IF YOU FALL HITTING YOUR HEAD OR HAVE ANY TYPE OF HEAD INJURY PROMPTLY REPORT TO THE [facility]GENCY ROOM IF YOU HAVE ANY UNUSUAL BLEEDING NOTIFY ALL MEDICAL PROVIDERS YOU ARE TAKING ELIQUIS PRIOR TO ANY TYPE OF DENTAL WORK OR INVASIVE PROCEDURE MS. COLLINS IS ALERT AND ORIENTED X 4. SHE LIVES AT HOME AND IS INDEPENDENT WIT H ALL ACTIVITIES OF DAILY LIVING. SHE IS AGREEABLE FOR PLANS FOR DISCHARGE HOME TODAY. SHE IS AMBULATORY IN THE ROOM WITHOUT STAFF ASSIST OR USE OF ANY TYPE OF ASSISTIVE DEVICE. SHE IS CONTINENT OF BOWEL AND BLADDER. MEAL INTAKES ARE GOOD AT 90-100%. HYDRATION STATUS IS GOOD. SKIN IS INTACT AND FREE OF OPEN WOUNDS. MD VANESSA ACUNA APRN
--- NOTE | 2020-07-11 13:13 | PN ---
DATE OF SERVICE: 07/10/20 SUBJECTIVE: 80-year-old white female hospitalized with chest pain, atrial fibrillation. The patient is feeling a lot better. REVIEW OF SYSTEMS: CONSTITUTIONAL: No night sweats. No fatigue, malaise, lethargy. No fever or chills. HEENT: Eyes: No visual changes. No eye pain. No eye discharge. ENT: No runny nose. No epistaxis. No sinus pain. No sore throat. No odynophagia. No congestion. RESPIRATORY: No cough, no congestion. No hemoptysis. No shortness of breath. CARDIOVASCULAR: No angina symptoms. No CHF symptoms. No atypical chest pain for CAD. No palpitations. No PND. No orthopnea. GASTROINTESTINAL: No abdominal pain. No nausea or vomiting. No diarrhea or constipation. No hematemesis. No hematochezia. GENITOURINARY: No urgency. No frequency. No dysuria. No hematuria. No obstructive symptoms. No discharge. No pain. No significant abnormal bleeding. MUSCULOSKELETAL: No musculoskeletal pain; no joint swelling. NEUROLOGICAL: No headache. No neck pain. No syncope. No seizures. No dizziness. PSYCHIATRIC: Not anxious. No depression. No suicidal thoughts. No homicidal thoughts. SKIN: No rash. No lesions. No wounds. ENDOCRINE: No unexplained weight loss. No weight gain. HEMATOLOGIC/LYMPHATIC: No anemia. No purpura. No petechiae. No prolonged or excessive bleeding. No palpable lymph nodes. PHYSICAL EXAMINATION: VITAL SIGNS: Temperature 97.8, pulse 62, respiratory rate 18, blood pressure 128/63, pulse ox 97%. HEENT: Head normocephalic, atraumatic. Eyes: Extraocular muscles are intact. Pupils are equal, round and reactive to light and accommodation. Ears: No lesions. Nose appeared normal. Throat: No exudate or erythema. NECK: Supple. No JVD, no carotid bruit. No lymphadenopathy or thyromegaly. LUNGS: Decreased breath sounds but clear to auscultation. Percussion note normal. Chest symmetrical. HEART: S1, S2, no S3. No murmurs. No cyanosis or clubbing. No ascites. Pulses: Dorsalis pedis and posterior tibial pulses +1 to +2 bilaterally. ABDOMEN: Soft. Nontender. Bowel sounds active. No CVA tenderness. No mass felt. EXTREMITIES: No edema. Full range of motion of all extremities, equal. NEUROLOGIC: No focal deficit. Cranial nerves II through XII are grossly intact. No headache, no double vision or headache. SKIN: Not dry. Intact. Turgor - normal. LYMPHATIC: No palpable lymph nodes/no lymphedema. MUSCULOSKELETAL: Normal joints with no swelling. Muscle tone is normal. LABS: Hemoglobin 10.8, hematocrit 31, WBC 5,300, normal differential, creatinine 1.7, BUN 34, potassium 3.8. ASSESSMENT: 1. Chest pain, etiology unknown. 2. Atrial fib flutter. 3. Diabetes mellitus. 4. Anemia. 5. Hypertension. 6. Dyslipidemia. PLAN: 1. Dobutamine stress echo in the morning. 2. The patient's pro-BNP is 2,970 likely from kidney disease. 3. There is no evidence of CHF at the present time clinically as well as physically. TIME SPENT: More than 30 minutes. Plan and coordination of the patient's care discussed in the presence of nurse. YFN
--- NOTE | 2020-07-12 10:41 | STRESSMOD ---
Date of Test: 07/11/2020 Ordering Physician: DR. NIKKO LAM Occupation: RETIRED Reason for Exam: CHEST PAIN, ATRIAL FIBRILLATION Smoking History: NONE Height: 62" Weight: 146 LBS Current Medications: COMBIVENT, XANAX, ELIQUIS, COREG, ADVAIR, NEURONTIN, XALATAN, ZESTRIL, PROTONIX, PRAVACHOL, JANUVIA, ULTRAM Resting EKG: A-FIB, NONSPECIFIC ST-T WAVE CHANGES Target Heart Rate: 117/138 S-T SEGMENT STAGE MPH/GRADE HEART RATE BPM BLOOD PRESSURE mmhg RHYTHM +/- ELEVATION DEPRESSION SYMPTOMS At Rest 67 BPM 136 62 MMHG SR X NONE 1 1.7/0% 94 BPM 138/54 MMHG SR X NONE 2 1.7/5% 108 BPM 144/50 MMHG SR X NONE 3 1.7/10% 4 2.5/12% 5 3.4/14% Immediately After 110 BPM SR X SHORT OF AIR Minutes Post Exercise 5" 68 BPM 138/62 MMHG SR X NONE Minutes Post Exercise DURATION OF EXERCISE: 7:00 MAXIMUM HEART RATE REACHED: 110 BPM REASON FOR TERMINATION: SHORT OF AIR 100% OXYGEN SATURATION WITH EXERCISE ON ROOM AIR METS 4.6 INTERPRETATION: 1. NO EVIDENCE OF ISCHEMIA BY ST-T WAVE 2. NO CHEST PAIN OR CHEST DISCOMFORT 3. NORMAL BLOOD PRESSURE RESPONSE 4. METS 4.6 LEVEL OF EXERCISE NORMAL LEFT VENTRICULAR CONTRACTILITY-RESTING AND POST EXERCISE MTDD
--- NOTE | 2020-07-12 10:54 | DS ---
DATE OF SERVICE: 07/11/2020 FINAL DIAGNOSIS: ATRIAL FIBRILLATION, NEW ONSET HISTORY: PALPITATIONS DIABETES MELLITUS, TYPE 2 HYPERTENSION DYSLIPIDEMIA ANEMIA CHRONIC KIDNEY DISEASE, STAGE 3 COPD METABOLIC SYNDROME DYSLIPIDEMIA CANCER, BREAST AND RENAL CELL GERD OSTEOPENIA DJD, SPINE HEMICOLECTOMY, 2007 NEPHRECTOMY, RIGHT 2014 MASTECTOMY, LEFT COLONOSCOPY, 2018 (DR. FARLEY) ENDOSCOPY, 2019 (DR. FARLEY) ECHOCARDIOGRAM (07/09/2020) BORDERLINE LVH ENLARGED LEFT ATRIAL CAVITY (5.1 CM) CALCIFIC MITRAL VALVE ANNULUS NORMAL LV SIZE LVEF 58% STRESS ECHO, COMPLETED 07/11/2020 LAST VITALS Temp Pulse Resp BP Pulse Ox 97.8 F 61 19 159/79 H 98 07/11/20 05:53 07/11/20 05:53 07/11/20 08:00 07/11/20 05:53 07/11/20 05:53 DISCHARGE INSTRUCTIONS: DISCHARGE HOME. AN APPOINTMENT IS SCHEDULED WITH DR. IZAGUIRRE/VANESSA CORONADO APRN/CHALO DUMONT APRN ON June AT 1:45 PM. CODE STATUS: DO NOT RESUSCITATE. ELIQUIS PRECAUTIONS: DO NOT TAKE ASPIRIN OR ANY TYPE OF NSAID, PROMPTLY REPORT TO THE CLOSEST EMERGENCY ROOM IF YOU FALL HITTING YOUR HEAD OR HAVE ANY TYPE OF HEAD INJURY,PROMPTLY REPORT TO THE CLOSEST EMERGENCY ROOM IF YOU HAVE ANY UNUSUAL BLEEDING, NOTIFY ALL MEDICAL PROVIDERS YOU ARE TAKING ELIQUIS PRIOR TO ANY TYPE OF DENTAL WORK OR INVASIVE PROCEDURE. TAKE THESE MEDICATIONS AT HOME: Albuterol/Ipratropium (Ipratropium/Albuterol Sulfate Inhalation [place] Aer.W.Adap) 1 spray IH RTBID PRN PRN Reason: Bronchospasm Alprazolam (Alprazolam 0.25 Mg Tablet) 0.25 mg PO DAILY PRN PRN Reason: Anxiety Apixaban (Apixaban 5 Mg Tab) 2.5 mg PO BID [facility] Last Admin: 07/11/20 09:13 Dose: 2.5 mg Documented by: Carvedilol (Carvedilol 6.25 Mg Tablet) 6.25 mg PO BIDWM [facility] Last Admin: 07/11/20 09:12 Dose: 6.25 mg Documented by: Cholecalciferol (Cholecalciferol (Vitamin D3) 1,000 Unit Tablet) 1,000 unit PO DAILY [facility] Last Admin: 07/11/20 09:12 Dose: 1,000 unit Documented by: Ferrous Sulfate (Ferrous Sulfate 324 Mg Tablet.) 324 mg PO BID [facility] Last Admin: 07/11/20 09:13 Dose: 324 mg Documented by: Gabapentin (Gabapentin 100 Mg Capsule) 100 mg PO TID [facility] Last Admin: 07/11/20 09:12 Dose: 100 mg Documented by: Latanoprost (Latanoprost 2.5 Ml Opth [place]) 1 drop EACH EYE BEDTIME [facility] Last Admin: 07/10/20 20:21 Dose: 1 drop Documented by: Lisinopril (Lisinopril 10 Mg Tablet) 20 mg PO DAILY [facility] Last Admin: 07/11/20 09:13 Dose: 20 mg Documented by: Non-Formulary Medication (Cyanocobalamin (Vitamin B-12) [Vitamin B-12]) 1,000 mg PO DAILY [facility] Last Admin: 07/11/20 09:19 Dose: Not Given Documented by: Non-Formulary Medication (Fluorometholone) 1 drop EACHEYE DAILY [facility] Last Admin: 07/11/20 09:16 Dose: 1 drop Documented by: Pantoprazole Sodium (Pantoprazole Sodium 40 Mg Tablet.) 40 mg PO BIDAC [facility] Last Admin: 07/11/20 05:37 Dose: 40 mg Documented by: Pravastatin Sodium (Pravastatin Sodium 40 Mg Tablet) 40 mg PO DAILY [facility] Last Admin: 07/11/20 09:13 Dose: 40 mg Documented by: Fluticasone/Salmeterol (Fluticasone/Salmeterol 250/50 Diskus) 1 puff IH BID [facility] Last Admin: 07/11/20 09:15 Dose: 1 puff Documented by: Sitagliptin Phosphate (Sitagliptin Phosphate 50 Mg Tablet) 25 mg PO DAILY [facility] Last Admin: 07/11/20 09:12 Dose: 25 mg Documented by: Tramadol HCl (Tramadol Hcl 50 Mg Tablet) 50 mg PO BID PRN PRN Reason: Pain ALLERGIES: budesonide [From Symbicort] Adverse Reaction (Mild, Verified 07/08/20 09:46) CHEST FLUTTER formoterol [From Symbicort] Adverse Reaction (Mild, Verified 07/08/20 09:46) CHEST FLUTTER DISCONTINUED MEDICATIONS: ASPIRIN 81 MG DAILY NEW PRESCRIPTIONS: ELIQUIS 2.5 MG BID (SAMPLES FROM OFFICE PROVIDED) SMOKING: NOT APPLICABLE DISEASE SPECIFIC EDUCATION: ATRIAL FIBRILLATION NEW MEDICATION OF ELIQUIS ELIQUIS PRECAUTIONS DISCUSSED LAB REVIEW: 07/11/20 05:03 07/11/20 05:03 07/11/20 05:03: Sodium 141.0, Potassium 3.97, Chloride 107.9 H, Carbon Dioxide 24.0, Anion Gap 13.07, BUN 35.0 H, Creatinine 1.78 H, Estimated GFR (MDRD) 27.00, BUN/Creatinine Ratio 19.66, Glucose 122.1 H, Calcium 9.15, Total Bilirubin 0.27, AST 14.7, ALT 8.9, Alkaline Phosphatase 54.7, Total Protein 6.72, Albumin 3.95, Globulin 2.77, Albumin/Globulin Ratio 1.42 07/11/20 05:03: WBC 5.79, RBC 3.57 L, Hgb 10.7 L, Hct 31.5 L, MCV 88.2, MCH 30.0, MCHC 34.0, RDW Coeff of Trinity 13.4, Plt Count 218, Immature Gran % (Auto) 0.3, Neut % (Auto) 65.5, Lymph % (Auto) 24.4, [place] % (Auto) 7.1, Eos % (Auto) 2.4, Baso % (Auto) 0.3, Neut # (Auto) 3.8, Lymph # (Auto) 1.4, [place] # (Auto) 0.4, Eos # (Auto) 0.1, Baso # (Auto) 0.0, Immature Gran # (Auto) 0.0 DIET: HEART HEALTHY NO SUGAR ACTIVITY: GRADUALLY RESUME TOLERATED HOSPITAL COURSE: This is a white female who presented to the Emergency Room with palpitations and chest pain. She was found to be in atrial fibrillation in the emergency room and this is a new onset for her. Chest x-ray was normal. Cardiac enzymes were normal. We admitted her and placed her on routine telemetry orders. Cardiac enzymes remained within normal limits. Rate remained controlled during her stay. She was given Digoxin and she remained afib persistently. Initially she was placed on Lovenox daily after two days we placed her on Eliquis 2.5mg BID which she has tolerated well. Dr. Izaguirre performed an echo yesterday which showed an enlarged LA cavity so it does appear that she will remain in afib. He did a Dobutamine stress today which was normal. She showed no evidence of ischemia. Blood pressure has been well controlled. This was thought to be contributed from anxiety. We have discussed with her the risks of blood thinners, no NSAIDS, she does have underlining chronic kidney disease so she doesn't take NSAIDS anyway. We discussed the risk of bleeding such as intracranial and GI bleed with Eliquis. She understands the risks versus the benefits regarding atrial fibrillation and risk of stroke. She will be sent home with samples of Eliquis 2.5mg to be taken BID due to her age and kidney function. Her other medications have been continued and no changes in her blood pressure medication. Chest x-ray and U/A was all normal. Blood pressure was within normal limits. Kidney function was stable. She initially had some elevated BUN and creatinine. She was given fluids for about 48 hours and then discontinued. No evidence of CHF. We will discharge her in stable condition and followup with her next week. TIME SPENT: More than 60 minutes. YFN
--- NOTE | 2020-07-12 11:00 | ECHOSTRESS ---
Date of Exam: 07/11/2020 Ordering Physician: DR. NIKKO LAM Reason for Echo: CHEST PAIN, CHF, STRESS TEST--NO ISCHEMIA M-Mode Normal Adult Results LV Dimensions Normal Adult Results AoV Opening excursions >1.6 LVEDD-base- 3.5-5.8 Ao root dimensions 2.0-3.7 LVESD-base- 3.1-4.6 L. Atrium dimensions 1.9-3.8 Post. Wall thickness 0.8-1.1 IV septum (thickness) 0.7-1.2 Post. Wall excursion 0.72-1.3 Septal motion Systolic motion R. Ventricular cavity 1.5-2.0 LVEF 60% Paradoxical septal wall motion 2-D: NORMAL LEFT VENTRICLE CONTRACTILITY--RESTING AND POST EXERCISE M-MODE: MV: AV: TV: PV: CHAMBER SIZE: WALL MOTION: NORMAL LEFT VENTRICLE CONTRACTILITY--RESTING AND POST EXERCISE PERICARDIUM: INTERPRETATION: 1. NORMAL LEFT VENTRICLE CONTRACTILITY--RESTING AND POST EXERCISE MTDD
--- NOTE | 2020-07-12 11:48 | PN ---
DATE OF SERVICE: 07/11/20 SUBJECTIVE: The patient was seen and examined with the nurse practitioner. The patient had a stress echo done which didn't show any evidence of ischemia. Chest pain seems to be noncardiac, could be reflux. The patient is anxious. The patient is going to be discharged home to follow as an outpatient. TIME SPENT: More than 30 minutes. Plan and coordination of the patient's care discussed in the presence of nurse. YFN
--- NOTE | 2020-07-12 11:50 | PN ---
BILLING 07/08/20 ADMISSION DAY LEVEL 5 07/09/20 INTERMEDIATE 07/10/20 INTERMEDIATE 07/11/20 DISCHARGE MTDD
== END 2020-07-11 13:57 | disposition hospice, home (50) | DRG 684 ==
LOC: ED 09:20 → MEDSURG A 14:19
PROVIDERS: ADMIT Internal Medicine; ATTEND Internal Medicine
DX: R53.1 Weakness; E78.5 Hyperlipidemia, unspecified; J44.9 Chronic obstructive pulmonary disease, unspecified; E11.9 Type 2 diabetes mellitus without complications; R07.9 Chest pain, unspecified; N18.30 Chronic kidney disease, stage 3 unspecified; F41.9 Anxiety disorder, unspecified; D64.9 Anemia, unspecified

== ENCOUNTER 2020-09-06 10:27 | Inpatient (IN) ==
[2020-09-06] MEDS ORDERED: SODIUM CHLORIDE 500 ML IV STA (10:39)
[2020-09-06] MEDS ORDERED: ASPIRIN EC PO STA (10:39)
[2020-09-06] MEDS ORDERED: ASPIRIN CHEWABLE PO STA (10:49)
[2020-09-06 10:52] LABS: BASOPHILS % (AUTO) 0.3 % (0.0-3.0); EOSINOPHILS # (AUTO) 0.1 K/ul (0.0-0.7); EOSINOPHILS % (AUTO) 1.2 % (0.0-7.0); HEMATOCRIT 34.2 % (37.0-47.0); HEMOGLOBIN 11.5 g/dl (12.0-16.0); IMMATURE GRANULOCYTE % (AUTO) 0.3 % (0.0-5.0); LYMPHOCYTES # (AUTO) 0.8 K/uL (0.60-3.4); LYMPHOCYTES % (AUTO) 12.7 (10.0-50.0); MEAN CORPUSCULAR HEMOGLOBIN 29.9 pg (27.0-31.0); MEAN CORPUSCULAR HGB CONC 33.6 (31.8-35.4); MEAN CORPUSCULAR VOLUME 88.8 fl (81.0-99.0); MONOCYTES # (AUTO) 0.3 K/uL (0.4-2.0); MONOCYTES % (AUTO) 5.4 (0-10); NEUTROPHILS # (AUTO) 4.9 K/ul (2.0-6.9); NEUTROPHILS % (AUTO) 80.1 % (42.2-75.2); PLATELET COUNT 237 10^3/uL (140-440); RDW COEFFICIENT OF VARIATION 13.2 % (11.6-14.8); RED BLOOD COUNT 3.85 10^6/ul (4.20-5.40); WHITE BLOOD COUNT 6.07 K/ul (4.6-10.2)
[2020-09-06] MEDS ORDERED: NITROSTAT SL PRN ×2 (10:54→14:18)
[2020-09-06 11:08] LABS: ALANINE AMINOTRANSFERASE 11.1 U/L (0-35); ALBUMIN 4.53 g/dL (3.5-5.0); ASPARTATE AMINO TRANSFERASE 18.9 U/L (14-36); BILIRUBIN,TOTAL 0.47 mg/dL (0.2-1.3); BLOOD UREA NITROGEN 23.4 mg/dL (7-17); CALCIUM 9.46 mg/dL (8.4-10.2); CARBON DIOXIDE 26.8 mmol/L (22-30.0); CHLORIDE 102.9 mmol/L (98-107); CREATININE 1.58 mg/dL (0.60-1.30); GLUCOSE 116.3 mg/dL (74-106); POTASSIUM 4.29 mmol/L (3.5-5.1); SODIUM 138.3 mmol/L (134.5-145); TOTAL PROTEIN 7.46 g/dL (6.3-8.2)
[2020-09-06 11:20] LABS: TROPONIN I < 0.012 ng/ml (0.0000-0.120)
--- NOTE | 2020-09-06 11:30 | DI ---
EXAM: Single view of the chest. History: Chest pain. Comparison: Chest radiograph 07/08/2020 Findings: Heart is enlarged. No consolidation. No pleural fluid and no pneumothorax. No acute oss eous abnormalities. Surgical clips seen within the left axilla. Impression: Cardiomegaly without acute disease in the chest
--- NOTE | 2020-09-06 11:50 | ED.PDOC ---
General ED Provider: Dr. ALEX SAMUEL MD Chief Complaint: Chest Pain Stated Complaint: chest pain x this am. Time Seen by Provider: 09/06/20 10:34 Mode of Arrival: Walk-In Information Source: Patient Exam Limitations: No limitations Primary Care Provider: NIKKO LAM Nursing and Triage Documentation Reviewed and Agree: Yes Does patient meet sepsis criteria?: No System Inflammatory Response Syndrome: Not Applicable Sepsis Protocol: For patient's 13 years and over: Temp is 96.8 and below OR 101 and greater Pulse >90 BPM Resp >20/minute Acutely Altered Mental Status Are patient's symptoms suggestive of a new infection, such as: -Pneumonia -Skin, Soft Tissue -Endocarditis -UTI -Bone, Joint Infection -Implantable Device -Acute Abdominal Infection -Wound Infection -Meningitis -Blood Stream Catheter Infection -Unknown Cardiovascular Complaint Exam Chest Pain Complaint/Exam Onset: Sudden Duration: 4 hrs. Symptoms Are: Still present Length of Chest Pain Episodes: 4 hrs. Initial Severity: Mild Current Severity: Mild Location: Reports Left anterior Pain Radiates: Reports None Character: Reports Dull, Aching and Tightness Associated Signs and Symptoms: Reports Nausea and Palpitations; Denies Diaphoresis, Vomiting, Fever, Cough, Hemoptysis, Back pain, Abdominal pain, Dizziness, Short of air, Calf pain and Calf swelling History of Healthcare-Acquired Pneumonia: Reports No AMI/ACS Risk Factors: Reports Diabetes Prior Care for this Complaint: No Recent Stress Test: No Recent Echo/LV Function: No JVD Present: No Subcutaneous Emphysema Present: No Reproducible Chest Wall Pain: No Bilateral Pulses Present: Yes Unequal Pulses Noted: No If Risk Factors for AMI/ACS Consider: EKG, Cardiac Enzymes and Serial Studies 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 Service Consulted: No Differential Diagnoses: Acute [place], ACS and Stable Angina Review of Systems Review Of Systems Constitutional: Reports No symptoms Eyes: Reports No symptoms Ears, Nose, Mouth, Throat: Reports No symptoms Respiratory: Reports No symptoms Cardiac: Reports Chest pain GI: Reports No symptoms : Reports No symptoms Musculoskeletal: Reports No symptoms Skin: Reports No symptoms Neurological: Reports No symptoms Endocrine: Reports No symptoms Hematologic/Lymphatic: Reports No symptoms All Other Systems: Reviewed and Negative [facility] Medical History Afib Anxiety Asthma Diabetic acetonemia Hypertension Kidney carcinoma Family History FATHER Heart attack Mother Breast cancer Social History Smoking and tobacco status: Never smoker Surgical History H/O mastectomy H/O: hysterectomy History of cholecystectomy History of nephrectomy, right Female Reproductive History Menstrual Hx Hysterectomy: No Hx Tubal Ligation: No Physical Exam Physical Exam Appearance: Reports Well-appearing Ill-appearing: None Pain Distress: Mild Eyes: Reports MARTÍNEZ, EOMI and Conjunctiva clear ENT: Reports Ears normal, Nose normal and Oropharynx normal Neck: Supple Respiratory: Reports Airway patent, Breath sounds clear and Breath sounds equal Cardiovascular: Reports Pulses normal, No rub, No murmur and Irregular rhythm GI/: Reports Soft, Nontender, No masses, Bowel sounds normal and No Organomegaly Musculoskeletal: Reports Normal strength, ROM intact, No edema and No calf tenderness Skin: Reports Warm, Dry and Normal color Neurological: Reports Sensation intact, Motor intact, Reflexes intact, Cranial nerves intact, Alert and Oriented Psychiatric: Reports Affect appropriate and Mood appropriate Interpretation Radiology Interpretation Radiology Interpretation By: Radiologist Exam Interpreted: Portable CXR EKG Interpretation Rate: Normal Rhythm: Other (atrial fibrillation) Ectopy: None [place]: [place] ST Segment: Normal Interpretation: no acute ST or T wave changes. Re-Evaluation Re-Evaluation Time of Re-Evaluation: 11:30 Status: Improved Vital Signs Stable: Yes Pain Level: 0 Appearance: NAD Lungs: Clear Skin: Warm and Dry Neuro: Alert and Oriented X3 CV: RRR Critical Care Note Critical Care Note Total Critical Care Time (mins): 0 Course Course Hematology/Chemistry: 09/06/20 10:45 09/06/20 10:45 Orders, Labs, Meds: Lab Review 09/06/20 09/06/20 09/06/20 10:45 10:45 10:45 WBC 6.07 RBC 3.85 L Hgb 11.5 L Hct 34.2 L MCV 88.8 MCH 29.9 MCHC 33.6 RDW Coeff of Trinity 13.2 Plt Count 237 Immature Gran % (Auto) 0.3 Neut % (Auto) 80.1 H Lymph % (Auto) 12.7 [place] % (Auto) 5.4 Eos % (Auto) 1.2 Baso % (Auto) 0.3 Neut # (Auto) 4.9 Lymph # (Auto) 0.8 [place] # (Auto) 0.3 L Eos # (Auto) 0.1 Baso # (Auto) 0.0 Immature Gran # (Auto) 0.0 Sodium 138.3 Potassium 4.29 Chloride 102.9 Carbon Dioxide 26.8 Anion Gap 12.89 BUN 23.4 H Creatinine 1.58 H Estimated GFR (MDRD) 31.00 BUN/Creatinine Ratio 14.81 Glucose 116.3 H Calcium 9.46 Total Bilirubin 0.47 AST 18.9 ALT 11.1 Alkaline Phosphatase 62.0 Troponin I < 0.012 NT-Pro-B Natriuret Pep 3170.000 H Total Protein 7.46 Albumin 4.53 Globulin 2.93 Albumin/Globulin Ratio 1.54 Adenovirus (PCR) B. pertussis DNA (PCR) B.parapertussis DNA PCR C. pneumoniae DNA (PCR) Coronavirus OC43 (PCR) Coronavirus HKU1 (PCR) Coronavirus 229E (PCR) Coronavirus NL63 (PCR) Human Metapneumovir PCR Influenza Type A (PCR) Influenza B (RT-PCR) M. pneumoniae (PCR) Parainfluenza 1 (PCR) Parainfluenza 2 (PCR) Parainfluenza 3 (PCR) Parainfluenza 4 (PCR) RSV (PCR) Entero/Rhino (PCR) SARS-CoV-2 (PCR) 09/06/20 12:30 WBC RBC Hgb Hct MCV MCH MCHC RDW Coeff of Trinity Plt Count Immature Gran % (Auto) Neut % (Auto) Lymph % (Auto) [place] % (Auto) Eos % (Auto) Baso % (Auto) Neut # (Auto) Lymph # (Auto) [place] # (Auto) Eos # (Auto) Baso # (Auto) Immature Gran # (Auto) Sodium Potassium Chloride Carbon Dioxide Anion Gap BUN Creatinine Estimated GFR (MDRD) BUN/Creatinine Ratio Glucose Calcium Total Bilirubin AST ALT Alkaline Phosphatase Troponin I NT-Pro-B Natriuret Pep Total Protein Albumin Globulin Albumin/Globulin Ratio Adenovirus (PCR) Not detected B. pertussis DNA (PCR) Not detected B.parapertussis DNA PCR Not detected C. pneumoniae DNA (PCR) Not detected Coronavirus OC43 (PCR) Not detected Coronavirus HKU1 (PCR) Not detected Coronavirus 229E (PCR) Not detected Coronavirus NL63 (PCR) Not detected Human Metapneumovir PCR Not detected Influenza Type A (PCR) Not detected Influenza B (RT-PCR) Not detected M. pneumoniae (PCR) Not detected Parainfluenza 1 (PCR) Not detected Parainfluenza 2 (PCR) Not detected Parainfluenza 3 (PCR) Not detected Parainfluenza 4 (PCR) Not detected RSV (PCR) Not detected Entero/Rhino (PCR) Not detected SARS-CoV-2 (PCR) Not detected Orders Category Date Time Status EKG-(ED ONLY) Stat CARDIO 09/06/20 10:39 Completed ED IV/MEDIPORT/POWERPORT .ONCE EMERGENCY 09/06/20 10:39 Active CBC W/ AUTO DIFF Stat LAB 09/06/20 10:45 Completed COMPREHENSIVE METABOLIC PANEL Stat LAB 09/06/20 10:45 Completed NT-PROBNP Stat LAB 09/06/20 10:45 Completed RESPIRATORY PANEL 2.1 (PCR) Stat LAB 09/06/20 12:30 Completed TROPONIN I Stat LAB 09/06/20 10:45 Completed URINALYSIS C & S IF INDICATED Stat LAB 09/06/20 17:37 Completed 0.9 % Sodium Chloride [Saline Flush] MEDS 09/06/20 10:39 Active 1 syr IVF PRN PRN Aspirin [Aspirin Chewable] MEDS 09/06/20 10:49 Discontinued 324 mg PO ONCE STA Nitroglycerin [Nitrostat] MEDS 09/06/20 10:54 Active 0.4 mg SL Q5MIN X 3 DOSES PRN Sodium Chloride 0.9% [Sodium Chloride] 500 ml MEDS 09/06/20 10:39 Discontinued IV BOLUS CHEST, 1V AP ONLY Stat RADS 09/06/20 10:39 Completed Medications Generic Name Dose Route Start Last Admin Trade Name Freq PRN Reason Stop Dose Admin Acetaminophen 650 mg 09/06/20 14:18 Acetaminophen 325 Mg Tablet PO Q8H PRN Pain Albuterol/Ipratropium 1 spray 09/06/20 14:58 Ipratropium/Albuterol Sulfate Inhalation [place] Aer.W.Adap IH BID PRN SOA Alprazolam 0.25 mg 09/06/20 14:58 Alprazolam 0.25 Mg Tablet PO DAILY PRN ANXIETY/RESTLESSNESS Amlodipine Besylate 5 mg 09/06/20 21:00 Amlodipine Besylate 5 Mg Tablet PO BEDTIME PENDING SALE TO [facility] Apixaban 2.5 mg 09/06/20 21:00 Apixaban 5 Mg Tab PO BID PENDING SALE TO [facility] Aspirin 81 mg 09/07/20 08:30 Aspirin 81 Mg Tablet. PO DAILYWM PENDING SALE TO [facility] Atropine Sulfate 0.5 mg 09/06/20 14:18 Atropine Sulfate Inj 1 Mg/10 Ml Disp.Syrin IVP ONCE PRN Symptomatic Bradycardia Carvedilol 6.25 mg 09/06/20 17:00 09/06/20 16:26 Carvedilol 6.25 Mg Tablet PO 6.25 mg BIDWM ABEL Administration Cholecalciferol 1,000 unit 09/07/20 09:00 Cholecalciferol (Vitamin D3) 1,000 Unit (25 Mcg) Tablet PO DAILY PENDING SALE TO [facility] Enalaprilat 1.25 mg 09/06/20 15:05 09/06/20 16:26 Enalaprilat Dihydrate 1.25 Mg/Ml Vial IVP 1.25 mg Q6HR PRN Administration HYPERTENSION Ferrous Sulfate 324 mg 09/06/20 21:00 Ferrous Sulfate 324 Mg Tablet. PO BID ABEL Furosemide 40 mg 09/06/20 17:00 09/06/20 16:26 Furosemide Inj 40 Mg/4 Ml Vial IVP 40 mg BIDAC PENDING SALE TO [facility] Administration Gabapentin 100 mg 09/07/20 09:00 Gabapentin 100 Mg Capsule PO DAILY PENDING SALE TO [facility] Latanoprost 1 drop 09/06/20 21:00 Latanoprost 2.5 Ml Opth [place] EACHEYE BEDTIME PENDING SALE TO [facility] Lisinopril 20 mg 09/07/20 09:00 Lisinopril 10 Mg Tablet PO DAILY PENDING SALE TO [facility] Nitroglycerin 0.4 mg 09/06/20 10:54 Nitroglycerin 0.4 Mg Tab.Subl SL Q5MIN X 3 DOSES PRN Chest Pain Non-Formulary Medication 1,000 mg 09/07/20 09:00 Cyanocobalamin (Vitamin B-12) [Vitamin B-12] PO DAILY PENDING SALE TO [facility] Non-Formulary Medication 1 drop 09/08/20 09:00 Fluorometholone EACHEYE EVERY OTHER DAY PENDING SALE TO [facility] Pantoprazole Sodium 40 mg 09/06/20 17:00 09/06/20 16:26 Pantoprazole Sodium 40 Mg Tablet. PO 40 mg BIDAC PENDING SALE TO [facility] Administration Pravastatin Sodium 40 mg 09/07/20 09:00 Pravastatin Sodium 40 Mg Tablet PO DAILY ABEL Fluticasone/Salmeterol 1 puff 09/06/20 17:00 09/06/20 16:41 Fluticasone/Salmeterol 250/50 Diskus IH 1 puff 0800,1700 ABEL Administration Sitagliptin Phosphate 25 mg 09/07/20 09:00 Sitagliptin Phosphate 50 Mg Tablet PO DAILY ABEL Sodium Chloride 1 syr 09/06/20 10:39 0.9% Sodium Chloride 10 Ml Disp.Syrin IVF PRN PRN To flush IV Sodium Chloride 1 syr 09/06/20 21:00 0.9% Sodium Chloride 10 Ml Disp.Syrin IVF Q8HR ABEL Tramadol HCl 50 mg 09/06/20 15:16 Tramadol Hcl 50 Mg Tablet PO BID PRN MODERATE PAIN Discontinued Medications Generic Name Dose Route Start Last Admin Trade Name Freq PRN Reason Stop Dose Admin Amlodipine Besylate 5 mg 09/06/20 15:05 09/06/20 15:22 Amlodipine Besylate 5 Mg Tablet PO 09/06/20 15:06 5 mg ONCE ONE Administration Aspirin 324 mg 09/06/20 10:49 09/06/20 11:41 Aspirin 81 Mg Tab.Chew PO 09/06/20 10:50 324 mg ONCE STA Administration Sodium Chloride 500 mls @ 500 mls/hr 09/06/20 10:39 09/06/20 12:30 Sodium Chloride IV 09/06/20 11:38 500 mls/hr BOLUS STA Administration Lisinopril 20 mg 09/06/20 15:11 09/06/20 15:22 Lisinopril 10 Mg Tablet PO 09/06/20 15:12 20 mg ONCE ONE Administration Vital Signs: Temp Pulse Resp BP Pulse Ox 09/06/20 10:27 96.6 F L 59 L 20 176/76 H 97 KELLY Risk Score KELLY Risk Score: Risk Score Odds of by 30D 0 0.1 (0.1-0.2) 1 0.3 (0.2-0.3) 2 0.4 (0.3-0.5) 3 0.7 (0.6-0.9) 4 1.2 (1.0-1.5) 5 2.2 (1.9-2.6) 6 3.0 (2.5-3.6) 7 4.8 (3.8-6.1) Discharge Plan Discharge Patient Disposition: ADMITTED INPATIENT Discharge Problem: Chest pain Qualifiers: Chest pain type: chest pain due to myocardial ischemia Ischemic chest pain ty pe: stable angina pectoris Qualified Code(s): I20.8 - Other forms of angina pectoris ED Provider: ALEX SAMUEL Condition: Serious Physician Progress Note: []Pt was d/w Dr Lam and admitted: see admission orders.
[2020-09-06] MEDS ORDERED: TYLENOL PO PRN ×2 (14:18→14:58)
[2020-09-06] MEDS ORDERED: ATROPINE SULFATE PFS IVP PRN (14:18)
[2020-09-06 14:39] VITALS: BMI 27.8
[2020-09-06] MEDS ORDERED: COMBIVENT RESPIMAT INHALER IH PRN (14:58)
[2020-09-06] MEDS ORDERED: TRAMADOL 100 MG PO PRN (14:58)
[2020-09-06] MEDS ORDERED: NORVASC PO ONE (15:05)
[2020-09-06] MEDS ORDERED: ZESTRIL PO ONE (15:11)
[2020-09-06] MEDS: PROTONIX PO SCH (16:26)
[2020-09-06] MEDS: LASIX IVP SCH (16:26)
[2020-09-06] MEDS: COREG PO SCH (16:26)
[2020-09-06] MEDS: VASOTEC IV IVP PRN (16:26)
[2020-09-06] MEDS: ADVAIR 250-50 DISKUS IH SCH (16:41)
[2020-09-06 17:52] LABS: BILIRUBIN,URINE Negative (NEGATIVE); CLARITY,URINE Clear (CLEAR); COLOR,URINE Yellow (YELLOW); GLUCOSE, URINE (UA) Negative (NEGATIVE); KETONES,URINE Negative (NEGATIVE); LEUKOCYTE ESTERASE ,URINE Trace (NEGATIVE); NITRITE,URINE Negative (NEGATIVE); PROTEIN,URINE Negative (NEGATIVE); URINE, BLOOD 1+ (NEGATIVE); UROBILINOGEN,URINE 0.2 (0.2)
[2020-09-06 17:54] LABS: BACTERIA,URINE TRACE (NOT PRESENT); URINE RBC, MICROSCOPIC 0-2 (0-2); URINE WBC, MICROSCOPIC 0-2 (0-2)
[2020-09-06] MEDS: XALATAN EACHEYE SCH (20:14)
[2020-09-06] MEDS: FERROUS SULFATE PO SCH (20:14)
[2020-09-06] MEDS: NORVASC PO SCH (20:15)
[2020-09-06] MEDS: ELIQUIS PO SCH (20:15)
[2020-09-06] MEDS ORDERED: ADVAIR 250-50 DISKUS IH SCH (21:00)
[2020-09-06] MEDS ORDERED: FERROUS FUMARATE 55 MG PO SCH (21:00)
[2020-09-06 22:37] LABS: CREATINE KINASE 36.7 U/L (30-135)
[2020-09-06 22:50] LABS: TROPONIN I < 0.012 ng/ml (0.0000-0.120)
[2020-09-07 05:29] LABS: BASOPHILS % (AUTO) 0.6 % (0.0-3.0); EOSINOPHILS # (AUTO) 0.1 K/ul (0.0-0.7); EOSINOPHILS % (AUTO) 1.9 % (0.0-7.0); HEMOGLOBIN 11.5 g/dl (12.0-16.0); IMMATURE GRANULOCYTE % (AUTO) 0.4 % (0.0-5.0); LYMPHOCYTES # (AUTO) 1.1 K/uL (0.60-3.4); LYMPHOCYTES % (AUTO) 21.4 (10.0-50.0); MEAN CORPUSCULAR HEMOGLOBIN 29.8 pg (27.0-31.0); MEAN CORPUSCULAR HGB CONC 33.8 (31.8-35.4); MEAN CORPUSCULAR VOLUME 88.1 fl (81.0-99.0); MONOCYTES # (AUTO) 0.4 K/uL (0.4-2.0); MONOCYTES % (AUTO) 7.7 (0-10); NEUTROPHILS # (AUTO) 3.5 K/ul (2.0-6.9); PLATELET COUNT 264 10^3/uL (140-440); RDW COEFFICIENT OF VARIATION 13.3 % (11.6-14.8); RED BLOOD COUNT 3.86 10^6/ul (4.20-5.40); WHITE BLOOD COUNT 5.19 K/ul (4.6-10.2)
[2020-09-07 05:46] LABS: ALANINE AMINOTRANSFERASE 10.3 U/L (0-35); ALBUMIN 4.22 g/dL (3.5-5.0); ALKALINE PHOSPHATASE 65.9 U/L (53-141); BILIRUBIN,TOTAL 0.41 mg/dL (0.2-1.3); BLOOD UREA NITROGEN 26.4 mg/dL (7-17); CALCIUM 9.8 mg/dL (8.4-10.2); CARBON DIOXIDE 29.1 mmol/L (22-30.0); CREATININE 1.55 mg/dL (0.60-1.30); GLUCOSE 102.3 mg/dL (74-106); POTASSIUM 3.9 mmol/L (3.5-5.1); SODIUM 140.3 mmol/L (134.5-145); TOTAL PROTEIN 7.11 g/dL (6.3-8.2)
[2020-09-07] MEDS: PROTONIX PO SCH ×2 (06:04→16:33)
[2020-09-07] MEDS: LASIX IVP SCH ×3 (06:08→18:22)
[2020-09-07] MEDS: VASOTEC IV IVP PRN (06:08)
[2020-09-07] MEDS: ZESTRIL PO SCH (08:24)
[2020-09-07] MEDS: ADVAIR 250-50 DISKUS IH SCH ×2 (08:24→16:33)
[2020-09-07] MEDS: FERROUS SULFATE PO SCH ×2 (08:25→20:31)
[2020-09-07] MEDS: NEURONTIN PO SCH (08:25)
[2020-09-07] MEDS: JANUVIA PO SCH (08:25)
[2020-09-07] MEDS: VITAMIN D PO SCH (08:25)
[2020-09-07] MEDS: PRAVACHOL PO SCH (08:25)
[2020-09-07] MEDS: COREG PO SCH ×2 (08:26→16:33)
[2020-09-07] MEDS: ULTRAM PO PRN (08:26)
[2020-09-07] MEDS: ASPIRIN EC PO SCH (08:26)
[2020-09-07] MEDS: ELIQUIS PO SCH ×2 (08:27→20:31)
[2020-09-07] MEDS: CYANOCOBALAMIN 1000 MCG PO SCH (08:31)
[2020-09-07] MEDS: [UNRECOGNIZED DRUG - OTHER] PO SCH (08:31)
[2020-09-07] MEDS ORDERED: FLUOROMETHOLONE EACHEYE SCH (14:00)
[2020-09-07] MEDS: XALATAN EACHEYE SCH (20:31)
[2020-09-07] MEDS: NORVASC PO SCH (20:31)
[2020-09-08 05:16] LABS: BASOPHILS % (AUTO) 0.6 % (0.0-3.0); EOSINOPHILS # (AUTO) 0.2 K/ul (0.0-0.7); EOSINOPHILS % (AUTO) 2.4 % (0.0-7.0); HEMATOCRIT 34.3 % (37.0-47.0); HEMOGLOBIN 11.6 g/dl (12.0-16.0); IMMATURE GRANULOCYTE % (AUTO) 0.3 % (0.0-5.0); LYMPHOCYTES # (AUTO) 1.4 K/uL (0.60-3.4); MEAN CORPUSCULAR HEMOGLOBIN 30.1 pg (27.0-31.0); MEAN CORPUSCULAR HGB CONC 33.8 (31.8-35.4); MEAN CORPUSCULAR VOLUME 88.9 fl (81.0-99.0); MONOCYTES # (AUTO) 0.6 K/uL (0.4-2.0); MONOCYTES % (AUTO) 9.2 (0-10); NEUTROPHILS # (AUTO) 4.4 K/ul (2.0-6.9); NEUTROPHILS % (AUTO) 66.5 % (42.2-75.2); PLATELET COUNT 253 10^3/uL (140-440); RDW COEFFICIENT OF VARIATION 13.3 % (11.6-14.8); RED BLOOD COUNT 3.86 10^6/ul (4.20-5.40); WHITE BLOOD COUNT 6.63 K/ul (4.6-10.2)
[2020-09-08 05:31] LABS: ALANINE AMINOTRANSFERASE 9.4 U/L (0-35); ALBUMIN 4.1 g/dL (3.5-5.0); ALKALINE PHOSPHATASE 63.2 U/L (53-141); ASPARTATE AMINO TRANSFERASE 16.6 U/L (14-36); BILIRUBIN,TOTAL 0.29 mg/dL (0.2-1.3); BLOOD UREA NITROGEN 42.2 mg/dL (7-17); CALCIUM 9.01 mg/dL (8.4-10.2); CARBON DIOXIDE 27.7 mmol/L (22-30.0); CHLORIDE 98.4 mmol/L (98-107); CREATININE 2.22 mg/dL (0.60-1.30); GLUCOSE 129.5 mg/dL (74-106); POTASSIUM 3.77 mmol/L (3.5-5.1); SODIUM 137.2 mmol/L (134.5-145); TOTAL PROTEIN 6.95 g/dL (6.3-8.2)
[2020-09-08] MEDS: LASIX IVP SCH (05:40)
[2020-09-08] MEDS: PROTONIX PO SCH ×2 (05:40→16:19)
[2020-09-08] MEDS: ADVAIR 250-50 DISKUS IH SCH ×2 (08:14→16:19)
[2020-09-08] MEDS: VITAMIN D PO SCH (08:15)
[2020-09-08] MEDS: XANAX PO PRN (08:15)
[2020-09-08] MEDS: FERROUS SULFATE PO SCH ×2 (08:15→20:01)
[2020-09-08] MEDS: ASPIRIN EC PO SCH (08:15)
[2020-09-08] MEDS: COREG PO SCH ×2 (08:16→16:19)
[2020-09-08] MEDS: PRAVACHOL PO SCH (08:16)
[2020-09-08] MEDS: ZESTRIL PO SCH (08:16)
[2020-09-08] MEDS: NEURONTIN PO SCH (08:17)
[2020-09-08] MEDS: JANUVIA PO SCH (08:17)
[2020-09-08] MEDS: MIRALAX PO SCH (08:17)
[2020-09-08] MEDS: ELIQUIS PO SCH ×2 (08:17→20:02)
[2020-09-08] MEDS: CYANOCOBALAMIN 1000 MCG PO SCH (08:22)
[2020-09-08] MEDS: [UNRECOGNIZED DRUG - OTHER] PO SCH (08:22)
[2020-09-08] MEDS ORDERED: NON-FORMULARY MEDICATION (Fluorometholone 0.1 % Drops,Suspension) EACHEYE SCH (09:00)
[2020-09-08] MEDS ORDERED: CITRATE OF MAGNESIA PO STA (13:18)
[2020-09-08] MEDS ORDERED: DEXTROSE 5%-1/2NS IV SOLUTION 1,000 ML IV SCH (19:30)
[2020-09-08] MEDS: NORVASC PO SCH (20:01)
[2020-09-08] MEDS: XALATAN EACHEYE SCH (20:12)
[2020-09-09] MEDS: ULTRAM PO PRN ×2 (02:01→21:36)
[2020-09-09] MEDS: XANAX PO PRN (03:18)
[2020-09-09] MEDS: DEXTROSE 5%-1/2NS IV SOLUTION 1,000 ML IV SCH ×2 (03:21→15:38)
[2020-09-09 05:40] LABS: BASOPHILS % (AUTO) 0.3 % (0.0-3.0); EOSINOPHILS # (AUTO) 0.2 K/ul (0.0-0.7); EOSINOPHILS % (AUTO) 3.3 % (0.0-7.0); HEMATOCRIT 30.2 % (37.0-47.0); HEMOGLOBIN 10.4 g/dl (12.0-16.0); IMMATURE GRANULOCYTE % (AUTO) 0.2 % (0.0-5.0); LYMPHOCYTES # (AUTO) 1.3 K/uL (0.60-3.4); LYMPHOCYTES % (AUTO) 22.8 (10.0-50.0); MEAN CORPUSCULAR HEMOGLOBIN 30.3 pg (27.0-31.0); MEAN CORPUSCULAR HGB CONC 34.4 (31.8-35.4); MONOCYTES # (AUTO) 0.5 K/uL (0.4-2.0); MONOCYTES % (AUTO) 8.7 (0-10); NEUTROPHILS # (AUTO) 3.8 K/ul (2.0-6.9); NEUTROPHILS % (AUTO) 64.7 % (42.2-75.2); PLATELET COUNT 224 10^3/uL (140-440); RDW COEFFICIENT OF VARIATION 13.2 % (11.6-14.8); RED BLOOD COUNT 3.43 10^6/ul (4.20-5.40); WHITE BLOOD COUNT 5.83 K/ul (4.6-10.2)
[2020-09-09] MEDS: PROTONIX PO SCH ×2 (05:42→17:11)
[2020-09-09 05:50] LABS: ALANINE AMINOTRANSFERASE 7.4 U/L (0-35); ALBUMIN 3.21 g/dL (3.5-5.0); ASPARTATE AMINO TRANSFERASE 15.5 U/L (14-36); BILIRUBIN,TOTAL 0.25 mg/dL (0.2-1.3); BLOOD UREA NITROGEN 43.5 mg/dL (7-17); CALCIUM 7.73 mg/dL (8.4-10.2); CARBON DIOXIDE 24.5 mmol/L (22-30.0); CHLORIDE 97.5 mmol/L (98-107); CREATININE 1.85 mg/dL (0.60-1.30); GLUCOSE 492.2 mg/dL (74-106); POTASSIUM 3.64 mmol/L (3.5-5.1); SODIUM 129.2 mmol/L (134.5-145); TOTAL PROTEIN 5.6 g/dL (6.3-8.2)
[2020-09-09 06:42] LABS: BASOPHILS % (AUTO) 0.3 % (0.0-3.0); EOSINOPHILS # (AUTO) 0.2 K/ul (0.0-0.7); EOSINOPHILS % (AUTO) 2.7 % (0.0-7.0); HEMATOCRIT 31.9 % (37.0-47.0); HEMOGLOBIN 10.9 g/dl (12.0-16.0); IMMATURE GRANULOCYTE % (AUTO) 0.2 % (0.0-5.0); LYMPHOCYTES # (AUTO) 1.5 K/uL (0.60-3.4); LYMPHOCYTES % (AUTO) 23.9 (10.0-50.0); MEAN CORPUSCULAR HEMOGLOBIN 29.9 pg (27.0-31.0); MEAN CORPUSCULAR HGB CONC 34.2 (31.8-35.4); MEAN CORPUSCULAR VOLUME 87.6 fl (81.0-99.0); MONOCYTES # (AUTO) 0.6 K/uL (0.4-2.0); MONOCYTES % (AUTO) 8.6 (0-10); NEUTROPHILS # (AUTO) 4.1 K/ul (2.0-6.9); NEUTROPHILS % (AUTO) 64.3 % (42.2-75.2); PLATELET COUNT 229 10^3/uL (140-440); RDW COEFFICIENT OF VARIATION 13.2 % (11.6-14.8); RED BLOOD COUNT 3.64 10^6/ul (4.20-5.40); WHITE BLOOD COUNT 6.39 K/ul (4.6-10.2)
[2020-09-09 06:48] LABS: ALBUMIN 3.81 g/dL (3.5-5.0); ALKALINE PHOSPHATASE 54.2 U/L (53-141); ASPARTATE AMINO TRANSFERASE 21.8 U/L (14-36); BILIRUBIN,TOTAL 0.32 mg/dL (0.2-1.3); BLOOD UREA NITROGEN 47.7 mg/dL (7-17); CALCIUM 8.68 mg/dL (8.4-10.2); CARBON DIOXIDE 27.6 mmol/L (22-30.0); CHLORIDE 99.8 mmol/L (98-107); CREATININE 2.02 mg/dL (0.60-1.30); GLUCOSE 126.5 mg/dL (74-106); POTASSIUM 4.05 mmol/L (3.5-5.1); TOTAL PROTEIN 6.41 g/dL (6.3-8.2)
--- NOTE | 2020-09-09 08:38 | PCM.PROG ---
Attending Provider: ATTENDING PROVIDER: Dr. NIKKO LAM This patient is seen with Li Marroquin, Nurse Practitioner. DATE OF SERVICE: 09/09/20 SUBJECTIVE: This 80 year old /WHITE F was hospitalized 09/06/20. The patient is resting comfortably. No report of chest pain. Does have anxiety. Took a Xanax last night and was able to sleep. REVIEW OF SYSTEMS: CONSTITUTIONAL: No night sweats. No fatigue, malaise, lethargy. No fever or chills. HEENT: Eyes: No visual changes. No eye pain. No eye discharge. ENT: No runny nose. No epistaxis. No sinus pain. No odynophagia. No congestion. RESPIRATORY: No cough, no congestion. No hemoptysis. No shortness of breath. CARDIOVASCULAR: No angina symptoms. No CHF symptoms. No atypical chest pain for CAD. No palpitations. No orthopnea.. GASTROINTESTINAL: No abdominal pain. No nausea or vomiting. No diarrhea or constipation. No hematemesis. No hematochezia. GENITOURINARY: No urgency. No frequency. No dysuria. No hematuria. No obstructive symptoms. No discharge. No pain. No significant abnormal bleeding. MUSCULOSKELETAL: No musculoskeletal pain; no joint swelling. NEUROLOGICAL: Awake, alert, oriented to time, place and person. No headache. No neck pain. No syncope. No seizures. No dizziness. PSYCHIATRIC: Anxious. No depression. No suicidal thoughts. No homicidal thoughts. SKIN: No rash. No lesions. No wounds. ENDOCRINE: No unexplained weight loss. No weight gain. HEMATOLOGIC/LYMPHATIC: No anemia. No purpura. No petechiae. No prolonged or excessive bleeding. No palpable lymph nodes. PHYSICAL EXAMINATION: GENERAL: The patient is awake, alert and oriented, sitting in bed in no distress. VITAL SIGNS: Temperature 97.7 F, Pulse 58, Respiratory Rate 16, BP 115/63, Pulse Ox 98% HEENT: Head normocephalic, atraumatic. Eyes: Extraocular muscles are intact. Pupils are equal, round and reactive to light and accommodation. Ears: No lesions. Nose appeared normal. Throat: No exudate or erythema. NECK: Supple. No JVD, no carotid bruit. No lymphadenopathy or thyromegaly. LUNGS: Clear to auscultation. Percussion note normal. Chest symmetrical. HEART: S1, S2, no S3. No murmurs. No cyanosis or clubbing. No ascites. Pulses: Dorsalis pedis and posterior tibial pulses +1 to +2 both sides. ABDOMEN: Soft. Non-tender. Bowel sounds active. No CVA tenderness. No mass felt. EXTREMITIES: No edema. Full range of motion of all extremities, equal. NEUROLOGIC: No focal deficit. Cranial nerves II through XII are grossly intact. No headache. No double vision. SKIN: Not dry. Intact. Turgor-normal. LYMPHATIC: No palpable lymph nodes/no lymphedema. MUSCULOSKELETAL: Normal joints with no swelling. Muscle tone is normal. LAB REVIEW: 09/09/20 06:31 09/09/20 06:31 09/09/20 06:31: Sodium 136.0, Potassium 4.05, Chloride 99.8, Carbon Dioxide 27.6, Anion Gap 12.65, BUN 47.7 H, Creatinine 2.02 H, Estimated GFR (MDRD) 24.00, BUN/Creatinine Ratio 23.61, Glucose 126.5 H D, Calcium 8.68, Total Bilirubin 0.32, AST 21.8, ALT 9.0, Alkaline Phosphatase 54.2, Total Protein 6.41, Albumin 3.81, Globulin 2.60, Albumin/Globulin Ratio 1.46 09/09/20 06:31: WBC 6.39, RBC 3.64 L, Hgb 10.9 L, Hct 31.9 L, MCV 87.6, MCH 29.9, MCHC 34.2, RDW Coeff of Trinity 13.2, Plt Count 229, Immature Gran % (Auto) 0.2, Neut % (Auto) 64.3, Lymph % (Auto) 23.9, [place] % (Auto) 8.6, Eos % (Auto) 2.7, Baso % (Auto) 0.3, Neut # (Auto) 4.1, Lymph # (Auto) 1.5, [place] # (Auto) 0.6, Eos # (Auto) 0.2, Baso # (Auto) 0.0, Immature Gran # (Auto) 0.0 09/09/20 05:23: Sodium 129.2 L, Potassium 3.64, Chloride 97.5 L, Carbon Dioxide 24.5, Anion Gap 10.84, BUN 43.5 H, Creatinine 1.85 H, Estimated GFR (MDRD) 26.00, BUN/Creatinine Ratio 23.51, Glucose 492.2 H, Calcium 7.73 L, Total Jg irubin 0.25, AST 15.5, ALT 7.4, Alkaline Phosphatase 50.0 L, Total Protein 5.60 L, Albumin 3.21 L, Globulin 2.39, Albumin/Globulin Ratio 1.34 09/09/20 05:23: WBC 5.83, RBC 3.43 L, Hgb 10.4 L, Hct 30.2 L, MCV 88.0, MCH 30.3, MCHC 34.4, RDW Coeff of Trinity 13.2, Plt Count 224, Immature Gran % (Auto) 0.2, Neut % (Auto) 64.7, Lymph % (Auto) 22.8, [place] % (Auto) 8.7, Eos % (Auto) 3.3, Baso % (Auto) 0.3, Neut # (Auto) 3.8, Lymph # (Auto) 1.3, [place] # (Auto) 0.5, Eos # (Auto) 0.2, Baso # (Auto) 0.0, Immature Gran # (Auto) 0.0 ASSESSMENT: Please see below. 1. Atypical chest pain, resolved 2. Renal Azotemia 3. Underline chronic kidney disease stage 3 4. Diabetes Mellitus type 2 5. Anxiety 6. GERD PLAN: 1. Continue IV fluids 2. Encourage PO fluids 3. May discharge tomorrow. Plan and coordination of the patient's care discussed in the presence of Budget Analyst and nurse. SCRIBED BY: Buck LINTON scribed while in presence of service performed by Dr. Lam/Li Marroquin APRN on 09/09/20 ([id number])
[2020-09-09] MEDS: VITAMIN D PO SCH (08:40)
[2020-09-09] MEDS: FERROUS SULFATE PO SCH ×2 (08:40→21:16)
[2020-09-09] MEDS: ZESTRIL PO SCH (08:40)
[2020-09-09] MEDS: NEURONTIN PO SCH (08:40)
[2020-09-09] MEDS: JANUVIA PO SCH (08:41)
[2020-09-09] MEDS: PRAVACHOL PO SCH (08:41)
[2020-09-09] MEDS: MIRALAX PO SCH (08:41)
[2020-09-09] MEDS: ADVAIR 250-50 DISKUS IH SCH ×2 (08:42→17:11)
[2020-09-09] MEDS: ELIQUIS PO SCH ×2 (08:43→21:16)
[2020-09-09] MEDS: ASPIRIN EC PO SCH (08:50)
[2020-09-09] MEDS: COREG PO SCH ×2 (08:51→17:11)
[2020-09-09] MEDS ORDERED: FLUOROMETHOLONE EACHEYE SCH (09:00)
[2020-09-09] MEDS: [UNRECOGNIZED DRUG - OTHER] PO SCH (09:41)
[2020-09-09] MEDS: CYANOCOBALAMIN 1000 MCG PO SCH (09:41)
--- NOTE | 2020-09-09 10:21 | PN ---
DATE OF SERVICE: 09/06/20 SUBJECTIVE: The patient was seen and examined in the emergency room. The patient's chest pain seems to be equivocal. It feels like a heaviness unrelated to exertion. The patient has steady ache mostly in the [place] area nonradiating to any other parts of the body. The patient doesn't have any shortness of breath or sweating with it. Blood pressure at home systolic was more than 171/80. In the emergency room it was normal. Heart rate is around 50 to 70/min with atrial fibrillation. She seems to be in stable condition with normal cardiovascular status on physical examination. She is going to be hospitalized to rule out any acute myocardial event. Troponin is normal. TIME SPENT: More than 30 minutes. Plan and coordination of the patient's care discussed in the presence of nurse. YFN
[2020-09-09] MEDS: NORVASC PO SCH (21:16)
[2020-09-09] MEDS: XALATAN EACHEYE SCH (21:21)
[2020-09-10] MEDS: XANAX PO PRN (00:34)
[2020-09-10] MEDS: DEXTROSE 5%-1/2NS IV SOLUTION 1,000 ML IV SCH (02:48)
[2020-09-10 05:12] LABS: BASOPHILS % (AUTO) 0.3 % (0.0-3.0); EOSINOPHILS # (AUTO) 0.2 K/ul (0.0-0.7); EOSINOPHILS % (AUTO) 3.4 % (0.0-7.0); HEMATOCRIT 30.9 % (37.0-47.0); HEMOGLOBIN 10.4 g/dl (12.0-16.0); IMMATURE GRANULOCYTE % (AUTO) 0.5 % (0.0-5.0); LYMPHOCYTES # (AUTO) 1.4 K/uL (0.60-3.4); LYMPHOCYTES % (AUTO) 23.1 (10.0-50.0); MEAN CORPUSCULAR HEMOGLOBIN 29.5 pg (27.0-31.0); MEAN CORPUSCULAR HGB CONC 33.7 (31.8-35.4); MEAN CORPUSCULAR VOLUME 87.8 fl (81.0-99.0); MONOCYTES # (AUTO) 0.5 K/uL (0.4-2.0); MONOCYTES % (AUTO) 8.3 (0-10); NEUTROPHILS # (AUTO) 3.8 K/ul (2.0-6.9); NEUTROPHILS % (AUTO) 64.4 % (42.2-75.2); PLATELET COUNT 218 10^3/uL (140-440); RDW COEFFICIENT OF VARIATION 13.1 % (11.6-14.8); RED BLOOD COUNT 3.52 10^6/ul (4.20-5.40); WHITE BLOOD COUNT 5.93 K/ul (4.6-10.2)
[2020-09-10 05:23] LABS: ALANINE AMINOTRANSFERASE 8.4 U/L (0-35); ALBUMIN 3.64 g/dL (3.5-5.0); ALKALINE PHOSPHATASE 57.2 U/L (53-141); ASPARTATE AMINO TRANSFERASE 18.1 U/L (14-36); BILIRUBIN,TOTAL 0.29 mg/dL (0.2-1.3); BLOOD UREA NITROGEN 35.7 mg/dL (7-17); CALCIUM 8.7 mg/dL (8.4-10.2); CARBON DIOXIDE 27.5 mmol/L (22-30.0); CHLORIDE 97.3 mmol/L (98-107); CREATININE 1.54 mg/dL (0.60-1.30); GLUCOSE 119.8 mg/dL (74-106); POTASSIUM 4.51 mmol/L (3.5-5.1); SODIUM 130.8 mmol/L (134.5-145); TOTAL PROTEIN 6.29 g/dL (6.3-8.2)
[2020-09-10] MEDS: PROTONIX PO SCH (05:38)
[2020-09-10 05:54] VITALS: BP 119/70; TEMP 97.5
--- NOTE | 2020-09-10 08:13 | PCM.PROG ---
Attending Provider: ATTENDING PROVIDER: Dr. NIKKO LAM This patient is seen with Li Marroquin, Nurse Practitioner. DATE OF SERVICE: 09/10/20 SUBJECTIVE: This 80 year old /WHITE F was hospitalized 09/06/20. The patient is resting comfortably. No chest pain. No shortness of breath. Kidney function has improved. REVIEW OF SYSTEMS: CONSTITUTIONAL: No night sweats. No fatigue, malaise, lethargy. No fever or chills. HEENT: Eyes: No visual changes. No eye pain. No eye discharge. ENT: No runny nose. No epistaxis. No sinus pain. No odynophagia. No congestion. RESPIRATORY: No cough, no congestion. No hemoptysis. No shortness of breath. CARDIOVASCULAR: No angina symptoms. No CHF symptoms. No atypical chest pain for CAD. No palpitations. No orthopnea.. GASTROINTESTINAL: No abdominal pain. No nausea or vomiting. No diarrhea or constipation. No hematemesis. No hematochezia. GENITOURINARY: No urgency. No frequency. No dysuria. No hematuria. No obstructive symptoms. No discharge. No pain. No significant abnormal bleeding. MUSCULOSKELETAL: No musculoskeletal pain; no joint swelling. NEUROLOGICAL: Awake, alert, oriented to time, place and person. No headache. No neck pain. No syncope. No seizures. No dizziness. PSYCHIATRIC: Not anxious. No depression. No suicidal thoughts. No homicidal thoughts. SKIN: No rash. No lesions. No wounds. ENDOCRINE: No unexplained weight loss. No weight gain. HEMATOLOGIC/LYMPHATIC: No anemia. No purpura. No petechiae. No prolonged or excessive bleeding. No palpable lymph nodes. PHYSICAL EXAMINATION: GENERAL: The patient is awake, alert and oriented, lying in bed in no distress. VITAL SIGNS: Temperature 97.5 F, Pulse 58, Respiratory Rate 16, BP 119/70, Pulse Ox 98% HEENT: Head normocephalic, atraumatic. Eyes: Extraocular muscles are intact. Pupils are equal, round and reactive to light and accommodation. Ears: No lesions. Nose appeared normal. Throat: No exudate or erythema. NECK: Supple. No JVD, no carotid bruit. No lymphadenopathy or thyromegaly. LUNGS: Diminished breath sounds. Clear to auscultation. Percussion note normal. Chest symmetrical. HEART: Irregular heart rate. S1, S2, no S3. No murmurs. No cyanosis or clubbing. No ascites. Pulses: Dorsalis pedis and posterior tibial pulses +1 to +2 both sides. ABDOMEN: Soft. Non-tender. Bowel sounds active. No CVA tenderness. No mass felt. EXTREMITIES: No edema. Full range of motion of all extremities, equal. NEUROLOGIC: No focal deficit. Cranial nerves II through XII are grossly intact. No headache. No double vision. SKIN: Not dry. Intact. Turgor-normal. LYMPHATIC: No palpable lymph nodes/no lymphedema. MUSCULOSKELETAL: Normal joints with no swelling. Muscle tone is normal. LAB REVIEW: 09/10/20 05:06 09/10/20 05:06 09/10/20 05:06: Sodium 130.8 L, Potassium 4.51, Chloride 97.3 L, Carbon Dioxide 27.5, Anion Gap 10.51, BUN 35.7 H, Creatinine 1.54 H, Estimated GFR (MDRD) 32.00, BUN/Creatinine Ratio 23.18, Glucose 119.8 H, Calcium 8.70, Total Bilirubin 0.29, AST 18.1, ALT 8.4, Alkaline Phosphatase 57.2, Total Protein 6.29 L, Albumin 3.64, Globulin 2.65, Albumin/Globulin Ratio 1.37 09/10/20 05:06: WBC 5.93, RBC 3.52 L, Hgb 10.4 L, Hct 30.9 L, MCV 87.8, MCH 29.5 , MCHC 33.7, RDW Coeff of Trinity 13.1, Plt Count 218, Immature Gran % (Auto) 0.5, Neut % (Auto) 64.4, Lymph % (Auto) 23.1, [place] % (Auto) 8.3, Eos % (Auto) 3.4, Baso % (Auto) 0.3, Neut # (Auto) 3.8, Lymph # (Auto) 1.4, [place] # (Auto) 0.5, Eos # (Auto) 0.2, Baso # (Auto) 0.0, Immature Gran # (Auto) 0.0 ASSESSMENT: Please see below. 1. Atypical chest pain 2. Hypertension 3. Renal Azotemia, resolved 4. Underline chronic kidney disease 5. COPD 6. Anxiety 7. Atrial fibrillation PLAN: 1. Continue Amlodipine 2. Discharge home 3. No NSAIDS 4. Risk of bleeding with Eliquis discussed 5. Followup in the office next week. Plan and coordination of the patient's care discussed in the presence of Teacher Of The Deaf/Hard Of Hearing and nurse. SCRIBED BY: Buck LINTON scribed while in presence of service performed by Dr. Lam/Li Marroquin APRN on 09/10/20 ([id number])
[2020-09-10] MEDS: MIRALAX PO SCH (08:48)
[2020-09-10] MEDS: PRAVACHOL PO SCH (08:50)
[2020-09-10] MEDS: NEURONTIN PO SCH (08:50)
[2020-09-10] MEDS: JANUVIA PO SCH (08:50)
[2020-09-10] MEDS: COREG PO SCH (08:51)
[2020-09-10] MEDS: VITAMIN D PO SCH (08:51)
[2020-09-10] MEDS: ZESTRIL PO SCH (08:51)
[2020-09-10] MEDS: FERROUS SULFATE PO SCH (08:51)
[2020-09-10] MEDS: ADVAIR 250-50 DISKUS IH SCH (08:51)
[2020-09-10] MEDS: ELIQUIS PO SCH (08:52)
[2020-09-10] MEDS: CYANOCOBALAMIN 1000 MCG PO SCH (08:58)
[2020-09-10] MEDS: [UNRECOGNIZED DRUG - OTHER] PO SCH (08:58)
--- NOTE | 2020-09-10 09:00 | HP ---
DATE OF SERVICE: 09/06/2020 REASON FOR HOSPITALIZATION/HISTORY OF PRESENT ILLNESS: This is a 80 year old white female who presented to the emergency room complaining of chest pain. She had a cardiac workup in June of 2020. She has a history of recurrent chest pain and also has a history of GERD. 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 Ellis Prolapse rectum Metabolic syndrome Palpitations History of Kidney Cancer followed by Dr. Salinas Left kidney cancer Chronic kidney disease stage three to four, sees Dr. Canales History of breast cancer, see Dr. Ellis Diabetes Mellitus type 2 PAST SURGICAL HISTORY: Left nephrectomy Colectomy in 2006 Removal of breast cancer by Dr. Ellis REVIEW OF SYSTEMS: CONSTITUTIONAL: No night sweats. No fatigue, malaise, lethargy. No fever or chills. HEENT: Eyes: No visual changes. No eye pain. No eye discharge. ENT: No runny nose. No epistaxis. No sinus pain. No sore throat. No odynophagia. No ear pain. No congestion. RESPIRATORY: No cough, no congestion. No hemoptysis. No shortness of breath. CARDIOVASCULAR: No angina symptoms. No CHF symptoms. Chest pain. Palpitations. No PND. No orthopnea. GASTROINTESTINAL: No abdominal pain. Nausea. No diarrhea or constipation. No hematemesis. No hematochezia. GENITOURINARY: No urgency. No frequency. No dysuria. No hematuria. No obstructive symptoms. No discharge. No pain. No significant abnormal bleeding. MUSCULOSKELETAL: No musculoskeletal pain. No joint swelling. No arthritis. NEUROLOGICAL: No headache. No neck pain. No syncope. No seizures. No dizziness. PSYCHIATRIC: Not anxious. No depression. No suicidal thoughts. No homicidal thoughts. SKIN: No rash. No lesions. No wounds. ENDOCRINE: No unexplained weight loss. No weight gain. HEMATOLOGIC/LYMPHATIC: No anemia. No purpura. No petechiae. No prolonged or excessive bleeding. No palpable lymph nodes. PERSONAL/FAMILY/SOCIAL HISTORY: She is , nonsmoker. No alcohol or illicit drug use. MEDICATIONS: Xanax 0.25mg PO daily PRN Iron 325mg PO BID Vitamin B12 1000mg PO daily Januvia 25mg PO daily Latanoprost 0.005% one drop both eye at bedtime Gabapentin 100mg PO daily Protonix 40mg PO BID Vitamin D 1000 unit PO daily Coreg 6.25mg PO BID Tramadol 50mg PO BID PRN Lisinopril 20mg pO daily Pravastatin 40mg PO daily Acetaminophen 325mg PO once PRN Combivent one puff inhalation BID PRN Fluorometholone 0.1% one drop both eyes ever other day Eliquis 2.5mg PO BID Advair 250-50mcg one inhalation 0800, 1700 ALLERGIES: Budesonide Formoterol PHYSICAL EXAMINATION: GENERAL: The patient is alert and oriented. HEENT: Head normocephalic, atraumatic. Eyes: Extraocular muscles are intact. Pupils are equal, round and reactive to light and accommodation. Ears: No lesions. Nose appeared normal. Throat: No exudate or erythema. NECK: Supple. No JVD, no carotid bruit. No lymphadenopathy or thyromegaly. LUNGS: Diminished breath sounds bilaterally. Clear to auscultation. Percussion note normal. Chest symmetrical. HEART: Irregular heart rate. S1, S2, no S3. No murmur. No cyanosis or clubbing. No ascites. Pulses: Dorsalis pedis and posterior tibial pulses +1 to +2 bilaterally. ABDOMEN: Soft. Nontender. Bowel sounds active. No CVA tenderness. No mass felt. EXTREMITIES: No edema. Full range of motion of all extremities, equal. NEUROLOGIC: No focal deficit. Cranial nerves II through XII are grossly intact. No headache, no double vision or headache. SKIN: Not dry. Intact. Turgor - normal. LYMPHATIC: No palpable lymph nodes/no lymphedema. MUSCULOSKELETAL: Normal joints with no swelling. Muscle tone is normal. LABS: Chest x-ray was normal showed no acute process. WBC 6, hgb 11.5, hct 34.2, plt count 237, sodium 138, potassium 4.2, BUN 23, creatinine 1.58, glucose 116. BNP 3,170, glucose 116, AST 18, ALT 11, Troponin less than 0.012. Respiratory panel is negative. U/A trace leuks, trace bacteria, 1+ blood. ASSESSMENT: 1. Chest pain 2. Palpitations 3. Afib 4. GERD PLAN: 1. We will admit 2. Routine telemetry orders 3. CBC and CMP daily 4. Continue home medications 5. Urine for culture and sensitivity 6. Normal saline IV at 75cc an hour 7. 1 dose of Lasix 40mg IV 8. Regular diet We will follow closely. TIME SPENT: More than 70 minutes. MTDD
--- NOTE | 2020-09-10 12:05 | CM.DICTOOL ---
ADMISSION: 09/06/20 14:05 DISCHARGE: SEPTEMBER 10, 2020 DATE OF SERVICE: 09/10/20 FINAL DIAGNOSIS ATYPICAL CHEST PAIN PALPITATIONS HYPERTENSION RENAL AZOTEMIA, RESOLVED UNDERLYING CHRONIC KIDNEY DISEASE, STAGE 3 COPD ANXIETY ATRIAL FIBRILLATION GERD HX: PAROXYSMAL ATRIAL FIBRILLATION IS ON ELIQUIS DEGENERATIVE DISC DISEASE OF THE LUMBAR AND CERVICAL SPINE GERD OSTEOPENIA THORACIC BACK PAIN CHRONIC SINUSITIS HISTORY OF ENLARGED LEFT AXILLARY NODE FOLLOWED BY DR. LOPEZ PROLAPSED RECTUM METABOLIC SYNDROME PALPITATIONS HISTORY OF KIDNEY CANCER FOLLOWED BY DR. LOTT LEFT KIDNEY CANCER CHRONIC KIDNEY DISEASE, STAGE THREE TO FOUR , SEES DR. MOLINA HISTORY OF BREAST CANCER, SEES DR. LOPEZ DIABETES MELLITUS TYPE 2 PROCEDURES: COLECTOMY, 2007 NEPHRECTOMY, LEFT REMOVAL OF BREAST CANCER, SEES DR. LOPEZ LAST VITALS Temp Pulse Resp BP Pulse Ox 97.5 F L 58 L 16 119/70 98 09/10/20 05:53 09/10/20 05:53 09/10/20 05:53 09/10/20 05:53 09/10/20 09:48 TAKE THESE MEDICATIONS AT HOME Acetaminophen (Acetaminophen 325 Mg Tablet) 325 mg once PRN PRN Reason: Pain Albuterol/Ipratropium (Ipratropium/Albuterol Sulfate Inhalation [place] Aer.W.Adap) 1 spray IH BID PRN PRN Reason: SOA Alprazolam (Alprazolam 0.25 Mg Tablet) 0.25 mg PO DAILY PRN PRN Reason: ANXIETY/RESTLESSNESS Last Admin: 09/10/20 00:34 Dose: 0.25 mg Documented by: Amlodipine Besylate (Amlodipine Besylate 5 Mg Tablet) 5 mg PO BEDTIME [facility] -- ( NEW) Last Admin: 09/09/20 21:16 Dose: 5 mg Documented by: Apixaban (Apixaban 5 Mg Tab) 2.5 mg PO BID [facility] Last Admin: 09/10/20 08:52 Dose: 2.5 mg Documented by: Carvedilol (Carvedilol 6.25 Mg Tablet) 6.25 mg PO BIDWM [facility] Last Admin: 09/10/20 08:51 Dose: 6.25 mg Documented by: Cholecalciferol (Cholecalciferol (Vitamin D3) 1,000 Unit (25 Mcg) Tablet) 1,000 unit PO DAILY [facility] Last Admin: 09/10/20 08:51 Dose: 1,000 unit Documented by: Ferrous Sulfate (Ferrous Sulfate 324 Mg Tablet.) 324 mg PO BID [facility] Last Admin: 09/10/20 08:51 Dose: 324 mg Documented by: Gabapentin (Gabapentin 100 Mg Capsule) 100 mg PO DAILY [facility] Last Admin: 09/10/20 08:50 Dose: 100 mg Documented by: Latanoprost (Latanoprost 2.5 Ml Opth [place]) 1 drop EACHEYE BEDTIME [facility] Last Admin: 09/09/20 21:21 Dose: 1 drop Documented by: Lisinopril (Lisinopril 10 Mg Tablet) 20 mg PO DAILY [facility] Last Admin: 09/10/20 08:51 Dose: 20 mg Documented by: Non-Formulary Medication (Cyanocobalamin (Vitamin B-12) [Vitamin B-12]) 1,000 mg PO DAILY [facility] Last Admin: 09/10/20 08:58 Dose: Not Given Documented by: Non-Formulary Medication (Fluorometholone) 1 drop EACHEYE EVERY OTHER DAY [facility] Last Admin: 09/09/20 09:55 Dose: Not Given Documented by: Pantoprazole Sodium (Pantoprazole Sodium 40 Mg Tablet.) 40 mg PO BIDAC [facility] Last Admin: 09/10/20 05:38 Dose: 40 mg Documented by: Polyethylene Glycol (Polyethylene Glycol 17 Gm Powd.Pack) 17 gm PO DAILY [facility] -- ( NEW) Last Admin: 09/10/20 08:48 Dose: 17 gm Documented by: Pravastatin Sodium (Pravastatin Sodium 40 Mg Tablet) 40 mg PO DAILY [facility] Last Admin: 09/10/20 08:50 Dose: 40 mg Documented by: Fluticasone/Salmeterol (Fluticasone/Salmeterol 250/50 Diskus) 1 puff IH 0800,1700 [facility] Last Admin: 09/10/20 08:51 Dose: 1 puff Documented by: Sitagliptin Phosphate (Sitagliptin Phosphate 50 Mg Tablet) 25 mg PO DAILY [facility] Last Admin: 09/10/20 08:50 Dose: 25 mg Documented by: Tramadol HCl (Tramadol Hcl 50 Mg Tablet) 50 mg PO BID PRN PRN Reason: MODERATE PAIN Last Admin: 09/09/20 21:36 Dose: 50 mg Documented by: ALLERGIES budesonide [From Symbicort] Adverse Reaction (Mild, Verified 09/06/20 10:32) CHEST FLUTTER formoterol [From Symbicort] Adverse Reaction (Mild, Verified 09/06/20 10:32) CHEST FLUTTER DISCONTINUED MEDICATIONS NONE NEW PRESCRIPTIONS: 1). NORVASC 5 MG PO AT BEDTIME 2). MIRALAX 17 GRAMS IN 8 OZ OF FLUIDS DAILY SMOKING: N/A DISEASE SPECIFIC EDUCATION: CHEST PAIN A-FIB GERD HTN NO NSAIDS BLEEDING PRECAUTIONS COVID - 19 LAB REVIEW: 09/10/20 05:06 09/10/20 05:06 09/10/20 05:06: Sodium 130.8 L, Potassium 4.51, Chloride 97.3 L, Carbon Dioxide 27.5, Anion Gap 10.51, BUN 35.7 H, Creatinine 1.54 H, Estimated GFR (MDRD) 32.00, BUN/Creatinine Ratio 23.18, Glucose 119.8 H, Calcium 8.70, Total Bilirubin 0.29, AST 18.1, ALT 8.4, Alkaline Phosphatase 57.2, Total Protein 6.29 L, Albumin 3.64, Globulin 2.65, Albumin/Globulin Ratio 1.37 09/10/20 05:06: WBC 5.93, RBC 3.52 L, Hgb 10.4 L, Hct 30.9 L, MCV 87.8, MCH 29.5, MCHC 33.7, RDW Coeff of [place] 13.1, Plt Count 218, Immature Gran % (Auto) 0.5, Neut % (Auto) 64.4, Lymph % (Auto) 23.1, [place] % (Auto) 8.3, Eos % (Auto) 3.4, Baso % (Auto) 0.3, Neut # (Auto) 3.8, Lymph # (Auto) 1.4, [place] # (Auto) 0.5, Eos # (Auto) 0.2, Baso # (Auto) 0.0, Immature Gran # (Auto) 0.0 PLAN: DISCHARGE HOME TODAY: SEPTEMBER 10, 2020 HOME INDEPENDENTLY DIET: HEART HEALTHY NO SUGAR ACTIVITY: UP IN HOME TOLERATED WITH FREQUENT REST PERIOD. NO STRENUOUS ACTIVITY STAY HOME IF POSSIBLE UNTIL FOLLOW UP WITH DR. LAM SOCIAL DISTANCING. BLEEDING PRECAUTIONS. NO NSAIDS FOLLOW UP: DR. LAM/VANESSA CORONADO APRN/CHALO DUMONT APRN ON SEPTEMBER 20, 2020 @ 145 PM CODE STATUS: DO NOT RESUSCITATE MRS. COLLINS REMAINS ALERT AND ORIENTED X 4. SHE IS PLEASANT AND TALKATIVE. SHE STATES SHE DOES GET SOA WITH ACTIVITY BUT RECOVERS WELL WITH REST. LUNGS ARE CLEAR. NO COUGH. NO FURTHER CHEST PAIN OR PRESSURE. SKIN IS WARM AND DRY AND INTACT. CONTINENT OF BOWEL AND BLADDER WITH LAST BM X 2 ON 09/09. SHE IS UP TOLERATED WITHOUT AN ASSISTIVE DEVICE AND SHE IS STEADY. SHE WALKS FREQUENTLY AND REMAINS INDEPENDENT WITH ALL IADLs and ADLs. SHE NEEDS REMINDERS TO DRINK AN ADEQUATE AMOUNT OF FLUIDS DAILY. SHE KNOWS TO RECOGNIZE BLEEDING PRECAUTIONS. MD VANESSA ACUNA APRN ALYCE HANNAN, APRN
--- NOTE | 2020-09-10 13:05 | PN ---
DATE OF SERVICE: 09/07/20 SUBJECTIVE: 80-year-old white female hospitalized with chest pain. The patient's chest pain today has practically resolved. REVIEW OF SYSTEMS: CONSTITUTIONAL: No night sweats. No fatigue, malaise, lethargy. No fever or chills. HEENT: Eyes: No visual changes. No eye pain. No eye discharge. ENT: No runny nose. No epistaxis. No sinus pain. No sore throat. No odynophagia. No congestion. RESPIRATORY: No cough, no congestion. No hemoptysis. No shortness of breath. CARDIOVASCULAR: No angina symptoms. No CHF symptoms. No atypical chest pain for CAD. No palpitations. No PND. No orthopnea. GASTROINTESTINAL: No abdominal pain. No nausea or vomiting. No diarrhea or constipation. No hematemesis. No hematochezia. GENITOURINARY: No urgency. No frequency. No dysuria. No hematuria. No obstructive symptoms. No discharge. No pain. No significant abnormal bleeding. MUSCULOSKELETAL: No musculoskeletal pain; no joint swelling. NEUROLOGICAL: No headache. No neck pain. No syncope. No seizures. No dizziness. PSYCHIATRIC: Not anxious. No depression. No suicidal thoughts. No homicidal thoughts. SKIN: No rash. No lesions. No wounds. ENDOCRINE: No unexplained weight loss. No weight gain. HEMATOLOGIC/LYMPHATIC: No anemia. No purpura. No petechiae. No prolonged or excessive bleeding. No palpable lymph nodes. PHYSICAL EXAMINATION: GENERAL: The patient is oriented to time, place and person. VITAL SIGNS: Temperature 97.6, pulse 63, respiratory rate 18, blood pressure 167/85, pulse ox 98%. HEENT: Head normocephalic, atraumatic. Eyes: Extraocular muscles are intact. Pupils are equal, round and reactive to light and accommodation. Ears: No lesions. Nose appeared normal. Throat: No exudate or erythema. NECK: Supple. No JVD, no carotid bruit. No lymphadenopathy or thyromegaly. LUNGS: Decreased breath sounds but clear to auscultation. Percussion note normal. Chest symmetrical. HEART: S1, S2, no S3. No murmurs. No cyanosis or clubbing. No ascites. Pulses: Dorsalis pedis and posterior tibial pulses +1 to +2 bilaterally. ABDOMEN: Soft. Nontender. Bowel sounds active. No CVA tenderness. No mass felt. EXTREMITIES: No edema. Full range of motion of all extremities, equal. NEUROLOGIC: No focal deficit. Cranial nerves II through XII are grossly intact. No headache. No double vision. SKIN: Not dry. Intact. Turgor - normal. LYMPHATIC: No palpable lymph nodes/no lymphedema. MUSCULOSKELETAL: Normal joints with no swelling. Muscle tone is normal. LABS: Hemoglobin 11.5, hematocrit 34, WBC 5,200, normal differential. Creatinine 1.5, BUN 26, potassium 3.9. ASSESSMENT: 1. The pain seems to have resolved. The chest pain was more or less noncardiac, very much localized in one place with no sweating, no change with exertion. Cardiac markers negative. EKG negative with atrial fibrillation. PLAN: 1. Continue to monitor telemetry. 2. Reassure the patient. 3. The patient's blood pressure systolic more than 160, has been given Vasotec 1.25 IV q.6 for BP of more than 160 q.6hourly. Condition stable. TIME SPENT: More than 30 minutes. Plan and coordination of the patient's care discussed in the presence of nurse. YFN
--- NOTE | 2020-09-10 13:15 | PN ---
DATE OF SERVICE: 09/08/20 SUBJECTIVE: The patient was seen and examined this morning. The patient's condition is stable. She doesn't have any chest pain. REVIEW OF SYSTEMS: CONSTITUTIONAL: No night sweats. No fatigue, malaise, lethargy. No fever or chills. HEENT: Eyes: No visual changes. No eye pain. No eye discharge. ENT: No runny nose. No epistaxis. No sinus pain. No sore throat. No odynophagia. No congestion. RESPIRATORY: No cough, no congestion. No hemoptysis. No shortness of breath. CARDIOVASCULAR: No angina symptoms. No CHF symptoms. No atypical chest pain for CAD. No palpitations. No PND. No orthopnea. GASTROINTESTINAL: No abdominal pain. No nausea or vomiting. No diarrhea or constipation. No hematemesis. No hematochezia. GENITOURINARY: No urgency. No frequency. No dysuria. No hematuria. No obstructive symptoms. No discharge. No pain. No significant abnormal bleeding. MUSCULOSKELETAL: No musculoskeletal pain; no joint swelling. NEUROLOGICAL: No headache. No neck pain. No syncope. No seizures. No dizziness. PSYCHIATRIC: Not anxious. No depression. No suicidal thoughts. No homicidal thoughts. SKIN: No rash. No lesions. No wounds. ENDOCRINE: No unexplained weight loss. No weight gain. HEMATOLOGIC/LYMPHATIC: No anemia. No purpura. No petechiae. No prolonged or excessive bleeding. No palpable lymph nodes. PHYSICAL EXAMINATION: VITAL SIGNS: Temperature 97.9, pulse 70, respiratory rate 20, BP 136/75, pulse ox 98%. GENERAL: The patient is oriented to time, place and person. She is up and about. HEENT: Head normocephalic, atraumatic. Eyes: Extraocular muscles are intact. Pupils are equal, round and reactive to light and accommodation. Ears: No lesions. Nose appeared normal. Throat: No exudate or erythema. NECK: Supple. No JVD, no carotid bruit. No lymphadenopathy or thyromegaly. LUNGS: Clear to auscultation. Percussion note normal. Chest symmetrical. HEART: S1, S2, no S3. No murmurs. No cyanosis or clubbing. No ascites. Pulses: Dorsalis pedis and posterior tibial pulses +1 to +2 bilaterally. ABDOMEN: Soft. Nontender. Bowel sounds active. No CVA tenderness. No mass felt. EXTREMITIES: No edema. Full range of motion of all extremities, equal. NEUROLOGIC: No focal deficit. Cranial nerves II through XII are grossly intact. No headache. No double vision. SKIN: Not dry. Intact. Turgor - normal. LYMPHATIC: No palpable lymph nodes/no lymphedema. MUSCULOSKELETAL: Normal joints with no swelling. Muscle tone is normal. LABS: Hemoglobin 11.6, hematocrit 34, WBC 6,600, normal differential. Creatinine 2.2, BUN 42, potassium 3.7. The patient's kidney functions are abnormal. Creatinine 1.5. The patient is on Lasix 40 mg twice a day. Systolic blood pressure of 100. PLAN: 1. Discontinue IV Lasix. 2. Lasix p.o. 3. Elevate the legs. 4. Advised to drink lots of fluids. 5. The patient had stress echo performed in June of 2020 which was negative for ischemia. Echocardiogram was done during the same time and showed practically normal LV contractility, mildly enlarged LA cavity, normal LV contractility, normal LV size. The patient was reassured. CONDITION: Stable. TIME SPENT: More than 30 minutes. Plan and coordination of the patient's care discussed in the presence of nurse. YFN
--- NOTE | 2020-09-10 13:46 | PN ---
DATE OF SERVICE: 09/09/20 SUBJECTIVE: 80-year-old white female was hospitalized with chest pain. The patient's chest pain has resolved. The patient developed renal azotemia with aggressive diuretic therapy because of high BNP. The patient has no symptoms of CHF. Lasix has been taken off. She has been put on IV fluids to hydrate her kidneys. Continue to monitor kidney functions. Otherwise, the patient has no symptoms of CHF or coronary insufficiency. The patient was seen and examined with nurse practitioner. TIME SPENT: More than 30 minutes. Plan and coordination of the patient's care discussed in the presence of nurse. YFN
--- NOTE | 2020-09-12 08:35 | DS ---
DATE OF SERVICE: 09/10/20 FINAL DIAGNOSIS: 1. ATYPICAL CHEST PAIN 2. PALPITATIONS 3. HYPERTENSION 4. RENAL AZOTEMIA, RESOLVED 5. UNDERLYING CHRONIC KIDNEY DISEASE, STAGE 3 6. COPD 7. ANXIETY 8. ATRIAL FIBRILLATION 9. GERD HX: 10. PAROXYSMAL ATRIAL FIBRILLATION IS ON ELIQUIS 11. 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 GERD 13. OSTEOPENIA 14. THORACIC BACK PAIN 15. CHRONIC SINUSITIS 16. HISTORY OF ENLARGED LEFT AXILLARY NODE FOLLOWED BY DR. LOPEZ 17. PROLAPSED RECTUM 18. METABOLIC SYNDROME 19. PALPITATIONS 20. HISTORY OF KIDNEY CANCER FOLLOWED BY DR. LOTT 21. LEFT KIDNEY CANCER 22. CHRONIC KIDNEY DISEASE, STAGE THREE TO FOUR , SEES DR. MOLINA 23. HISTORY OF BREAST CANCER, SEES DR. LOPEZ 24. DIABETES MELLITUS TYPE 2 PROCEDURES: 25. COLECTOMY, 2006 26. NEPHRECTOMY, LEFT 27. REMOVAL OF BREAST CANCER, SEES DR. LOPEZ LAST VITALS Temp Pulse Resp BP Pulse Ox 97.5 F L 58 L 16 119/70 98 09/10/20 05:53 09/10/20 05:53 09/10/20 05:53 09/10/20 05:53 09/10/20 09:48 DISCHARGE INSTRUCTIONS: 1. DISCHARGE HOME TODAY: SEPTEMBER 10, 2020 HOME INDEPENDENTLY. 2. MD FOLLOW UP: DR. LAM/VANESSA CORONADO APRN/CHALO DUMONT APRN ON SEPTEMBER 20, 2020 @ 145 PM. MEDICATIONS AT DISCHARGE: Acetaminophen (Acetaminophen 325 Mg Tablet) 325 mg once PRN PRN Reason: Pain Albuterol/Ipratropium (Ipratropium/Albuterol Sulfate Inhalation [place] Aer.W.Adap) 1 spray IH BID PRN PRN Reason: SOA Alprazolam (Alprazolam 0.25 Mg Tablet) 0.25 mg PO DAILY PRN PRN Reason: ANXIETY/RESTLESSNESS Last Admin: 09/10/20 00:34 Dose: 0.25 mg Documented by: Amlodipine Besylate (Amlodipine Besylate 5 Mg Tablet) 5 mg PO BEDTIME [facility] -- ( NEW) Last Admin: 09/09/20 21:16 Dose: 5 mg Documented by: Apixaban (Apixaban 5 Mg Tab) 2.5 mg PO BID [facility] Last Admin: 09/10/20 08:52 Dose: 2.5 mg Documented by: Carvedilol (Carvedilol 6.25 Mg Tablet) 6.25 mg PO BIDWM [facility] Last Admin: 09/10/20 08:51 Dose: 6.25 mg Documented by: Cholecalciferol (Cholecalciferol (Vitamin D3) 1,000 Unit (25 Mcg) Tablet) 1,000 unit PO DAILY [facility] Last Admin: 09/10/20 08:51 Dose: 1,000 unit Documented by: Ferrous Sulfate (Ferrous Sulfate 324 Mg Tablet.) 324 mg PO BID [facility] Last Admin: 09/10/20 08:51 Dose: 324 mg Documented by: Gabapentin (Gabapentin 100 Mg Capsule) 100 mg PO DAILY [facility] Last Admin: 09/10/20 08:50 Dose: 100 mg Documented by: Latanoprost (Latanoprost 2.5 Ml Opth [place]) 1 drop EACHEYE BEDTIME [facility] Last Admin: 09/09/20 21:21 Dose: 1 drop Documented by: Lisinopril (Lisinopril 10 Mg Tablet) 20 mg PO DAILY [facility] Last Admin: 09/10/20 08:51 Dose: 20 mg Documented by: Non-Formulary Medication (Cyanocobalamin (Vitamin B-12) ) 1,000 mg PO DAILY [facility] Last Admin: 09/10/20 08:58 Dose: Not Given Documented by: Non-Formulary Medication (Fluorometholone) 1 drop EACHEYE EVERY OTHER DAY [facility] Last Admin: 09/09/20 09:55 Dose: Not Given Documented by: Pantoprazole Sodium (Pantoprazole Sodium 40 Mg Tablet.) 40 mg PO BIDAC [facility] Last Admin: 09/10/20 05:38 Dose: 40 mg Documented by: Polyethylene Glycol (Polyethylene Glycol 17 Gm Powd.Pack) 17 gm PO DAILY [facility] -- ( NEW) Last Admin: 09/10/20 08:48 Dose: 17 gm Documented by: Pravastatin Sodium (Pravastatin Sodium 40 Mg Tablet) 40 mg PO DAILY [facility] Last Admin: 09/10/20 08:50 Dose: 40 mg Documented by: Fluticasone/Salmeterol (Fluticasone/Salmeterol 250/50 Diskus) 1 puff IH 0800,1700 [facility] Last Admin: 09/10/20 08:51 Dose: 1 puff Documented by: Sitagliptin Phosphate (Sitagliptin Phosphate 50 Mg Tablet) 25 mg PO DAILY [facility] Last Admin: 09/10/20 08:50 Dose: 25 mg Documented by: Tramadol HCl (Tramadol Hcl 50 Mg Tablet) 50 mg PO BID PRN PRN Reason: MODERATE PAIN Last Admin: 09/09/20 21:36 Dose: 50 mg NEW PRESCRIPTIONS: NORVASC 5 MG PO AT BEDTIME MIRALAX 17 GRAMS IN 8 OZ OF FLUIDS DAILY DISCONTINUED MEDICATIONS: NONE DIET INSTRUCTIONS: HEART HEALTHY NO SUGAR ACTIVITY: UP IN HOME TOLERATED WITH FREQUENT REST PERIOD. NO STRENUOUS ACTIVITY STAY HOME IF POSSIBLE UNTIL FOLLOW UP WITH DR. LAM SOCIAL DISTANCING. BLEEDING PRECAUTIONS. NO NSAIDS SMOKING: N/A DISEASE SPECIFIC EDUCATION: CHEST PAIN A-FIB GERD HTN NO NSAIDS BLEEDING PRECAUTIONS COVID-19 HOSPITAL COURSE: This is a white female who presented through the emergency room complaining of chest pain. She denied any shortness of breath, had no sweating. She stated she was having chest pain at home, it was sharp. By the time she got to the emergency room it had resolved. She has a history of atypical chest pain, had a recent cardiac workup in 2020 which was negative. History of palpitations. She was admitted, placed on routine telemetry orders, was found to be slightly dehydrated upon admission with creatinine up to 2. ER gave her Lasix and ordered for twice a day. Kidney function did decline somewhat during hospitalization. She was then started on IV fluids. Renal function has returned to baseline. She does have underlying chronic kidney disease. Blood pressure remained elevated. We did add Norvasc 5 mg to be given at night, has now been controlled. She also has a history of atrial fibrillation for which she is on Eliquis. Blood pressure at time of discharge 119/70. She has been up and about. Kidney function is better. She has had no reports of chest pain since she has been here. All cardiac enzymes are negative. I do believe this is related to GERD which she does take Protonix b.i.d. We will continue on that. She will be discharged in stable condition, will followup in the office next week. TIME SPENT: More than 60 minutes. MTDD
--- NOTE | 2020-09-16 08:10 | PN ---
DATE OF SERVICE: 09/10/2020 SUBJECTIVE: The patient was discharged home and was seen and examined with the Nurse Practitioner. The patient is up and about. Kidney function has improved. The hydration status is normal. Chest pain was atypical. She was discharged home to be continued on same medications. TIME SPENT: More than 30 minutes. Plan and coordination of the patient's care discussed in the presence of nurse. YFN
--- NOTE | 2020-09-16 08:11 | PN ---
09/06/2020: Level 5 09/07/2020: Intermediate 09/08/2020: Intermediate 09/09/2020: Intermediate 09/10/2020: D as in discharge MTDD
== END 2020-09-10 13:10 | disposition home or self-care (01) | DRG 313 ==
LOC: ED 10:27 → MEDSURG A 14:05
PROVIDERS: ADMIT Internal Medicine; ATTEND Internal Medicine
DX: Z79.01 Long term (current) use of anticoagulants; N18.30 Chronic kidney disease, stage 3 unspecified; R00.2 Palpitations; R11.0 Nausea; R07.9 Chest pain, unspecified; I10 Essential (primary) hypertension; F41.9 Anxiety disorder, unspecified; K21.9 Gastro-esophageal reflux disease without esophagitis; I48.91 Unspecified atrial fibrillation; E11.9 Type 2 diabetes mellitus without complications; R79.89 Other specified abnormal findings of blood chemistry; J44.9 Chronic obstructive pulmonary disease, unspecified; Z20.822 Contact with and (suspected) exposure to COVID-19

== ENCOUNTER 2021-11-23 18:15 | Inpatient (IN) ==
[2021-11-23] MEDS ORDERED: NITROSTAT SL STA ×2 (18:32→19:23)
[2021-11-23] MEDS ORDERED: ASPIRIN CHEWABLE PO STA (18:32)
--- NOTE | 2021-11-23 18:38 | ED.PDOC ---
General <PAIGE MCINTOSH MD - Last Filed: 11/23/21 18:38> ED Provider: Dr. PAIGE MCINTOSH MD Chief Complaint: Chest Pain Stated Complaint: mild persistent anterior chest pain pressure since 4am today rad to left shoulder, no injury, mild short of breath, no fever, hx atrial fib and dm, no LA Time Seen by Provider: 11/23/21 18:25 Mode of Arrival: Walk-In Information Source: Patient Primary Care Provider: NIKKO RODRIGUEZ Sepsis Protocol: For patient's 13 years and over: Temp is 96.8 and below OR 101 and greater Pulse >90 BPM Resp >20/minute Acutely Altered Mental Status Are patient's symptoms suggestive of a new infection, such as: -Pneumonia -Skin, Soft Tissue -Endocarditis -UTI -Bone, Joint Infection -Implantable Device -Acute Abdominal Infection -Wound Infection -Meningitis -Blood Stream Catheter Infection -Unknown <OLGA LIDIA KRUEGER MD - Last Filed: 11/23/21 19:50> Nursing and Triage Documentation Reviewed and Agree: Yes Does patient meet sepsis criteria?: No System Inflammatory Response Syndrome: Not Applicable Review of Systems <PAIGE MCINTOSH MD - Last Filed: 11/23/21 18:38> Review Of Systems Constitutional: Denies Fever Eyes: Denies Vision change Ears, Nose, Mouth, Throat: Denies Throat pain Respiratory: Reports Short of air; Denies Stridor Cardiac: Reports Chest pain GI: Denies Abdominal pain : Denies Dysuria Musculoskeletal: Denies Neck pain Skin: Denies Rash or Cyanosis Neurological: Denies Cognitive dysfunction or Headache All Other Systems: Other PFSH <PAIGE MCINTOSH MD - Last Filed: 11/23/21 18:38> Medical History (Updated 11/23/21 @ 19:50 by OLGA LIDIA KRUEGER MD) Afib Anxiety Asthma Breast cancer CKD (chronic kidney disease) stage 3, GFR 30-59 ml/min COPD (chronic obstructive pulmonary disease) Degenerative joint disease of spine Diabetes mellitus, type 2 Diabetic acetonemia Dyslipidemia GERD (gastroesophageal reflux disease) Hypertension Osteopenia Renal cell carcinoma Family History FATHER Heart attack Mother Breast cancer Social History Smoking and tobacco status: Never smoker Surgical History (Updated 09/09/20 @ 08:08 by JOCELYN HORNE H/O mastectomy H/O: hysterectomy History of cholecystectomy History of nephrectomy, right Female Reproductive History Menstrual Hx Hysterectomy: No Hx Tubal Ligation: No Physical Exam <PAIGE MCINTOSH MD - Last Filed: 11/23/21 18:38> Physical Exam Appearance: Reports Well-appearing Ill-appearing: None Pain Distress: Mild Eyes: Reports Conjunctiva clear ENT: Reports Oropharynx normal Neck: Supple Respiratory: Reports Airway patent; Denies Wheezes Cardiovascular: Reports RRR GI/: Reports Soft and Nontender Musculoskeletal: Reports ROM intact Skin: Reports Warm and Dry Neurological: Reports Alert and Oriented Psychiatric: Reports Affect appropriate <OLGA LIDIA KRUEGER MD - Last Filed: 11/23/21 19:50> Case Discussed Physician Notified: dr rodriguez Time of Notification: 19:49 <OLGA LIDIA KRUEGER MD - Last Filed: 11/23/21 19:50> Critical Care Note Total Critical Care Time (mins): 20 Course <PAIGE MCINTOSH MD - Last Filed: 11/23/21 18:38> Course Hematology/Chemistry: 11/23/21 18:41 11/23/21 18:41 Orders, Labs, Meds: Lab Review 11/23/21 11/23/21 11/23/21 18:41 18:41 18:41 WBC 4.69 RBC 3.86 L Hgb 11.4 L Hct 34.4 L MCV 89.1 MCH 29.5 MCHC 33.1 RDW Coeff of Trinity 13.4 Plt Count 246 Immature Gran % (Auto) 0.2 Neut % (Auto) 64.9 Lymph % (Auto) 24.5 [place] % (Auto) 7.9 Eos % (Auto) 1.9 Baso % (Auto) 0.6 Neut # (Auto) 3.0 Lymph # (Auto) 1.2 [place] # (Auto) 0.4 Eos # (Auto) 0.1 Baso # (Auto) 0.0 Immature Gran # (Auto) 0.0 PT 10.3 INR 0.99 Sodium 139.1 Potassium 3.73 Chloride 106.0 Carbon Dioxide 26.8 Anion Gap 10.03 BUN 24.9 H Creatinine 1.54 H Estimated GFR (MDRD) 32.00 BUN/Creatinine Ratio 16.16 Glucose 112.7 H Calcium 9.58 Total Bilirubin 0.34 AST 21.6 ALT 13.5 Alkaline Phosphatase 68.8 Troponin I < 0.012 NT-Pro-B Natriuret Pep Total Protein 7.05 Albumin 4.35 Globulin 2.70 Albumin/Globulin Ratio 1.61 11/23/21 18:41 WBC RBC Hgb Hct MCV MCH MCHC RDW Coeff of Trinity Plt Count Immature Gran % (Auto) Neut % (Auto) Lymph % (Auto) [place] % (Auto) Eos % (Auto) Baso % (Auto) Neut # (Auto) Lymph # (Auto) [place] # (Auto) Eos # (Auto) Baso # (Auto) Immature Gran # (Auto) PT INR Sodium Potassium Chloride Carbon Dioxide Anion Gap BUN Creatinine Estimated GFR (MDRD) BUN/Creatinine Ratio Glucose Calcium Total Bilirubin AST ALT Alkaline Phosphatase Troponin I NT-Pro-B Natriuret Pep 2130.000 H Total Protein Albumin Globulin Albumin/Globulin Ratio Orders Category Date Time Status EKG-(ED ONLY) Stat CARDIO 11/23/21 18:32 Completed OXYGEN [ED APPLY O2] .ONCE EMERGENCY 11/23/21 19:23 Active BNP [NT-PROBNP] Stat LAB 11/23/21 18:41 Completed CBC W/ AUTO DIFF Stat LAB 11/23/21 18:41 Completed CMP [COMPREHENSIVE METABOLIC PANEL] Stat LAB 11/23/21 18:41 Completed PT WITH INR Stat LAB 11/23/21 18:41 Completed RESPIRATORY PANEL 2.1 (PCR) Stat LAB 11/23/21 19:35 Received TROPONIN I Stat LAB 11/23/21 18:41 Completed Aspirin [Aspirin Chewable] MEDS 11/23/21 18:32 Discontinued 324 mg PO ONCE STA Morphine Sulfate [Morphine 2 mg/ml Vial] MEDS 11/23/21 19:49 Stat 2 mg IVP ONCE STA Nitroglycerin [Nitrostat] MEDS 11/23/21 18:32 Discontinued 0.4 mg SL ONCE STA Nitroglycerin [Nitrostat] MEDS 11/23/21 19:23 Discontinued 0.4 mg SL ONCE STA CHEST, 1V AP ONLY Stat RADS 11/23/21 18:32 Completed Medications Discontinued Medications Generic Name Dose Route Start Last Admin Trade Name Freq PRN Reason Stop Dose Admin Aspirin 324 mg 11/23/21 18:32 11/23/21 18:51 Aspirin 81 Mg Tab.Chew PO 11/23/21 18:33 324 mg ONCE STA Administration Nitroglycerin 0.4 mg 11/23/21 18:32 11/23/21 18:52 Nitroglycerin 0.4 Mg Tab.Subl SL 11/23/21 18:33 0.4 mg ONCE STA Administration Nitroglycerin 0.4 mg 11/23/21 19:23 11/23/21 19:30 Nitroglycerin 0.4 Mg Tab.Subl SL 11/23/21 19:24 0.4 mg ONCE STA Administration Vital Signs: Temp Pulse Resp BP Pulse Ox 11/23/21 18:18 98.8 F 64 18 154/74 H 98 <OLGA LIDIA KRUEGER MD - Last Filed: 11/23/21 19:50> Course Orders, Labs, Meds: Lab Review 11/23/21 11/23/21 11/23/21 18:41 18:41 18:41 WBC 4.69 RBC 3.86 L Hgb 11.4 L Hct 34.4 L MCV 89.1 MCH 29.5 MCHC 33.1 RDW Coeff of Trinity 13.4 Plt Count 246 Immature Gran % (Auto) 0.2 Neut % (Auto) 64.9 Lymph % (Auto) 24.5 [place] % (Auto) 7.9 Eos % (Auto) 1.9 Baso % (Auto) 0.6 Neut # (Auto) 3.0 Lymph # (Auto) 1.2 [place] # (Auto) 0.4 Eos # (Auto) 0.1 Baso # (Auto) 0.0 Immature Gran # (Auto) 0.0 PT 10.3 INR 0.99 Sodium 139.1 Potassium 3.73 Chloride 106.0 Carbon Dioxide 26.8 Anion Gap 10.03 BUN 24.9 H Creatinine 1.54 H Estimated GFR (MDRD) 32.00 BUN/Creatinine Ratio 16.16 Glucose 112.7 H Calcium 9.58 Total Bilirubin 0.34 AST 21.6 ALT 13.5 Alkaline Phosphatase 68.8 Troponin I < 0.012 NT-Pro-B Natriuret Pep Total Protein 7.05 Albumin 4.35 Globulin 2.70 Albumin/Globulin Ratio 1.61 11/23/21 18:41 WBC RBC Hgb Hct MCV MCH MCHC RDW Coeff of Trinity Plt Count Immature Gran % (Auto) Neut % (Auto) Lymph % (Auto) [place] % (Auto) Eos % (Auto) Baso % (Auto) Neut # (Auto) Lymph # (Auto) [place] # (Auto) Eos # (Auto) Baso # (Auto) Immature Gran # (Auto) PT INR Sodium Potassium Chloride Carbon Dioxide Anion Gap BUN Creatinine Estimated GFR (MDRD) BUN/Creatinine Ratio Glucose Calcium Total Bilirubin AST ALT Alkaline Phosphatase Troponin I NT-Pro-B Natriuret Pep 2130.000 H Total Protein Albumin Globulin Albumin/Globulin Ratio Orders Category Date Time Status EKG-(ED ONLY) Stat CARDIO 11/23/21 18:32 Completed OXYGEN [ED APPLY O2] .ONCE EMERGENCY 11/23/21 19:23 Active BNP [NT-PROBNP] Stat LAB 11/23/21 18:41 Completed CBC W/ AUTO DIFF Stat LAB 11/23/21 18:41 Completed CMP [COMPREHENSIVE METABOLIC PANEL] Stat LAB 11/23/21 18:41 Completed PT WITH INR Stat LAB 11/23/21 18:41 Completed RESPIRATORY PANEL 2.1 (PCR) Stat LAB 11/23/21 19:35 Received TROPONIN I Stat LAB 11/23/21 18:41 Completed Aspirin [Aspirin Chewable] MEDS 11/23/21 18:32 Discontinued 324 mg PO ONCE STA Morphine Sulfate [Morphine 2 mg/ml Vial] MEDS 11/23/21 19:49 Stat 2 mg IVP ONCE STA Nitroglycerin [Nitrostat] MEDS 11/23/21 18:32 Discontinued 0.4 mg SL ONCE STA Nitroglycerin [Nitrostat] MEDS 11/23/21 19:23 Discontinued 0.4 mg SL ONCE STA CHEST, 1V AP ONLY Stat RADS 11/23/21 18:32 Completed Medications Discontinued Medications Generic Name Dose Route Start Last Admin Trade Name Freq PRN Reason Stop Dose Admin Aspirin 324 mg 11/23/21 18:32 11/23/21 18:51 Aspirin 81 Mg Tab.Chew PO 11/23/21 18:33 324 mg ONCE STA Administration Nitroglycerin 0.4 mg 11/23/21 18:32 11/23/21 18:52 Nitroglycerin 0.4 Mg Tab.Subl SL 11/23/21 18:33 0.4 mg ONCE STA Administration Nitroglycerin 0.4 mg 11/23/21 19:23 11/23/21 19:30 Nitroglycerin 0.4 Mg Tab.Subl SL 11/23/21 19:24 0.4 mg ONCE STA Administration Vital Signs: Temp Pulse Resp BP Pulse Ox 11/23/21 18:18 98.8 F 64 18 154/74 H 98 KELLY Risk Score <PAIGE MCINTOSH MD - Last Filed: 11/23/21 18:38> KELLY Risk Score: Risk Score Odds of by 30D 0 0.1 (0.1-0.2) 1 0.3 (0.2-0.3) 2 0.4 (0.3-0.5) 3 0.7 (0.6-0.9) 4 1.2 (1.0-1.5) 5 2.2 (1.9-2.6) 6 3.0 (2.5-3.6) 7 4.8 (3.8-6.1) Discharge Plan Discharge Patient Disposition: ADMITTED INPATIENT Discharge Problem: Chest pain Prescriptions: No Action cyanocobalamin (vitamin B-12) [Vitamin B-12] 1,000 MCG tablet extended release 1,000 mg PO DAILY 0RF alprazolam [Xanax] 0.25 MG tablet 0.25 mg PO DAILY PRN (Reason: Anxiety) 0RF iron 55 MG tablet extended release 325 mg PO BID 0RF Januvia 25 MG tablet 25 mg PO DAILY Qty: 30 0RF cholecalciferol (vitamin D3) [Vitamin D3] 1,000 UNIT tablet 1,000 unit PO DAILY 0RF carvedilol [Coreg] 6.25 MG tablet 6.25 mg PO BID 0RF pravastatin 40 mg Tablet 40 mg PO DAILY 0RF lisinopril 20 mg Tablet 20 mg PO DAILY 0RF tramadol 100 mg Tablet Extended Release 24 Hr 50 mg PO BID PRN (Reason: Pain) 0RF acetaminophen 325 mg Tablet 325 mg PO ONCE PRN (Reason: Pain) 0RF fluorometholone 0.1 % Drops,Suspension 1 drp BOTHEYES EVERY OTHER DAY 0RF Combivent Respimat 20-100 mcg/actuation Mist 1 puff INHALATION BID PRN (Reason: Shortness Of Breath) 0RF Eliquis 2.5 mg Tablet 2.5 mg PO BID Qty: 56 0RF Rx Instructions: [address]Y PROVIDED BY DR. RODRIGUEZ'S OFFICE....SAMPLES OF 2.5 MG TABLETS fluticasone propion-salmeterol [Advair Diskus] 250-50 mcg/dose Blister With Device 1 inh INHALATION 0800,1700 0RF amlodipine [Norvasc] 5 mg Tablet 5 mg PO BEDTIME Qty: 30 1RF Rx Instructions: START TONIGHT 09/10/2020 polyethylene glycol 3350 [Miralax] 17 gram/dose Powder 17 g PO DAILY Qty: 120 3RF Rx Instructions: START TOMORROW, 09/11/2020 latanoprost 1 DROP drops 1 drp BOTHEYES BEDTIME 0RF gabapentin 100 MG capsule 100 mg PO DAILY 0RF pantoprazole [Protonix] 40 MG tablet,delayed release (DR/EC) 40 mg PO BID 0RF ED Provider: OLGA LIDIA KRUEGER Condition: Fair <PAIGE MCINTOSH MD - Last Filed: 11/23/21 18:38> Physician Progress Note: []care to Dr Power at 19:00
[2021-11-23 18:49] LABS: BASOPHILS % (AUTO) 0.6 % (0.0-3.0); EOSINOPHILS # (AUTO) 0.1 K/ul (0.0-0.7); EOSINOPHILS % (AUTO) 1.9 % (0.0-7.0); HEMATOCRIT 34.4 % (37.0-47.0); HEMOGLOBIN 11.4 g/dl (12.0-16.0); IMMATURE GRANULOCYTE % (AUTO) 0.2 % (0.0-5.0); LYMPHOCYTES # (AUTO) 1.2 K/uL (0.60-3.4); LYMPHOCYTES % (AUTO) 24.5 (10.0-50.0); MEAN CORPUSCULAR HEMOGLOBIN 29.5 pg (27.0-31.0); MEAN CORPUSCULAR HGB CONC 33.1 (31.8-35.4); MEAN CORPUSCULAR VOLUME 89.1 fl (81.0-99.0); MONOCYTES # (AUTO) 0.4 K/uL (0.4-2.0); MONOCYTES % (AUTO) 7.9 (0-10); NEUTROPHILS % (AUTO) 64.9 % (42.2-75.2); PLATELET COUNT 246 10^3/uL (140-440); RDW COEFFICIENT OF VARIATION 13.4 % (11.6-14.8); RED BLOOD COUNT 3.86 10^6/ul (4.20-5.40); WHITE BLOOD COUNT 4.69 K/ul (4.6-10.2)
--- NOTE | 2021-11-23 18:54 | DI ---
EXAM: Single, portable AP view(s) chest. HISTORY: Chest pain. COMPARISON: 09/06/2020 TECHNIQUE: Single, portable AP view(s) of the chest. FINDINGS: Multiple clips in the left axilla. Lungs: The lung volumes are low..The lungs are clear without consolidation or effusion. There are no suspicious nodules. There is no pneumothorax. Cardiovascular: The heart is enlarged. The pulmonary vasculature is within normal limits.. The aort a is tortuous and calcified Chelo/Mediastinum: Normal. Osseous structures. Normal for age. IMPRESSION: No acute pulmonary disease. Cardiomegaly.
[2021-11-23 19:02] LABS: PROTHROMBIN TIME 10.3 SEC (9.3-11.0)
[2021-11-23 19:06] LABS: ALANINE AMINOTRANSFERASE 13.5 U/L (0-35); ALBUMIN 4.35 g/dL (3.5-5.0); ALKALINE PHOSPHATASE 68.8 U/L (53-141); ASPARTATE AMINO TRANSFERASE 21.6 U/L (14-36); BILIRUBIN,TOTAL 0.34 mg/dL (0.2-1.3); BLOOD UREA NITROGEN 24.9 mg/dL (7-17); CALCIUM 9.58 mg/dL (8.4-10.2); CARBON DIOXIDE 26.8 mmol/L (22-30.0); CREATININE 1.54 mg/dL (0.60-1.30); GLUCOSE 112.7 mg/dL (74-106); POTASSIUM 3.73 mmol/L (3.5-5.1); SODIUM 139.1 mmol/L (134.5-145); TOTAL PROTEIN 7.05 g/dL (6.3-8.2)
[2021-11-23 19:18] LABS: TROPONIN I < 0.012 ng/ml (0.0000-0.120)
[2021-11-23 19:42] LABS: BORDETELLA PARAPERTUSSIS (PCR) NOT DETECTED (NOT DETECT); BORDETELLA PERTUSSIS (PCR) NOT DETECTED (NOT DETECT); CHLAMYDIA PNEUMONIAE (PCR) NOT DETECTED (NOT DETECT); CORONAVIRUS 229E (PCR) NOT DETECTED (NOT DETECT); CORONAVIRUS HKU1 (PCR) NOT DETECTED (NOT DETECT); CORONAVIRUS NL63 (PCR) NOT DETECTED (NOT DETECT); CORONAVIRUS OC43 (PCR) NOT DETECTED (NOT DETECT); HUMAN METAPNEUMOVIRUS (PCR) NOT DETECTED (NOT DETECT); HUMAN RHINOVIRUS/ENTEROV (PCR) NOT DETECTED (NOT DETECT); INFLUENZA B (PCR) NOT DETECTED (NOT DETECT); MYCOPLASMA PNEUMONIAE (PCR) NOT DETECTED (NOT DETECT); PARAINFLUENZA VIRUS 1 (PCR) NOT DETECTED (NOT DETECT); PARAINFLUENZA VIRUS 2 (PCR) NOT DETECTED (NOT DETECT); PARAINFLUENZA VIRUS 3 (PCR) NOT DETECTED (NOT DETECT); PARAINFLUENZA VIRUS 4 (PCR) NOT DETECTED (NOT DETECT); RESPIRATORY SYNCYTIAL V (PCR) NOT DETECTED (NOT DETECT); SARS_COV_2 (PCR) NOT DETECTED (NOT DETECT)
[2021-11-23] MEDS ORDERED: MORPHINE 2 MG/ML VIAL IVP STA (19:49)
[2021-11-23] MEDS ORDERED: TYLENOL PO PRN (19:55)
[2021-11-23] MEDS ORDERED: MORPHINE 2 MG/ML VIAL IVP PRN (20:03)
[2021-11-23] MEDS ORDERED: NITROSTAT SL PRN (20:09)
[2021-11-23] MEDS ORDERED: COMBIVENT RESPIMAT INHALER IH PRN (20:11)
[2021-11-23 20:52] LABS: ADENOVIRUS (PCR) NOT DETECTED (NOT DETECT)
[2021-11-23] MEDS ORDERED: FERROUS FUMARATE 55 MG PO SCH (21:00)
[2021-11-23] MEDS ORDERED: NON-FORMULARY MEDICATION (Ferrous Sulfate [Iron] 325 mg (65 mg iron) Tablet) PO SCH (21:00)
[2021-11-23] MEDS ORDERED: PROTONIX PO SCH (21:00)
[2021-11-23] MEDS: ELIQUIS PO SCH (21:37)
[2021-11-23] MEDS: NORVASC PO SCH (21:37)
[2021-11-23] MEDS: XALATAN EACHEYE SCH (21:37)
[2021-11-23] MEDS: COREG PO SCH (21:41)
[2021-11-23 21:58] VITALS: BMI 28.0
[2021-11-23] MEDS: ULTRAM PO PRN (22:23)
[2021-11-23] MEDS: XANAX PO PRN (23:23)
[2021-11-24 02:09] LABS: ALANINE AMINOTRANSFERASE 13.5 U/L (0-35); ALBUMIN 3.87 g/dL (3.5-5.0); ALKALINE PHOSPHATASE 55.4 U/L (53-141); ASPARTATE AMINO TRANSFERASE 23.6 U/L (14-36); BILIRUBIN,TOTAL 0.33 mg/dL (0.2-1.3); BLOOD UREA NITROGEN 24.1 mg/dL (7-17); CALCIUM 9.13 mg/dL (8.4-10.2); CARBON DIOXIDE 28.1 mmol/L (22-30.0); CHLORIDE 107.6 mmol/L (98-107); CREATINE KINASE 47.2 U/L (30-135); CREATININE 1.71 mg/dL (0.60-1.30); GLUCOSE 111.7 mg/dL (74-106); POTASSIUM 3.92 mmol/L (3.5-5.1); SODIUM 139.8 mmol/L (134.5-145)
[2021-11-24 02:21] LABS: TROPONIN I < 0.012 ng/ml (0.0000-0.120)
[2021-11-24 05:36] LABS: BASOPHILS % (AUTO) 0.8 % (0.0-3.0); EOSINOPHILS # (AUTO) 0.2 K/ul (0.0-0.7); EOSINOPHILS % (AUTO) 3.4 % (0.0-7.0); HEMOGLOBIN 11.3 g/dl (12.0-16.0); IMMATURE GRANULOCYTE % (AUTO) 0.2 % (0.0-5.0); LYMPHOCYTES # (AUTO) 1.7 K/uL (0.60-3.4); LYMPHOCYTES % (AUTO) 33.8 (10.0-50.0); MEAN CORPUSCULAR HEMOGLOBIN 30.1 pg (27.0-31.0); MEAN CORPUSCULAR HGB CONC 33.2 (31.8-35.4); MEAN CORPUSCULAR VOLUME 90.7 fl (81.0-99.0); MONOCYTES # (AUTO) 0.4 K/uL (0.4-2.0); MONOCYTES % (AUTO) 6.9 (0-10); NEUTROPHILS # (AUTO) 2.8 K/ul (2.0-6.9); NEUTROPHILS % (AUTO) 54.9 % (42.2-75.2); PLATELET COUNT 230 10^3/uL (140-440); RDW COEFFICIENT OF VARIATION 13.4 % (11.6-14.8); RED BLOOD COUNT 3.75 10^6/ul (4.20-5.40); WHITE BLOOD COUNT 5.06 K/ul (4.6-10.2)
[2021-11-24] MEDS: JANUVIA PO SCH (08:53)
[2021-11-24] MEDS: CALCIUM 500 + VIT D 5 MCG (200 IU) TABLET PO SCH (08:53)
[2021-11-24] MEDS: FERROUS SULFATE PO SCH ×2 (08:53→20:00)
[2021-11-24] MEDS: NEURONTIN PO SCH (08:53)
[2021-11-24] MEDS: VITAMIN D PO SCH (08:54)
[2021-11-24] MEDS: PROTONIX PO SCH ×2 (08:54→17:26)
[2021-11-24] MEDS: PRAVACHOL PO SCH (08:54)
[2021-11-24] MEDS: ELIQUIS PO SCH ×2 (08:54→20:01)
[2021-11-24] MEDS: ADVAIR 250-50 DISKUS IH SCH ×2 (08:55→17:27)
[2021-11-24] MEDS: [UNRECOGNIZED DRUG - OTHER] PO SCH (08:58)
[2021-11-24] MEDS: CYANOCOBALAMIN 1000 MCG PO SCH (08:58)
[2021-11-24] MEDS: COREG PO SCH (08:59)
[2021-11-24] MEDS ORDERED: NON-FORMULARY MEDICATION (Calcium 600 mg Capsule) PO SCH (09:00)
[2021-11-24] MEDS ORDERED: ZESTRIL PO SCH (09:00)
[2021-11-24] MEDS ORDERED: MIRALAX PO SCH (09:00)
[2021-11-24 10:21] LABS: CREATINE KINASE 44.7 U/L (30-135)
[2021-11-24 10:36] LABS: TROPONIN I < 0.012 ng/ml (0.0000-0.120)
[2021-11-24] MEDS ORDERED: DECADRON IM ONE (10:45)
[2021-11-24] MEDS: HUMULIN R SUBCUT PRN ×2 (17:26→20:32)
[2021-11-24] MEDS: NORVASC PO SCH (20:00)
[2021-11-24] MEDS: XANAX PO PRN (20:00)
[2021-11-24] MEDS: XALATAN EACHEYE SCH (20:01)
[2021-11-24] MEDS: ULTRAM PO PRN (20:33)
[2021-11-25 05:23] LABS: BASOPHILS % (AUTO) 0.2 % (0.0-3.0); HEMATOCRIT 33.2 % (37.0-47.0); HEMOGLOBIN 11.3 g/dl (12.0-16.0); IMMATURE GRANULOCYTE % (AUTO) 0.5 % (0.0-5.0); LYMPHOCYTES # (AUTO) 0.7 K/uL (0.60-3.4); MEAN CORPUSCULAR HEMOGLOBIN 30.1 pg (27.0-31.0); MEAN CORPUSCULAR VOLUME 88.5 fl (81.0-99.0); MONOCYTES # (AUTO) 0.3 K/uL (0.4-2.0); MONOCYTES % (AUTO) 4.7 (0-10); NEUTROPHILS # (AUTO) 4.5 K/ul (2.0-6.9); NEUTROPHILS % (AUTO) 82.6 % (42.2-75.2); PLATELET COUNT 239 10^3/uL (140-440); RDW COEFFICIENT OF VARIATION 13.2 % (11.6-14.8); RED BLOOD COUNT 3.75 10^6/ul (4.20-5.40)
[2021-11-25] MEDS: PROTONIX PO SCH ×2 (05:33→17:08)
[2021-11-25 05:38] LABS: ALANINE AMINOTRANSFERASE 14.3 U/L (0-35); ALBUMIN 4.33 g/dL (3.5-5.0); BILIRUBIN,TOTAL 0.39 mg/dL (0.2-1.3); BLOOD UREA NITROGEN 29.1 mg/dL (7-17); CALCIUM 9.71 mg/dL (8.4-10.2); CARBON DIOXIDE 25.3 mmol/L (22-30.0); CHLORIDE 106.4 mmol/L (98-107); CREATININE 1.43 mg/dL (0.60-1.30); GLUCOSE 142.3 mg/dL (74-106); POTASSIUM 4.06 mmol/L (3.5-5.1); SODIUM 139.8 mmol/L (134.5-145); TOTAL PROTEIN 6.9 g/dL (6.3-8.2)
[2021-11-25] MEDS: CALCIUM 500 + VIT D 5 MCG (200 IU) TABLET PO SCH (08:22)
[2021-11-25] MEDS: PRAVACHOL PO SCH (08:22)
[2021-11-25] MEDS: HYDROCHLOROTHIAZIDE PO SCH (08:22)
[2021-11-25] MEDS: ADVAIR 250-50 DISKUS IH SCH ×2 (08:22→17:08)
[2021-11-25] MEDS: VITAMIN D PO SCH (08:22)
[2021-11-25] MEDS: JANUVIA PO SCH (08:23)
[2021-11-25] MEDS: FERROUS SULFATE PO SCH ×2 (08:23→20:22)
[2021-11-25] MEDS: COZAAR PO SCH (08:23)
[2021-11-25] MEDS: NEURONTIN PO SCH (08:23)
[2021-11-25] MEDS: ELIQUIS PO SCH ×2 (08:27→20:23)
[2021-11-25] MEDS: [UNRECOGNIZED DRUG - OTHER] PO SCH (08:27)
[2021-11-25] MEDS: CYANOCOBALAMIN 1000 MCG PO SCH (08:27)
[2021-11-25] MEDS ORDERED: NON-FORMULARY MEDICATION (Fluorometholone 0.1 % Drops,Suspension) EACHEYE SCH (09:00)
--- NOTE | 2021-11-25 09:03 | PCM.PROG ---
Attending Provider: ATTENDING PROVIDER: Dr. NIKKO LAM This patient is seen with Li Marroquin, Nurse Practitioner. DATE OF SERVICE: 11/25/21 SUBJECTIVE: This 81 year old /WHITE F was hospitalized 11/23/21. Resting comfortably. Denies any chest pain. Feel some indigestion in epigastric area las t night. Labs are stable. REVIEW OF SYSTEMS: CONSTITUTIONAL: No night sweats. No fatigue, malaise, lethargy. No fever or chills. HEENT: Eyes: No visual changes. No eye pain. No eye discharge. ENT: No runny nose. No epistaxis. No sinus pain. No odynophagia. No congestion. RESPIRATORY: No cough, no congestion. No hemoptysis. No shortness of breath. CARDIOVASCULAR: No angina symptoms. No CHF symptoms. No atypical chest pain for CAD. Palpitations. No orthopnea.. GASTROINTESTINAL: No abdominal pain. No nausea or vomiting. No diarrhea or constipation. No hematemesis. No hematochezia. GERD. GENITOURINARY: No urgency. No frequency. No dysuria. No hematuria. No obstructive symptoms. No discharge. No pain. No significant abnormal bleeding. MUSCULOSKELETAL: No musculoskeletal pain; no joint swelling. NEUROLOGICAL: Awake, alert, oriented to time, place and person. No headache. No neck pain. No syncope. No seizures. No dizziness. PSYCHIATRIC: Not anxious. No depression. No suicidal thoughts. No homicidal thoughts. SKIN: No rash. No lesions. No wounds. ENDOCRINE: No unexplained weight loss. No weight gain. HEMATOLOGIC/LYMPHATIC: No anemia. No purpura. No petechiae. No prolonged or excessive bleeding. No palpable lymph nodes. PHYSICAL EXAMINATION: GENERAL: The patient is awake, alert and oriented, lying in bed in no distress. VITAL SIGNS: Temperature 97.8 F, Pulse 72, Respiratory Rate 17, BP 166/82, Pulse Ox 97% HEENT: Head normocephalic, atraumatic. Eyes: Extraocular muscles are intact. Pupils are equal, round and reactive to light and accommodation. Ears: No lesions. Nose appeared normal. Throat: No exudate or erythema. NECK: Supple. No JVD, no carotid bruit. No lymphadenopathy or thyromegaly. LUNGS: Diminished breath sounds. Clear to auscultation. Percussion note normal. Chest symmetrical. HEART: S1, S2, no S3. No murmurs. No cyanosis or clubbing. No ascites. Pulses: Dorsalis pedis and posterior tibial pulses +1 to +2 both sides. ABDOMEN: Soft. Non-tender. Bowel sounds active. No CVA tenderness. No mass felt. EXTREMITIES: No edema. Full range of motion of all extremities, equal. NEUROLOGIC: No focal deficit. Cranial nerves II through XII are grossly intact. No headache. No double vision. SKIN: Not dry. Intact. Turgor-normal. LYMPHATIC: No palpable lymph nodes/no lymphedema. MUSCULOSKELETAL: Normal joints with no swelling. Muscle tone is normal. LAB REVIEW: 11/25/21 04:45 11/25/21 04:45 11/25/21 04:45: Sodium 139.8, Potassium 4.06, Chloride 106.4, Carbon Dioxide 25.3, Anion Gap 12.16, BUN 29.1 H, Creatinine 1.43 H, Estimated GFR (MDRD) 35.00, BUN/Creatinine Ratio 20.34, Glucose 142.3 H, Calcium 9.71, Total Bilirubin 0.39, AST 20.0, ALT 14.3, Alkaline Phosphatase 63.0, Total Protein 6.90, Albumin 4.33, Globulin 2.57, Albumin/Globulin Ratio 1.68 11/25/21 04:45: WBC 5.50, RBC 3.75 L, Hgb 11.3 L, Hct 33.2 L, MCV 88.5, MCH 30.1, MCHC 34.0, RDW Coeff of Trinity 13.2, Plt Count 239, Immature Gran % (Auto) 0.5, Neut % (Auto) 82.6 H, Lymph % (Auto) 12.0, [place] % (Auto) 4.7, Eos % (Auto) 0.0, Baso % (Auto) 0.2, Neut # (Auto) 4.5, Lymph # (Auto) 0.7, [place] # (Auto) 0.3 L, Eos # (Auto) 0.0, Baso # (Auto) 0.0, Immature Gran # (Auto) 0.0 11/24/21 10:00: Total Creatine Kinase 44.7, Troponin I < 0.012 ASSESSMENT: Please see below. 1. GERD 2. Atrial fibrillation 3. Chronic kidney disease stage III 4. Hypertension PLAN: 1. Discontinue Lisinopril 2. Pepcid 20mg BID 3. T4 TSH 4. Urinalysis 5. Losartan/HCTZ 100/12.5dc lisinopril Plan and coordination of the patient's care discussed in the presence of Artifacts Conservator and nurse. SCRIBED BY: Leigha LINTONist scribed while in presence of service performed by Dr. Lam/Li Marroquin APRN on 11/25/21 (0802)
[2021-11-25 09:39] LABS: BILIRUBIN,URINE Negative (NEGATIVE); CLARITY,URINE Clear (CLEAR); COLOR,URINE Yellow (YELLOW); GLUCOSE, URINE (UA) Negative (NEGATIVE); KETONES,URINE Negative (NEGATIVE); LEUKOCYTE ESTERASE ,URINE Negative (NEGATIVE); NITRITE,URINE Negative (NEGATIVE); PH,URINE 6.5 (5-9); PROTEIN,URINE Negative (NEGATIVE); URINE, BLOOD 1+ (NEGATIVE); UROBILINOGEN,URINE 0.2 (0.2)
[2021-11-25 09:43] LABS: SQUAMOUS EPITHELIAL CELL,UR NOT PRESENT (0-5)
[2021-11-25] MEDS: PEPCID PO SCH (17:08)
[2021-11-25] MEDS: NORVASC PO SCH (20:22)
[2021-11-25] MEDS: XALATAN EACHEYE SCH (20:22)
[2021-11-25] MEDS: HUMULIN R SUBCUT PRN (20:44)
[2021-11-26 05:11] VITALS: BP 140/80; TEMP 97.9
[2021-11-26 05:33] LABS: BASOPHILS % (AUTO) 0.5 % (0.0-3.0); EOSINOPHILS # (AUTO) 0.1 K/ul (0.0-0.7); EOSINOPHILS % (AUTO) 1.3 % (0.0-7.0); HEMATOCRIT 35.3 % (37.0-47.0); HEMOGLOBIN 11.9 g/dl (12.0-16.0); IMMATURE GRANULOCYTE % (AUTO) 0.5 % (0.0-5.0); LYMPHOCYTES # (AUTO) 2.1 K/uL (0.60-3.4); LYMPHOCYTES % (AUTO) 33.3 (10.0-50.0); MEAN CORPUSCULAR HEMOGLOBIN 29.8 pg (27.0-31.0); MEAN CORPUSCULAR HGB CONC 33.7 (31.8-35.4); MEAN CORPUSCULAR VOLUME 88.5 fl (81.0-99.0); MONOCYTES # (AUTO) 0.4 K/uL (0.4-2.0); MONOCYTES % (AUTO) 6.9 (0-10); NEUTROPHILS # (AUTO) 3.6 K/ul (2.0-6.9); NEUTROPHILS % (AUTO) 57.5 % (42.2-75.2); PLATELET COUNT 253 10^3/uL (140-440); RDW COEFFICIENT OF VARIATION 13.2 % (11.6-14.8); RED BLOOD COUNT 3.99 10^6/ul (4.20-5.40); WHITE BLOOD COUNT 6.19 K/ul (4.6-10.2)
[2021-11-26 05:43] LABS: ALANINE AMINOTRANSFERASE 20.3 U/L (0-35); ALBUMIN 4.33 g/dL (3.5-5.0); ALKALINE PHOSPHATASE 63.3 U/L (53-141); ASPARTATE AMINO TRANSFERASE 25.7 U/L (14-36); BILIRUBIN,TOTAL 0.34 mg/dL (0.2-1.3); BLOOD UREA NITROGEN 33.8 mg/dL (7-17); CALCIUM 9.58 mg/dL (8.4-10.2); CARBON DIOXIDE 24.9 mmol/L (22-30.0); CHLORIDE 106.7 mmol/L (98-107); CREATININE 1.57 mg/dL (0.60-1.30); GLUCOSE 95.1 mg/dL (74-106); POTASSIUM 4.15 mmol/L (3.5-5.1); SODIUM 139.7 mmol/L (134.5-145); TOTAL PROTEIN 6.82 g/dL (6.3-8.2)
[2021-11-26] MEDS: PEPCID PO SCH (05:58)
[2021-11-26] MEDS: PROTONIX PO SCH (05:58)
--- NOTE | 2021-11-26 08:06 | PCM.PROG ---
Attending Provider: ATTENDING PROVIDER: Dr. NIKKO LAM This patient is seen with Li Marroquin, Nurse Practitioner. DATE OF SERVICE: 11/26/21 SUBJECTIVE: This 81 year old /WHITE F was hospitalized 11/23/21. No reports of chest pain. Has been well with change in Losartan and Hydrochlorothiazide. We added Pepcid, no indigestion. Kidney function is stable. REVIEW OF SYSTEMS: CONSTITUTIONAL: No night sweats. No fatigue, malaise, lethargy. No fever or chills. HEENT: Eyes: No visual changes. No eye pain. No eye discharge. ENT: No runny nose. No epistaxis. No sinus pain. No odynophagia. No congestion. RESPIRATORY: No cough, no congestion. No hemoptysis. No shortness of breath. CARDIOVASCULAR: No angina symptoms. No CHF symptoms. No atypical chest pain for CAD. No palpitations. No orthopnea.. GASTROINTESTINAL: No abdominal pain. No nausea or vomiting. No diarrhea or constipation. No hematemesis. No hematochezia. GENITOURINARY: No urgency. No frequency. No dysuria. No hematuria. No obstructive symptoms. No discharge. No pain. No significant abnormal bleeding. MUSCULOSKELETAL: No musculoskeletal pain; no joint swelling. NEUROLOGICAL: Awake, alert, oriented to time, place and person. No headache. No neck pain. No syncope. No seizures. No dizziness. PSYCHIATRIC: Not anxious. No depression. No suicidal thoughts. No homicidal thoughts. SKIN: No rash. No lesions. No wounds. ENDOCRINE: No unexplained weight loss. No weight gain. HEMATOLOGIC/LYMPHATIC: No anemia. No purpura. No petechiae. No prolonged or excessive bleeding. No palpable lymph nodes. PHYSICAL EXAMINATION: GENERAL: The patient is awake, alert and oriented, sitting in bed in no distress. VITAL SIGNS: Temperature 97.9 F, Pulse 67, Respiratory Rate 18, BP 140/80, Pulse Ox 100% HEENT: Head normocephalic, atraumatic. Eyes: Extraocular muscles are intact. Pupils are equal, round and reactive to light and accommodation. Ears: No lesions. Nose appeared normal. Throat: No exudate or erythema. NECK: Supple. No JVD, no carotid bruit. No lymphadenopathy or thyromegaly. LUNGS: Clear to auscultation. Percussion note normal. Chest symmetrical. HEART: S1, S2, no S3. irregular heart rate. No murmurs. No cyanosis or clubbing. No ascites. Pulses: Dorsalis pedis and posterior tibial pulses +1 to +2 both sides. ABDOMEN: Soft. Non-tender. Bowel sounds active. No CVA tenderness. No mass felt. EXTREMITIES: No edema. Full range of motion of all extremities, equal. NEUROLOGIC: No focal deficit. Cranial nerves II through XII are grossly intact. No headache. No double vision. SKIN: Not dry. Intact. Turgor-normal. LYMPHATIC: No palpable lymph nodes/no lymphedema. MUSCULOSKELETAL: Normal joints with no swelling. Muscle tone is normal. LAB REVIEW: 11/26/21 04:45 11/26/21 04:45 11/26/21 04:45: Sodium 139.7, Potassium 4.15, Chloride 106.7, Carbon Dioxide 24.9, Anion Gap 12.25, BUN 33.8 H, Creatinine 1.57 H, Estimated GFR (MDRD) 31.00, BUN/Creatinine Ratio 21.52, Glucose 95.1, Calcium 9.58, Total Bilirubin 0.34, AST 25.7, ALT 20.3, Alkaline Phosphatase 63.3, Total Protein 6.82, Albumin 4.33, Globulin 2.49, Albumin/Globulin Ratio 1.73 11/26/21 04:45: WBC 6.19, RBC 3.99 L, Hgb 11.9 L, Hct 35.3 L, MCV 88.5, MCH 29.8, MCHC 33.7, RDW Coeff of Trinity 13.2, Plt Count 253, Immature Gran % (Auto) 0.5, Neut % (Auto) 57.5, Lymph % (Auto) 33.3, [place] % (Auto) 6.9, Eos % (Auto) 1.3, Baso % (Auto) 0.5, Neut # (Auto) 3.6, Lymph # (Auto) 2.1, [place] # (Auto) 0.4, Eos # (Auto) 0.1, Baso # (Auto) 0.0, Immature Gran # (Auto) 0.0 11/25/21 09:18: Urine Color Yellow, Urine Clarity Clear, Urine pH 6.5, Ur Specific [place] 1.010, Urine Protein Negative, Urine Glucose (UA) Negative, Urine Ketones Negative, Urine Blood 1+ H, Urine Nitrite Negative, Urine Bilirubin Negative, Urine Urobilinogen 0.2, Ur Leukocyte Esterase Negative, Urine Microscopic RBC 2-5, Ur Squamous Epith Cells Not present 11/25/21 04:45: TSH 0.699 11/25/21 04:45: Free T4 1.04 ASSESSMENT: Please see below. 1. Acid reflux 2. Atrial fibrillation 3. Hypertension 4. Anxiety PLAN: 1. Will discharge home 2. Will followup next week. 3. Continue Losartan 100-12.5mg daily 4. Continue added Pepcid 20mg BID Plan and coordination of the patient's care discussed in the presence of Packing Line Worker and nurse. SCRIBED BY: Buck LINTON scribed while in presence of service performed by Dr. Lam/Li Marroquin APRN on 11/26/21 (0550)
[2021-11-26] MEDS: JANUVIA PO SCH (09:09)
[2021-11-26] MEDS: ADVAIR 250-50 DISKUS IH SCH (09:09)
[2021-11-26] MEDS: PRAVACHOL PO SCH (09:10)
[2021-11-26] MEDS: CALCIUM 500 + VIT D 5 MCG (200 IU) TABLET PO SCH (09:10)
[2021-11-26] MEDS: COZAAR PO SCH (09:10)
[2021-11-26] MEDS: NEURONTIN PO SCH (09:10)
[2021-11-26] MEDS: HYDROCHLOROTHIAZIDE PO SCH (09:10)
[2021-11-26] MEDS: VITAMIN D PO SCH (09:11)
[2021-11-26] MEDS: ELIQUIS PO SCH (09:11)
[2021-11-26] MEDS: FERROUS SULFATE PO SCH (09:11)
[2021-11-26] MEDS: [UNRECOGNIZED DRUG - OTHER] PO SCH (09:15)
[2021-11-26] MEDS: CYANOCOBALAMIN 1000 MCG PO SCH (09:15)
--- NOTE | 2021-12-11 10:19 | PN ---
DATE OF SERVICE: 11/23/21 SUBJECTIVE: The patient was seen and examined in the emergency room by the ER attending and was admitted with diagnosis of chest pain. The patient has given two nitroglycerin with some relief. The patient has reflux disease type of symptoms. REVIEW OF SYSTEMS: CONSTITUTIONAL: No night sweats. No fatigue, malaise, lethargy. No fever or chills. HEENT: Eyes: No visual changes. No eye pain. No eye discharge. ENT: No runny nose. No epistaxis. No sinus pain. No sore throat. No odynophagia. No congestion. RESPIRATORY: No cough, no congestion. No hemoptysis. No shortness of breath. CARDIOVASCULAR: No angina symptoms. No CHF symptoms. No atypical chest pain for CAD. No palpitations. No PND. No orthopnea. GASTROINTESTINAL: No abdominal pain. No nausea or vomiting. No diarrhea or constipation. No hematemesis. No hematochezia. GENITOURINARY: No urgency. No frequency. No dysuria. No hematuria. No obstructive symptoms. No discharge. No pain. No significant abnormal bleeding. MUSCULOSKELETAL: No musculoskeletal pain; no joint swelling. NEUROLOGICAL: No headache. No neck pain. No syncope. No seizures. No dizziness. PSYCHIATRIC: Not anxious. No depression. No suicidal thoughts. No homicidal thoughts. SKIN: No rash. No lesions. No wounds. ENDOCRINE: No unexplained weight loss. No weight gain. HEMATOLOGIC/LYMPHATIC: No anemia. No purpura. No petechiae. No prolonged or excessive bleeding. No palpable lymph nodes. PHYSICAL EXAMINATION: HEENT: Head normocephalic, atraumatic. Eyes: Extraocular muscles are intact. Pupils are equal, round and reactive to light and accommodation. Ears: No lesions. Nose appeared normal. Throat: No exudate or erythema. NECK: Supple. No JVD, no carotid bruit. No lymphadenopathy or thyromegaly. LUNGS: Clear to auscultation. Percussion note normal. Chest symmetrical. HEART: S1, S2, no S3. No murmurs. No cyanosis or clubbing. No ascites. Pulses: Dorsalis pedis and posterior tibial pulses +1 to +2 bilaterally. ABDOMEN: Soft. Nontender. Bowel sounds active. No CVA tenderness. No mass felt. EXTREMITIES: No edema. Full range of motion of all extremities, equal. NEUROLOGIC: No focal deficit. Cranial nerves II through XII are grossly intact. No headache. No double vision. SKIN: Not dry. Intact. Turgor - normal. LYMPHATIC: No palpable lymph nodes/no lymphedema. MUSCULOSKELETAL: Normal joints with no swelling. Muscle tone is normal. LABS: EKG and Cardiac markers are negative. ASSESSMENT: 1. Chest pain, rule out OR or ischemia 2. Breast cancer 3. Hypertension 4. Dyslipidemia 5. Reflux disease PLAN: 1. Routine telemetry order with serial EKGs, cardiac makers 2. May do echo to evaluate LV function 3. Later on may do stress test depending upon when the last stress test/ stress sestamibi was done. TIME SPENT: More than 30 minutes. Plan and coordination of the patient's care discussed in the presence of nurse. YFN
--- NOTE | 2021-12-11 11:32 | PN ---
DATE OF SERVICE: 11/24/21 SUBJECTIVE: The patient was seen and examined today. 81 year old white female hospitalized with chest pain, shoulder pain, congestion and sinus drainage. The patient mostly had chest tightness with mixed type of symptoms. The patient denies of any pain at present time. EKG and cardiac markers are all negative for any acute myocardial event. REVIEW OF SYSTEMS: CONSTITUTIONAL: No night sweats. No fatigue, malaise, lethargy. No fever or chills. HEENT: Eyes: No visual changes. No eye pain. No eye discharge. ENT: No runny nose. No epistaxis. No sinus pain. No sore throat. No odynophagia. No congestion. RESPIRATORY: No cough, no congestion. No hemoptysis. No shortness of breath. CARDIOVASCULAR: No angina symptoms. No CHF symptoms. No atypical chest pain for CAD. No palpitations. No PND. No orthopnea. GASTROINTESTINAL: No abdominal pain. No nausea or vomiting. No diarrhea or constipation. No hematemesis. No hematochezia. GENITOURINARY: No urgency. No frequency. No dysuria. No hematuria. No obstructive symptoms. No discharge. No pain. No significant abnormal bleeding. MUSCULOSKELETAL: No musculoskeletal pain; no joint swelling. NEUROLOGICAL: No headache. No neck pain. No syncope. No seizures. No dizziness. PSYCHIATRIC: Not anxious. No depression. No suicidal thoughts. No homicidal thoughts. SKIN: No rash. No lesions. No wounds. ENDOCRINE: No unexplained weight loss. No weight gain. HEMATOLOGIC/LYMPHATIC: No anemia. No purpura. No petechiae. No prolonged or excessive bleeding. No palpable lymph nodes. PHYSICAL EXAMINATION: VITAL SIGNS:Temperature 97.8, pulse 71, respiratory rate 14, blood pressure 150/70 and pulse ox 100% on room air. HEENT: Head normocephalic, atraumatic. Eyes: Extraocular muscles are intact. Pupils are equal, round and reactive to light and accommodation. Ears: No lesions. Nose appeared normal. Throat: No exudate or erythema. NECK: Supple. No JVD, no carotid bruit. No lymphadenopathy or thyromegaly. LUNGS:Decreased breath sounds but clear to auscultation. Percussion note normal. Chest symmetrical. HEART: S1, S2, no S3. No murmurs. No cyanosis or clubbing. No ascites. Pulses: Dorsalis pedis and posterior tibial pulses +1 to +2 bilaterally. ABDOMEN: Soft. Nontender. Bowel sounds active. No CVA tenderness. No mass felt. EXTREMITIES: No edema. Full range of motion of all extremities, equal. NEUROLOGIC: No focal deficit. Cranial nerves II through XII are grossly intact. No headache. No double vision. SKIN: Not dry. Intact. Turgor - normal. LYMPHATIC: No palpable lymph nodes/no lymphedema. MUSCULOSKELETAL: Normal joints with no swelling. Muscle tone is normal. LABS: Hgb 11.3, hct 34, WBC 5,000 normal differential, creatinine 1.7, BUN 24, potassium 3.9. ASSESSMENT: 1. Chest pain seems to be noncardiac but will rule out MA or ischemia 2. Hypertension 3. Dyslipidemia 4. C of the breast PLAN: 1. 1cc Decadron for sinusitis 2. Continue the rest of the medications 3. Continue telemetry 4. Will monitor kidney functions 5. The patient is being followed by [facility] [employer]. CONDITION: Stable The patient had echo done in May 2021 which showed normal LV contractility with ejection fraction 58% , LVH, markedly enlarged LA cavity with 5.7cm size and mild mitral regurgitation noted. TIME SPENT: More than 30 minutes. Plan and coordination of the patient's care discussed in the presence of nurse. YFN
--- NOTE | 2021-12-11 13:00 | PN ---
DATE OF SERVICE: 11/25/21 SUBJECTIVE: The patient was seen and examined with the Nurse Practitioner. The patient's condition has improved. Likely patient's cause of chest pain was reflux disease. Cardiac markers and EKG all negative for any acute myocardial event. TIME SPENT: More than 30 minutes. Plan and coordination of the patient's care discussed in the presence of nurse. YFN
--- NOTE | 2021-12-11 13:11 | PN ---
DATE OF SERVICE: 11/26/21 SUBJECTIVE: The patient was seen and examined with the Nurse Practitioner. The patient's condition is stable. Her chest pain after keeping her in the hospital for 2-3 days practically noncardiac more like esophageal spasm and muscular pain with left shoulder pain. The patient did not have any chest pain. Her cardiac markers and EKGs are negative. She had full workup done; all reviewed which she has normal LV contractility. TIME SPENT: More than 30 minutes. Plan and coordination of the patient's care discussed in the presence of nurse. YFN
--- NOTE | 2021-12-11 13:11 | PN ---
ADMISSION DAY: Level 5 REST OF THEM: Intermediate FINAL DAY: D as in discharge MTDD
--- NOTE | 2021-12-11 14:39 | HP ---
DATE OF SERVICE: 11/23/21 REASON FOR HOSPITALIZATION/HISTORY OF PRESENT ILLNESS: 81 year old white female who presented to the emergency room complaining of chest pain, stated that it started about 4am earlier in the day radiated to left shoulder. She has a history of atrial fibrillation, palpitations. PAST MEDICAL HISTORY: History of atypical chest pain Palpitation Hypertension Chronic kidney disease stage III, sees Dr. 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 Ellis Prolapsed rectum Metabolic syndrome History of renal cancer, followed by Dr. Salinas Left renal cancer History of breast cancer, see Dr. Ellis Diabetes Mellitus type II PAST SURGICAL HISTORY: Colectomy in 2006 Left nephrectomy Lumpectomy by Dr. Ellis REVIEW OF SYSTEMS: CONSTITUTIONAL: No night sweats. No fatigue, malaise, lethargy. No fever or chills. HEENT: Eyes: No visual changes. No eye pain. No eye discharge. ENT: No runny nose. No epistaxis. No sinus pain. No sore throat. No odynophagia. No ear pain. No congestion. RESPIRATORY: No cough, no congestion. No hemoptysis. No shortness of breath. CARDIOVASCULAR: No angina symptoms. No CHF symptoms. Chest pain. Palpitations. No PND. No orthopnea. GASTROINTESTINAL: No abdominal pain. No nausea or vomiting. No diarrhea or constipation. No hematemesis. No hematochezia. GENITOURINARY: No urgency. No frequency. No dysuria. No hematuria. No obstructive symptoms. No discharge. No pain. No significant abnormal bleeding. MUSCULOSKELETAL: No musculoskeletal pain. No joint swelling. No arthritis. NEUROLOGICAL: No headache. No neck pain. No syncope. No seizures. No dizziness. PSYCHIATRIC: Anxious. No depression. No suicidal thoughts. No homicidal thoughts. SKIN: No rash. No lesions. No wounds. ENDOCRINE: No unexplained weight loss. No weight gain. HEMATOLOGIC/LYMPHATIC: No anemia. No purpura. No petechiae. No prolonged or excessive bleeding. No palpable lymph nodes. PERSONAL/FAMILY/SOCIAL HISTORY: She is . Lives at home by herself. No alcohol or illicit drug use. She is fully independent. Still drives and takes care of herself. MEDICATIONS: Xanax 0.25mg PO daily PRN Vitamin B12 100mg PO daily Januvia 25mg PO daily Latanoprost one drop both eyes bedtime Gabapentin 100mg PO daily Protonix 40mg PO BID Vitamin D3 1000 unit PO daily Tramadol 50mg PO BID PRN Pravastatin 40mg PO daily Acetaminophen 650mg PO Q 6 hours PRN Combivent one puff inhalation BID PRN Fluorometholone one drop both eyes every other day Eliquis 2.5mg PO BID Advair one inhalation 0800, 1700 Norvasc 5mg PO BEDTIME Iron 325mg PO BID Calcium 600mg PO daily ALLERGIES: Budesonide Formoterol PHYSICAL EXAMINATION: GENERAL: The patient is alert and oriented times three. VITALS: Temperature 98.8, heart rate 64, respiratory rate 18, blood pressure 154/74, pulse ox 98%. HEENT: Head normocephalic, atraumatic. Eyes: Extraocular muscles are intact. Pupils are equal, round and reactive to light and accommodation. Ears: No lesions. Nose appeared normal. Throat: No exudate or erythema. NECK: Supple. No JVD, no carotid bruit. No lymphadenopathy or thyromegaly. LUNGS: Diminished breath sounds. Clear to auscultation. Percussion note normal. Chest symmetrical. HEART: S1, S2, no S3. No murmur. Irregular heart rate. No cyanosis or clubbing. No ascites. Pulses: Dorsalis pedis and posterior tibial pulses +1 to +2 bilaterally. ABDOMEN: Soft. Nontender. Bowel sounds active. No CVA tenderness. No mass felt. EXTREMITIES: No edema. Full range of motion of all extremities, equal. NEUROLOGIC: No focal deficit. Cranial nerves II through XII are grossly intact. No headache, no double vision or headache. SKIN: Not dry. Intact. Turgor - normal. LYMPHATIC: No palpable lymph nodes/no lymphedema. MUSCULOSKELETAL: Normal joints with no swelling. Muscle tone is normal. LABS: WBC 4.6, hgb 11.4, hct 34.4, plt count 246, sodium 139, potassium 3.7, BUN 24.9, creatinine 1.54, glucose 112, troponin less than 0.012, AST 21, ALT 13, NT PROBNP 2,130. EKG is unchanged. Chest x-ray shows no acute cardiopulmonary disease. She had a Holter on 11/04/21 which showed afib, no PVC, no pauses. She had an echo on 06/17 which showed LVH with enlarged LA cavity at 5.7cm, normal valves, moderate aortic regurg, mild mitral regurg which was unchanged from the previous year. Last stress test was 07/18 which was negative for any ischemia. ASSESSMENT: 1. Chest pain 2. Hypertension 3. Chronic kidney disease stage III 4. Atrial fibrillation 5. Diabetes Mellitus type II 6. Dyslipidemia PLAN: 1. We will admit 2. Routine telemetry orders 3. CBC and CMP daily 4. Continue home medications 5. U/A with urine culture 6. Continue Protonix 7. Serial EKG's 8. Regular diet 9. Oxygen at 1-2 liters as needed Will follow closely. TIME SPENT: More than 70 minutes. YFN
--- NOTE | 2021-12-11 14:51 | DS ---
DATE OF SERVICE: 11/26/21 FINAL DIAGNOSIS: 1. Chest pain 2. Worsening acid reflux 3. Atrial fibrillation, rate controlled 4. Hypertension 5. Anxiety 6. Chronic kidney disease stage III to IIII 7. Chronic anemia DISCHARGE INSTRUCTIONS: Discharge home. Followup with Dr. Izaguirre/Li Marroquin APRN/Anila Arnold APRN on 12/05/21 at 10:45am. Continue the rest of the home medications. MEDICATIONS AT DISCHARGE: Xanax 0.25mg PO daily PRN Vitamin B12 100mg PO daily Januvia 25mg PO daily Latanoprost one drop both eyes bedtime Gabapentin 100mg PO daily Protonix 40mg PO BID Vitamin D3 1000 unit PO daily Tramadol 50mg PO BID PRN Pravastatin 40mg PO daily Acetaminophen 650mg PO Q 6 hours PRN Combivent one puff inhalation BID PRN Fluorometholone one drop both eyes every other day Eliquis 2.5mg PO BID Advair one inhalation 0800, 1700 Norvasc 5mg PO BEDTIME Iron 325mg PO BID Calcium 600mg PO daily NEW PRESCRIPTIONS: Pepcid 20mg PO BID Losartan-hydrochlorothiazide 100-12.5 PO daily DIET INSTRUCTIONS: Resume as tolerated. ACTIVITY: Resume as tolerated HOSPITAL COURSE: This is an 81 year old white female who was admitted on 11/23/21 after she had been experiencing chest pain since about 4am which radiated through to her back. Cardiac enzymes were negative. EKG was unchanged from previous. She does have a long history of atrial fibrillation along with GERD. She recently had a EGD. She takes Protonix 40mg BID. We also added Pepcid 20mg BID to help with the epigastric pain which has seem to improve. She was hypertensive on admission with systolic in the 150s. We discontinued her Lisinopril and added Losartan 100/12.5 with Hydrochlorothiazide daily. She had previously had a Holter a few weeks ago. She is supposed to repeat that Holter in a few days. She had a negative stress and echo back in May of 2021 which were all normal. Chest x-ray was normal with exception of cardiomegaly. Her blood pressure has improved since being admitted and she no longer reports the pain which I do believe is a combination of worsening indigestion and anxiety. Her cholesterol is controlled. We will discharge her in stable condition. She is ready to go home. Again labs are stable. Kidney function is stable. She will go home with new prescription for the Losartan/HCTZ along with the Pepcid. She is to continue on those and we will followup with her in the office next week. TIME SPENT: More than 60 minutes. MTDD
== END 2021-11-26 10:05 | disposition home or self-care (01) | DRG 313 ==
LOC: ED 18:15 → MEDSURG A 20:51
PROVIDERS: ADMIT Internal Medicine; ATTEND Internal Medicine
DX: Z79.899 Other long term (current) drug therapy; D64.9 Anemia, unspecified; E11.9 Type 2 diabetes mellitus without complications; E78.5 Hyperlipidemia, unspecified; R06.02 Shortness of breath; F41.9 Anxiety disorder, unspecified; Z79.01 Long term (current) use of anticoagulants; Z51.81 Encounter for therapeutic drug level monitoring; N18.30 Chronic kidney disease, stage 3 unspecified; R07.9 Chest pain, unspecified; I10 Essential (primary) hypertension; Z20.822 Contact with and (suspected) exposure to COVID-19; I48.91 Unspecified atrial fibrillation; K21.9 Gastro-esophageal reflux disease without esophagitis

== ENCOUNTER 2023-07-18 20:07 | Inpatient (IN) ==
--- NOTE | 2023-07-18 20:19 | ED.PDOC ---
General ED Provider: Dr. BARNDEN KELLER MD Chief Complaint: Cough Stated Complaint: 83-year-old female brought in by daughter over concerns of weakness. Patient has had a cough for the past couple of days. Has not been able to produce any sputum. Is ran a low-grade temperature but no documented fever. Patient denies chest pain or shortness of breath. Daughter states she slept most of the day today. She had to wake her up to force her to eat soup. When she did get out of bed she seemed very unsteady and like she was too weak to walk. She states she normally walks without any assistive devices. Patient denies feeling dizzy, denies headaches. Denies abdominal pain, nausea vomiting or urinary symptoms. Time Seen by Provider: 07/18/23 20:14 Mode of Arrival: Wheelchair Information Source: Patient and Family Exam Limitations: No limitations Primary Care Provider: NIKKO LAM MD Nursing and Triage Documentation Reviewed and Agree: Yes What is Opioid Naive?: *Opioid Naive implies the patient is not already taking opioids or not chronically receiving opioids on a daily basis. *PRN dosing is not "usually" associated with tolerance. *Patients are at higher risk of over-sedation and aspiration. What is Opioid Tolerant?: *Opioid Tolerance implies less than the expected response to an opioid. *Acquired tolerance is defined by the patient taking 60mg of oral morphine daily (or equianalgesic dose of another opioid) for 1 week or more. *Often associated with chronic pain. *May take more than usual dose to achieve desired pain control. Review of Systems Review Of Systems Constitutional: Reports Weakness and Loss of appetite Respiratory: Reports Cough All Other Systems: Reviewed and Negative FORMERLY [facility], [facility] Medical History Diabetes mellitus, type 2 E11.9 - Type 2 diabetes mellitus without complications (ICD-10) Breast cancer C50.919 - Malignant neoplasm of unspecified site of unspecified female breast (ICD-10) Renal cell carcinoma with R nephrectomy C64.9 - Malignant neoplasm of unspecified kidney, except renal pelvis (ICD- 10) Asthma J45.909 - Unspecified asthma, uncomplicated (ICD-10) Afib I48.91 - Unspecified atrial fibrillation (ICD-10) Anxiety F41.9 - Anxiety disorder, unspecified (ICD-10) Family History FATHER Heart attack Mother Breast cancer Social History Smoking and tobacco status: Never smoker Alcohol intake: never Substance use type: does not use Special cynthia needs: No Agree to transfusion: Yes Adopted: No Caregiver/support person: No Foster care: No Household members: none Housing: house Marital status: W / Lives independently: Yes Number of children: 5 Current occupational status: retired Pets and animals: No History of recent travel: No Do you think of yourself as: straight/heterosexual Current gender identity: female Seatbelt use: always Drives intoxicated or rides with intoxicated river driver: No Water heater temperature set < 120 degrees: Yes Working smoke detector in home: Yes Fire extinguisher in home: No Carbon monoxide detector in home: Yes Surgical History H/O right nephrectomy Z90.5 - Acquired absence of kidney (ICD-10) H/O mastectomy LEFT SIDE Z90.10 - Acquired absence of unspecified breast and nipple (ICD-10) H/O: hysterectomy Z90.710 - Acquired absence of both cervix and uterus (ICD-10) History of cholecystectomy Z90.49 - Acquired absence of other specified parts of digestive tract (ICD- 10) History of nephrectomy, right Z90.5 - Acquired absence of kidney (ICD-10) Female Reproductive History Menstrual Hx Hysterectomy: No Hx Tubal Ligation: No Physical Exam Physical Exam Appearance: Reports Well-appearing Ill-appearing: None Pain Distress: None Eyes: Reports MARTÍNEZ ENT: Reports Oropharynx normal Neck: Supple Respiratory: Reports Airway patent and Other (Crackles right base) Cardiovascular: Reports Pulses normal, No murmur and Tachycardia GI/: Reports Soft and Nontender Musculoskeletal: Reports Normal strength Skin: Reports Warm and Dry Neurological: Reports Cranial nerves intact, Alert and Oriented Psychiatric: Reports Affect appropriate Course Course 07/18/23 20:25 07/18/23 20:25 Orders, Labs, Meds: Lab Review 07/18/23 07/18/23 07/18/23 20:25 20:27 20:46 WBC 18.79 H RBC 3.96 L Hgb 12.0 Hct 35.8 L MCV 90.4 MCH 30.3 MCHC 33.5 RDW Coeff of Trinity 13.7 Plt Count 242 Immature Gran % (Auto) 0.5 Neut % (Auto) 91.6 H Lymph % (Auto) 3.2 L Bracken % (Auto) 4.0 Eos % (Auto) 0.5 Baso % (Auto) 0.2 Neut # (Auto) 17.2 H Lymph # (Auto) 0.6 Bracken # (Auto) 0.8 Eos # (Auto) 0.1 Baso # (Auto) 0.0 Immature Gran # (Auto) 0.1 Sodium 130.7 L Potassium 4.11 Chloride 96.2 L Carbon Dioxide 23.6 Anion Gap 15.01 BUN 26.4 H Creatinine 1.63 H Estimated GFR (MDRD) 30.00 BUN/Creatinine Ratio 16.19 Glucose 150.6 H Lactic Acid 1.18 Calcium 9.49 Procalcitonin 0.54 H Urine Color Yellow Urine Clarity Clear Urine pH 6.0 Ur Specific [place] 1.015 Urine Protein 3+ H Urine Glucose (UA) Negative Urine Ketones Negative Urine Blood 3+ H Urine Nitrite Negative Urine Bilirubin Negative Urine Urobilinogen 0.2 Ur Leukocyte Esterase Trace H Urine Microscopic RBC 20-30 Urine Microscopic WBC 2-5 Ur Squamous Epith Cells 0-2 Urine Bacteria Trace Influ A Molecular Assay Negative by naat Influ B Molecular Assay Negative by naat SARS CoV-2 RNA Rapid NICOLE Negative Orders Category Date Time Status ADMIT PATIENT INPATIENT .TO [facility] (MONITORED BED) ADMISSION 07/18/23 21:08 Active EKG-(ED ONLY) Stat CARDIO 07/18/23 20:15 Completed TELEMETRY MONITORING TELE CARE 07/18/23 21:08 Active ED IV/MEDIPORT/POWERPORT .ONCE EMERGENCY 07/18/23 20:15 Active BMP [BASIC METABOLIC PANEL] Stat LAB 07/18/23 20:25 Completed CBC W/ AUTO DIFF Stat LAB 07/18/23 20:25 Completed FLU A & B MOLECULAR [FLU A/B MOLECULAR] Stat LAB 07/18/23 20:27 Completed LACTIC ACID Stat LAB 07/18/23 20:25 Completed PROCALCITONIN Stat LAB 07/18/23 20:25 Completed SARS COV-2 RNA RAPID NICOLE Stat LAB 07/18/23 20:27 Completed UA [URINALYSIS C & S IF INDICATED] Stat LAB 07/18/23 20:46 Completed 0.9 % Sodium Chloride [Saline Flush] Meds 07/18/23 20:15 Active 1 syr IVF PRN PRN Azithromycin Inj [Zithromax] 500 mg Meds 07/18/23 20:56 Active 0.9 % Sodium Chloride [Sodium Chloride] 250 ml IV ONCE Ceftriaxone/D5w 1 gm Premix [Rocephin 1 gm/50 ml D5w] Meds 07/18/23 20:56 Discontinued 1 gm in 50 ml IV ONCE Sodium Chloride 0.9% [Sodium Chloride] 500 ml Meds 07/18/23 20:57 Active IV BOLUS CHEST, 2 VIEWS PA & LAT Stat RADS 07/18/23 20:15 Completed Medications Generic Name Dose Route Start Last Admin Trade Name Freq PRN Reason Stop Dose Admin Azithromycin 500 mg/ Sodium 250 mls @ 250 mls/hr 07/18/23 20:56 Chloride IV 07/18/23 21:55 ONCE ONE Sodium Chloride 500 mls @ 500 mls/hr 07/18/23 20:57 07/18/23 21:07 Sodium Chloride IV 07/18/23 21:56 500 mls/hr BOLUS ONE Administration Sodium Chloride 1 syr 07/18/23 20:15 0.9% Sodium Chloride 10 Ml Disp.Syrin IVF PRN PRN To flush IV Discontinued Medications Generic Name Dose Route Start Last Admin Trade Name Freq PRN Reason Stop Dose Admin CEFTRIAXONE/D5W 1 GM PREMIX 1 gm in 50 mls @ 100 mls/hr 07/18/23 20:56 07/18/23 21:07 Rocephin 1 Gm/50 Ml D5w IV 07/18/23 21:25 100 mls/hr ONCE ONE Administration Differential diagnosis includes viral syndrome, pneumonia, pleural effusion, anemia, electrolyte abnormality, UTI, arrhythmia, congestive failure, dehydration Patient with leukocytosis. Slightly elevated procalcitonin. Normal lactic acid. Creatinine roughly patient's baseline. X-ray shows right middle lobe pneumonia as read by radiologist. Patient to be admitted for weakness, pneumonia, advanced age, multiple comorbidities. Case discussed with hospitalist team and her primary provider Dr. Lam. Vital Signs: Temp Pulse Resp BP Pulse Ox 07/18/23 20:08 99.6 F 102 H 18 131/68 98 Discharge Plan Discharge Patient Disposition: ADMITTED INPATIENT Discharge Problem: Pneumonia Prescriptions: No Action albuterol sulfate 90 mcg/actuation HFA aerosol inhaler 2 inh inhalation Q4-6H PRN (Reason: shortness of breath or wheezing) Qty: 6.7 0RF Combivent Respimat 20-100 mcg/actuation mist 1 puff INHALATION BID PRN (Reason: Shortness Of Breath) Qty: 4 2RF gabapentin 100 mg capsule 100 mg PO DAILY Qty: 90 1RF pravastatin 40 mg tablet 40 mg PO DAILY Qty: 90 1RF pantoprazole [Protonix] 40 mg tablet,delayed release (DR/EC) 40 mg PO BID Qty: 180 1RF amlodipine [Norvasc] 5 mg tablet 5 mg PO BEDTIME Qty: 90 1RF Rx Instructions: START TONIGHT 09/10/2020 fluticasone propion-salmeterol [Advair Diskus] 250-50 mcg/dose blister with device 1 inh INHALATION BID Qty: 60 1RF tramadol 50 mg tablet 50 mg PO BID PRN (Reason: pain) Qty: 60 2RF losartan-hydrochlorothiazide [Hyzaar] 100-12.5 mg tablet 1 tab PO DAILY Qty: 90 1RF cyanocobalamin (vitamin B-12) [Vitamin B-12] 1,000 MCG tablet extended release 1,000 mg PO DAILY cholecalciferol (vitamin D3) [Vitamin D3] 25 mcg (1,000 unit) tablet 2,000 unit PO DAILY acetaminophen 325 mg Tablet 650 mg PO Q6H PRN (Reason: Pain) fluorometholone 0.1 % Drops,Suspension 1 drp BOTHEYES EVERY OTHER DAY calcium 600 mg Capsule 600 mg PO DAILY ferrous sulfate [iron] 325 mg (65 mg iron) Tablet 325 mg PO BID latanoprost 1 DROP drops 1 drp BOTHEYES BEDTIME Rx Instructions: 0.005% brimonidine 0.1 % drops 1 drp RIGHTEYE BID famotidine [Pepcid] 20 mg tablet 20 mg PO BID Qty: 60 0RF alprazolam [Xanax] 0.25 mg tablet 0.25 mg PO DAILY PRN (Reason: Anxiety) Qty: 90 1RF prednisone 10 mg tablet 10 mg PO BID Qty: 10 0RF Januvia 25 mg tablet 25 mg PO DAILY Qty: 30 5RF Eliquis 2.5 mg tablet 2.5 mg PO BID Qty: 60 5RF Did you review [place] QC MANAGER for ALL controlled substances?: Not Applicable ED Provider: BRANDEN KELLER Physician Progress Note: []
[2023-07-18 20:38] LABS: BASOPHILS % (AUTO) 0.2 % (0.0-3.0); EOSINOPHILS # (AUTO) 0.1 K/ul (0.0-0.7); EOSINOPHILS % (AUTO) 0.5 % (0.0-7.0); HEMATOCRIT 35.8 % (37.0-47.0); IMMATURE GRANULOCYTE # (AUTO) 0.1 (0.0-1.0); IMMATURE GRANULOCYTE % (AUTO) 0.5 % (0.0-5.0); LYMPHOCYTES # (AUTO) 0.6 K/uL (0.60-3.4); LYMPHOCYTES % (AUTO) 3.2 (10.0-50.0); MEAN CORPUSCULAR HEMOGLOBIN 30.3 pg (27.0-31.0); MEAN CORPUSCULAR HGB CONC 33.5 (31.8-35.4); MEAN CORPUSCULAR VOLUME 90.4 fl (81.0-99.0); MONOCYTES # (AUTO) 0.8 K/uL (0.4-2.0); NEUTROPHILS # (AUTO) 17.2 K/ul (2.0-6.9); NEUTROPHILS % (AUTO) 91.6 % (42.2-75.2); PLATELET COUNT 242 10^3/uL (140-440); RDW COEFFICIENT OF VARIATION 13.7 % (11.6-14.8); RED BLOOD COUNT 3.96 10^6/ul (4.20-5.40); WHITE BLOOD COUNT 18.79 K/ul (4.6-10.2)
[2023-07-18 20:46] LABS: BLOOD UREA NITROGEN 26.4 mg/dL (7-17); CALCIUM 9.49 mg/dL (8.4-10.2); CARBON DIOXIDE 23.6 mmol/L (22-30.0); CHLORIDE 96.2 mmol/L (98-107); CREATININE 1.63 mg/dL (0.60-1.30); GLUCOSE 150.6 mg/dL (74-106); POTASSIUM 4.11 mmol/L (3.5-5.1); SODIUM 130.7 mmol/L (134.5-145)
[2023-07-18 20:55] LABS: BILIRUBIN,URINE Negative (NEGATIVE); CLARITY,URINE Clear (CLEAR); COLOR,URINE Yellow (YELLOW); GLUCOSE, URINE (UA) Negative (NEGATIVE); KETONES,URINE Negative (NEGATIVE); LEUKOCYTE ESTERASE ,URINE Trace (NEGATIVE); NITRITE,URINE Negative (NEGATIVE); PROTEIN,URINE 3+ (NEGATIVE); URINE, BLOOD 3+ (NEGATIVE); UROBILINOGEN,URINE 0.2 (0.2)
[2023-07-18 20:55] LABS: MOLECULAR FLU A NEGATIVE BY NAAT (NEGATIVE); MOLECULAR FLU B NEGATIVE BY NAAT (NEGATIVE); SARS COV-2 RNA RAPID NAAT NEGATIVE (NEGATIVE)
--- NOTE | 2023-07-18 20:56 | DI ---
EXAM: CHEST TWO VIEWS HISTORY: Cough COMPARISON: [facility] chest from 11/23/2021 FINDINGS: The heart is mildly enlarged. There is suggestion of a previous left mastectomy with left axillary lucien dissection. The pulmonary vasculature is normal. No pneumothoraces or pleural effusi ons. There is suggestion of increased opacity in the right lower lobe. The bones are intact. IMPRESSION: 1. Right lower lobe infiltrate suggested. 2. Cardiomegaly. .
[2023-07-18 21:01] LABS: URINE RBC, MICROSCOPIC 20-30 (0-2)
[2023-07-18 21:02] LABS: BACTERIA,URINE TRACE (NOT PRESENT); SQUAMOUS EPITHELIAL CELL,UR 0-2 (0-5)
[2023-07-18] MEDS: ROCEPHIN 1 GM/50 ML D5W 1 GM/50 ML BAG IV ONE (21:07)
[2023-07-18] MEDS: SODIUM CHLORIDE 500 ML IV ONE (21:07)
[2023-07-18] MEDS ORDERED: ALBUTEROL 0.083% NEB NEB PRN ×2 (21:31→21:38)
[2023-07-18] MEDS: TYLENOL PO STA (21:51)
[2023-07-18] MEDS ORDERED: ULTRAM PO PRN (22:34)
[2023-07-18] MEDS: SOLU-MEDROL 40 MG IVP SCH (22:57)
[2023-07-18] MEDS: ZITHROMAX 500 MG in SODIUM CHLORIDE 250 ML IV ONE ×2 (22:58→23:14)
[2023-07-18 23:00] VITALS: BMI 27.4
[2023-07-18] MEDS: BRIMONIDINE TARTRATE 0.2% OPTH SOL RIGHTEYE SCH (23:56)
[2023-07-18] MEDS: ELIQUIS PO SCH (23:57)
[2023-07-18] MEDS: VITAMIN D PO SCH (23:57)
[2023-07-19] MEDS: FERROUS SULFATE PO SCH
[2023-07-19] MEDS: NORVASC PO SCH (00:01)
[2023-07-19] MEDS: XALATAN EACHEYE SCH (00:02)
[2023-07-19 05:13] LABS: BASOPHILS % (AUTO) 0.1 % (0.0-3.0); HEMOGLOBIN 10.9 g/dl (12.0-16.0); IMMATURE GRANULOCYTE # (AUTO) 0.2 (0.0-1.0); IMMATURE GRANULOCYTE % (AUTO) 0.7 % (0.0-5.0); LYMPHOCYTES # (AUTO) 0.5 K/uL (0.60-3.4); LYMPHOCYTES % (AUTO) 2.4 (10.0-50.0); MEAN CORPUSCULAR HEMOGLOBIN 29.9 pg (27.0-31.0); MEAN CORPUSCULAR VOLUME 90.4 fl (81.0-99.0); MONOCYTES # (AUTO) 0.4 K/uL (0.4-2.0); MONOCYTES % (AUTO) 1.7 (0-10); NEUTROPHILS % (AUTO) 95.1 % (42.2-75.2); PLATELET COUNT 209 10^3/uL (140-440); RDW COEFFICIENT OF VARIATION 13.6 % (11.6-14.8); RED BLOOD COUNT 3.65 10^6/ul (4.20-5.40); WHITE BLOOD COUNT 21.02 K/ul (4.6-10.2)
[2023-07-19] MEDS: TYLENOL PO PRN ×2 (05:28→09:45)
[2023-07-19 05:38] LABS: ALANINE AMINOTRANSFERASE 18.8 U/L (0-35); ALBUMIN 4.05 g/dL (3.5-5.0); ALKALINE PHOSPHATASE 65.8 U/L (53-141); ASPARTATE AMINO TRANSFERASE 24.8 U/L (14-36); BILIRUBIN,TOTAL 0.6 mg/dL (0.2-1.3); BLOOD UREA NITROGEN 28.1 mg/dL (7-17); CALCIUM 8.87 mg/dL (8.4-10.2); CHLORIDE 96.4 mmol/L (98-107); CREATININE 1.69 mg/dL (0.60-1.30); GLUCOSE 180.1 mg/dL (74-106); POTASSIUM 3.62 mmol/L (3.5-5.1); SODIUM 130.4 mmol/L (134.5-145); TOTAL PROTEIN 7.13 g/dL (6.3-8.2)
[2023-07-19] MEDS: PEPCID PO SCH (08:54)
[2023-07-19] MEDS: CALCIUM 500 + VIT D 5 MCG (200 IU) TABLET PO SCH (08:55)
[2023-07-19] MEDS: PRAVACHOL PO SCH (08:55)
[2023-07-19] MEDS: ROCEPHIN 1 GM/50 ML D5W 1 GM/50 ML BAG IV SCH (08:55)
[2023-07-19] MEDS: NEURONTIN PO SCH (08:56)
[2023-07-19] MEDS ORDERED: ELIQUIS PO SCH (09:00)
[2023-07-19] MEDS ORDERED: PEPCID PO SCH (09:00)
[2023-07-19] MEDS ORDERED: FERROUS SULFATE PO SCH (09:00)
[2023-07-19] MEDS ORDERED: BRIMONIDINE 0.1% RIGHTEYE SCH (09:00)
[2023-07-19] MEDS ORDERED: NON-FORMULARY MEDICATION (Ferrous Sulfate [Iron] 325 mg (65 mg iron) Tablet) PO SCH (09:00)
[2023-07-19] MEDS ORDERED: NON-FORMULARY MEDICATION (Calcium 600 mg Capsule) PO SCH (09:00)
[2023-07-19] MEDS: NON-FORMULARY MEDICATION (Fluorometholone 0.1 % Drops,Suspension) EACHEYE SCH (09:21)
--- NOTE | 2023-07-19 09:35 | PCM ---
Date of Service Date Seen by Provider: 07/19/23 Time Seen by Provider: 09:00 Admit Day/Time Admission Date: 07/18/23 Admission Time: 21:32 Reason for Admission Chief Complaint: PNA Hospital Provider [facility] Provider: JOCELYNE BARAHONA PA-C, [facility] [place] Care Physician Primary Care Physician: NIKKO IZAGUIRRE MD History of Present Illness History of Present Illness: Patient is a 83 year old female with pmhx of osteoarthritis, COPD/asthma, DMT2, history of breast cancer, CKD, a fib, hypertension, GERD, and CHF who presented to the ER for weakness. Patient states yesterday morning she overall didn't feel well. She woke up with a cough. She slept most of the day. She felt very unsteady, having to hold onto the decker to steady herself. She normally does not use an assistive device to ambulate. Daughter talked her into going to the ER. She lives with daughter. In the ER she was found to have RLL pneumonia, wbc 18, procal 0.54, sodium low, creatinine mildly bumped. She was given fluids and antibiotics. Patient states today she is feeling mildly improved but still weak. Case Discussed With Case Discussed With: Patient's case was discussed with the ER Physicians, Dr. Lewis. [facility] Medical History Diabetes mellitus, type 2 E11.9 - Type 2 diabetes mellitus without complications (ICD-10) Breast cancer C50.919 - Malignant neoplasm of unspecified site of unspecified female breast (ICD-10) Renal cell carcinoma with R nephrectomy C64.9 - Malignant neoplasm of unspecified kidney, except renal pelvis (ICD- 10) Asthma J45.909 - Unspecified asthma, uncomplicated (ICD-10) Afib I48.91 - Unspecified atrial fibrillation (ICD-10) Anxiety F41.9 - Anxiety disorder, unspecified (ICD-10) Surgical History H/O right nephrectomy Z90.5 - Acquired absence of kidney (ICD-10) H/O mastectomy LEFT SIDE Z90.10 - Acquired absence of unspecified breast and nipple (ICD-10) H/O: hysterectomy Z90.710 - Acquired absence of both cervix and uterus (ICD-10) History of cholecystectomy Z90.49 - Acquired absence of other specified parts of digestive tract (ICD- 10) History of nephrectomy, right Z90.5 - Acquired absence of kidney (ICD-10) Family History FATHER Heart attack Mother Breast cancer Social History Smoking and tobacco status: Never smoker Alcohol intake: never Substance use type: does not use Special cynthia needs: No Agree to transfusion: Yes Adopted: No Caregiver/support person: No Foster care: No Household members: none Housing: house Marital status: W / Lives independently: Yes Number of children: 5 Current occupational status: retired Pets and animals: No History of recent travel: No Do you think of yourself as: straight/heterosexual Current gender identity: female Seatbelt use: always Drives intoxicated or rides with intoxicated 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 Water heater temperature set < 120 degrees: Yes Working smoke detector in home: Yes Fire extinguisher in home: No Carbon monoxide detector in home: Yes Allergies Allergies Allergy/AdvReac Type Severity Reaction Status Date / Time budesonide [From Symbicort] AdvReac Mild CHEST Verified 07/18/23 20:18 FLUTTER formoterol [From Symbicort] AdvReac Mild CHEST Verified 07/18/23 20:18 FLUTTER Current Medications Home Medications cyanocobalamin (vitamin B-12) 1,000 mcg tablet,extended release (Vitamin B-12 ER) 1,000 mg PO DAILY 08/11/13 [History Confirmed 07/18/23 Last Taken 03/21/18 08:00] latanoprost 0.005 % eye drops 1 drp BOTHEYES BEDTIME 01/21/17 [History Confirmed 07/18/23 Last Taken 03/20/18 07:00] acetaminophen 325 mg tablet 650 mg PO Q6H PRN Pain 08/15/19 [History Confirmed 07/18/23 Last Taken Unknown] fluorometholone 0.1 % eye drops,suspension 1 drp BOTHEYES EVERY OTHER DAY 07/08/20 [History Confirmed 07/18/23 Last Taken Unknown] calcium 600 mg capsule 600 mg PO DAILY 11/23/21 [History Confirmed 07/18/23 Last Taken Unknown] ferrous sulfate 325 mg (65 mg iron) tablet (iron) 325 mg PO BID 11/23/21 [History Confirmed 07/18/23 Last Taken Unknown] cholecalciferol (vitamin D3) 25 mcg (1,000 unit) tablet (Vitamin D3) 2,000 unit PO BEDTIME 09/14/22 [History Confirmed 07/18/23 Last Taken Unknown] albuterol sulfate 90 mcg/actuation aerosol inhaler 2 inh inhalation Q4-6H PRN shortness of breath or wheezing #6.7 grams 10/01/22 [Rx Confirmed 07/18/23 Last Taken Unknown] brimonidine 0.1 % eye drops 1 drp RIGHTEYE BID 12/17/22 [History Confirmed 07/18/23 Last Taken Unknown] famotidine 20 mg tablet (Pepcid) 20 mg PO BID #60 tabs 02/08/23 [Rx Confirmed 07/18/23 Last Taken Unknown] ipratropium 20 mcg-albuterol 100 mcg/actuation mist for inhalation (Combivent Respimat) 1 puff inhalation BID PRN Shortness Of Breath #4 grams 03/11/23 [Rx Confirmed 07/18/23 Last Taken Unknown] gabapentin 100 mg capsule 100 mg PO DAILY #90 caps 04/08/23 [Rx Confirmed 07/18/23 Last Taken Unknown] pantoprazole 40 mg tablet,delayed release (Protonix) 40 mg PO BID #180 tabs 04/08/23 [Rx Confirmed 07/18/23 Last Taken Unknown] pravastatin 40 mg tablet 40 mg PO DAILY #90 tabs 04/08/23 [Rx Confirmed 07/18/23 Last Taken Unknown] amlodipine 5 mg tablet (Norvasc) 5 mg PO BEDTIME #90 tabs 04/13/23 [Rx Confirmed 07/18/23 Last Taken Unknown] tramadol 50 mg tablet 50 mg PO BID PRN pain #60 tabs 05/25/23 [Rx Confirmed 07/18/23 Last Taken Unknown] losartan 100 mg-hydrochlorothiazide 12.5 mg tablet (Hyzaar) 1 tab PO DAILY #90 tabs 06/14/23 [Rx Confirmed 07/18/23 Last Taken Unknown] alprazolam 0.25 mg tablet (Xanax) 0.25 mg PO DAILY PRN Anxiety #90 tabs 06/22/23 [Rx Confirmed 07/18/23 Last Taken Unknown] apixaban 2.5 mg tablet (Eliquis) 2.5 mg PO BID #60 tabs 06/22/23 [Rx Confirmed 07/18/23 Last Taken Unknown] sitagliptin phosphate 25 mg tablet (Januvia) 25 mg PO DAILY #30 tabs 06/22/23 [Rx Confirmed 07/18/23 Last Taken Unknown] fluticasone 250 mcg-salmeterol 50 mcg/dose blistr powdr for inhalation (Advair Diskus) 1 inh inhalation BID #60 ea 07/19/23 [Rx Last Taken Unknown] Home Acetaminophen (Acetaminophen 325 Mg Tablet) 650 mg PO Q4H PRN PRN Reason: Pain Last Admin: 07/19/23 09:45 Dose: 650 mg Albuterol/Ipratropium (Ipratropium/Albuterol Vial.Neb) 3 ml NEB RTQ6H PRN PRN Reason: Wheezing Alprazolam (Alprazolam 0.25 Mg Tablet) 0.25 mg PO DAILY PRN PRN Reason: Anxiety Amlodipine Besylate (Amlodipine Besylate 5 Mg Tablet) 5 mg PO BEDTIME [facility] Last Admin: 07/19/23 00:01 Dose: 5 mg Apixaban (Apixaban 5 Mg Tab) 2.5 mg PO BID [facility] Last Admin: 07/19/23 09:00 Dose: 2.5 mg Brimonidine Tartrate (Brimonidine Tartrate 0.2% 5 Ml Btl) 1 drop RIGHTEYE BID [facility] Last Admin: 07/19/23 09:21 Dose: 1 drop Calcium/Vitamin D (Calcium Carbonate/Vitamin D3 500 Mg/5 Mcg(200iu) 1 Each Tabl et) 1 each PO DAILY [facility] Last Admin: 07/19/23 08:55 Dose: 1 each Cholecalciferol (Cholecalciferol (Vitamin D3) 1,000 Unit (25 Mcg) Tablet) 2,000 unit PO BEDTIME [facility] Last Admin: 07/18/23 23:57 Dose: 2,000 unit Famotidine (Famotidine 20 Mg Tablet) 10 mg PO QDAC2 [facility] Last Admin: 07/19/23 08:54 Dose: 10 mg Ferrous Sulfate (Ferrous Sulfate 324 Mg Tablet.Dr) 324 mg PO BID [facility] Last Admin: 07/19/23 08:55 Dose: 324 mg Fluticasone Propionate (Fluticasone Propionate 16 Gm Nasal [place]) 1 spray MELANIA DAILY [facility] Last Admin: 07/19/23 09:44 Dose: 1 spray Gabapentin (Gabapentin 100 Mg Capsule) 100 mg PO DAILY [facility] Last Admin: 07/19/23 08:56 Dose: 100 mg Azithromycin 500 mg/ Sodium (Chloride) 250 mls @ 250 mls/hr IV BEDTIME [facility] Stop: 07/21/23 20:59 CEFTRIAXONE/D5W 1 GM PREMIX (Rocephin 1 Gm/50 Ml D5w) 1 gm in 50 mls @ 100 mls/hr IV DAILY [facility] Stop: 07/22/23 08:59 Last Admin: 07/19/23 08:55 Dose: 100 mls/hr Insulin Human Regular (Insulin Regular, Human 100 Unit/Ml (10ml) Vial) 0 unit SUBCUT PRN PRN; Protocol PRN Reason: Hyperglycemia Last Admin: 07/19/23 11:42 Dose: 8 unit Latanoprost (Latanoprost 2.5 Ml Opth [place]) 1 drop EACHEYE BEDTIME [facility] Last Admin: 07/19/23 00:02 Dose: 1 drop Non-Formulary Medication (Fluorometholone) 1 drop EACHEYE EVERY OTHER DAY [facility] Last Admin: 07/19/23 09:21 Dose: 1 drop Non-Formulary Medication (Cyanocobalamin (Vitamin B-12) [Vitamin B-12]) 1,000 mg PO DAILY [facility] Last Admin: 07/19/23 13:12 Dose: 1,000 mg Pravastatin Sodium (Pravastatin Sodium 40 Mg Tablet) 40 mg PO DAILY [facility] Last Admin: 07/19/23 08:55 Dose: 40 mg Sitagliptin Phosphate (Sitagliptin Phosphate 50 Mg Tablet) 25 mg PO DAILY [facility] Sodium Chloride (0.9% Sodium Chloride 10 Ml Disp.Syrin) 1 syr IVF PRN PRN PRN Reason: To flush IV Last Admin: 07/18/23 23:07 Dose: 1 syr Sodium Chloride (0.9% Sodium Chloride 10 Ml Disp.Syrin) 1 syr IVF Q8HR [facility] Last Admin: 07/19/23 13:13 Dose: 1 syr Tramadol HCl (Tramadol Hcl 50 Mg Tablet) 50 mg PO BID PRN PRN Reason: Pain Discontinued Medications Acetaminophen (Acetaminophen 500 Mg Tablet) 1,000 mg PO ONCE STA Stop: 07/18/23 21:42 Last Admin: 07/18/23 21:51 Dose: 1,000 mg Acetaminophen (Acetaminophen 325 Mg Tablet) 650 mg PO Q6H PRN PRN Reason: Pain Last Admin: 07/19/23 05:28 Dose: 650 mg Amlodipine Besylate (Amlodipine Besylate 5 Mg Tablet) 5 mg PO BEDTIME [facility] Apixaban (Apixaban 5 Mg Tab) 2.5 mg PO BID [facility] Cholecalciferol (Cholecalciferol (Vitamin D3) 1,000 Unit (25 Mcg) Tablet) 2,000 unit PO BEDTIME [facility] Ferrous Sulfate (Ferrous Sulfate 324 Mg Tablet.Dr) 324 mg PO BID [facility] CEFTRIAXONE/D5W 1 GM PREMIX (Rocephin 1 Gm/50 Ml D5w) 1 gm in 50 mls @ 100 mls/hr IV ONCE ONE Stop: 07/18/23 21:25 Last Admin: 07/18/23 21:07 Dose: 100 mls/hr Azithromycin 500 mg/ Sodium (Chloride) 250 mls @ 250 mls/hr IV ONCE ONE Stop: 07/18/23 21:55 Last Admin: 07/18/23 23:14 Dose: Not Given Sodium Chloride (Sodium Chloride) 500 mls @ 500 mls/hr IV BOLUS ONE Stop: 07/18/23 21:56 Last Infusion: 07/18/23 22:07 Dose: Infused Azithromycin 500 mg/ Sodium (Chloride) 250 mls @ 250 mls/hr IV ONCE ONE Stop: 07/18/23 23:59 Last Admin: 07/18/23 22:58 Dose: 250 mls/hr Latanoprost (Latanoprost 2.5 Ml Opth [place]ine[place]) 1 drop EACHEYE BEDTIME [facility] Methylprednisolone Sodium Succinate (Methylprednisolone Sod Succ/Pf 40 Mg/Ml Vial) 40 mg IVP Q8HR [facility] Last Admin: 07/19/23 05:24 Dose: 40 mg Non-Formulary Medication (Ferrous Sulfate [Iron]) 325 mg PO BID [facility] Non-Formulary Medication (Calcium) 600 mg PO DAILY [facility] Non-Formulary Medication (Brimonidine) 1 drop RIGHTEYE BID [facility] Opioid Naive vs. Tolerant Does Patient Take Opioids?: No Is Patient Opioid Naive?: Yes What is Opioid Naive?: *Opioid Naive implies the patient is not already taking opioids or not chronically receiving opioids on a daily basis. *PRN dosing is not "usually" associated with tolerance. *Patients are at higher risk of over-sedation and aspiration. Is Patient Opioid Tolerant?: No What is Opioid Tolerant?: *Opioid Tolerance implies less than the expected response to an opioid. *Acquired tolerance is defined by the patient taking 60mg of oral morphine daily (or equianalgesic dose of another opioid) for 1 week or more. *Often associated with chronic pain. *May take more than usual dose to achieve desired pain control. Review of Systems Constitutional: Reports Fatigue and Weakness; Denies Fever Head: Reports Normocephalic and Atraumatic Cardiovascular: Denies Chest pain, Chest Pressure or Edema Respiratory: Reports Cough and Shortness of air Gastrointestinal: Denies Nausea, Vomiting, Diarrhea, Abdominal pain or Melena Genitourinary: Denies Dysuria or Frequency Dermatologic: Denies Rashes Neurological: Reports Weakness and Problems with walking Physical examination Most Recent Vital Signs: Most Recent Vital Signs Temperature 97.2 F L 07/19/23 05:07 Temperature Source Oral 07/19/23 05:07 Temperature Source Infrared 07/18/23 20:08 Pulse Rate 68 07/19/23 05:07 Respiratory Rate 20 07/19/23 05:07 Blood Pressure 124/63 07/19/23 05:07 Blood Pressure Mean 83 07/19/23 05:07 Blood Pressure Right Arm 118/65 07/18/23 22:48 Blood Pressure Location Right Arm 07/19/23 05:07 Blood Pressure Position Supine 07/19/23 05:07 O2 Sat by Pulse Oximetry 96 07/19/23 05:07 Oxygen Delivery Method Room Air 07/19/23 09:00 Height 5 ft 1 in 07/18/23 22:48 Weight 145 lb 5 oz 07/18/23 22:48 Telemetry Type Remote Telemetry 07/19/23 07:00 Telemetry Monitoring Continues 07/19/23 07:00 Irregular Telemetry Rate (Approximate) 50-60 BPM 07/19/23 07:00 Telemetry Heart Rate 60 07/14/17 07:00 Telemetry SPO2 97 07/19/23 07:00 EKG QRS Interval 0.07 07/19/23 07:00 Telemetry Strip Reading Afib 07/19/23 07:00 Appearance: Positive Well-appearing, Well-nourished, No Apparent Distress and Alert and Oriented x3 Skin: Positive [place], Warm, Good Turgor and Good Color; Negative Rashes HEENT: Positive Normocephalic and Atraumatic Neck: Positive Supple and Midline Trachea Chest/Lungs: Positive Rhonci (RLL); Negative Rales Heart: Positive Irregular Rhythm GI/: Positive Soft, Nontender, Bowel Sounds Normal and No Distention Extremities: Negative Edema Neurological: Positive Cranial Nerves Intact, Alert, Oriented and Other (+generalized weakness ) Psychiatric: Positive Oriented x4, Appropriate Mood and Appropriate Affect Labs This Visit Labs This Visit: Labs This Visit 07/18/23 07/18/23 07/18/23 20:25 20:27 20:46 WBC 18.79 H RBC 3.96 L Hgb 12.0 Hct 35.8 L MCV 90.4 MCH 30.3 MCHC 33.5 RDW Coeff of Trinity 13.7 Plt Count 242 Immature Gran % (Auto) 0.5 Neut % (Auto) 91.6 H Lymph % (Auto) 3.2 L Mc[place]ff[place] % (Auto) 4.0 Eos % (Auto) 0.5 Baso % (Auto) 0.2 Neut # (Auto) 17.2 H Lymph # (Auto) 0.6 Mcduffie # (Auto) 0.8 Eos # (Auto) 0.1 Baso # (Auto) 0.0 Immature Gran # (Auto) 0.1 Sodium 130.7 L Potassium 4.11 Chloride 96.2 L Carbon Dioxide 23.6 Anion Gap 15.01 BUN 26.4 H Creatinine 1.63 H Estimated GFR (MDRD) 30.00 BUN/Creatinine Ratio 16.19 Glucose 150.6 H Lactic Acid 1.18 Calcium 9.49 Total Bilirubin AST ALT Alkaline Phosphatase Total Protein Albumin Globulin Albumin/Globulin Ratio Procalcitonin 0.54 H Urine Color Yellow Urine Clarity Clear Urine pH 6.0 Ur Specific [place] 1.015 Urine Protein 3+ H Urine Glucose (UA) Negative Urine Ketones Negative Urine Blood 3+ H Urine Nitrite Negative Urine Bilirubin Negative Urine Urobilinogen 0.2 Ur Leukocyte Esterase Trace H Urine Microscopic RBC 20-30 Urine Microscopic WBC 2-5 Ur Squamous Epith Cells 0-2 Urine Bacteria Trace Influ A Molecular Assay Negative by naat Influ B Molecular Assay Negative by naat SARS CoV-2 RNA Rapid NICOLE Negative 07/19/23 04:53 WBC 21.02 H RBC 3.65 L Hgb 10.9 L Hct 33.0 L MCV 90.4 MCH 29.9 MCHC 33.0 RDW Coeff of [place] 13.6 Plt Count 209 Immature Gran % (Auto) 0.7 Neut % (Auto) 95.1 H Lymph % (Auto) 2.4 L [place] % (Auto) 1.7 Eos % (Auto) 0.0 Baso % (Auto) 0.1 Neut # (Auto) 20.0 H Lymph # (Auto) 0.5 L [place] # (Auto) 0.4 Eos # (Auto) 0.0 Baso # (Auto) 0.0 Immature Gran # (Auto) 0.2 Sodium 130.4 L Potassium 3.62 Chloride 96.4 L Carbon Dioxide 25.0 Anion Gap 12.62 BUN 28.1 H Creatinine 1.69 H Estimated GFR (MDRD) 29.00 BUN/Creatinine Ratio 16.62 Glucose 180.1 H Lactic Acid Calcium 8.87 Total Bilirubin 0.60 AST 24.8 ALT 18.8 Alkaline Phosphatase 65.8 Total Protein 7.13 Albumin 4.05 Globulin 3.08 Albumin/Globulin Ratio 1.31 Procalcitonin Urine Color Urine Clarity Urine pH Ur Specific [place] Urine Protein Urine Glucose (UA) Urine Ketones Urine Blood Urine Nitrite Urine Bilirubin Urine Urobilinogen Ur Leukocyte Esterase Urine Microscopic RBC Urine Microscopic WBC Ur Squamous Epith Cells Urine Bacteria Influ A Molecular Assay Influ B Molecular Assay SARS CoV-2 RNA Rapid NICOLE Imaging Imaging: EXAM: CHEST TWO VIEWS HISTORY: Cough COMPARISON: AP chest from 11/23/2021 FINDINGS: The heart is mildly enlarged. There is suggestion of a previous left mastectomy with left axillary lucien dissection. The pulmonary vasculature is normal. No pneumothoraces or pleural effusions. There is suggestion of increased opacity in the right lower lobe. The bones are intact. IMPRESSION: 1. Right lower lobe infiltrate suggested. 2. Cardiomegaly. Review Statement Review Statement: I have independently reviewed and interpreted the labs/EKGs/imaging that were ordered by the ER provider. I have reviewed all outside records that are available currently in our EMR including imaging/notes/labs from previous visits. Plan Plan: 1. Community acquired pneumonia, right - Continue azith and rocephin. D/c solumedrol. Duonebs prn. PSI 95. 2. Weakness - Pt/OT 3. Hyponatremia, chronic- At baseline. Likely in setting of hctz use. Will hold . 4. A fib - Cont home meds 5. COPD - Cont home meds 6. Hyperlipidemia - Cont home meds 7. Hypertension - Cont home meds except hctz. DVT Prophylaxis: Xarelto Time Spent: Greater than 80 minutes spent with patient, 50% of the time spent with this patient was devoted to counseling and coordination of care. [facility] minutes spent discussing advance care planning. DNR Admit to: INPATIENT Discussed Plan of Care with Dr. Sharyn Izaguirre. Medications Medication Orders: Medications Ordered Category Date Time Status 0.9 % Sodium Chloride [Saline Flush] Meds 07/18/23 20:15 Active 1 syr IVF PRN PRN 0.9 % Sodium Chloride [Saline Flush] Meds 07/19/23 13:00 Active 1 syr IVF Q8HR Acetaminophen [Tylenol] Meds 07/19/23 09:32 Ordered 650 mg PO Q4H PRN Albuterol Sulfate 0.083% Neb [Albuterol 0.083% Neb] Meds 07/18/23 21:31 Active 2.5 mg NEB RTTID PRN Alprazolam [Xanax] Meds 07/18/23 22:34 Active 0.25 mg PO DAILY PRN Amlodipine Besylate [Norvasc] Meds 07/18/23 23:33 Active 5 mg PO BEDTIME Apixaban [Eliquis] Meds 07/18/23 23:40 Active 2.5 mg PO BID Azithromycin Inj [Zithromax] 500 mg Meds 07/19/23 21:00 Active 0.9 % Sodium Chloride [Sodium Chloride] 250 ml IV BEDTIME Brimonidine Tartrate [Brimonidine Tartrate 0.2% Opth Meds 07/18/23 23:45 Active Destiney] 1 drop RIGHTEYE BID Calcium Carbonate/Vitamin D3 [Calcium 500 + Vit D 5 Mcg Meds 07/19/23 09:00 Active (200 Iu) Tablet] 1 each PO DAILY Ceftriaxone/D5w 1 gm Premix [Rocephin 1 gm/50 ml D5w] Meds 07/19/23 09:00 Active 1 gm in 50 ml IV DAILY Cholecalciferol (Vitamin D3) [Vitamin D] Meds 07/18/23 23:32 Active 2,000 unit PO BEDTIME Famotidine [Pepcid] Meds 07/19/23 08:30 Active 10 mg PO QDAC2 Ferrous Sulfate Meds 07/18/23 23:45 Active 324 mg PO BID Fluticasone Propionate [Flonase] Meds 07/19/23 09:35 Ordered 1 spray MELANIA DAILY Gabapentin [Neurontin] Meds 07/19/23 09:00 Active 100 mg PO DAILY Insulin Regular, Human [Humulin R] Meds 07/18/23 22:36 Active See Protocol SUBCUT PRN PRN Latanoprost [Xalatan] Meds 07/18/23 23:34 Active 1 drop EACHEYE BEDTIME Methylprednisolone Sod Succ/Pf [Solu-Medrol 40 mg] Meds 07/18/23 22:00 Active 40 mg IVP Q8HR Pravastatin Sodium [Pravachol] Meds 07/19/23 09:00 Active 40 mg PO DAILY Tramadol HCl [Ultram] Meds 07/18/23 22:34 Active 50 mg PO BID PRN cyanocobalamin (vitamin B-12) [Vitamin B-12] Meds 07/19/23 09:00 Active 1,000 mg PO DAILY fluorometholone Meds 07/19/23 09:00 Active 1 drop EACHEYE EVERY OTHER DAY
[2023-07-19] MEDS: FLONASE NAS SCH (09:44)
[2023-07-19] MEDS ORDERED: DUONEB NEB PRN (11:32)
[2023-07-19] MEDS: HUMULIN R SUBCUT PRN (11:42)
[2023-07-19] MEDS: CYANOCOBALAMIN 1000 MCG PO SCH (13:12)
[2023-07-19] MEDS: [UNRECOGNIZED DRUG - OTHER] PO SCH (13:12)
[2023-07-19] MEDS: ZITHROMAX 500 MG in SODIUM CHLORIDE 250 ML IV SCH (20:02)
[2023-07-19] MEDS ORDERED: XALATAN EACHEYE SCH (21:00)
[2023-07-19] MEDS ORDERED: NORVASC PO SCH (21:00)
[2023-07-19] MEDS ORDERED: VITAMIN D PO SCH (21:00)
[2023-07-19] MEDS: XANAX PO PRN (23:21)
[2023-07-20 05:07] LABS: BASOPHILS % (AUTO) 0.1 % (0.0-3.0); EOSINOPHILS % (AUTO) 0.1 % (0.0-7.0); HEMOGLOBIN 10.2 g/dl (12.0-16.0); IMMATURE GRANULOCYTE # (AUTO) 0.1 (0.0-1.0); IMMATURE GRANULOCYTE % (AUTO) 0.4 % (0.0-5.0); LYMPHOCYTES # (AUTO) 0.7 K/uL (0.60-3.4); LYMPHOCYTES % (AUTO) 4.5 (10.0-50.0); MEAN CORPUSCULAR VOLUME 88.2 fl (81.0-99.0); MONOCYTES # (AUTO) 0.6 K/uL (0.4-2.0); MONOCYTES % (AUTO) 4.3 (0-10); NEUTROPHILS # (AUTO) 13.2 K/ul (2.0-6.9); NEUTROPHILS % (AUTO) 90.6 % (42.2-75.2); PLATELET COUNT 207 10^3/uL (140-440); RDW COEFFICIENT OF VARIATION 13.4 % (11.6-14.8); WHITE BLOOD COUNT 14.56 K/ul (4.6-10.2)
[2023-07-20 05:23] LABS: ALBUMIN 3.71 g/dL (3.5-5.0); ALKALINE PHOSPHATASE 56.8 U/L (53-141); BILIRUBIN,TOTAL 0.39 mg/dL (0.2-1.3); BLOOD UREA NITROGEN 32.5 mg/dL (7-17); CALCIUM 9.02 mg/dL (8.4-10.2); CARBON DIOXIDE 23.6 mmol/L (22-30.0); CHLORIDE 98.2 mmol/L (98-107); CREATININE 1.34 mg/dL (0.60-1.30); GLUCOSE 105.1 mg/dL (74-106); POTASSIUM 3.43 mmol/L (3.5-5.1); SODIUM 129.7 mmol/L (134.5-145); TOTAL PROTEIN 6.58 g/dL (6.3-8.2)
[2023-07-20] MEDS: JANUVIA PO SCH (08:22)
[2023-07-20] MEDS: K-DUR PO ONE (08:48)
[2023-07-20] MEDS: SYMBICORT 160-4.5 MCG INHALER IH SCH (10:46)
--- NOTE | 2023-07-20 11:10 | PCM.PROG ---
Date/Time Seen Date Seen by Provider: 07/20/23 Time Seen by Provider: 08:30 Provider Provider: JOCELYNE BARAHONA PA-C, [facility] Chief Complaint Chief Complaint: PNA Subjective Subjective: Patient states she's feeling some better but didn't sleep at all last night. Feels very tired. She doesn't feel well enough to go home. Complains of a cough. Has been to the bathroom and back a couple times this morning. Daughter at bedside. Objective Appearance: Positive Well-appearing, Well-nourished, No Apparent Distress and Alert and Oriented x3 Chest/Lungs: Positive Clear to Auscultation Bilaterally; Negative Rales, Rhonci or Wheezes Heart: Positive Irregular Rhythm GI/: Positive Soft, Nontender, Bowel Sounds Normal and No Distention Neurological: Positive Cranial Nerves Intact, Alert, Oriented and Other (+generalized weakness ) Vital Signs Vital Signs: Vital Signs: Last 24 Hours 07/19/23 13:00 07/19/23 14:00 07/19/23 18:00 Temperature 97.7 F 97.9 F Temperature Source Oral Oral Pulse Rate 71 77 Respiratory Rate 15 18 Blood Pressure 134/73 144/81 H Blood Pressure Mean 93 102 Blood Pressure Location Right Arm Right Arm Blood Pressure Position Supine Supine O2 Sat by Pulse Oximetry 98 97 Oxygen Delivery Method Room Air Room Air Telemetry Type Remote Telemetry Telemetry Monitoring Continues Irregular Telemetry Rate (Approximate) 60-70 BPM Telemetry SPO2 EKG QRS Interval 0.03 L Telemetry Strip Reading a fib 07/19/23 19:00 07/19/23 20:00 07/19/23 21:35 Temperature 97.3 F L Temperature Source Temporal Artery Scan Pulse Rate 67 Respiratory Rate 18 16 Blood Pressure 118/65 Blood Pressure Mean 82 Blood Pressure Location Right Arm Blood Pressure Position Supine O2 Sat by Pulse Oximetry 97 Oxygen Delivery Method Room Air Room Air Telemetry Type Remote Telemetry Telemetry Monitoring Continues Irregular Telemetry Rate (Approximate) 60's Telemetry SPO2 97 EKG QRS Interval 0.04 L Telemetry Strip Reading A-FIB 07/20/23 01:00 07/20/23 01:47 07/20/23 05:00 Temperature 97.7 F 97.6 F Temperature Source Temporal Artery Scan Temporal Artery Scan Pulse Rate 66 63 Respiratory Rate 16 16 Blood Pressure 125/58 L 138/56 L Blood Pressure Mean 80 83 Blood Pressure Location Right Arm Left Arm Blood Pressure Position Supine Supine O2 Sat by Pulse Oximetry 98 97 Oxygen Delivery Method Room Air Room Air Telemetry Type Remote Telemetry Telemetry Monitoring Continues Irregular Telemetry Rate (Approximate) Telemetry SPO2 97 EKG QRS Interval 0.06 Telemetry Strip Reading A-FIB 07/20/23 06:55 07/20/23 07:05 07/20/23 10:00 Temperature 98.3 F Temperature Source Oral Pulse Rate 72 Respiratory Rate 17 Blood Pressure 113/61 Blood Pressure Mean 78 Blood Pressure Location Right Arm Blood Pressure Position Sitting O2 Sat by Pulse Oximetry 96 Oxygen Delivery Method Room Air Room Air Telemetry Type Remote Telemetry Telemetry Monitoring Continues Irregular Telemetry Rate (Approximate) 70's Telemetry SPO2 97 EKG QRS Interval 0.06 Telemetry Strip Reading Atrial fib Lab Results Lab Results: Lab Results: Last 24 Hours 07/20/23 04:47 WBC 14.56 H D RBC 3.40 L Hgb 10.2 L Hct 30.0 L MCV 88.2 MCH 30.0 MCHC 34.0 RDW Coeff of Trinity 13.4 Plt Count 207 Immature Gran % (Auto) 0.4 Neut % (Auto) 90.6 H Lymph % (Auto) 4.5 L [place] % (Auto) 4.3 Eos % (Auto) 0.1 Baso % (Auto) 0.1 Neut # (Auto) 13.2 H Lymph # (Auto) 0.7 [place] # (Auto) 0.6 Eos # (Auto) 0.0 Baso # (Auto) 0.0 Immature Gran # (Auto) 0.1 Sodium 129.7 L Potassium 3.43 L Chloride 98.2 Carbon Dioxide 23.6 Anion Gap 11.33 BUN 32.5 H Creatinine 1.34 H Estimated GFR (MDRD) 38.00 BUN/Creatinine Ratio 24.25 Glucose 105.1 D Calcium 9.02 Total Bilirubin 0.39 AST 22.0 ALT 16.0 Alkaline Phosphatase 56.8 Total Protein 6.58 Albumin 3.71 Globulin 2.87 Albumin/Globulin Ratio 1.29 Procalcitonin 0.54 H Additional Comments Additional Comments: I have independently reviewed and interpreted the labs/EKGs/imaging ordered during this hospital stay. I have reviewed outside records that are available in our EMR that pertain to medical stay including imaging/notes/labs from previous visits. Active Medications Active Medications: Medications Generic Name Dose Route Start Last Admin Trade Name Freq PRN Reason Stop Dose Admin Acetaminophen 650 mg 07/19/23 09:32 07/19/23 19:02 Acetaminophen 325 Mg Tablet PO 650 mg Q4H PRN Administration Pain Albuterol/Ipratropium 3 ml 07/19/23 11:32 Ipratropium/Albuterol Vial.Neb NEB RTQ6H PRN Wheezing Alprazolam 0.25 mg 07/18/23 22:34 07/19/23 23:21 Alprazolam 0.25 Mg Tablet PO 0.25 mg DAILY PRN Administration Anxiety Amlodipine Besylate 5 mg 07/18/23 23:33 07/19/23 20:04 Amlodipine Besylate 5 Mg Tablet PO 5 mg BEDTIME ABEL Administration Apixaban 2.5 mg 07/18/23 23:40 07/20/23 08:23 Apixaban 5 Mg Tab PO 2.5 mg BID ABEL Administration Brimonidine Tartrate 1 drop 07/18/23 23:45 07/20/23 08:22 Brimonidine Tartrate 0.2% 5 Ml Btl RIGHTEYE 1 drop BID ABEL Administration Budesonide/Formoterol Fumarate 2 puff 07/20/23 09:00 07/20/23 10:46 Budesonide/Formoterol Fumarate 160/4.5 Mcg Inhaler IH Not Given BID [facility] Calcium/Vitamin D 1 each 07/19/23 09:00 07/20/23 08:22 Calcium Carbonate/Vitamin D3 500 Mg/5 Mcg(200iu) 1 Each Tablet PO 1 each DAILY ABEL Administration Cholecalciferol 2,000 unit 07/18/23 23:32 07/19/23 20:04 Cholecalciferol (Vitamin D3) 1,000 Unit (25 Mcg) Tablet PO 2,000 unit BEDTIME ABEL Administration Famotidine 10 mg 07/19/23 08:30 07/20/23 05:26 Famotidine 20 Mg Tablet PO 10 mg QDAC2 ABEL Administration Ferrous Sulfate 324 mg 07/18/23 23:45 07/20/23 08:22 Ferrous Sulfate 324 Mg Tablet. PO 324 mg BID ABEL Administration Fluticasone Propionate 1 spray 07/19/23 09:35 07/20/23 08:22 Fluticasone Propionate 16 Gm Nasal [place] MELANIA 1 spray DAILY ABEL Administration Gabapentin 100 mg 07/19/23 09:00 07/20/23 08:23 Gabapentin 100 Mg Capsule PO 100 mg DAILY ABEL Administration Azithromycin 500 mg/ Sodium 250 mls @ 250 mls/hr 07/19/23 21:00 07/19/23 20:02 Chloride IV 07/21/23 20:59 250 mls/hr BEDTIME ABEL Administration CEFTRIAXONE/D5W 1 GM PREMIX 1 gm in 50 mls @ 100 mls/hr 07/19/23 09:00 07/20/23 08:48 Rocephin 1 Gm/50 Ml D5w IV 07/22/23 08:59 100 mls/hr DAILY ABEL Administration Insulin Human Regular 0 unit 07/18/23 22:36 07/19/23 11:42 Insulin Regular, Human 100 Unit/Ml (10ml) Vial SUBCUT 8 unit PRN PRN Administration Hyperglycemia Protocol Latanoprost 1 drop 07/18/23 23:34 07/19/23 20:01 Latanoprost 2.5 Ml Opth [place] EACHEYE 1 drop BEDTIME ABEL Administration Non-Formulary Medication 1 drop 07/19/23 09:00 07/19/23 09:21 Fluorometholone EACHEYE 1 drop EVERY OTHER DAY ABEL Administration Non-Formulary Medication 1,000 mg 07/19/23 09:00 07/20/23 08:22 Cyanocobalamin (Vitamin B-12) [Vitamin B-12] PO 1,000 mg DAILY ABEL Administration Pravastatin Sodium 40 mg 07/19/23 09:00 07/20/23 08:22 Pravastatin Sodium 40 Mg Tablet PO 40 mg DAILY ABEL Administration Sitagliptin Phosphate 25 mg 07/20/23 09:00 07/20/23 08:22 Sitagliptin Phosphate 50 Mg Tablet PO 50 mg DAILY ABEL Administration Sodium Chloride 1 syr 07/18/23 20:15 07/18/23 23:07 0.9% Sodium Chloride 10 Ml Disp.Syrin IVF 1 syr PRN PRN Administration To flush IV Sodium Chloride 1 syr 07/19/23 13:00 07/20/23 05:26 0.9% Sodium Chloride 10 Ml Disp.Syrin IVF 1 syr Q8HR ABEL Administration Tramadol HCl 50 mg 07/18/23 22:34 Tramadol Hcl 50 Mg Tablet PO BID PRN Pain Plan Plan: 1. Community acquired pneumonia, right - Continue azith and rocephin. Duonebs prn. PSI 95. 2. Weakness - Pt/OT 3. Hyponatremia, chronic- At baseline. Likely in setting of hctz use. Will hold. 4. A fib - Cont home meds 5. COPD - Cont home meds 6. Hyperlipidemia - Cont home meds 7. Hypertension - Cont home meds except hctz. DVT: Elviraquis Review Statement Review Statement: I have personally discussed and reviewed the patient's visit/currently labs/imaging/decision making with Dr. Izaguirre, my supervising attending. Greater that 50 minutes spent with patient, 50% of the time spent with this patient was devoted to counseling and coordination of care.
--- NOTE | 2023-07-20 11:40 | RS.PTINEVL ---
Subjective Patient information Date of Evaluation: 07/20/23 Date of Arrival on Unit: 07/18/23 Admitted From:: Home Diagnosis: pneumonia, weakness Usual Living Arrangement: daughter Home Environment: House, Stairs (few) and Rail Medical History: Hypertension, COPD, Diabetes, CHF, Arthritis and Cancer (breast) Medical History Comments:: CKD, AFib, GERD, Surgical History: Cholecystectomy, Hysterectomy and Mastectomy Surgical History Comments:: R nephrectomy Medications: see chart Subjective Information/ Patient Comments:: pt states she feels steady when she gets up to go to the bathroom. pt states that she does not use AD at home. Daughter reports that pt is independent with ADL's etc at home. 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, Drive and Participated in Social Activities Outside home Current Level of Function: Independent Current Equipment Used at Home: none Interventions Objective Patient Orientation: Person, Place, Time and Situation Current Interventions: IV's and Telemetry Range of Motion ROM Right Upper Extremity AROM: WFL's Left Upper Extremity AROM: WFL's Right Lower Extremity AROM: WFL's Left Lower Extremity AROM: WFL's Muscle Strength Muscle Strength Right Upper Extremity: Mild Weakness (grossly 4 to 4+/5) Left Upper Extremity: Mild Weakness (grossly 4 to 4+/5) Right Lower Extremity: Mild Weakness (grossly 4+/5) Left Lower Extremity: Mild Weakness (grossly 4+/5) Sensation Sensation Right Upper Extremity: Intact/Normal Left Upper Extremity: Intact/Normal Right Lower Extremity: Intact/Normal Left Lower Extremity: Intact/Normal Palpation Palpation Findings: None/Normal Balance Sitting Balance and Reactions Static Sitting Balance: Normal Dynamic Sitting Balance: Normal Standing Balance and Reactions Static Standing Balance: Good Dynamic Standing Balance: Good Functional Mobility Bed Mobility Rolling R/L: Independent Scooting: Independent Supine to Sit: Independent Sit to Supine: Independent Transfers Sit to Stand: Supervision Stand to Sit: Independent Safety Awareness Safety Awareness: Good MARIO INDEX SCORE: n/a Ambulation Ambulation Assistive Device Used: Gait belt Orthotic/Prosthetic Device: No Distance: 110ft Assistance needed with Ambulation: Supervision Ambulation Comments: occasional deviation from path however pt is able to correct. Factors Affecting Ambulation: Decreased Balance, Weakness and Limited Endurance Treatment time Time with patient Length of Evaluation: 19 Total treatment time: 22 Patient Education Education Patient Education: Education of Plan of Care Teaching Recipient: Patient and Family Teaching Methods: Discussion Assessment Assessment Problem List:: Weakness Rehab Potential: Good Further Therapy Indicated?: No Candidate for Swing Bed for Therapy Services?: Feel pt would not be a candidate for swing bed for therapy due to pt is at a high functional level. Evaluation Complexity: HISTORY: Medium, EXAM OF BODY SYSTEMS: Medium, CLINICAL PRESENTATION: Medium and CLINICAL DECISION MAKING: Medium Patient's Goal(s): Go home with my daughter Plan Other:: eval only Frequency of Treatment: One time treatment Duration of Treatment: One Time Treatment Anticipated Discharge Destination: Home Treatment Diagnosis (ICD 10 Codes): weakness M62.81 Has the Physician been added for Co-signature?: Yes
--- NOTE | 2023-07-20 13:52 | RS.OTINEVL ---
Subjective Patient information Date of Evaluation: 07/20/23 Date of Arrival on Unit: 07/18/23 Admitted From:: Home Diagnosis: Pneumonia, viral syndrome, cough PRECAUTIONS: unsteady on feet Usual Living Arrangement: daughter Living Arrangement Comments: LIVES WITH SIGNIFICANT OTHER Home Environment: House, Stairs (few) and Rail Medical History: Hypertension, COPD, Diabetes, CHF, Arthritis and Cancer (breast) Medical History Comments:: CKD, AFib, GERD, Surgical History: Cholecystectomy, Hysterectomy and Mastectomy Surgical History Comments:: R nephrectomy Medications: see chart Subjective Information/ Patient Comments:: "I cook some and she cooks." Level of function Prior to this admission, the patient could do the following:: Independent Selfcare, Independent ADL's, Independent Ambulation, 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 Completes ADLs herself. Current Level of Function: Independent Current Equipment Used at Home: none Interventions Objective Patient Orientation: Person, Place, Time and Situation Observation: Pt able to sit EOB independently. Pt able to stand and walk independently without an AD. She has some unsteadiness. Interventions ROM Right Upper Extremity AROM: WFL's Left Upper Extremity AROM: WFL's Strength Right Upper Extremity: Normal Left Upper Extremity: Normal Comments:: 4+/5 Sensation Right Upper Extremity: Intact/Normal Left Upper Extremity: Intact/Normal Balance Sitting Balance Static Sitting Balance: Good Dynamic Sitting Balance: Good Standing Balance Static Standing Balance: Fair Dynamic Standing Balance: Fair ADL Skills Self Feeding Self Feeding: Independent Grooming Grooming: Independent Bathing Bathing UE: Independent Bathing LE: Independent Bathing Set-up: Shower Dressing Dressing UE: Independent Dressing LE: Independent Toilet Management Toilet Hygiene: Independent Toilet Clothing Management: Independent Functional Mobility Bed Mobility Rolling R/L: Independent Scooting: Independent Supine to Sit: Independent Transfers Sit to Stand: Independent Stand to Sit: Independent Stand Pivot Transfers: Independent Ambulation Weight Bearing Status: FWB Assistive Device Used: No Assistive Device Assistance needed with Ambulation: Independent Safety Awareness Safety Awareness: Good MARIO INDEX SCORE: . Additional Treatment Performed Time with patient Length of Evaluation: 17 Total treatment time: 18 Activities Do you enjoy playing games?: Yes Would you be interested in leaving your room for activities?: Yes Would you enjoy group activities?: No Do you have difficulty with your vision?: No Patient Interests:: Watching Television and Visiting/Socializing Patient Education Patient Education: Education of diagnosis, Home Exercise Program, Home Safety and Education of Plan of Care Teaching Recipient: Patient Teaching Methods: Discussion and Demonstration Assessment Further Therapy Indicated?: No Candidate for Swing Bed for Therapy Services?: Pt too high level functioning. Evaluation Complexity: HISTORY: Medium, EXAM OF BODY SYSTEMS: Medium and CLINICAL DECISION MAKING: Medium Patient's Goal(s): To return home as soon as possible. Short Term Goals Goals GOAL 1: . 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 Plan Frequency of Treatment: Eval only Duration of Treatment: N/A Anticipated Discharge Destination: Home Treatment Diagnosis (ICD 10 Codes): Weakness R53.1 Has the Physician been added for Co-signature?: Yes
[2023-07-20] MEDS: NON-FORMULARY MEDICATION (Fluticasone Propion-Salmeterol [Advair Diskus] 250-50 mcg/dose b IH SCH (14:11)
[2023-07-20] MEDS: DICLOFENAC SODIUM 2 GM TP PRN (14:25)
[2023-07-20] MEDS: DICLOFENAC SODIUM 2 GM TP SCH (15:00)
[2023-07-20] MEDS: BENADRYL PO PRN (22:00)
[2023-07-21 06:16] LABS: BASOPHILS % (AUTO) 0.1 % (0.0-3.0); HEMATOCRIT 27.8 % (37.0-47.0); HEMOGLOBIN 9.5 g/dl (12.0-16.0); IMMATURE GRANULOCYTE % (AUTO) 0.5 % (0.0-5.0); LYMPHOCYTES # (AUTO) 0.9 K/uL (0.60-3.4); MEAN CORPUSCULAR HEMOGLOBIN 30.1 pg (27.0-31.0); MEAN CORPUSCULAR HGB CONC 34.2 (31.8-35.4); MONOCYTES # (AUTO) 0.8 K/uL (0.4-2.0); MONOCYTES % (AUTO) 10.1 (0-10); NEUTROPHILS # (AUTO) 6.3 K/ul (2.0-6.9); NEUTROPHILS % (AUTO) 78.3 % (42.2-75.2); PLATELET COUNT 194 10^3/uL (140-440); RDW COEFFICIENT OF VARIATION 13.3 % (11.6-14.8); RED BLOOD COUNT 3.16 10^6/ul (4.20-5.40)
[2023-07-21 06:29] LABS: ALANINE AMINOTRANSFERASE 15.8 U/L (0-35); ALBUMIN 3.54 g/dL (3.5-5.0); ALKALINE PHOSPHATASE 50.9 U/L (53-141); ASPARTATE AMINO TRANSFERASE 24.2 U/L (14-36); BILIRUBIN,TOTAL 0.39 mg/dL (0.2-1.3); BLOOD UREA NITROGEN 25.9 mg/dL (7-17); CALCIUM 8.55 mg/dL (8.4-10.2); CARBON DIOXIDE 21.5 mmol/L (22-30.0); CREATININE 1.42 mg/dL (0.60-1.30); GLUCOSE 97.9 mg/dL (74-106); SODIUM 131.8 mmol/L (134.5-145); TOTAL PROTEIN 6.32 g/dL (6.3-8.2)
[2023-07-21 08:46] LABS: ABSOLUTE RETICS # 0.0404; RETICULOCYTE % 1.26 %
[2023-07-21 08:51] LABS: IRON 25.5 ug/dL (37-170)
[2023-07-21 09:00] LABS: % IRON SATURATION 14 %; TOTAL IRON BINDING CAPACITY 186 ug/dL (261-497)
--- NOTE | 2023-07-21 09:50 | DCSUM ---
Admission Date Admission Date: 07/18/23 Discharge Date Discharge Date: 07/21/23 Admission Diagnosis Admission Diagnosis: 1. Community acquired pneumonia, right 2. Weakness Discharge Diagnosis Discharge Diagnosis: 1. Community acquired pneumonia, right 2. Weakness - improved 3. Hyponatremia, chronic - d/c'd hctz 4. A fib - Cont home meds 5. COPD - Cont home meds 6. Hyperlipidemia - Cont home meds 7. Hypertension - Cont home meds except hctz. 8. Iron deficiency anemia, chronic Hospital Provider Hospital Provider: JOCELYNE BARAHONA PA-C, [facility] Primary Care Physician Primary Care Physician: NIKKO LAM MD Summary of History and Physical Summary of History and Physical: Patient is a 83 year old female with pmhx of osteoarthritis, COPD/asthma, DMT2, history of breast cancer, CKD, a fib, hypertension, GERD, and CHF who presented to the ER for weakness. Patient states yesterday morning she overall didn't feel well. She woke up with a cough. She slept most of the day. She felt very unsteady, having to hold onto the decker to steady herself. She normally does not use an assistive device to ambulate. Daughter talked her into going to the ER. She lives with daughter. In the ER she was found to have RLL pneumonia, wbc 18, procal 0.54, sodium low, creatinine mildly bumped. She was given fluids and antibiotics. Patient states today she is feeling mildly improved but still weak. Hospital Course Subjective: Patient was treated with azithromycin and rocephin. She also received some IV solumedrol. WBC count normalized. Patient worked with therapy and did well, they did not feel she was a swingbed candidate due to high level of function. Patient did not require O2 during stay. She feels ready for discharge today, states daughter is a nurse and helps her at home. Will discharge on remainder of abx - azith, augmentin, and a medrol dose pack. Pt also received nebulizer and duoneb was sent in for her. Of note, her Na was noted to be low 129-130. Looking back she has been on low end chronically. Stopped her losartan/hctz and changed to just losartan, new script sent in. Hgb also noted to have trended down. No BMs while here. No sign of active bleeding. Iron noted to still be low despite iron supplementation. Ferritin high, although could be skewed due to acute infection. Rec increasing iron supplement and f/u outpatient. Appearance: Pleasant, No Apparent Distress and Alert HEENT: MMM CVS: Other (irregularly irregular ) Abdomen: Soft, Non-Tender and No Distention Respiratory: Other (+mild rhonchi noted ) Extremities: No Edema Vital Signs: Most Recent Vital Signs Temperature 99.6 F 07/21/23 05:06 Temperature Source Oral 07/21/23 05:06 Temperature Source Infrared 07/18/23 20:08 Pulse Rate 79 07/21/23 05:06 Respiratory Rate 18 07/21/23 05:06 Blood Pressure 143/57 H 07/21/23 05:06 Blood Pressure Mean 85 07/21/23 05:06 Blood Pressure Right Arm 118/65 07/18/23 22:48 Blood Pressure Location Right Arm 07/21/23 05:06 Blood Pressure Position Supine 07/21/23 05:06 O2 Sat by Pulse Oximetry 94 L 07/21/23 05:06 Oxygen Delivery Method Room Air 07/21/23 08:00 Height 5 ft 1 in 07/19/23 10:49 Weight 145 lb 5 oz 07/19/23 10:49 Telemetry Type Remote Telemetry 07/21/23 07:00 Telemetry Monitoring Continues 07/21/23 07:00 Irregular Telemetry Rate (Approximate) 60-70 BPM 07/21/23 07:00 Telemetry Heart Rate 60 07/14/17 07:00 Telemetry SPO2 93 07/21/23 07:00 EKG QRS Interval 0.03 L 07/21/23 07:00 Telemetry Strip Reading Afib 07/21/23 07:00 Imaging: EXAM: CHEST TWO VIEWS HISTORY: Cough COMPARISON: AP chest from 11/23/2021 FINDINGS: The heart is mildly enlarged. There is suggestion of a previous left mastectomy with left axillary lucien dissection. The pulmonary vasculature is normal. No pneumothoraces or pleural effusions. There is suggestion of increased opacity in the right lower lobe. The bones are intact. IMPRESSION: 1. Right lower lobe infiltrate suggested. 2. Cardiomegaly. Lab Results Last 24 Hours: 07/21/23 05:55 WBC 8.00 D RBC 3.16 L Hgb 9.5 L Hct 27.8 L MCV 88.0 MCH 30.1 MCHC 34.2 RDW Coeff of Trinity 13.3 Plt Count 194 Immature Gran % (Auto) 0.5 Neut % (Auto) 78.3 H Lymph % (Auto) 11.0 [place] % (Auto) 10.1 H Eos % (Auto) 0.0 Baso % (Auto) 0.1 Reticulocyte % (Auto) 1.26 Neut # (Auto) 6.3 Lymph # (Auto) 0.9 [place] # (Auto) 0.8 Eos # (Auto) 0.0 Baso # (Auto) 0.0 Immature Gran # (Auto) 0.0 Absolute Retic 0.0404 Retic Hgb Equivalent 32.0 Sodium 131.8 L Potassium 4.00 Chloride 101.0 Carbon Dioxide 21.5 L Anion Gap 13.30 BUN 25.9 H Creatinine 1.42 H Estimated GFR (MDRD) 35.00 BUN/Creatinine Ratio 18.23 Glucose 97.9 Calcium 8.55 Iron 25.5 L TIBC 186 L % Saturation 14 Ferritin 539.00 H Total Bilirubin 0.39 AST 24.2 ALT 15.8 Alkaline Phosphatase 50.9 L Total Protein 6.32 Albumin 3.54 Globulin 2.78 Albumin/Globulin Ratio 1.27 Vitamin B12 > 1000 H Discharge Instructions Discharge Planning: Discharge Planning > [address] Sharyn Lam. Discharge Medications: Medications at Discharge (Home Meds & RX) cyanocobalamin (vitamin B-12) 1,000 mcg tablet,extended release (Vitamin B-12 ER) 1,000 mg PO DAILY 08/11/13 latanoprost 0.005 % eye drops 1 drp BOTHEYES BEDTIME 01/21/17 acetaminophen 325 mg tablet 650 mg PO Q6H PRN Pain 08/15/19 fluorometholone 0.1 % eye drops,suspension 1 drp BOTHEYES EVERY OTHER DAY 07/08/20 calcium 600 mg capsule 600 mg PO DAILY 11/23/21 ferrous sulfate 325 mg (65 mg iron) tablet (iron) 325 mg PO BID 11/23/21 cholecalciferol (vitamin D3) 25 mcg (1,000 unit) tablet (Vitamin D3) 2,000 unit PO BEDTIME 09/14/22 albuterol sulfate 90 mcg/actuation aerosol inhaler 2 inh inhalation Q4-6H PRN shortness of breath or wheezing #6.7 grams 10/01/22 brimonidine 0.1 % eye drops 1 drp RIGHTEYE BID 12/17/22 famotidine 20 mg tablet (Pepcid) 20 mg PO BID #60 tabs 02/08/23 ipratropium 20 mcg-albuterol 100 mcg/actuation mist for inhalation (Combivent Respimat) 1 puff inhalation BID PRN Shortness Of Breath #4 grams 03/11/23 gabapentin 100 mg capsule 100 mg PO DAILY #90 caps 04/08/23 pantoprazole 40 mg tablet,delayed release (Protonix) 40 mg PO BID #180 tabs 04/08/23 pravastatin 40 mg tablet 40 mg PO DAILY #90 tabs 04/08/23 amlodipine 5 mg tablet (Norvasc) 5 mg PO BEDTIME #90 tabs 04/13/23 tramadol 50 mg tablet 50 mg PO BID PRN pain #60 tabs 05/25/23 losartan 100 mg-hydrochlorothiazide 12.5 mg tablet (Hyzaar) 1 tab PO DAILY #90 tabs 06/14/23 alprazolam 0.25 mg tablet (Xanax) 0.25 mg PO DAILY PRN Anxiety #90 tabs 06/22/23 apixaban 2.5 mg tablet (Eliquis) 2.5 mg PO BID #60 tabs 06/22/23 sitagliptin phosphate 25 mg tablet (Januvia) 25 mg PO DAILY #30 tabs 06/22/23 fluticasone 250 mcg-salmeterol 50 mcg/dose blistr powdr for inhalation (Advair Diskus) 1 inh inhalation BID #60 ea 07/19/23 diclofenac sodium See Rx Instructions topical .qid PRN Arthritic Pain 07/20/23 Discharge Plan Discharge Discharge Orders: Discharge Patient (ONCE); Ordered 07/21/23 Ordered By: JOCELYNE BARAHONA Activity Restrictions/Additional Instructions: DISCHARGE TO HOME FOLLOW UP WITH PCP WITHIN ONE WEEK NEBULIZER ORDERED DIET: HEART HEALTHY ACTIVITY: TOLERATED, FALL PRECAUTIONS YOUR BLOOD PRESSURE MEDICINE, LOSARTAN/HYDROCHLOROTHIAZIDE COMBINATION PILL, HAS BEEN CHANGED TO JUST LOSARTAN DUE TO YOUR SODIUM BEING MILDLY LOW. A NEW SCRIPT FOR THE LOSARTAN HAS BEEN SENT TO YOUR PHARMACY. PLEASE STOP THE COMBINATION PILL. FINISH ANTIBOTICS Instructions: Community Acquired Pneumonia (DC) Care Plan Goals: Problem: Infection Goal #1: No signs/symptoms of infection Instructions: Monitor for sign/symptoms of infection Monitor temperature Goal #2: White blood cell counts Within Normal Limits Instructions: Obtain labs per physician orders Problem: Impaired Respiratory Status Goal: Exhibit optimal respiratory function Instructions: Activities as tolerated Apply oxygen as ordered Elevate head of bed Notify MD of increased congestion Patient Disposition: HOME WITH FAMILY CARE Prescriptions: New ipratropium-albuterol 0.5 mg-3 mg(2.5 mg base)/3 mL Solution For Nebulization 3 ml NEB RTQ6H PRN (Reason: SOB, WHEEZING) Qty: 30 0RF amoxicillin-pot clavulanate [Augmentin] 500-125 mg tablet 1 tab PO BID 5 Days Qty: 10 0RF azithromycin 250 mg tablet 250 mg PO DAILY 3 Days Qty: 3 0RF Rx Instructions: STARTING TONIGHT methylprednisolone [Medrol (Bryant)] 4 mg tablets,dose pack See Rx Instructions .ROUTE .COMPLEX Qty: 21 0RF Rx Instructions: orally per package directions losartan 100 mg tablet 100 mg PO DAILY Qty: 30 0RF Continued albuterol sulfate 90 mcg/actuation HFA aerosol inhaler 2 inh inhalation Q4-6H PRN (Reason: shortness of breath or wheezing) Qty: 6.7 0RF Combivent Respimat 20-100 mcg/actuation mist 1 puff INHALATION BID PRN (Reason: Shortness Of Breath) Qty: 4 2RF gabapentin 100 mg capsule 100 mg PO DAILY Qty: 90 1RF pravastatin 40 mg tablet 40 mg PO DAILY Qty: 90 1RF pantoprazole [Protonix] 40 mg tablet,delayed release (DR/EC) 40 mg PO BID Qty: 180 1RF amlodipine [Norvasc] 5 mg tablet 5 mg PO BEDTIME Qty: 90 1RF Rx Instructions: START TONIGHT 09/10/2020 tramadol 50 mg tablet 50 mg PO BID PRN (Reason: pain) Qty: 60 2RF fluticasone propion-salmeterol [Advair Diskus] 250-50 mcg/dose blister with device 1 inh INHALATION BID Qty: 60 1RF cyanocobalamin (vitamin B-12) [Vitamin B-12] 1,000 MCG tablet extended release 1,000 mg PO DAILY cholecalciferol (vitamin D3) [Vitamin D3] 25 mcg (1,000 unit) tablet 2,000 unit PO BEDTIME acetaminophen 325 mg Tablet 650 mg PO Q6H PRN (Reason: Pain) fluorometholone 0.1 % Drops,Suspension 1 drp BOTHEYES EVERY OTHER DAY calcium 600 mg Capsule 600 mg PO DAILY ferrous sulfate [iron] 325 mg (65 mg iron) Tablet 325 mg PO BID latanoprost 1 DROP drops 1 drp BOTHEYES BEDTIME Rx Instructions: 0.005% diclofenac sodium See Rx Instructions topical .qid PRN (Reason: Arthritic Pain) Rx Instructions: Apply to skin over affected area topically QID PRN; brimonidine 0.1 % drops 1 drp RIGHTEYE BID famotidine [Pepcid] 20 mg tablet 20 mg PO BID Qty: 60 0RF alprazolam [Xanax] 0.25 mg tablet 0.25 mg PO DAILY PRN (Reason: Anxiety) Qty: 90 1RF Januvia 25 mg tablet 25 mg PO DAILY Qty: 30 5RF Eliquis 2.5 mg tablet 2.5 mg PO BID Qty: 60 5RF Discontinued losartan-hydrochlorothiazide [Hyzaar] 100-12.5 mg tablet 1 tab PO DAILY Qty: 90 1RF Did you review [place] AUDITOR for ALL controlled substances?: Not Applicable Discussed opioids are addictive and Narcan is available by prescription or from pharmacy.: No Condition: Stable Referrals: NIKKO LAM MD [Primary Care Provider] - 07/28/23 10:40 am
[2023-07-21 10:44] VITALS: BP 123/69; PULSE 73; RESP 16; TEMP 97.6
== END 2023-07-21 11:50 | disposition home or self-care (01) | DRG 194 ==
LOC: MEDSURG B 20:07 → ED 20:07 → MEDSURG B 22:35
PROVIDERS: ADMIT Hospitalist; ATTEND Physician Assistant
DX: I50.9 Heart failure, unspecified; D50.9 Iron deficiency anemia, unspecified; Z20.822 Contact with and (suspected) exposure to COVID-19; Z85.3 Personal history of malignant neoplasm of breast; J45.909 Unspecified asthma, uncomplicated; J18.9 Pneumonia, unspecified organism; I48.91 Unspecified atrial fibrillation; E87.1 Hypo-osmolality and hyponatremia; I11.0 Hypertensive heart disease with heart failure; N18.32 Chronic kidney disease, stage 3b; K21.9 Gastro-esophageal reflux disease without esophagitis; E11.22 Type 2 diabetes mellitus with diabetic chronic kidney disease; M19.90 Unspecified osteoarthritis, unspecified site; E78.5 Hyperlipidemia, unspecified; J44.9 Chronic obstructive pulmonary disease, unspecified

== ENCOUNTER 2024-04-12 09:46 | Observation (INO) ==
[2024-04-12 10:19] LABS: BASOPHILS % (AUTO) 0.4 % (0.0-3.0); EOSINOPHILS # (AUTO) 0.1 K/ul (0.0-0.7); HEMATOCRIT 36.3 % (37.0-47.0); HEMOGLOBIN 12.1 g/dl (12.0-16.0); IMMATURE GRANULOCYTE % (AUTO) 0.2 % (0.0-5.0); LYMPHOCYTES # (AUTO) 0.9 K/uL (0.60-3.4); LYMPHOCYTES % (AUTO) 10.7 (10.0-50.0); MEAN CORPUSCULAR HGB CONC 33.3 (31.8-35.4); MEAN CORPUSCULAR VOLUME 89.9 fl (81.0-99.0); MONOCYTES # (AUTO) 0.5 K/uL (0.4-2.0); MONOCYTES % (AUTO) 5.6 (0-10); NEUTROPHILS # (AUTO) 6.7 K/ul (2.0-6.9); NEUTROPHILS % (AUTO) 82.1 % (42.2-75.2); PLATELET COUNT 270 10^3/uL (140-440); RDW COEFFICIENT OF VARIATION 13.2 % (11.6-14.8); RED BLOOD COUNT 4.04 10^6/ul (4.20-5.40); WHITE BLOOD COUNT 8.16 K/ul (4.6-10.2)
[2024-04-12] MEDS: ASPIRIN CHEWABLE PO ONE (10:25)
[2024-04-12] MEDS: NITROSTAT SL PRN (10:26)
--- NOTE | 2024-04-12 10:27 | ED.PDOC ---
General ED Provider: Dr. LEBRON FONTANA MD Chief Complaint: Chest Pain Stated Complaint: Pt states she has had mid upper back pain for the past week. Denies any fall or trauma. States it is not worse with position or movement. She has seen her PCP, Dr. Izaguirre and had xrays and CT done and is scheduled for an MRI this upcoming Wednesday. She has been taking gabapentin, tylenol, and tramadol for pain. States she developed anterior chest pain yesterday. Pain to center of chest, "just feels like pain", is constant, and has worsened since starting. She denies any aggravating or alleviating factors. She denies SOB. [place] a little nauseated this morning. No cough, fever or recent illness. She has h/o afib and takes eliquis, but has not taken her medications this morning. Has never had a stress test or heart catheterization. Time Seen by Provider: 04/12/24 09:47 Mode of Arrival: Walk-In Information Source: Patient and Family Exam Limitations: No limitations Primary Care Provider: NIKKO IZAGUIRRE MD Nursing and Triage Documentation Reviewed and Agree: Yes Does Patient Take Opioids?: Yes Is Patient Opioid Naive?: Yes What is Opioid Naive?: *Opioid Naive implies the patient is not already taking opioids or not chronically receiving opioids on a daily basis. *PRN dosing is not "usually" associated with tolerance. *Patients are at higher risk of over-sedation and aspiration. Is Patient Opioid Tolerant?: No What is Opioid Tolerant?: *Opioid Tolerance implies less than the expected response to an opioid. *Acquired tolerance is defined by the patient taking 60mg of oral morphine daily (or equianalgesic dose of another opioid) for 1 week or more. *Often associated with chronic pain. *May take more than usual dose to achieve desired pain control. Cardiovascular Complaint Exam Chest Pain Complaint/Exam Onset: Gradual Symptoms Are: Still present Timing: Constant Initial Severity: Mild Current Severity: Moderate Location: Reports Midsternal Aggravating: Reports None Alleviating: Reports None Associated Signs and Symptoms: Reports Nausea and Back pain; Denies Diaphoresis, Vomiting, Fever, Cough, Abdominal pain or Short of air Recent Stress Test: No Review of Systems Review Of Systems Constitutional: Denies Chills or Fever Eyes: Reports No symptoms Ears, Nose, Mouth, Throat: Reports No symptoms Respiratory: Denies Cough or Shortness of Breath Cardiac: Reports Chest pain and Irregular heart rate; Denies Edema or Syncope GI: Reports Nausea; Denies Vomiting Musculoskeletal: Reports Back pain Skin: Reports No symptoms Neurological: Reports No symptoms Hematologic/Lymphatic: Reports No symptoms All Other Systems: Reviewed and Negative [facility] Medical History Atrial fibrillation, new onset I48.91 - Unspecified atrial fibrillation (ICD-10) Diabetes mellitus, type 2 E11.9 - Type 2 diabetes mellitus without complications (ICD-10) Breast cancer C50.919 - Malignant neoplasm of unspecified site of unspecified female breast (ICD-10) Renal cell carcinoma with R nephrectomy C64.9 - Malignant neoplasm of unspecified kidney, except renal pelvis (ICD- 10) Asthma J45.909 - Unspecified asthma, uncomplicated (ICD-10) Afib I48.91 - Unspecified atrial fibrillation (ICD-10) Anxiety F41.9 - Anxiety disorder, unspecified (ICD-10) Family History FATHER Heart attack Mother Breast cancer Social History Smoking and tobacco status: Never smoker Alcohol intake: never Substance use type: does not use Special cynthia needs: No Agree to transfusion: Yes Adopted: No Caregiver/support person: No Foster care: No Household members: none Housing: house Marital status: W / Lives independently: Yes Daycare: no daycare Number of children: 5 service: No intermediate: No Current occupational status: retired Pets and animals: No History of recent travel: No Do you think of yourself as: straight/heterosexual Current gender identity: female Seatbelt use: always Drives intoxicated or rides with intoxicated milk delivery driver: No Water heater temperature set < 120 degrees: Yes Working smoke detector in home: Yes Fire extinguisher in home: No Carbon monoxide detector in home: Yes Surgical History H/O right nephrectomy Z90.5 - Acquired absence of kidney (ICD-10) H/O mastectomy LEFT SIDE Z90.10 - Acquired absence of unspecified breast and nipple (ICD-10) H/O: hysterectomy Z90.710 - Acquired absence of both cervix and uterus (ICD-10) History of cholecystectomy Z90.49 - Acquired absence of other specified parts of digestive tract (ICD- 10) History of nephrectomy, right Z90.5 - Acquired absence of kidney (ICD-10) Female Reproductive History Menstrual Hx Hysterectomy: No Hx Tubal Ligation: No Physical Exam Physical Exam Appearance: Reports Well-appearing, No pain distress and Well-nourished Ill-appearing: None Pain Distress: None Eyes: Reports Conjunctiva clear ENT: Reports Nose normal Neck: Supple Respiratory: Reports Airway patent, Breath sounds clear, Breath sounds equal and Respirations nonlabored Cardiovascular: Reports Pulses normal, No rub, Irregular rhythm and Murmur; Denies Abnormal pulses GI/: Reports Soft, Nontender and No masses Musculoskeletal: Reports No edema and Other (No midline T spine tenderness or swelling noted. ) Skin: Reports Warm, Dry and Normal color Neurological: Reports Alert and Oriented Psychiatric: Reports Affect appropriate Interpretation EKG Interpretation EKG Interpretation By: ED Physician Time of EKG #1: 10:04 Rate: Normal Rhythm: Other (afib) Ectopy: None Mentor: Left ST Segment: Normal Interpretation: No ST-T changes, Q waves inferiorly, poor R wave progression Radiology Interpretation Radiology Interpretation By: ED Physician Radiology Results: No acute changes Exam Interpreted: Portable CXR Re-Evaluation Re-Evaluation Time of Re-Evaluation: 11:00 Status: Improved Vital Signs Stable: Yes Pain Level: pain slightly improved after one NTG, now 6-7. BP dropped to SBP 115. Physician Notification Case Discussed Physician Notified: KWAN Lambert Time of Notification: 13:08 Physician Notified: Dr. George Izaguirre Time of Notification: 13:08 Admit To: Observation Course Course 04/12/24 10:13 04/12/24 10:13 Orders, Labs, Meds: Lab Review 04/12/24 10:13 WBC 8.16 RBC 4.04 L Hgb 12.1 Hct 36.3 L MCV 89.9 MCH 30.0 MCHC 33.3 RDW Coeff of Trinity 13.2 Plt Count 270 Immature Gran % (Auto) 0.2 Neut % (Auto) 82.1 H Lymph % (Auto) 10.7 [place] % (Auto) 5.6 Eos % (Auto) 1.0 Baso % (Auto) 0.4 Neut # (Auto) 6.7 Lymph # (Auto) 0.9 [place] # (Auto) 0.5 Eos # (Auto) 0.1 Baso # (Auto) 0.0 Immature Gran # (Auto) 0.0 Sodium 135.3 Potassium 3.96 Chloride 99.0 Carbon Dioxide 25.7 Anion Gap 14.56 BUN 16.1 Creatinine 1.45 H Estimated GFR (MDRD) 34.00 BUN/Creatinine Ratio 11.10 Glucose 125.2 H Calcium 9.99 Total Bilirubin 0.44 AST 24.9 ALT 17.2 Alkaline Phosphatase 74.5 Troponin I < 0.012 NT-Pro-B Natriuret Pep 1980 H Total Protein 7.65 Albumin 4.81 Globulin 2.84 Albumin/Globulin Ratio 1.69 Orders Category Date Time Status EKG-(ED ONLY) Stat CARDIO 04/12/24 10:10 Completed NPO REMINDER: IMAGING ONCE CARE 04/12/24 10:52 Active ED APPLY O2 .ONCE EMERGENCY 04/12/24 10:10 Active ED SIGN ERECTOR AND REPAIRER APPLIED .ONCE EMERGENCY 04/12/24 10:10 Active CBC W/ AUTO DIFF Stat LAB 04/12/24 10:13 Completed COMPREHENSIVE METABOLIC PANEL Stat LAB 04/12/24 10:13 Completed NT-PROBNP(ED) Stat LAB 04/12/24 10:13 Completed TROPONIN I Stat LAB 04/12/24 10:13 Completed Aspirin [Aspirin Chewable] Meds 04/12/24 10:10 Discontinued 324 mg PO ONCE ONE Morphine Sulfate [Morphine 2 mg/ml Syringe] Meds 04/12/24 10:57 Discontinued 2 mg IVP ONCE ONE Nitroglycerin [Nitrostat] Meds 04/12/24 10:10 Active 0.4 mg SL Q5MIN X 3 DOSES PRN CHEST, 1V AP ONLY Stat RADS 04/12/24 10:10 Completed CTA ANGIO CHEST Stat RADS 04/12/24 10:52 Completed Medications Generic Name Dose Route Start Last Admin Trade Name Freq PRN Reason Stop Dose Admin Nitroglycerin 0.4 mg 04/12/24 10:10 04/12/24 10:26 Nitroglycerin 0.4 Mg Tab.Subl SL 0.4 mg Q5MIN X 3 DOSES PRN Administration Chest Pain Discontinued Medications Generic Name Dose Route Start Last Admin Trade Name Freq PRN Reason Stop Dose Admin Aspirin 324 mg 04/12/24 10:10 04/12/24 10:25 Aspirin 81 Mg Tab.Chew PO 04/12/24 10:11 324 mg ONCE ONE Administration Morphine Sulfate 2 mg 04/12/24 10:57 04/12/24 11:44 Morphine Sulfate 2 Mg/Ml Syringe IVP 04/12/24 10:58 2 mg ONCE ONE Administration Vital Signs: Temp Pulse Resp BP Pulse Ox 04/12/24 09:48 97.5 F L 71 16 179/98 H 100 KELLY Risk Score KELLY Risk Score: Risk Score Odds of by 30D 0 0.1 (0.1-0.2) 1 0.3 (0.2-0.3) 2 0.4 (0.3-0.5) 3 0.7 (0.6-0.9) 4 1.2 (1.0-1.5) 5 2.2 (1.9-2.6) 6 3.0 (2.5-3.6) 7 4.8 (3.8-6.1) Physician Progress Note: Cardiac work up initiated. Initial EKG shows rate controlled afib with no ST changes. Pt was given ASA since no eliquis this morning and one dose of NTG. Pain improved slightly from 8 to 6, but SBP dropped to 115, so held off on additional NTG. CXR unremarkable and reviewed by me. Labs show elevated creatinine, but in baseline range for patient when prior labs reviewed. Troponin negative. BNP elevated, but clinically no evidence of fluid overload and CXR does not show any pulmonary edema. I reviewed her prior imaging - she had noncontrasted chest CT done beginning of January, sacrum and coccyx xrays and noncontrasted abdomen and pelvis CTs done this month that were all negative for acute process. Given her new chest pain radiating to upper back, will get a CTA to r/o dissection. Pt is concerned due to only having one kidney; after discussion of risks and benefits, pt and family has agreed to proceed with CTA at this time. 1300 - CTA negative for aortic dissection or other acute process. Pt states she is feeling better after morphine "but still not great". HEART score 4. We discussed admission for further cardiad w/u vs discharge with close outpt fu with Dr. Izaguirre, and she feels more comfortable with admission and inpatient w/u. I discussed with hospitalist KWAN, who agrees with this plan. Discharge Plan Discharge Patient Disposition: ADMITTED INPATIENT Discharge Problem: Chest pain, Chronic kidney insufficiency, Atrial fibrillation Prescriptions: No Action albuterol sulfate 90 mcg/actuation HFA aerosol inhaler 2 inh inhalation Q4-6H PRN (Reason: shortness of breath or wheezing) Qty: 6.7 0RF Combivent Respimat 20-100 mcg/actuation mist 1 puff INHALATION BID PRN (Reason: Shortness Of Breath) Qty: 4 2RF fluticasone propion-salmeterol 250-50 mcg/dose blister with device See Rx Instructions .ROUTE .COMPLEX Qty: 60 2RF Dose Instruction: INHALE 1 PUFF BY MOUTH 2 TIMES A DAY Rx Instructions: INHALE 1 PUFF BY MOUTH 2 TIMES A DAY ipratropium-albuterol 0.5 mg-3 mg(2.5 mg base)/3 mL solution for nebulization 3 ml NEB RTQ6H PRN (Reason: COPD J44.9) Qty: 90 1RF Eliquis 2.5 mg tablet 2.5 mg PO BID Qty: 60 2RF Januvia 25 mg tablet 25 mg PO DAILY Qty: 30 2RF cyanocobalamin (vitamin B-12) [Vitamin B-12] 1,000 MCG tablet extended release 1,000 mg PO DAILY cholecalciferol (vitamin D3) [Vitamin D3] 25 mcg (1,000 unit) tablet 2,000 unit PO BEDTIME acetaminophen 325 mg Tablet 650 mg PO Q6H PRN (Reason: Pain) fluorometholone 0.1 % Drops,Suspension 1 drp BOTHEYES EVERY OTHER DAY calcium 600 mg Capsule 600 mg PO DAILY ferrous sulfate [iron] 325 mg (65 mg iron) Tablet 325 mg PO BID latanoprost 1 DROP drops 1 drp BOTHEYES BEDTIME Rx Instructions: 0.005% diclofenac sodium See Rx Instructions topical .qid PRN (Reason: Arthritic Pain) Rx Instructions: Apply to skin over affected area topically QID PRN; alprazolam [Xanax] 0.25 mg tablet 0.25 mg PO DAILY PRN (Reason: Anxiety) Qty: 90 1RF amlodipine [Norvasc] 5 mg tablet 5 mg PO BEDTIME Qty: 90 1RF nebulizer See Rx Instructions .ROUTE .COMPLEX Qty: 1 0RF Rx Instructions: [id number]; (DME) nebulizer accessories Kit See Rx Instructions .ROUTE Qty: 1 0RF Rx Instructions: As directed brimonidine 0.1 % drops 1 drp RIGHTEYE BID famotidine 20 mg tablet 20 mg PO BID gabapentin 100 mg capsule 100 mg PO QDAY losartan 100 mg tablet 100 mg PO QDAY pantoprazole 40 mg tablet,delayed release (DR/EC) 40 mg PO BID pravastatin 40 mg tablet 40 mg PO QDAY tramadol 50 mg tablet 50 mg PO TID PRN (Reason: pain) Qty: 90 2RF Did you review [place] SOLAR [employer] SALES SPECIALIST for ALL controlled substances?: Not Applicable ED Provider: LEBRON FONTANA Condition: Stable
[2024-04-12 10:31] LABS: ALANINE AMINOTRANSFERASE 17.2 U/L (0-35); ALBUMIN 4.81 g/dL (3.5-5.0); ALKALINE PHOSPHATASE 74.5 U/L (53-141); ASPARTATE AMINO TRANSFERASE 24.9 U/L (14-36); BILIRUBIN,TOTAL 0.44 mg/dL (0.2-1.3); BLOOD UREA NITROGEN 16.1 mg/dL (7-17); CALCIUM 9.99 mg/dL (8.4-10.2); CARBON DIOXIDE 25.7 mmol/L (22-30.0); CREATININE 1.45 mg/dL (0.60-1.30); GLUCOSE 125.2 mg/dL (74-106); POTASSIUM 3.96 mmol/L (3.5-5.1); SODIUM 135.3 mmol/L (134.5-145); TOTAL PROTEIN 7.65 g/dL (6.3-8.2)
[2024-04-12 10:43] LABS: TROPONIN I < 0.012 ng/ml (0.0000-0.120)
--- NOTE | 2024-04-12 10:46 | DI ---
EXAM: CHEST ONE VIEW, FRONTAL VIEW ONLY. HISTORY: Chest pain. COMPARISON: 01/27/2024. FINDINGS: The heart size is normal. There is no pulmonary vascular congestion. The lungs are clear save for calcified granulomatous changes. No pleural effusion or pneumothorax is seen. No acute os seous abnormality is identified. Postsurgical changes of the left breast and axilla again noted. Cl ips noted in the right abdomen. Since the prior study, there has been no significant interval change . IMPRESSION: No acute cardiopulmonary process.
[2024-04-12] MEDS: MORPHINE 2 MG/ML SYRINGE IVP ONE (11:44)
--- NOTE | 2024-04-12 12:15 | CT ---
EXAM: CT ANGIOGRAM CHEST. HISTORY: Mid chest pain radiating to the back. Evaluate for aortic dissection. COMPARISON: Radiograph earlier the same day. CT 01/27/2024. TECHNIQUE: Multiple axial images of the chest were obtained following intravenous administration of 50 mL Visipaque 320, low osmolar. Images reformatted in the sagittal and coronal planes. Three-dime nsional reconstructed images were created on an independent workstation. FINDINGS: Small low-density left thyroid nodule Nonenlarged mediastinal and hilar lymph nodes, some calcified. Heart is enlarged. Small pericardial effusion noted, greater volume posteriorly. Coronary artery an d aortic calcifications are present. The thoracic aorta measures up to 3 cm diameter. There is no aortic dissection or periaortic hemorrh age. There are minimal atherosclerotic calcifications in the aorta. There is tortuosity of the desc ending aorta. Aortic valvular calcifications noted. Origins of the great vessels are patent. There is some tortuosity of the right axillary artery with associated areas of narrowing, note series 5 images 22 and 32, with similar findings on the left on i mages 24 and 29. There is no hemodynamically significant stenosis of the celiac, superior mesenteric or left renal arteries. Right kidney has been resected. Dependent atelectasis in both lower lobes. Stable anterior right lung scarring. No pleural effusion or pneumothorax identified. Homogeneous 1.2 cm cystic lesion of the superior pancreatic tail series 9 image 85 and additional cys tic lesion in the region of the uncinate process measuring 1.4 cm on image 113 are both stable from r ecent abdominal imaging. Left mastectomy changes noted. Degenerative changes present throughout the spine. Heterogeneous bone mineralization noted. IMPRESSION: 1. No aortic dissection or other acute abnormality of the chest. 2. Cardiomegaly. Small pericardial effusion. 3. Ancillary findings as described. All CT scans are performed using dose optimization techniques as appropriate to the performed exam an d include at least one of the following: Automated exposure control, adjustment of the mA and/or kV according t o size, and the use of iterative reconstruction technique.
[2024-04-12 13:48] LABS: SARS COV-2 RNA RAPID NAAT NEGATIVE (NEGATIVE)
--- NOTE | 2024-04-12 14:10 | PCM ---
Date of Service Date Seen by Provider: 04/12/24 Time Seen by Provider: 15:00 Admit Day/Time Admission Date: 04/12/24 Admission Time: 13:38 Reason for Admission Chief Complaint: CHEST PAIN Hospital Provider Hospital Provider: JOCELYNE BARAHONA PA-C, [facility] [place] Primary Care Physician: NIKKO IZAGUIRRE MD History of Present Illness History of Present Illness: Patient is an 83 year old female with pmhx of a fib, COPD, DMT2, hypertension, hyperlipidemia, who presents from home for worsening chest/back discomfort. She states that she has been having thoracic back pain near her bra line for the past 1 week. She saw her PCP and was instructed to take tramadol. She states that this has not helped much. Then yesterday it worsened and felt more like chest pain in her chest. She denies history of [place] or heart catheterization. She states she had a stress test a few years ago. She has a hard time characterizing the pain, states "it just hurts". She was given nitro in the ER which she states helped. She states she has also been taking Pepcid which has helped as well. Denies any nausea or vomiting or diaphoresis. Denies smoking. Lives at home with her daughter. In ER chest x-ray was negative, CTA chest was done despite her lower GFR due to concern for aortic dissection. Imaging was unremarkable. Trop was negative. No significant changes on EKG. She is in A-fib which is typical for her. Admitted to [facility] for chest pain rule out. Case Discussed With Case Discussed With: Patient's case was discussed with the ER Physicians, Dr. Weber. [facility] Medical History Atrial fibrillation, new onset I48.91 - Unspecified atrial fibrillation (ICD-10) Diabetes mellitus, type 2 E11.9 - Type 2 diabetes mellitus without complications (ICD-10) Breast cancer C50.919 - Malignant neoplasm of unspecified site of unspecified female breast (ICD-10) Renal cell carcinoma with R nephrectomy C64.9 - Malignant neoplasm of unspecified kidney, except renal pelvis (ICD- 10) Asthma J45.909 - Unspecified asthma, uncomplicated (ICD-10) Afib I48.91 - Unspecified atrial fibrillation (ICD-10) Anxiety F41.9 - Anxiety disorder, unspecified (ICD-10) Surgical History H/O right nephrectomy Z90.5 - Acquired absence of kidney (ICD-10) H/O mastectomy LEFT SIDE Z90.10 - Acquired absence of unspecified breast and nipple (ICD-10) H/O: hysterectomy Z90.710 - Acquired absence of both cervix and uterus (ICD-10) History of cholecystectomy Z90.49 - Acquired absence of other specified parts of digestive tract (ICD- 10) History of nephrectomy, right Z90.5 - Acquired absence of kidney (ICD-10) Family History FATHER Heart attack Mother Breast cancer Social History Smoking and tobacco status: Never smoker Alcohol intake: never Substance use type: does not use Special cynthia needs: No Agree to transfusion: Yes Adopted: No Caregiver/support person: No Foster care: No Household members: none Housing: house Marital status: W / Lives independently: Yes Daycare: no daycare Number of children: 5 service: No snf: No Current occupational status: retired Pets and animals: No History of recent travel: No Do you think of yourself as: straight/heterosexual Current gender identity: female Seatbelt use: always Drives intoxicated or rides with intoxicated [employer] 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 Water heater temperature set < 120 degrees: Yes Working smoke detector in home: Yes Fire extinguisher in home: No Carbon monoxide detector in home: Yes Allergies Allergies Allergy/AdvReac Type Severity Reaction Status Date / Time budesonide [From Symbicort] AdvReac Mild CHEST Verified 04/12/24 09:53 FLUTTER formoterol [From Symbicort] AdvReac Mild CHEST Verified 04/12/24 09:53 FLUTTER Current Medications Home Medications cyanocobalamin (vitamin B-12) 1,000 mcg tablet,extended release (Vitamin B-12 ER) 1,000 mg PO DAILY 08/11/13 [History Confirmed 04/12/24 Last Taken 04/11/24] latanoprost 0.005 % eye drops 1 drp BOTHEYES BEDTIME 01/21/17 [History Confirmed 04/12/24 Last Taken 04/11/24] acetaminophen 325 mg tablet 650 mg PO Q6H PRN Pain 08/15/19 [History Confirmed 04/12/24 Last Taken 01/07/24 08:30] fluorometholone 0.1 % eye drops,suspension 1 drp BOTHEYES EVERY OTHER DAY 07/08/20 [History Confirmed 04/12/24 Last Taken 04/11/24] calcium 600 mg capsule 600 mg PO DAILY 11/23/21 [History Confirmed 04/12/24 Last Taken 04/11/24] ferrous sulfate 325 mg (65 mg iron) tablet (iron) 325 mg PO BID 11/23/21 [History Confirmed 04/12/24 Last Taken 04/11/24] cholecalciferol (vitamin D3) 25 mcg (1,000 unit) tablet (Vitamin D3) 2,000 unit PO BEDTIME 09/14/22 [History Confirmed 04/12/24 Last Taken 04/11/24] albuterol sulfate 90 mcg/actuation aerosol inhaler 2 inh inhalation Q4-6H PRN shortness of breath or wheezing #6.7 grams 10/01/22 [Rx Confirmed 04/12/24 Last Taken Unknown] brimonidine 0.1 % eye drops 1 drp RIGHTEYE BID 12/17/22 [History Confirmed 04/12/24 Last Taken 04/11/24] diclofenac sodium See Rx Instructions topical .qid PRN Arthritic Pain 07/20/23 [History Confirmed 04/12/24 Last Taken 07/17/23] ipratropium 20 mcg-albuterol 100 mcg/actuation mist for inhalation (Combivent Respimat) 1 puff inhalation BID PRN Shortness Of Breath #4 grams 12/08/23 [Rx Confirmed 04/12/24 Last Taken Unknown] fluticasone 250 mcg-salmeterol 50 mcg/dose blistr powdr for inhalation See Rx Instructions .Route .COMPLEX #60 blisters 12/15/23 [Rx Confirmed 04/12/24 Last Taken 04/11/24] ipratropium 0.5 mg-albuterol 3 mg (2.5 mg base)/3 mL nebulization soln 3 ml NEB RTQ6H PRN COPD J44.9 #90 mL 02/21/24 [Rx Confirmed 04/12/24 Last Taken Unknown] alprazolam 0.25 mg tablet (Xanax) 0.25 mg PO DAILY PRN Anxiety #90 tabs 02/29/24 [Rx Confirmed 04/12/24 Last Taken 04/11/24] amlodipine 5 mg tablet (Norvasc) 5 mg PO BEDTIME #90 tabs 02/29/24 [Rx Confirmed 04/12/24 Last Taken 04/11/24] apixaban 2.5 mg tablet (Eliquis) 2.5 mg PO BID #60 tabs 02/29/24 [Rx Confirmed 04/12/24 Last Taken 04/11/24] nebulizer See Rx Instructions .Route .COMPLEX #1 kit 02/29/24 [Rx Confirmed 04/12/24 Last Taken Unknown] nebulizer accessories #1 ea 02/29/24 [Rx Confirmed 04/12/24 Last Taken Unknown] famotidine 20 mg tablet 20 mg PO BID 03/28/24 [History Confirmed 04/12/24 Last Taken 04/11/24] gabapentin 100 mg capsule 100 mg PO QDAY 03/28/24 [History Confirmed 04/12/24 Last Taken 04/11/24] losartan 100 mg tablet 100 mg PO QDAY 03/28/24 [History Confirmed 04/12/24 Last Taken 04/11/24] pantoprazole 40 mg tablet,delayed release 40 mg PO BID 03/28/24 [History Confirmed 04/12/24 Last Taken 04/11/24] pravastatin 40 mg tablet 40 mg PO QDAY 03/28/24 [History Confirmed 04/12/24 Last Taken 04/11/24] sitagliptin phosphate 25 mg tablet (Januvia) 25 mg PO DAILY #30 tabs 03/28/24 [Rx Confirmed 04/12/24 Last Taken 04/11/24] tramadol 50 mg tablet 50 mg PO TID PRN pain #90 tabs 03/28/24 [Rx Confirmed 04/12/24 Last Taken Unknown] Home Acetaminophen (Acetaminophen 325 Mg Tablet) 650 mg PO Q4H PRN PRN Reason: Mild Pain Albuterol Sulfate (Albuterol Sulfate 8 Gm Inhaler) 2 puff IH Q4-6H PRN PRN Reason: sob Albuterol/Ipratropium (Ipratropium/Albuterol Vial.Neb) 3 ml NEB RTQ6H PRN PRN Reason: sob Alprazolam (Alprazolam 0.25 Mg Tablet) 0.25 mg PO DAILY PRN PRN Reason: Anxiety Amlodipine Besylate (Amlodipine Besylate 5 Mg Tablet) 5 mg PO BEDTIME [facility] Apixaban (Apixaban 5 Mg Tab) 2.5 mg PO BID [facility] Calcium/Vitamin D (Calcium Carbonate/Vitamin D3 500 Mg/5 Mcg(200iu) 1 Each Tablet) 1 each PO DAILY [facility] Cholecalciferol (Cholecalciferol (Vitamin D3) 1,000 Unit (25 Mcg) Tablet) 2,000 unit PO BEDTIME [facility] Famotidine (Famotidine 20 Mg Tablet) 20 mg PO EVERY OTHER DAY [facility] Ferrous Sulfate (Ferrous Sulfate 324 Mg Tablet.) 324 mg PO BIDAC2 [facility] Gabapentin (Gabapentin 100 Mg Capsule) 100 mg PO DAILY [facility] Latanoprost (Latanoprost 2.5 Ml Opth Destiney) 1 drop EACHEYE BEDTIME [facility] Losartan Potassium (Losartan Potassium 100 Mg Tablet) 100 mg PO DAILY [facility] Nitroglycerin (Nitroglycerin 0.4 Mg Tab.Subl) 0.4 mg SL Q5MIN X 3 DOSES PRN PRN Reason: Chest Pain Last Admin: 04/12/24 10:26 Dose: 0.4 mg Non-Formulary Medication (Fluticasone Propion-Salmeterol) 1 inh INH BID [facility] Non-Formulary Medication (Brimonidine) 1 drop RIGHTEYE BID [facility] Non-Formulary Medication (Fluorometholone) 1 drop EACHEYE EVERY OTHER DAY [facility] Ondansetron HCl (Ondansetron Hcl/Pf 4 Mg/2 Ml Sdv) 4 mg IVP Q6H PRN PRN Reason: Nausea / Vomiting Pantoprazole Sodium (Pantoprazole Sodium 40 Mg Tablet.) 40 mg PO BIDAC2 [facility] Pravastatin Sodium (Pravastatin Sodium 40 Mg Tablet) 40 mg PO DAILY [facility] Sitagliptin Phosphate (Sitagliptin Phosphate 50 Mg Tablet) 25 mg PO DAILY [facility] Tramadol HCl (Tramadol Hcl 50 Mg Tablet) 50 mg PO TID PRN PRN Reason: MODERATE PAIN Discontinued Medications Aspirin (Aspirin 81 Mg Tab.Chew) 324 mg PO ONCE ONE Stop: 04/12/24 10:11 Last Admin: 04/12/24 10:25 Dose: 324 mg Famotidine (Famotidine Inj 20 Mg/2 Ml Vial) 20 mg IVP ONCE ONE Stop: 04/12/24 15:05 Last Admin: 04/12/24 15:43 Dose: 20 mg Lidocaine HCl (Lidocaine Viscous 15 Ml Cup) 15 ml MUCOUSMEMB ONCE ONE Stop: 04/12/24 15:43 Last Admin: 04/12/24 16:14 Dose: 15 ml Morphine Sulfate (Morphine Sulfate 2 Mg/Ml Syringe) 2 mg IVP ONCE ONE Stop: 04/12/24 10:58 Last Admin: 04/12/24 11:44 Dose: 2 mg Pantoprazole Sodium (Pantoprazole Sodium 40 Mg Vial) 40 mg IVP ONCE ONE Stop: 04/12/24 15:05 Last Admin: 04/12/24 15:44 Dose: 40 mg Pantoprazole Sodium (Pantoprazole Sodium 40 Mg Tablet.Dr) 40 mg PO BIDAC2 [facility] Opioid Naive vs. Tolerant Does Patient Take Opioids?: No Is Patient Opioid Naive?: Yes What is Opioid Naive?: *Opioid Naive implies the patient is not already taking opioids or not chronically receiving opioids on a daily basis. *PRN dosing is not "usually" associated with tolerance. *Patients are at higher risk of over-sedation and aspiration. Is Patient Opioid Tolerant?: No What is Opioid Tolerant?: *Opioid Tolerance implies less than the expected response to an opioid. *Acquired tolerance is defined by the patient taking 60mg of oral morphine daily (or equianalgesic dose of another opioid) for 1 week or more. *Often associated with chronic pain. *May take more than usual dose to achieve desired pain control. Review of Systems Constitutional: Denies Fever Throat: Denies Sore Throat Cardiovascular: Reports Chest pain and Irregular Heartbeat; Denies Edema Respiratory: Denies Cough or Shortness of air Gastrointestinal: Denies Nausea, Vomiting, Diarrhea, Abdominal pain or Melena Genitourinary: Denies Dysuria or Frequency Neurological: Denies Headache or Dizziness Physical examination Most Recent Vital Signs: Most Recent Vital Signs Temperature 97.5 F L 04/12/24 09:48 Temperature Source Infrared 04/12/24 09:48 Pulse Rate 71 04/12/24 09:48 Respiratory Rate 16 04/12/24 09:48 Blood Pressure 179/98 H 04/12/24 09:48 O2 Sat by Pulse Oximetry 100 04/12/24 09:48 Height 5 ft 2 in 04/12/24 09:48 Weight 66.7 kg 04/12/24 09:48 Telemetry Heart Rate 60 04/06/24 09:02 Telemetry SPO2 93 04/06/24 09:02 Appearance: Positive Well-appearing, Well-nourished, No Apparent Distress and Alert and Oriented x3 Skin: Positive [place], Warm, Good Turgor and Good Color; Negative Rashes HEENT: Positive Normocephalic and Atraumatic Neck: Positive Supple and Midline Trachea Chest/Lungs: Positive Clear to Auscultation Bilaterally; Negative Rales, Rhonci or Wheezes Heart: Positive Irregular Rhythm GI/: Positive Soft, Nontender, Bowel Sounds Normal and No Distention Neurological: Positive Cranial Nerves Intact, Alert and Oriented Psychiatric: Positive Oriented x4, Appropriate Mood and Appropriate Affect Labs This Visit Labs This Visit: Labs This Visit 04/12/24 04/12/24 10:13 13:15 WBC 8.16 RBC 4.04 L Hgb 12.1 Hct 36.3 L MCV 89.9 MCH 30.0 MCHC 33.3 RDW Coeff of [place] 13.2 Plt Count 270 Immature Gran % (Auto) 0.2 Neut % (Auto) 82.1 H Lymph % (Auto) 10.7 [place] % (Auto) 5.6 Eos % (Auto) 1.0 Baso % (Auto) 0.4 Neut # (Auto) 6.7 Lymph # (Auto) 0.9 [place] # (Auto) 0.5 Eos # (Auto) 0.1 Baso # (Auto) 0.0 Immature Gran # (Auto) 0.0 Sodium 135.3 Potassium 3.96 Chloride 99.0 Carbon Dioxide 25.7 Anion Gap 14.56 BUN 16.1 Creatinine 1.45 H Estimated GFR (MDRD) 34.00 BUN/Creatinine Ratio 11.10 Glucose 125.2 H Calcium 9.99 Total Bilirubin 0.44 AST 24.9 ALT 17.2 Alkaline Phosphatase 74.5 Troponin I < 0.012 NT-Pro-B Natriuret Pep 1980 H Total Protein 7.65 Albumin 4.81 Globulin 2.84 Albumin/Globulin Ratio 1.69 SARS CoV-2 RNA Rapid NICOLE Negative Imaging Imaging: EXAM: CT ANGIOGRAM CHEST. HISTORY: Mid chest pain radiating to the back. Evaluate for aortic dissection. COMPARISON: Radiograph earlier the same day. CT 01/27/2024. TECHNIQUE: Multiple axial images of the chest were obtained following intravenous administration of 50 mL Visipaque 320, low osmolar. Images reformatted in the sagittal and coronal planes. Three-dimensional reconstructed images were created on an independent workstation. FINDINGS: Small low-density left thyroid nodule Nonenlarged mediastinal and hilar lymph nodes, some calcified. Heart is enlarged. Small pericardial effusion noted, greater volume posteriorly. Coronary artery and aortic calcifications are present. The thoracic aorta measures up to 3 cm diameter. There is no aortic dissection or periaortic hemorrhage. There are minimal atherosclerotic calcifications in the aorta. There is tortuosity of the descending aorta. Aortic valvular calcifications noted. Origins of the great vessels are patent. There is some tortuosity of the right axillary artery with associated areas of narrowing, note series 5 images 22 and 32, with similar findings on the left on images 24 and 29. There is no hemodynamically significant stenosis of the celiac, superior mesenteric or left renal arteries. Right kidney has been resected. Dependent atelectasis in both lower lobes. Stable anterior right lung scarring. No pleural effusion or pneumothorax identified. Homogeneous 1.2 cm cystic lesion of the superior pancreatic tail series 9 image 85 and additional cystic lesion in the region of the uncinate process measuring 1.4 cm on image 113 are both stable from recent abdominal imaging. Left mastectomy changes noted. Degenerative changes present throughout the spine. Heterogeneous bone mineralization noted. IMPRESSION: 1. No aortic dissection or other acute abnormality of the chest. 2. Cardiomegaly. Small pericardial effusion. 3. Ancillary findings as described. EXAM: CHEST ONE VIEW, FRONTAL VIEW ONLY. HISTORY: Chest pain. COMPARISON: 01/27/2024. FINDINGS: The heart size is normal. There is no pulmonary vascular congestion. The lungs are clear save for calcified granulomatous changes. No pleural effusion or pneumothorax is seen. No acute osseous abnormality is identified. Postsurgical changes of the left breast and axilla again noted. Clips noted in the right abdomen. Since the prior study, there has been no significant interval change. IMPRESSION: No acute cardiopulmonary process. Review Statement Review Statement: I have independently reviewed and interpreted the labs/EKGs/imaging that were ordered by the ER provider. I have reviewed all outside records that are available currently in our EMR including imaging/notes/labs from previous visits. Plan Plan: 1. Chest pain - Trend trops and EKG. Check lipase. CTA negative. Plan for stress echo tomorrow by Dr. George Izaguirre. 2. Hyperlipidemia - Cont home meds 3. Hypertension - Cont home meds 4. GERD - Cont home meds - give protonix and pepcid IV now to see if symptoms improve. 5. DMT2 - Cont home meds, usually well controlled 6. A fib - Cont home meds DVT Prophylaxis: Eliquis Time Spent: Greater than 80 minutes spent with patient, 50% of the time spent with this patient was devoted to counseling and coordination of care. Advanced Care Plannin minutes spent discussing advance care planning. Admit to: Obs Discussed Plan of Care with Dr. Sharyn Izaguirre. Medications Medication Orders: Medications Ordered Category Date Time Status Nitroglycerin [Nitrostat] Meds 04/12/24 10:10 Active 0.4 mg SL Q5MIN X 3 DOSES PRN
[2024-04-12] MEDS ORDERED: TYLENOL PO PRN (14:41)
[2024-04-12] MEDS ORDERED: ZOFRAN 4 MG/2 ML IVP PRN (14:41)
[2024-04-12 15:13] VITALS: BMI 26.3
[2024-04-12] MEDS: PEPCID IVP ONE (15:43)
[2024-04-12] MEDS: PROTONIX IVP ONE (15:44)
[2024-04-12] MEDS ORDERED: DUONEB NEB PRN (16:11)
[2024-04-12] MEDS ORDERED: VENTOLIN HFA IH PRN (16:11)
[2024-04-12] MEDS: MYLANTA XTRA STRENGTH 30ML CUP PO ONE (16:13)
[2024-04-12] MEDS: LIDOCAINE VISCOUS 2% 15 ML UD MUCOUSMEMB ONE (16:14)
[2024-04-12] MEDS: NEURONTIN PO SCH (16:57)
[2024-04-12] MEDS: FERROUS SULFATE PO SCH (16:57)
[2024-04-12] MEDS: PRAVACHOL PO SCH (16:57)
[2024-04-12] MEDS: ULTRAM PO PRN (16:58)
[2024-04-12] MEDS: XANAX PO PRN (16:58)
[2024-04-12] MEDS: COZAAR PO SCH (16:58)
[2024-04-12] MEDS ORDERED: PROTONIX PO SCH (17:00)
[2024-04-12] MEDS: BRIMONIDINE 0.1% RIGHTEYE SCH (20:41)
[2024-04-12] MEDS: ELIQUIS PO SCH (20:41)
[2024-04-12] MEDS: VITAMIN D PO SCH (20:41)
[2024-04-12] MEDS: XALATAN EACHEYE SCH (20:42)
[2024-04-12] MEDS ORDERED: NON-FORMULARY MEDICATION (Ferrous Sulfate [Iron] 325 mg (65 mg iron) Tablet) PO SCH (21:00)
[2024-04-12] MEDS ORDERED: PEPCID PO SCH (21:00)
[2024-04-12] MEDS ORDERED: SYMBICORT 160-4.5 MCG INHALER IH SCH (21:00)
[2024-04-12] MEDS: NON-FORMULARY MEDICATION (Fluticasone Propion-Salmeterol 250-50 mcg/dose blister with devi INH SCH (21:10)
[2024-04-12] MEDS: NORVASC PO SCH (21:52)
[2024-04-13] MEDS: PROTONIX PO SCH (05:28)
[2024-04-13 05:35] LABS: BASOPHILS % (AUTO) 0.3 % (0.0-3.0); EOSINOPHILS # (AUTO) 0.1 K/ul (0.0-0.7); EOSINOPHILS % (AUTO) 1.9 % (0.0-7.0); HEMATOCRIT 34.6 % (37.0-47.0); HEMOGLOBIN 11.4 g/dl (12.0-16.0); IMMATURE GRANULOCYTE % (AUTO) 0.3 % (0.0-5.0); LYMPHOCYTES # (AUTO) 1.2 K/uL (0.60-3.4); LYMPHOCYTES % (AUTO) 19.8 (10.0-50.0); MEAN CORPUSCULAR HEMOGLOBIN 29.8 pg (27.0-31.0); MEAN CORPUSCULAR HGB CONC 32.9 (31.8-35.4); MEAN CORPUSCULAR VOLUME 90.3 fl (81.0-99.0); MONOCYTES # (AUTO) 0.5 K/uL (0.4-2.0); MONOCYTES % (AUTO) 8.5 (0-10); NEUTROPHILS # (AUTO) 4.3 K/ul (2.0-6.9); NEUTROPHILS % (AUTO) 69.2 % (42.2-75.2); PLATELET COUNT 250 10^3/uL (140-440); RDW COEFFICIENT OF VARIATION 13.2 % (11.6-14.8); RED BLOOD COUNT 3.83 10^6/ul (4.20-5.40); WHITE BLOOD COUNT 6.21 K/ul (4.6-10.2)
[2024-04-13 05:50] LABS: ALANINE AMINOTRANSFERASE 15.7 U/L (0-35); ALBUMIN 4.21 g/dL (3.5-5.0); ALKALINE PHOSPHATASE 63.3 U/L (53-141); ASPARTATE AMINO TRANSFERASE 26.9 U/L (14-36); BLOOD UREA NITROGEN 19.2 mg/dL (7-17); CALCIUM 9.38 mg/dL (8.4-10.2); CARBON DIOXIDE 24.2 mmol/L (22-30.0); CHLORIDE 103.6 mmol/L (98-107); CREATININE 1.45 mg/dL (0.60-1.30); GLUCOSE 109.2 mg/dL (74-106); POTASSIUM 3.87 mmol/L (3.5-5.1); SODIUM 137.1 mmol/L (134.5-145); TOTAL PROTEIN 6.82 g/dL (6.3-8.2)
[2024-04-13 06:02] LABS: TROPONIN I < 0.012 ng/ml (0.0000-0.120)
[2024-04-13] MEDS: PEPCID PO SCH (08:56)
[2024-04-13] MEDS: TUMS CHEWABLE PO SCH (08:56)
[2024-04-13] MEDS: JANUVIA PO SCH (08:57)
[2024-04-13] MEDS ORDERED: NON-FORMULARY MEDICATION (Calcium 600 mg Capsule) PO SCH (09:00)
[2024-04-13] MEDS ORDERED: CALCIUM 500 + VIT D 5 MCG (200 IU) TABLET PO SCH (09:00)
--- NOTE | 2024-04-13 12:59 | STRESSMOD ---
Date of Test: 04/13/2024 Ordering Physician: DR. LAM (PCP) , Damon BARAHONA APRN (HOSPITALIST) Reason for Exam: CHEST PAIN, ATRIAL FIBRILLATION, HYPERTENSION, CHRONIC OBSTRUCTIVE PULMONARY DISEASE. Smoking History: NONE Height: 62 in Weight: 66.2 kg 147 lbs Occupation:RETIRED Current Medications: ACETAMINOPHEN, ALBUTEROL HFA, ALPRAZOLAM, AMLODIPINE, BRIMONIDINE, CALCIUM, CHOLECALCIFEROL, COMBIVENT, CYANOCOBALAMIN, DICLOFENAC SODIUM, ELIQUIS, FAMOTIDINE, FERROUS SULFATE, FLUOROMETHOLONE, FLUTICASONE PROPION-SALMETEROL, GABAPENTIN, IPRATROPIUM-ALBUTEROL NEBULIZER, JANUVIA, LATANOPROST, LOSARTAN, PANTOPRAZOLE, PRAVASTATIN, TRAMADOL Resting EKG: ATRIAL FIBRILLATION Target Heart Rate: 114 Oxygen Saturation at Rest: 98% ROOM AIR S-T SEGMENT STAGE MPH/GRADE HEART RATE BPM BLOOD PRESSURE mmhg RHYTHM +/- ELEVATION DEPRESSION SYMPTOMS At Rest 71 148/82 A FIB X NONE 1 1.7/0% 109 166/74 A FIB X NONE 2 1.7/5% 3 1.7/10% 4 2.5/12% 5 3.4/14% Immediately After 115 A FIB X TIRED Minutes Post Exercise 1 84 166/78 A FIB X NONE Minutes Post Exercise 5 70 128/80 A FIB X NONE DURATION OF EXERCISE: 2 MINUTES 15 SECONDS MAXIMUM HEART RATE REACHED: 115 REASON FOR TERMINATION: TIRED OXYGEN SATURATION WITH EXERCISE: 96% ON ROOM AIR METS 2.3 INTERPRETATION: 1. NO EVIDENCE OF ISCHEMIA BY ST-T WAVE. 2. BLOOD PRESSURE RESPONSE NORMAL. 3. NO CHEST PAIN OR DISCOMFORT. 4. NORMAL LEFT VENTRICULAR CONTRACTILITY AT REST AND POST EXERCISE. MTDD
--- NOTE | 2024-04-13 13:37 | DCSUM ---
Admission Date Admission Date: 04/13/24 Discharge Date Discharge Date: 04/12/24 Admission Diagnosis Admission Diagnosis: 1. Chest pain Discharge Diagnosis Discharge Diagnosis: 1. Chest pain 2. Hyperlipidemia 3. Hypertension 4. GERD 5. DMT2 6. A fib Hospital Provider Hospital Provider: JOCELYNE BARAHONA PA-C, [facility] Primary Care Physician Primary Care Physician: NIKKO LAM MD Summary of History and Physical Summary of History and Physical: Patient is an 83 year old female with pmhx of a fib, COPD, DMT2, hypertension, hyperlipidemia, who presents from home for worsening chest/back discomfort. She states that she has been having thoracic back pain near her bra line for the past 1 week. She saw her PCP and was instructed to take tramadol. She states that this has not helped much. Then yesterday it worsened and felt more like chest pain in her chest. She denies history of RI or heart catheterization. She states she had a stress test a few years ago. She has a hard time characterizing the pain, states "it just hurts". She was given nitro in the ER which she states helped. She states she has also been taking Pepcid which has helped as well. Denies any nausea or vomiting or diaphoresis. Denies smoking. Lives at home with her daughter. In ER chest x-ray was negative, CTA chest was done despite her lower GFR due to concern for aortic dissection. Imaging was unremarkable. Trop was negative. No significant changes on EKG. She is in A- fib which is typical for her. Admitted to [facility] for chest pain rule out. Hospital Course Subjective: Patient's trops were negative. Remained a fib on tele. Stress test by Dr. George Lam negative. Patient's chest pain resolved. It was improved with protonix, pepcid, and mylanta. Could be more acid related pain. She states she recently added pepcid at home and felt that had helped. Will continue with addition of pepcid. F/u with pcp. Patient agrees to plan of care. Appearance: Pleasant, No Apparent Distress and Alert HEENT: MMM and Supple CVS: Other (irregularly irregular ) Abdomen: Soft, Non-Tender and No Distention Respiratory: No Accessory Muscle Use Extremities: No Edema Vital Signs: Most Recent Vital Signs Temperature 98.1 F 04/13/24 10:00 Temperature Source Temporal Artery Scan 04/13/24 10:00 Temperature Source Infrared 04/12/24 09:48 Pulse Rate 68 04/13/24 10:00 Respiratory Rate 14 04/13/24 10:00 Blood Pressure 128/56 L 04/13/24 10:00 Blood Pressure Mean 80 04/13/24 10:00 Blood Pressure Right Arm 177/97 04/12/24 14:20 Blood Pressure Location Right Arm 04/13/24 10:00 Blood Pressure Position Supine 04/13/24 06:00 O2 Sat by Pulse Oximetry 97 04/13/24 10:00 Oxygen Delivery Method Room Air 04/13/24 13:00 Height 5 ft 2 in 04/12/24 14:20 Weight 65.3 kg 04/12/24 14:20 Telemetry Type Remote Telemetry 04/13/24 13:00 Telemetry Monitoring Continues 04/13/24 13:00 Irregular Telemetry Rate (Approximate) 70-80 BPM 04/13/24 13:00 Telemetry Heart Rate 73 04/13/24 13:00 Telemetry SPO2 93 04/06/24 09:02 EKG QRS Interval 0.05 L 04/13/24 13:00 Telemetry Strip Reading AFIB 04/13/24 13:00 Imaging: EXAM: CT ANGIOGRAM CHEST. HISTORY: Mid chest pain radiating to the back. Evaluate for aortic dissection. COMPARISON: Radiograph earlier the same day. CT 01/27/2024. TECHNIQUE: Multiple axial images of the chest were obtained following intravenous administration of 50 mL Visipaque 320, low osmolar. Images reformatted in the sagittal and coronal planes. Three-dimensional reconstructed images were created on an independent workstation. FINDINGS: Small low-density left thyroid nodule Nonenlarged mediastinal and hilar lymph nodes, some calcified. Heart is enlarged. Small pericardial effusion noted, greater volume posteriorly. Coronary artery and aortic calcifications are present. The thoracic aorta measures up to 3 cm diameter. There is no aortic dissection or periaortic hemorrhage. There are minimal atherosclerotic calcifications in the aorta. There is tortuosity of the descending aorta. Aortic valvular calcifications noted. Origins of the great vessels are patent. There is some tortuosity of the right axillary artery with associated areas of narrowing, note series 5 images 22 and 32, with similar findings on the left on images 24 and 29. There is no hemodynamically significant stenosis of the celiac, superior mesenteric or left renal arteries. Right kidney has been resected. Dependent atelectasis in both lower lobes. Stable anterior right lung scarring. No pleural effusion or pneumothorax identified. Homogeneous 1.2 cm cystic lesion of the superior pancreatic tail series 9 image 85 and additional cystic lesion in the region of the uncinate process measuring 1.4 cm on image 113 are both stable from recent abdominal imaging. Left mastectomy changes noted. Degenerative changes present throughout the spine. Heterogeneous bone mineralization noted. IMPRESSION: 1. No aortic dissection or other acute abnormality of the chest. 2. Cardiomegaly. Small pericardial effusion. 3. Ancillary findings as described. EXAM: CHEST ONE VIEW, FRONTAL VIEW ONLY. HISTORY: Chest pain. COMPARISON: 01/27/2024. FINDINGS: The heart size is normal. There is no pulmonary vascular congestion. The lungs are clear save for calcified granulomatous changes. No pleural effusion or pneumothorax is seen. No acute osseous abnormality is identified. Postsurgical changes of the left breast and axilla again noted. Clips noted in the right abdomen. Since the prior study, there has been no significant interval change. IMPRESSION: No acute cardiopulmonary process. Date of Test: 04/13/2024 Ordering Physician: DR. LAM (PCP) , Damon BARAHONA APRN (HOSPITALIST) Reason for Exam: CHEST PAIN, ATRIAL FIBRILLATION, HYPERTENSION, CHRONIC OBSTRUCTIVE PULMONARY DISEASE. Smoking History: NONE Height: 62 in Weight: 66.2 kg 147 lbs Occupation:RETIRED Current Medications: ACETAMINOPHEN, ALBUTEROL HFA, ALPRAZOLAM, AMLODIPINE, BRIMONIDINE, CALCIUM, CHOLECALCIFEROL, COMBIVENT, CYANOCOBALAMIN, DICLOFENAC SODIUM, ELIQUIS, FAMOTIDINE, FERROUS SULFATE, FLUOROMETHOLONE, FLUTICASONE PROPION-SALMETEROL, GABAPENTIN, IPRATROPIUM-ALBUTEROL NEBULIZER, JANUVIA, LATANOPROST, LOSARTAN, PANTOPRAZOLE, PRAVASTATIN, TRAMADOL Resting EKG: ATRIAL FIBRILLATION Target Heart Rate: 114 Oxygen Saturation at Rest: 98% ROOM AIR S-T SEGMENT STAGE MPH/GRADE HEART RATE BPM BLOOD PRESSURE mmhg RHYTHM +/- ELEVATION DEPRESSION SYMPTOMS At Rest 71 148/82 A FIB X NONE 1 1.7/0% 109 166/74 A FIB X NONE 2 1.7/5% 3 1.7/10% 4 2.5/12% 5 3.4/14% Immediately After 115 A FIB X TIRED Minutes Post Exercise 1 84 166/78 A FIB X NONE Minutes Post Exercise 5 70 128/80 A FIB X NONE DURATION OF EXERCISE: 2 MINUTES 15 SECONDS MAXIMUM HEART RATE REACHED: 115 REASON FOR TERMINATION: TIRED OXYGEN SATURATION WITH EXERCISE: 96% ON ROOM AIR METS 2.3 INTERPRETATION: 1. NO EVIDENCE OF ISCHEMIA BY ST-T WAVE. 2. BLOOD PRESSURE RESPONSE NORMAL. 3. NO CHEST PAIN OR DISCOMFORT. 4. NORMAL LEFT VENTRICULAR CONTRACTILITY AT REST AND POST EXERCISE. Lab Results Last 24 Hours: 04/13/24 04/12/24 04/12/24 05:18 21:00 14:50 WBC 6.21 RBC 3.83 L Hgb 11.4 L Hct 34.6 L MCV 90.3 MCH 29.8 MCHC 32.9 RDW Coeff of Trinity 13.2 Plt Count 250 Immature Gran % (Auto) 0.3 Neut % (Auto) 69.2 Lymph % (Auto) 19.8 [place] % (Auto) 8.5 Eos % (Auto) 1.9 Baso % (Auto) 0.3 Neut # (Auto) 4.3 Lymph # (Auto) 1.2 [place] # (Auto) 0.5 Eos # (Auto) 0.1 Baso # (Auto) 0.0 Immature Gran # (Auto) 0.0 Sodium 137.1 Potassium 3.87 Chloride 103.6 Carbon Dioxide 24.2 Anion Gap 13.17 BUN 19.2 H Creatinine 1.45 H Estimated GFR (MDRD) 34.00 BUN/Creatinine Ratio 13.24 Glucose 109.2 H Calcium 9.38 Total Bilirubin 0.40 AST 26.9 ALT 15.7 Alkaline Phosphatase 63.3 Troponin I < 0.012 < 0.012 < 0.012 Total Protein 6.82 Albumin 4.21 Globulin 2.61 Albumin/Globulin Ratio 1.61 Lipase 23.4 SARS CoV-2 RNA Rapid NICOLE 04/12/24 13:15 WBC RBC Hgb Hct MCV MCH MCHC RDW Coeff of Trinity Plt Count Immature Gran % (Auto) Neut % (Auto) Lymph % (Auto) [place] % (Auto) Eos % (Auto) Baso % (Auto) Neut # (Auto) Lymph # (Auto) [place] # (Auto) Eos # (Auto) Baso # (Auto) Immature Gran # (Auto) Sodium Potassium Chloride Carbon Dioxide Anion Gap BUN Creatinine Estimated GFR (MDRD) BUN/Creatinine Ratio Glucose Calcium Total Bilirubin AST ALT Alkaline Phosphatase Troponin I Total Protein Albumin Globulin Albumin/Globulin Ratio Lipase SARS CoV-2 RNA Rapid NICOLE Negative Discharge Instructions Discharge Planning: Discharge Planning > [address] Sharyn Lam. Discharge Medications: Medications at Discharge (Home Meds & RX) Discharge Plan Discharge Discharge Orders: Discharge Patient (ONCE); Ordered 04/13/24 Ordered By: JOCELYNE BARAHONA Activity Restrictions/Additional Instructions: DISCHARGE TO HOME DX: CHEST PAIN DIET: HEART HEALTHY ACTIVITY: TOLERATED MAKE SURE YOURE TAKING YOUR PANTOPRAZOLE (PROTONIX) CONTINUE PEPCID 20 MG TWICE DAILY Patient Disposition: HOME SELF-CARE Prescriptions: Continued albuterol sulfate 90 mcg/actuation HFA aerosol inhaler 2 inh inhalation Q4-6H PRN (Reason: shortness of breath or wheezing) Qty: 6.7 0RF Combivent Respimat 20-100 mcg/actuation mist 1 puff INHALATION BID PRN (Reason: Shortness Of Breath) Qty: 4 2RF fluticasone propion-salmeterol 250-50 mcg/dose blister with device See Rx Instructions .ROUTE .COMPLEX Qty: 60 2RF Dose Instruction: INHALE 1 PUFF BY MOUTH 2 TIMES A DAY Rx Instructions: INHALE 1 PUFF BY MOUTH 2 TIMES A DAY ipratropium-albuterol 0.5 mg-3 mg(2.5 mg base)/3 mL solution for nebulization 3 ml NEB RTQ6H PRN (Reason: COPD J44.9) Qty: 90 1RF Eliquis 2.5 mg tablet 2.5 mg PO BID Qty: 60 2RF Januvia 25 mg tablet 25 mg PO DAILY Qty: 30 2RF cyanocobalamin (vitamin B-12) [Vitamin B-12] 1,000 MCG tablet extended release 1,000 mg PO DAILY cholecalciferol (vitamin D3) [Vitamin D3] 25 mcg (1,000 unit) tablet 2,000 unit PO BEDTIME acetaminophen 325 mg Tablet 650 mg PO Q6H PRN (Reason: Pain) fluorometholone 0.1 % Drops,Suspension 1 drp BOTHEYES EVERY OTHER DAY calcium 600 mg Capsule 600 mg PO DAILY ferrous sulfate [iron] 325 mg (65 mg iron) Tablet 325 mg PO BID latanoprost 1 DROP drops 1 drp BOTHEYES BEDTIME Rx Instructions: 0.005% diclofenac sodium See Rx Instructions topical .qid PRN (Reason: Arthritic Pain) Rx Instructions: Apply to skin over affected area topically QID PRN; alprazolam [Xanax] 0.25 mg tablet 0.25 mg PO DAILY PRN (Reason: Anxiety) Qty: 90 1RF amlodipine [Norvasc] 5 mg tablet 5 mg PO BEDTIME Qty: 90 1RF nebulizer See Rx Instructions .ROUTE .COMPLEX Qty: 1 0RF Rx Instructions: Npixibzs-gxzbos-[id number]; brimonidine 0.1 % drops 1 drp RIGHTEYE BID famotidine 20 mg tablet 20 mg PO BID gabapentin 100 mg capsule 100 mg PO QDAY losartan 100 mg tablet 100 mg PO QDAY pantoprazole 40 mg tablet,delayed release (DR/EC) 40 mg PO BID pravastatin 40 mg tablet 40 mg PO QDAY tramadol 50 mg tablet 50 mg PO TID PRN (Reason: pain) Qty: 90 2RF No Action (DME) nebulizer accessories Kit See Rx Instructions .ROUTE Qty: 1 0RF Rx Instructions: As directed Did you review [place] [employer] for ALL controlled substances?: Not Applicable Discussed opioids are addictive and Narcan is available by prescription or from pharmacy.: No Condition: Stable Referrals: NIKKO LAM MD [Primary Care Provider] - 04/19/24 10:40 am
[2024-04-13 14:33] VITALS: BP 122/74; PULSE 77; RESP 18; TEMP 98.3
--- NOTE | 2024-04-14 08:29 | HOLTER ---
PATIENT INFORMATION AND COMMENTS Attending Physician: Indications: __ Patient Medications: __ Pre-procedure Summary: Protocol: Standard Heart Rate Started: Minimum: Weight: kg lbs Ended: Maximum: Height: Duration: Average: _ INTERPRETATIONS/OBSERVATIONS: 1. 2. 3. 4. MTDD
[2024-04-14] MEDS ORDERED: NON-FORMULARY MEDICATION (Fluorometholone 0.1 % Drops,Suspension) EACHEYE SCH (09:00)
--- NOTE | 2024-04-14 12:36 | ECHOSTRESS ---
Date of Exam: 04/13/2024 Ordering Physician: HOSP. HEAD/ PCP BPATEL Reason for Echo: CHEST PAIN, A-FIB, HTN, COPD, STRESS TEST--NO ISCHEMIA M-Mode Normal Adult Results LV Dimensions Normal Adult Results AoV Opening excursions >1.6 LVEDD-base- 3.5-5.8 Ao root dimensions 2.0-3.7 LVESD-base- 3.1-4.6 L. Atrium dimensions 1.9-3.8 Post. Wall thickness 0.8-1.1 IV septum (thickness) 0.7-1.2 Post. Wall excursion 0.72-1.3 Septal motion Systolic motion R. Ventricular cavity 1.5-2.0 LVEF 60% Paradoxical septal wall motion 2-D: NORMAL LEFT VENTRICLE CONTRACTILITY--RESTING AND POST EXERCISE M-MODE: MV: AV: TV: PV: CHAMBER SIZE: WALL MOTION: NORMAL LEFT VENTRICLE CONTRACTILITY--RESTING AND POST EXERCISE PERICARDIUM: INTERPRETATION: 1. NORMAL LEFT VENTRICLE CONTRACTILITY--RESTING AND POST EXERCISE MTDD
--- NOTE | 2024-04-14 12:41 | ECHO2D ---
Date of Exam: 04/13/2024 Ordering Physician: CARLITO HEAD/ PCP BPATEL Room #: [id number] Reason for Echo: CHEST PAIN, A-FIB, HTN, COPD M-Mode Normal Adult Results LV Dimensions Normal Adult Results AoV Opening excursions >1.6 >1.6 LVEDD-base- 3.5-5.8 4.4 Ao root dimensions 2.0-3.7 3.2 LVESD-base- 3.1-4.6 L. Atrium dimensions 1.9-3.8 5.0 Post. Wall thickness 0.8-1.1 1.2 IV septum (thickness) 0.7-1.2 1.1 Post. Wall excursion 0.72-1.3 NORMAL Septal motion NORMAL Systolic motion R. Ventricular cavity 1.5-2.0 NORMAL LVEF 60% 55% Paradoxical septal wall motion NORMAL 2-D : 2-D M Mode Echocardiogram was performed using apical four chamber and left parasternal long and short axis views. Mitral, tricuspid and aortic valves appear to be normal. Contractility of the left ventricle seems to be normal, so is the cavity size. Left atrial cavity size and aortic root appear to be normal. There is no pericardial effusion. There is no thrombus noted in the left ventricle or left atrial cavity. COLOR FLOW: MODERATE TO SEVERE AORTIC REGURGITATION, MILD MITRAL REGURGITATION M-MODE: MV: NORMAL AV: NORMAL TV: NORMAL PV: CHAMBER SIZE: ENLARGED LEFT ATRIAL CAVITY WALL MOTION: NORMAL PERICARDIUM: NORMAL INTERPRETATION: 1. LEFT VENTRICLE HYPERTROPHY BORDERLINE WITH ENLARGED LEFT ATRIAL CAVITY 2. LEFT VENTRICLE SIZE AND CONTRACTILITY--NORMAL 3. VALVES--2 "D" "M" MODE ECHO--NORMAL 4. COLOR FLOW: MODERATE TO SEVERE AORTIC REGURGITATION AND MILD MITRAL REGURGITATION MTDD
== END 2024-04-13 15:00 | disposition home or self-care (01) ==
LOC: MEDSURG B 09:46 → ED 09:46 → MEDSURG B 14:44
PROVIDERS: ADMIT Hospitalist; ATTEND Physician Assistant
DX: E04.1 Nontoxic single thyroid nodule; I48.91 Unspecified atrial fibrillation; Z51.81 Encounter for therapeutic drug level monitoring; Z90.5 Acquired absence of kidney; Z79.899 Other long term (current) drug therapy; Z20.822 Contact with and (suspected) exposure to COVID-19; I51.7 Cardiomegaly; Z79.01 Long term (current) use of anticoagulants; N18.9 Chronic kidney disease, unspecified; K21.9 Gastro-esophageal reflux disease without esophagitis; E78.5 Hyperlipidemia, unspecified; J98.11 Atelectasis; R11.0 Nausea; R07.9 Chest pain, unspecified; I10 Essential (primary) hypertension; Z79.84 Long term (current) use of oral hypoglycemic drugs; E11.9 Type 2 diabetes mellitus without complications